=== PATIENT | female | born 1960 | race Caucasian/White ===

== ENCOUNTER 2017-01-16 19:41 | Emergency (ER) | payer BC, OTHER ==
[~2017-01-16] VITALS: Wt 137.0 kg
[~2017-01-16 19:41] MED LIST: ADV50050 INHALATION; ALBU90AE INHALATION; ASPI-664 PO; AZIT250T94 PO; BUPR100T14 PO; ENAL5TAB PO; FLUO20CA22 PO; FURO20TA3 PO; GABA-526 PO; HYD25 PO; HYDR-762 PO; ISOS10TA2 PO; LANT3I SC; METF500T4 PO; METR500T PO; MORP-58 PO; NOVO3I SC; NYST15CR28 TOP; TIOT18CA INHALATION; ZOLP5TAB7 PO
[2017-01-16] MEDS ORDERED: ONDANSETRON (ODT) 4 MG TAB ODT STA (21:24)
[2017-01-16] MEDS ORDERED: HYDROCODONE/APAP (10/325) TAB PO ONE (21:30)
--- NOTE | 2017-01-16 22:15 | RADRPT ---
PROCEDURE: Lumbar spine. CLINICAL INDICATION: Low back pain. TECHNIQUE: Three views including AP, lateral and cone-down lateral view of the lumbar spine were obtained. COMPARISON: None. FINDINGS: There is no acute fracture or subluxation. Lumbar vertebral body heights and alignment are within n ormal limits. There is mild loss of disk height at L2-L3, L3-L4, L4-L5 and L5-S1 with small anterio r marginal osteophytes present. There is multilevel facet degenerative changes. There is diffuse d emineralization. IMPRESSION: No evidence of fracture or subluxation. Mild to moderate lumbar spondylosis. Osteopenia. .Joey Prado MD, Date Time Electronically viewed and signed by .Joey Prado MD, MD on 01/16/2017 22:14 .T/
--- NOTE | 2017-01-16 22:20 | RADRPT ---
PROCEDURE: Right foot. CLINICAL INDICATION: Pain. TECHNIQUE: Three views including AP, lateral and oblique views of the right foot were obtained. The images were reviewed on a PACS workstation. COMPARISON: None. FINDINGS: There is no fracture, dislocation or bone destruction. The joint spaces are within normal limits. Bone mineralization is within normal limits. There is a plantar calcaneal spur. There is a 7 mm valeriy ear radiodensity within the plantar soft tissues at the level of the distal third metatarsal. IMPRESSION: No evidence of fracture. Linear foreign body within the plantar soft tissues at the level of the distal third metatarsal. Cli nically correlate. Calcaneal spur. .Joey Prado MD, Date Time Electronically viewed and signed by .Joey Prado MD, on 01/16/2017 22:20 .T/
--- NOTE | 2017-01-16 22:54 | RADRPT ---
PROCEDURE: US Abdomen (limited). CLINICAL INDICATION: Trauma. Abdominal pain. TECHNIQUE: Multiple real-time longitudinal and transverse images of the four quadrants of the abdo men were acquired utilizing a curved array transducer. Images were reviewed on a high-resolution PAC S workstation. COMPARISON: None FINDINGS: There is no free fluid in the abdomen. IMPRESSION: 1. No free fluid in the abdomen. RPTAT: QQ .Ron Thomas MD, MD Date Time Electronically viewed and signed by .Ron Thomas MD, on 01/16/2017 22:54 .R/
[2017-01-16] MEDS ORDERED: IBUP-1542 PO (23:09)
[2017-01-16 23:16] VITALS: BP 109/57; PULSE 86; RESP 20; TEMP 97.8
--- NOTE | 2017-01-20 15:31 | ERD ---
ER Documentation Chief Complaint Date/Time DATE: 01/20/17 TIME: 15:27 Chief Complaint Fell on the stairs. back pain x4 hours. HPI This patient is a 56-year-old female presenting to the emergency department for left-sided lower paraspinal lumbar pain which occurred after fall backwards onto the stairs approximately 5 hours ago. She also reports right foot pain which occurred during the accident. Symptoms are currently severe according the patient. She denies head injury, loss of consciousness, or other injuries or symptoms. ROS All systems reviewed and are negative except as per history of present illness. Medications Home Meds Active Scripts Ibuprofen* (Motrin*) 600 Mg Tab, 600 MG PO Q6, #30 TAB Prov:AILYN VIZCARRA PA-C 01/16/17 Azithromycin* (Zithromax*) 250 Mg Tablet, 250 MG PO .RkPACK DIRECTED, #6 TAB TAKE 500 MG (2 TABS) THE FIRST DAY THEN 250 MG (1 TAB) DAYS 2-5 Prov:MIKHAIL FRANCIS MD 05/13/16 Furosemide* (Furosemide*) 20 Mg Tablet, 20 MG PO DAILY, #60 TAB Prov:CEVALLOS,FELISHA V. FILLING STATION LABORER 04/16/16 Metronidazole* (Flagyl*) 500 Mg Tablet, 500 MG PO Q8 for 7 Days, TAB Prov:CEVALLOS,FELISHA V. FILLING STATION LABORER 04/16/16 Insulin Aspart* (Novolog Insulin Pen*) 100 Unit/Ml Soln, 20 UNIT SC WITH MEALS for 30 Days Prov:CEVALLOS,FELISHA V. FILLING STATION LABORER 04/16/16 Insulin Glargine* (Lantus*) 100 Unit/Ml Soln, 42 UNIT SC Q12 for 30 Days Prov:CEVALLOSFELISHA V. FILLING STATION LABORER 04/16/16 Reported Medications Nystatin* (Nystatin*) 15 Gm Cr, 1 APPLIC TOP BID, #1 TUB 04/09/16 Tiotropium [place]* (Spiriva*) 18 Mcg Cap.w.dev, 1 CAP INHALATION DAILY, #30 CAP 04/09/16 Salmeterol Xinaf-Fluticasone* (Advair*) 500/50 Diskus Inhaler, 1 INH INHALATION BID, #1 INHALER 04/09/16 Albuterol Sulfate (Proair Respiclick) 90 Mcg Aer.pow.ba, 2 PUFFS INHALATION Q4, BOTTLE 04/09/16 Morphine Sulfate* (Oramorph SR*) 30 Mg Tablet.sa, 30 MG PO BID, TAB.SA 04/09/16 Hydrocodone Bit-Acetaminophen* ([place]*) 10-325 Mg Tablet, 1 TAB PO TID Y for PAIN, TAB 04/09/16 Hydrochlorothiazide* (Hydrochlorothiazide*) 25 Mg Tab, 25 MG PO DAILY, #30 TAB 04/09/16 Fluoxetine Hcl* (Fluoxetine Hcl*) 20 Mg Capsule, 60 MG PO DAILY, CAP 04/09/16 Aspirin* (Aspirin* EC) 81 Mg Tablet.dr, 81 MG PO DAILY, TAB 04/09/16 Zolpidem Tartrate* (Zolpidem Tartrate*) 5 Mg Tablet, 5 MG PO QHS Y for INSOMNIA , #30 TAB 04/09/16 Isosorbide Dinitrate* (Isosorbide Dinitrate*) 10 Mg Tablet, 10 MG PO DAILY, TAB 04/09/16 Enalapril Maleate* (Enalapril Maleate*) 5 Mg Tablet, 5 MG PO DAILY, TAB 04/09/16 Bupropion Hcl* (Bupropion Hcl*) 100 Mg Tablet, 100 MG PO BID, TAB 04/09/16 Metformin* (Glucophage*) 500 Mg Tab, 1000 MG PO WITH LUNCH DINNER, #60 TAB 04/09/16 Gabapentin* (Gabapentin*) 600 Mg Tablet, 1800 MG PO TID, #180 TAB 04/09/16 Allergies Allergies: Coded Allergies: No Known Allergy (Unverified , 05/13/16) PMhx/Soc History of Surgery: Yes (csections) Anesthesia Reaction: No Hx Neurological Disorder: Yes (back pain) Hx Respiratory Disorders: Yes (copd, pna) Hx Cardiac Disorders: Yes (htn, high cholesterol) Hx Psychiatric Problems: Yes (depression/anxiety) Hx Alcohol Use: No Hx Substance Use: No Hx Tobacco Use: Yes Smoking Status: Current some day smoker Physical Exam Vitals Vital Signs Date Time Temp Pulse Resp B/P Pulse Ox O2 Delivery O2 Flow Rate FiO2 01/16/17 23:16 97.8 86 20 109/57 96 Room Air 01/16/17 19:51 100.3 110 24 103/54 95 Physical Exam Const: The patient is resting comfortably in no acute distress. Morbid obese body habitus noted. Head: Atraumatic Eyes: Normal Conjunctiva ENT: Normal External Ears, Nose and Mouth. Neck: Full range of motion..~ No meningismus. Resp: Clear to auscultation bilaterally Cardio: Regular rate and rhythm, no murmurs Abd: Soft, non tender, non distended. Normal bowel sounds Skin: No petechiae or rashes Back: No midline or flank tenderness. The patient has some tenderness palpation of the paraspinal muscles of the lumbar spine on the left. Positive straight leg raise on the left. Ext: No cyanosis, or edema. The patient does have some tenderness palpation of the second, third, and fourth toes on the right foot but no obvious deformity. Neur: Awake and alert Psych: Normal Mood and Affect Results 24 hrs Current Medications Medications (Trade) Dose Ordered Sig/Norma Route PRN Reason Start Time Stop Time Status Last Admin Dose Admin Acetaminophen/ Hydrocodone Bitart ([place] (10/325)) 1 tab ONCE ONCE PO 01/16/17 21:30 01/16/17 21:31 DC 01/16/17 21:33 Ondansetron HCl (Zofran Odt) 4 mg ONCE STAT ODT 01/16/17 21:24 01/16/17 21:26 DC 01/16/17 21:32 [place] [address] Radiology Main Line: [phone] DIAGNOSTIC IMAGING REPORT Patient: AMINA MERCADO : 1960 Age: 56 Sex: F MR #: [id number] DOS: 01/16/17 0000 Ordering MD: AILYN VIZCARRA PA-C Location: [facility] Room/Bed: PROCEDURE: US Abdomen (limited). CLINICAL INDICATION: Trauma. Abdominal pain. TECHNIQUE: Multiple real-time longitudinal and transverse images of the four quadrants of the abdomen were acquired utilizing a curved array transducer. Images were reviewed on a high-resolution PACS workstation. COMPARISON: None FINDINGS: There is no free fluid in the abdomen. IMPRESSION: 1. No free fluid in the abdomen. RPTAT: QQ .Ron Thomas MD, Date Time Electronically viewed and signed by .Ron Thomas MD, MD on 01/16/2017 22:54 .R/ CC: AILYN VIZCARRA PA-C [place] [address] Radiology Main Line: [phone] DIAGNOSTIC IMAGING REPORT Patient: AMINA MERCADO : 1960 Age: 56 Sex: F MR #: [id number] DOS: 01/16/17 0000 Ordering MD: AILYN VIZCARRA PA-C Location: [facility] Room/Bed: PROCEDURE: Right foot. CLINICAL INDICATION: Pain. TECHNIQUE: Three views including AP, lateral and oblique views of the right foot were obtained. The images were reviewed on a PACS workstation. COMPARISON: None. FINDINGS: There is no fracture, dislocation or bone destruction. The joint spaces are within normal limits. Bone mineralization is within normal limits. There is a plantar calcaneal spur. There is a 7 mm linear radiodensity within the plantar soft tissues at the level of the distal third metatarsal. IMPRESSION: No evidence of fracture. Linear foreign body within the plantar soft tissues at the level of the distal third metatarsal. Clinically correlate. Calcaneal spur. .Joey Prado MD, MD Date Time Electronically viewed and signed by .Joey Prado MD, MD on 01/16/2017 22:20 .T/ CC: AILYN VIZCARRA PA-C [place] [address] Radiology Main Line: [phone] DIAGNOSTIC IMAGING REPORT Patient: AMINA MERCADO : 1960 Age: 56 Sex: F MR #: [id number] DOS: 01/16/17 0000 Ordering MD: AILYN VIZCARRA PA-C Location: [facility] Room/Bed: PROCEDURE: Lumbar spine. CLINICAL INDICATION: Low back pain. TECHNIQUE: Three views including AP, lateral and cone-down lateral view of the lumbar spine were obtained. COMPARISON: None. FINDINGS: There is no acute fracture or subluxation. Lumbar vertebral body heights and alignment are within normal limits. There is mild loss of disk height at L2-L3 , L3-L4, L4-L5 and L5-S1 with small anterior marginal osteophytes present. There is multilevel facet degenerative changes. There is diffuse demineralization. IMPRESSION: No evidence of fracture or subluxation. Mild to moderate lumbar spondylosis. Osteopenia. .Joey Prado MD, MD Date Time Electronically viewed and signed by .Joey Prado MD, MD on 01/16/2017 22:14 .T/ CC: AILYN VIZCARRA PA-C Procedures/MDM This patient is a 56-year-old female who fell backwards onto her stairs approximately 5 hours prior to arrival. On physical examination the patient's vitals are within normal limits. The patient does have some tenderness palpation of the paraspinal muscles of the L-spine on the left side. Patient does have some tenderness palpation of the toes on the right. The patient was given p.o. Lenora and p.o. Zofran in the department and she was feeling improved on reevaluation. X-rays were negative for acute fracture. There was a foreign body found in the right foot which the patient does know about from a previous x -ray and she was re-informed of this finding and was advised to have close follow-up with the primary care physician. No obvious foreign body was identified or palpated during examination of the right foot. I have low suspicion for fracture, cauda equina, or other emergent conditions. The patient is stable for outpatient management with a prescription for ibuprofen. Her questions and concerns were addressed. Strict ER return precautions were discussed and the patient states good understanding. The patient is to have close follow-up with the primary care physician. Departure Diagnosis: Primary Impression: Fall (on) (from) other stairs and steps, initial encounter Condition: Fair Patient Instructions: Preventing Falls: Are You At Risk of Falling? Referrals: COMM[facility]ITY CL[facility] YOU HAVE RECEIVED A MEDICAL SCREENING EXAM AND THE RESULTS INDICATE THAT YOU DO NOT HAVE A CONDITION THAT REQUIRES URGENT TREATMENT IN THE EMERGENCY DEPARTMENT. FURTHER EVALUATION AND TREATMENT OF YOUR CONDITION CAN WAIT UNTIL YOU ARE SEEN IN YOUR DOCTORS OFFICE WITHIN THE NEXT 1-2 DAYS. IT IS YOUR RESPONSIBILITY TO MAKE AN APPOINTMENT FOR FOL-UP CARE. IF YOU HAVE A PRIMARY DOCTOR --you should call your primary doctor and schedule an appointment IF YOU DO NOT HAVE A PRIMARY DOCTOR YOU CAN CALL OUR PHYSICIAN REFERRAL HOTLINE AT IF YOU CAN NOT AFFORD TO SEE A PHYSICIAN YOU CAN CHOSE FROM THE FOLLOWING [facility] [address]. [facility] [address] [facility] [address] [facility] [address] [facility] [address] [facility] [facility]. [address] [place] Additional Instructions: Follow up with your PCP within the next 1-3 days for a repeat evaluation and a possible referral to a specialist, if required. Return the the emergency department immediately if symptoms worsen or change. If you have any questions regarding medications, ask your pharmacist or us before you leave. If any adverse reactions, occur while taking your medications, discontinue the treatment and return to the emergency department immediately. If any new or worsening symptoms, uncontrolled fevers, or other unexplained symptoms occur, return to the emergency department immediately. Take your medications as directed, and complete the entire course of treatment. AILYN VIZCARRA PA-C January 20, 2017 15:31
== END 2017-01-16 23:38 | disposition home or self-care (01) ==
LOC: FTE 19:41
DX: S39.92XA Unspecified injury of lower back, initial encounter (principal); J44.9 Chronic obstructive pulmonary disease, unspecified; I10 Essential (primary) hypertension; F17.210 Nicotine dependence, cigarettes, uncomplicated; E11.9 Type 2 diabetes mellitus without complications; W10.9XXA Fall (on) (from) unspecified stairs and steps, initial encounter; Y92.9 Unspecified place or not applicable; Z79.4 Long term (current) use of insulin; Z79.84 Long term (current) use of oral hypoglycemic drugs; Z79.82 Long term (current) use of aspirin
CPT/HCPCS: 72100; 73630; 76700; Z7610

== ENCOUNTER 2017-02-14 21:11 | Inpatient (IN) | payer OTHER ==
[~2017-02-14] VITALS: Ht 177.8 cm; Wt 139.6 kg
[~2017-02-14 21:11] MED LIST changes: +IBUP-1542 PO
[2017-02-14] MEDS ORDERED: SOD CHLORIDE 0.9% 1,000 ML IV STA (21:25)
[2017-02-14] MEDS ORDERED: ONDANSETRON 4 MG INJ IV STA (22:07)
[2017-02-14] MEDS ORDERED: morphine 4 MG/ML VIAL IV STA ×2 (22:07→23:37)
[2017-02-14 22:17] LABS: ADD SCAN DIFF NO
[2017-02-14 22:21] LABS: BASOPHIL # 0.1 10^3/ul (0.0-0.1); BASOPHILS % 0.7 % (0.0-2.0); EOSINOPHILS # 0.4 10^3/ul (0.0-0.5); EOSINOPHILS % 4.2 % (0.0-7.0); HEMATOCRIT 38.7 % (37.0-47.0); LYMPHOCYTES # 3.2 10^3/ul (0.8-2.9); LYMPHOCYTES % 38.4 % (15.0-51.0); MEAN CORPUSCULAR HEMOGLOBIN 27.3 pg (29.0-33.0); MEAN CORPUSCULAR VOLUME 88.2 fl (82.0-101.0); MEAN PLATELET VOLUME 11.1 fl (7.4-10.4); MONOCYTE # 0.8 10^3/ul (0.3-0.9); MONOCYTES % 9.7 % (0.0-11.0); NEUTROPHIL # 3.9 10^3/ul (1.6-7.5); NEUTROPHILS % 46.8 % (39.0-77.0); PLATELET COUNT 308 10^3/UL (140-415); RED BLOOD COUNT 4.39 10^6/ul (4.20-5.40); RED CELL DISTRIBUTION WIDTH 15.8 % (11.5-14.5); WHITE BLOOD COUNT 8.3 10^3/ul (4.8-10.8)
[2017-02-14 22:24] LABS: ADD UMIC YES; UR BILIRUBIN (Dip) NEGATIVE (NEGATIVE); UR BLOOD (Dip) TRACE (NEGATIVE); UR CLARITY CLEAR (CLEAR); UR COLOR LT. YELLOW (YELLOW); UR GLUCOSE (Dip) >=1000 % (NEGATIVE); UR KETONES (Dip) NEGATIVE (NEGATIVE); UR LEUKOCYTE ESTERASE (Dip) NEGATIVE (NEGATIVE); UR NITRITE (Dip) NEGATIVE (NEGATIVE); UR TOTAL PROTEIN (Dip) NEGATIVE (NEGATIVE); UR UROBILINOGEN (Dip) 0.2 E.U./dL (0.1-1.0)
--- NOTE | 2017-02-14 22:25 | RADRPT ---
PROCEDURE: Chest. CLINICAL INDICATION: Shortness of breath. TECHNIQUE: Single frontal view of the chest was obtained. COMPARISON: 05/03/2016. FINDINGS: The cardiac silhouette is magnified. The aortic arch is unremarkable. There is no focal consolidat ion, vascular congestion or pleural effusion. There is no pneumothorax. IMPRESSION: No evidence for active cardiopulmonary disease. .Joey Prado MD, Date Time Electronically viewed and signed by .Joey Prado MD, MD on 02/14/2017 22:25 .T/
[2017-02-14 22:33] LABS: UR BACTERIA RARE
[2017-02-14 22:45] LABS: ALANINE AMINOTRANSFERASE 22 IU/L (13-69); ALKALINE PHOSPHATASE 137 IU/L (42-121); ANION GAP 16 (8-16); ASPARTATE AMINO TRANSFERASE 12 IU/L (15-46); BLOOD UREA NITROGEN 17 mg/dl (7-20); CALCIUM 9.2 mg/dl (8.4-10.2); CARBON DIOXIDE 24 mmol/L (21-31); CHLORIDE 95 mmol/L (97-110); CREATININE 0.71 mg/dl (0.44-1.00); POTASSIUM 3.3 mmol/L (3.5-5.1); SODIUM 132 mmol/L (135-144)
[2017-02-14 22:50] LABS: GLUCOSE 616 mg/dl (70-220)
[2017-02-14 22:59] LABS: TROPONIN-I < 0.012 ng/ml (0.00-0.12)
[2017-02-14] MEDS ORDERED: CEFEPIME 2GM/50 ML (PMX) 50 ML IVPB STA (23:37)
[2017-02-14] MEDS ORDERED: SODIUM CHLORIDE 0.9% 1L BAG IV* STA (23:37)
[2017-02-15] MEDS ORDERED: VANCOMYCIN 1 GM (PMX) 250 ML IVPB ONE
--- NOTE | 2017-02-15 01:46 | ERA ---
ER Documentation Chief Complaint Date/Time DATE: 02/15/17 TIME: 01:43 Chief Complaint c/o high blood sugar, generalize body weakness x 1 day HPI This is a very pleasant 56 year female comes in because of elevated blood sugars and generalized body weakness for 1 day. Denies any fevers or chills. Denies any sick contacts. Denies polyuria polydipsia polyphagia. Does complain of some generalized body pain as well. No evidence of trauma. No other current complaints. ROS All systems reviewed and are negative except as per history of present illness. Medications Home Meds Active Scripts Ibuprofen* (Motrin*) 600 Mg Tab, 600 MG PO Q6, #30 TAB Prov:AILYN VIZCARRA PA-C 01/16/17 Azithromycin* (Zithromax*) 250 Mg Tablet, 250 MG PO .ZPACK DIRECTED, #6 TAB TAKE 500 MG (2 TABS) THE FIRST DAY THEN 250 MG (1 TAB) DAYS 2-5 Prov:MIKHAIL FRANCIS MD 05/13/16 Furosemide* (Furosemide*) 20 Mg Tablet, 20 MG PO DAILY, #60 TAB Prov:CEVALLOSFELISHA V. AGENCY DIRECTOR 04/16/16 Metronidazole* (Flagyl*) 500 Mg Tablet, 500 MG PO Q8 for 7 Days, TAB Prov:CEVALLOSFELISHA V. AGENCY DIRECTOR 04/16/16 Insulin Aspart* (Novolog Insulin Pen*) 100 Unit/Ml Soln, 20 UNIT SC WITH MEALS for 30 Days Prov:FELISHA CEVALLOS V. AGENCY DIRECTOR 04/16/16 Insulin Glargine* (Lantus*) 100 Unit/Ml Soln, 42 UNIT SC Q12 for 30 Days Prov:FELISHA CEVALLOS V. AGENCY DIRECTOR 04/16/16 Reported Medications Nystatin* (Nystatin*) 15 Gm Cr, 1 APPLIC TOP BID, #1 TUB 04/09/16 Tiotropium [place]* (Spiriva*) 18 Mcg Cap.w.dev, 1 CAP INHALATION DAILY, #30 CAP 04/09/16 Salmeterol Xinaf-Fluticasone* (Advair*) 500/50 Diskus Inhaler, 1 INH INHALATION BID, #1 INHALER 04/09/16 Albuterol Sulfate (Proair Respiclick) 90 Mcg Aer.pow.ba, 2 PUFFS INHALATION Q4, BOTTLE 04/09/16 Morphine Sulfate* (Oramorph SR*) 30 Mg Tablet.sa, 30 MG PO BID, TAB.SA 04/09/16 Hydrocodone Bit-Acetaminophen* ([place]*) 10-325 Mg Tablet, 1 TAB PO TID Y for PAIN, TAB 04/09/16 Hydrochlorothiazide* (Hydrochlorothiazide*) 25 Mg Tab, 25 MG PO DAILY, #30 TAB 04/09/16 Fluoxetine Hcl* (Fluoxetine Hcl*) 20 Mg Capsule, 60 MG PO DAILY, CAP 04/09/16 Aspirin* (Aspirin* EC) 81 Mg Tablet.dr, 81 MG PO DAILY, TAB 04/09/16 Zolpidem Tartrate* (Zolpidem Tartrate*) 5 Mg Tablet, 5 MG PO QHS Y for INSOMNIA , #30 TAB 04/09/16 Isosorbide Dinitrate* (Isosorbide Dinitrate*) 10 Mg Tablet, 10 MG PO DAILY, TAB 04/09/16 Enalapril Maleate* (Enalapril Maleate*) 5 Mg Tablet, 5 MG PO DAILY, TAB 04/09/16 Bupropion Hcl* (Bupropion Hcl*) 100 Mg Tablet, 100 MG PO BID, TAB 04/09/16 Metformin* (Glucophage*) 500 Mg Tab, 1000 MG PO WITH LUNCH DINNER, #60 TAB 04/09/16 Gabapentin* (Gabapentin*) 600 Mg Tablet, 1800 MG PO TID, #180 TAB 04/09/16 Allergies Allergies: Coded Allergies: No Known Allergy (Unverified , 02/14/17) PMhx/Soc History of Surgery: Yes (csections) Anesthesia Reaction: No Hx Neurological Disorder: Yes (back pain) Hx Respiratory Disorders: Yes (copd, pna) Hx Cardiac Disorders: Yes (htn, high cholesterol) Hx Psychiatric Problems: Yes (depression/anxiety) Hx Alcohol Use: No Hx Substance Use: No Hx Tobacco Use: Yes Smoking Status: Unknown if ever smoked Physical Exam Vitals Vital Signs Date Time Temp Pulse Resp B/P Pulse Ox O2 Delivery O2 Flow Rate FiO2 02/14/17 23:30 95 24 123/75 95 Nasal Cannula 3.0 02/14/17 21:15 98.5 101 20 134/76 96 Physical Exam Const: [] Head: Atraumatic Eyes: Normal Conjunctiva ENT: Normal External Ears, Nose and Mouth. Neck: Full range of motion..~ No meningismus. Resp: Clear to auscultation bilaterally Cardio: Regular rate and rhythm, no murmurs Abd: Soft, non tender, non distended. Normal bowel sounds Skin: No petechiae or rashes Back: No midline or flank tenderness Ext: No cyanosis, or edema Neur: Awake and alert Psych: Normal Mood and Affect Result Diagram: 02/14/17213102/14/172131 Results 24 hrs Laboratory Tests Test 02/14/17 21:18 02/14/17 21:32 02/14/17 21:37 02/14/17 21:43 Bedside Glucose > 595mg/dL 523mg/dL White Blood Count 8.310^3/ul Red Blood Count 4.3910^6/ul Hemoglobin 12.0g/dl Hematocrit 38.7% Mean Corpuscular Volume 88.2fl Mean Corpuscular Hemoglobin 27.3pg Mean Corpuscular Hemoglobin Concent 31.0g/dl Red Cell Distribution Width 15.8% Platelet Count 98443^3/UL Mean Platelet Volume 11.1fl Neutrophils % 46.8% Lymphocytes % 38.4% Monocytes % 9.7% Eosinophils % 4.2% Basophils % 0.7% Nucleated Red Blood Cells % 0.0/100WBC Neutrophils # 3.910^3/ul Lymphocytes # 3.210^3/ul Monocytes # 0.810^3/ul Eosinophils # 0.410^3/ul Basophils # 0.110^3/ul Nucleated Red Blood Cells # 0.010^3/ul Sodium Level 132mmol/L Potassium Level 3.3mmol/L Chloride Level 95mmol/L Carbon Dioxide Level 24mmol/L Anion Gap 16 Blood Urea Nitrogen 17mg/dl Creatinine 0.71mg/dl Glucose Level 616mg/dl Calcium Level 9.2mg/dl Total Bilirubin 0.0mg/dl Direct Bilirubin 0.00mg/dl Indirect Bilirubin 0.0mg/dl Aspartate Amino Transf (AST/SGOT) 12IU/L Alanine Aminotransferase (ALT/SGPT) 22IU/L Alkaline Phosphatase 137IU/L Troponin I < 0.012ng/ml Total Protein 6.0g/dl Albumin 4.0g/dl Globulin 2.00g/dl Albumin/Globulin Ratio 2.00 Urine Color LT. YELLOW Urine Clarity CLEAR Urine pH 6.0 Urine Specific [place] <=1.005 Urine Ketones NEGATIVE Urine Nitrite NEGATIVE Urine Bilirubin NEGATIVE Urine Urobilinogen 0.2 E.U./dL Urine Leukocyte Esterase NEGATIVE Urine Microscopic RBC 2-5/HPF Urine Microscopic WBC NONE SEEN/HPF Urine Epithelial Cells RARE Urine Bacteria RARE Urine Hemoglobin TRACE Urine Glucose >=1000% Urine Total Protein NEGATIVE Lactic Acid Level 4.6mmol/L Test 02/14/17 23:06 02/14/17 23:25 Bedside Glucose 456mg/dL Lactic Acid Level 2.2mmol/L Current Medications Medications (Trade) Dose Ordered Sig/Norma Route PRN Reason Start Time Stop Time Status Last Admin Dose Admin Sodium Chloride (NS) 1,000 ml @ 1,000 mls/hr Q1H STAT IV 02/14/17 21:25 02/14/17 22:24 DC 02/14/17 21:51 Morphine Sulfate (morphine) 4 mg ONCE STAT IV 02/14/17 22:07 02/14/17 22:09 DC 02/14/17 22:13 Ondansetron HCl (Zofran Inj) 4 mg ONCE STAT IV 02/14/17 22:07 02/14/17 22:09 DC 02/14/17 22:14 Sodium Chloride 4020 ml 4,020 ml BOLUS OVER 2 HOURS STAT IV* 02/14/17 23:37 02/14/17 23:46 DC 02/15/17 00:06 Cefepime HCl 50 ml @ 100 mls/hr ONCE STAT IVPB 02/14/17 23:37 02/15/17 00:06 DC 02/15/17 00:06 Vancomycin HCl (Vancocin) 250 ml @ 125 mls/hr ONCE ONCE IVPB 02/15/17 00:00 02/15/17 01:59 Morphine Sulfate (morphine) 4 mg ONCE STAT IV 02/14/17 23:37 02/14/17 23:46 DC 02/15/17 00:06 Lorazepam (Ativan) 1 mg ONCE ONCE IV 02/15/17 00:00 02/15/17 00:01 DC 02/15/17 00:06 Procedures/MDM EKG: Rate/Rhythm: [Normal Sinus Rhythm] QRS, ST, T-waves: [No changes consistent w/ acute ischemia] Impression: [No evidence of ischemia or arrhythmia] Chest X-ray 1V Interpreted by me: Soft Tissue: No acute abnormalities Bones: No acute abnormalities Mediastinum/Cardiac Silhouette/Lungs: [No acute abnormalities] Patient's infectious symptoms have not stabilized and the patient is at risk of rapid decompensation. The patient will be admitted for careful hydration, antibiotic therapy, and infectious source control. Severe Sepsis Assessment: Infectious Source: Unknown End organ damage indicated by: [Lactate > 2.0 mmol/L Severe Sepsis Managment: Blood Cultures X 2 before broad spectrum antibiotics initiated within 3 hours of recognition. 30 ml/kg NS bolus Completed Initial Lactate: 4.6 Repeat Lactate 2.2 Critical Care: Time: 45 minutes Treatments/Evaluations: Emergent fluid management, while maintaining close respiratory support. Immediate broad spectrum antibiotic therapy. Simultaneous assessment for possible sources in order to direct therapy. Consideration for invasive and chemical support to prevent respiratory or cardiac collapse. Septic Shock Assessment (1 hour post 30 ml/kg fluid bolus): Hypotension (SBP < 90 or 40 mmHg drop, MAP < 65): [No] Lactic acid > 4.0 [No] Accepting Care Team: Current data and ongoing care discussed. Time: 1 AM Primary Provider: Dr. Sanchez Consulting: None Outstanding Data: none Departure Diagnosis: Primary Impression: Hyperglycemia Additional Impressions: Sepsis Qualified Code: A41.9 - Sepsis, due to unspecified organism Lactic acidosis Condition: Serious AILYN SOFIA Feb 15, 2017 01:46
[2017-02-15] MEDS ORDERED: ALBUTEROL/IPRATROPIUM (NEB) 3 ML AMP HHN PRN (03:30)
[2017-02-15] MEDS ORDERED: NACL 0.9% 3 ML SYG IV SCH (04:00)
[2017-02-15] MEDS ORDERED: SOD CHLORIDE 0.9% 1,000 ML IV SCH (04:00)
[2017-02-15] MEDS ORDERED: ZOLPIDEM 5 MG TAB PO PRN (04:00)
[2017-02-15] MEDS ORDERED: ONDANSETRON 4 MG INJ IV PRN (04:00)
[2017-02-15] MEDS ORDERED: BISACODYL 10 MG SUPP PR PRN (04:00)
[2017-02-15] MEDS ORDERED: GLUCOSE GEL 15 GRAM TUBE BUCCAL PRN (04:30)
[2017-02-15] MEDS ORDERED: GLUCAGON 1 MG INJ IM PRN (04:30)
[2017-02-15] MEDS ORDERED: GLUCOSE GEL 15 GRAM TUBE PO PRN ×2 (04:30)
[2017-02-15] MEDS ORDERED: DEXTROSE 50% 50 ML SYRINGE IV PRN ×2 (04:30)
[2017-02-15] MEDS: ALBUTEROL 18 GM INHALER INH SCH ×5 (05:00→20:27)
[2017-02-15] MEDS ORDERED: NON-FORMULARY/PATIENT OWN MED (Albuterol Sulfate (Proair Respiclick) 2 PUFFS) INHALATION SCH (05:00)
[2017-02-15] MEDS ORDERED: morphine 4 MG/ML VIAL IV STA (06:07)
[2017-02-15] MEDS: PANTOPRAZOLE 40 MG INJ IV SCH (06:19)
[2017-02-15] MEDS: FUROSEMIDE 20 MG TAB PO SCH (06:20)
[2017-02-15] MEDS: HEPARIN 5,000 UNIT/0.5 ML VIAL SC SCH ×3 (06:26→21:46)
[2017-02-15] MEDS ORDERED: LORAZEPAM 2 MG INJ IV ONE ×2 (06:30)
[2017-02-15 07:42] VITALS: TEMP 98.1
[2017-02-15] MEDS ORDERED: METF1000 PO (07:44)
[2017-02-15] MEDS ORDERED: NOVO3I SC (07:44)
[2017-02-15] MEDS ORDERED: INSU300I SQ (07:44)
[2017-02-15] MEDS ORDERED: TRAZ50TA18 PO (07:48)
[2017-02-15] MEDS ORDERED: CLON-412 PO (07:48)
[2017-02-15] MEDS ORDERED: MOME13HF2 INHALATION (07:48)
[2017-02-15] MEDS ORDERED: BACL10TA PO (07:49)
[2017-02-15] MEDS: INSULIN ASPART [NOVOLOG] 3 ML PEN SC SCH ×6 (08:00→20:30)
--- NOTE | 2017-02-15 08:35 | HP ---
Date/Time of Note Date/Time of Note DATE: 02/15/17 TIME: 08:27 Assessment/Plan VTE Prophylaxis VTE Prophylaxis Intervention: heparin Assessment/Plan Chief Complaint/Hosp Course This is a 56-year-old female being admitted to the [facility] floor for: #1 Sirs: Patient came in tachypnea and tachycardia. No overt source of infection identified at this time. We will continue to follow #2 lactic acidosis: Likely secondary to hyperglycemia and dehydration. Patient initially presented with a lactic acid of 4.5 however subsequently after receiving IV fluids her lactate levels improved. Will continue IV fluid resuscitation. #3 COPD exacerbation: Patient does appear to be in mild respiratory distress at this time. Will provide duonebs every 4 hours. At the current time will hold off on steroids as patient is having persistent hyperglycemia also blood sugars are better controlled and if patient is continuing to have respiratory issues will consider burst of steroids. Patient also stated that she has had cough and productive sputum. Will patient on Levaquin though there is no signs of pneumonia on the x-ray. Continue home inhalers #4 persistent hyperglycemia: Patient bicarb is within normal values and no ketones in the urine so she is likely not in DKA. Will get a hemoglobin A1c. Continue IV fluid resuscitation. Initiate insulin sliding scale. Continue home diabetes insulin regimen. #5 diabetes: Check A1c, continue home diabetes medication, insulin sliding scale #6 hypertension: Continue home medications monitor blood pressure #7 DVT and GI prophylaxis: Heparin subcu, Protonix Further treatment strategy implemented as per the clinical course Problems: HPI/ROS Admit Date/Time Admit Date/Time Hx of Present Illness Chief complaint: Elevated blood sugars and generalized body weakness This is a 56-year-old female coming in today complaining of not feeling well for the past few days. She states that she has been slightly short of breath. She also has noticed that her blood sugars are elevated. She states that she had upper respiratory illness for the last few weeks. She states that she has a cough productive of sputum. She also stated that she was dealing with some diarrhea which has resolved. Hard appetite has been decreased. She denies any urinary frequency. Denies any chest pain. States she had some possible subjective fevers. Denies any wheezing. Allergies: NKDA Medications: See MAR ROS Const: As per HPI Eyes : No pain discharge or redness or change in visual acuity ENT: No pain, sore throat, congestion, congestion, dysphagia or discharge Respiratory: As per HPI Cardiovascular: No chest pain, palpitation, PND, or edema GI : no change in appetite, abdominal pain, nausea, vomiting, diarrhea, constipation, or change in the color his stool Genitourinary: No dysuria, hematuria, flank pain , discharge or CVA tenderness Musculoskeletal: No joint pain, back pain, neck pain, restricted range of motion in neck or joints Skin: No rash, bruising or hives Neuro: No headache, dizziness, syncope, seizure, focal weakness Endocrine: As per HPI Psych: No hallucination, depression, anxiety or suicidal ideation PMH/Family/Social Past Medical History Diabetes, hypertension, hyperlipidemia, CHF, COPD, neuropathy, exam Past Surgical History 2 Family History Significant Family History: no pertinent family hx Social History Alcohol Use: none Smoking Status: Current every day smoker (Half pack per day 30) Drug Use: none Exam/Review of Systems Vital Signs Vitals Vital Signs Date Time Temp Pulse Resp B/P Pulse Ox O2 Delivery O2 Flow Rate FiO2 02/15/17 07:42 98.1 80 18 139/91 98 Nasal Cannula 2.0 Exam Exam General: Patient is an obese female in mild respiratory distress. HEENT: Atraumatic, normocephalic. The pupils are equal, round and reactive. Extraocular motor are intact Neck: Supple with full range of motion. No rigidity or meningismus Chest: Nontender Lungs: Coarse breath sounds throughout the bilateral lung farrar, scattered rhonchi Heart: Normal S1-S2, Regular rhythm and rate. No murmur, S3, or S4 Abdomen: Soft , nontender, nondistended , bowel sounds are present. No guarding no rebound tenderness , No masses or organomegaly. Extremities: Normal to inspection, no edema no cyanosis Neurologic: Normal mental status, speech normal, cranial nerves II through XII are intact, motor and sensory are intact, no focal weakness Labs Result Diagram: 02/14/17213102/14/172131 Medications Medications Current Medications Sodium Chloride (NS) 1,000 ml @ 75 mls/hr [id number] IV ; Start 02/15/17 at 04:00 Ondansetron HCl (Zofran Inj) 4 mg Q6H PRN IV NAUSEA AND/OR VOMITING; Start at 04:00 Docusate Sodium (Colace) 100 mg Q12H PRN PO CONSTIPATION; Start 02/15/17 at 04: 00 Bisacodyl (Dulcolax Supp) 10 mg DAILY PRN [place] CONSTIPATION; Start 02/15/17 at 04 :00 Pantoprazole (Protonix Iv) 40 mg DAILY@06 IV Last administered on 02/15/17 06: 19; Admin Dose 40 MG; Start 02/15/17 at 06:00 Heparin Sodium (Porcine) (Heparin (5000 Units/0.5 ml)) 5,000 unit Q8 SC Last administered on 02/15/17 06:26; Admin Dose 5,000 UNIT; Start 02/15/17 at 06:00 Aspirin (Halfprin) 81 mg DAILY PO ; Start 02/15/17 at 09:00 Bupropion HCl (Wellbutrin) 100 mg BID PO ; Start 02/15/17 at 09:00 Enalapril Maleate (Vasotec) 5 mg DAILY PO ; Start 02/15/17 at 09:00 Fluoxetine HCl (Prozac) 60 mg DAILY PO ; Start 02/15/17 at 09:00 Furosemide (Lasix) 20 mg DAILY@06 PO Last administered on 02/15/17 06:20; Admin Dose 20 MG; Start 02/15/17 at 06:00 Gabapentin (Neurontin) 1,800 mg TID PO ; Start 02/15/17 at 09:00; Status UNV Hydrochlorothiazide (Hydrochlorothiazide) 25 mg DAILY PO ; Start 02/15/17 at 09: 00 Salmeterol Xinafoate/ Fluticasone (Advair 500/50 Diskus) 1 inh BID INH ; Start 02/15/17 at 09:00 Tiotropium [place] (Spiriva) 18 inh DAILY INH ; Start 02/15/17 at 09:00 Zolpidem Tartrate (Ambien) 5 mg QHS PRN PO INSOMNIA; Start 02/15/17 at 04:00 Albuterol (Ventolin Hfa) 2 puff Q4 INH ; Start 02/15/17 at 05:00 Diagnostic Test (Pha) (Accu-Chek) 1 ea 02 XX ; Start 02/16/17 at 02:00 Miscellaneous Information 1 ea NOTE XX ; Start 02/15/17 at 04:30 Glucose (Glutose) 15 gm Q15M PRN PO DECREASED GLUCOSE; Start 02/15/17 at 04:30 Glucose (Glutose) 22.5 gm Q15M PRN PO DECREASED GLUCOSE; Start 02/15/17 at 04: 30 Dextrose (D50w Syringe) 25 ml Q15M PRN IV DECREASED GLUCOSE; Start 02/15/17 at 04:30 Dextrose (D50w Syringe) 50 ml Q15M PRN IV DECREASED GLUCOSE; Start 02/15/17 at 04:30 Glucagon (Glucagen) 1 mg Q15M PRN IM DECREASED GLUCOSE; Start 02/15/17 at 04:30 Glucose (Glutose) 15 gm Q15M PRN BUCCAL DECREASED GLUCOSE; Start 02/15/17 at 04 :30 ISIAH MG Feb 15, 2017 08:35
[2017-02-15 08:50] VITALS: BP 124/77; PULSE 81; RESP 20; Ht 177.8 cm; Wt 139.6 kg
[2017-02-15] MEDS ORDERED: GABAPENTIN 300 MG CAP PO SCH (09:00)
[2017-02-15] MEDS ORDERED: NON-FORMULARY/PATIENT OWN MED (Mometasone-Formoterol (Dulera) 2 PUFFS) INHALATION SCH (09:00)
[2017-02-15] MEDS: ISOSORBIDE DINITRATE 10 MG TAB PO SCH (09:00)
[2017-02-15] MEDS ORDERED: [UNRECOGNIZED DRUG - OTHER] XX SCH (09:00)
[2017-02-15] MEDS ORDERED: INSULIN GLARGINE XX SCH (09:00)
[2017-02-15] MEDS: morphine (ER) 30 MG TAB PO SCH ×2 (09:44→20:27)
[2017-02-15] MEDS: FLUOXETINE 20 MG CAP PO SCH (09:44)
[2017-02-15] MEDS: BUPROPION 100 MG TAB PO SCH ×3 (09:44→21:42)
[2017-02-15] MEDS: BACLOFEN 10 MG TAB PO SCH ×3 (09:45→20:27)
[2017-02-15] MEDS: clonAZEPAM 0.5 MG TAB PO SCH ×2 (09:45→20:27)
[2017-02-15] MEDS: SALMETEROL/FLUTICASONE 500/50 INHA INH SCH ×2 (09:45→20:26)
[2017-02-15] MEDS: HYDROCHLOROTHIAZIDE 25 MG TAB PO SCH (09:45)
[2017-02-15] MEDS: ASPIRIN (EC) 81 MG TAB PO SCH (09:45)
[2017-02-15] MEDS: TIOTROPIUM 18 MCG CAPSULE INHA DEV INH SCH (09:46)
[2017-02-15] MEDS: ENALAPRIL 5 MG TAB PO SCH (09:47)
[2017-02-15] MEDS: SOD CHLORIDE 0.9% 1,000 ML IV SCH ×2 (12:05→21:30)
[2017-02-15] MEDS: HYDROCODONE/APAP (10/325) TAB PO PRN ×2 (15:08→21:42)
[2017-02-15] MEDS: NICOTINE (14 MG/24 HR) PATCH TRANSDERM SCH (19:25)
[2017-02-15 19:36] VITALS: BP 106/76; RESP 20
[2017-02-15] MEDS: traZODone 50 MG TAB PO SCH (20:27)
[2017-02-15] MEDS: INSULIN GLARGINE [LANtus] 3 ML PEN SC SCH (21:37)
[2017-02-15] MEDS: ACCUCHECK AT 2AM (Patients on SS coverage) XX SCH (22:29)
[2017-02-15] MEDS: morphine 4 MG/ML VIAL IV PRN (22:59)
[2017-02-16] MEDS: ALBUTEROL 18 GM INHALER INH SCH ×6 (01:39→20:19)
[2017-02-16] MEDS: morphine 4 MG/ML VIAL IV PRN ×5 (03:33→21:45)
[2017-02-16] MEDS: PANTOPRAZOLE 40 MG INJ IV SCH (06:08)
[2017-02-16] MEDS: FUROSEMIDE 20 MG TAB PO SCH (06:09)
[2017-02-16] MEDS: HEPARIN 5,000 UNIT/0.5 ML VIAL SC SCH ×3 (06:15→21:47)
[2017-02-16 06:29] LABS: ADD SCAN DIFF NO
[2017-02-16 06:40] LABS: BASOPHIL # 0.1 10^3/ul (0.0-0.1); BASOPHILS % 0.6 % (0.0-2.0); EOSINOPHILS # 0.4 10^3/ul (0.0-0.5); EOSINOPHILS % 4.4 % (0.0-7.0); HEMOGLOBIN 12.9 g/dl (12.0-16.0); LYMPHOCYTES # 2.9 10^3/ul (0.8-2.9); LYMPHOCYTES % 36.6 % (15.0-51.0); MEAN CORPUSCULAR HEMOGLOBIN 28.2 pg (29.0-33.0); MEAN CORPUSCULAR HGB CONC 31.5 g/dl (32.0-37.0); MEAN CORPUSCULAR VOLUME 89.7 fl (82.0-101.0); MEAN PLATELET VOLUME 10.9 fl (7.4-10.4); MONOCYTE # 0.7 10^3/ul (0.3-0.9); MONOCYTES % 9.2 % (0.0-11.0); NEUTROPHIL # 3.9 10^3/ul (1.6-7.5); NEUTROPHILS % 48.9 % (39.0-77.0); PLATELET COUNT 332 10^3/UL (140-415); RED BLOOD COUNT 4.57 10^6/ul (4.20-5.40); RED CELL DISTRIBUTION WIDTH 15.9 % (11.5-14.5)
[2017-02-16 07:03] LABS: ALBUMIN 3.8 g/dl (3.3-4.9); ALBUMIN/GLOBULIN RATIO 1.72; CALCIUM 8.5 mg/dl (8.4-10.2); CHOL/HDL RATIO 3.8 RATIO; CREATININE 0.55 mg/dl (0.44-1.00); POTASSIUM 3.5 mmol/L (3.5-5.1)
[2017-02-16 07:50] VITALS: BP 131/80; RESP 20
[2017-02-16] MEDS: SALMETEROL/FLUTICASONE 500/50 INHA INH SCH ×2 (07:58→20:18)
[2017-02-16] MEDS: FLUOXETINE 20 MG CAP PO SCH (07:58)
[2017-02-16] MEDS: TIOTROPIUM 18 MCG CAPSULE INHA DEV INH SCH (07:58)
[2017-02-16] MEDS: morphine (ER) 30 MG TAB PO SCH ×2 (07:59→20:30)
[2017-02-16] MEDS: clonAZEPAM 0.5 MG TAB PO SCH ×2 (07:59→20:30)
[2017-02-16] MEDS: NICOTINE (14 MG/24 HR) PATCH TRANSDERM SCH (07:59)
[2017-02-16] MEDS: BACLOFEN 10 MG TAB PO SCH ×3 (07:59→20:18)
[2017-02-16] MEDS: BUPROPION 100 MG TAB PO SCH ×2 (07:59→20:18)
[2017-02-16] MEDS: ASPIRIN (EC) 81 MG TAB PO SCH (08:00)
[2017-02-16] MEDS: ENALAPRIL 5 MG TAB PO SCH (08:00)
[2017-02-16] MEDS: ISOSORBIDE DINITRATE 10 MG TAB PO SCH (08:01)
[2017-02-16] MEDS: HYDROCHLOROTHIAZIDE 25 MG TAB PO SCH (08:01)
[2017-02-16] MEDS: SOD CHLORIDE 0.9% 1,000 ML IV SCH ×3 (08:07→21:45)
[2017-02-16] MEDS: INSULIN ASPART [NOVOLOG] 3 ML PEN SC SCH ×7 (08:14→20:17)
[2017-02-16 08:24] LABS: T3 UPTAKE 40.7 % (23.5-40.5)
[2017-02-16 08:31] LABS: THYROID STIMULATING HORMONE 3.16 MIU/L (0.465-4.680)
[2017-02-16] MEDS ORDERED: [UNRECOGNIZED DRUG - REMARK] XX SCH (09:00)
[2017-02-16] MEDS ORDERED: [UNRECOGNIZED DRUG - REMARK] XX SCH (09:30)
[2017-02-16] MEDS ORDERED: LORAZEPAM 2 MG INJ IV ONE (13:30)
[2017-02-16] MEDS: GABAPENTIN 400 MG CAP PO SCH ×2 (13:51→20:18)
[2017-02-16] MEDS: HYDROCODONE/APAP (10/325) TAB PO PRN (14:00)
--- NOTE | 2017-02-16 15:44 | PN ---
Date/Time of Note Date/Time of Note DATE: 02/16/17 TIME: 15:40 Assessment/Plan VTE Prophylaxis VTE Prophylaxis Intervention: heparin Lines/Catheters [facility] Peripheral IV Urinary Cath still in place: No Assessment/Plan Chief Complaint/Hosp Course Assessment and plan 1. COPD with exacerbation. Continue on bronchodilators. Off of steroids due to recent hyperglycemia. Will monitor for clinical improvement. Will provide with O2 as needed. 2. Lactic acidosis likely secondary to hyperglycemia and IV hydration. Improved at this time. Will monitor for now. 3. Uncontrolled diabetes. Follow-up on A1c. patient educator to follow. Will adjust insulin regimen as needed. 4. Reported mechanical fall. Patient did report falling 3 times resulting in low back pain. Of note her most recent lumbar x-ray was done on January 16, 2017 when she reported that was her first fall that showed no evidence of fracture or subluxation. Patient does still report having falls afterwards and feeling weak in the legs. We will follow-up an MRI of the back. 5. Essential hypertension. Continue antihypertensives and adjust needed DVT prophylaxis: Heparin GERD prophylaxis: Protonix Disposition plan: Follow-up on right back. Continue on bronchodilators. Await for clinical improvement. Will get physical therapy to follow. Discussed plan of care with Problems: Subjective 24 Hr Interval Summary Free Text/Dictation Still reports having some shortness of breath and generalized weakness as well as low back pain making it difficult to ambulate. 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 intact, nl mental status, nl speech Results Result Diagram: 02/16/17 0520 02/16/17 0540 Results 24 hrs Laboratory Tests Test 02/15/17 17:16 02/15/17 20:29 02/15/17 21:34 02/16/17 05:20 Bedside Glucose 128 175 231 H White Blood Count 8.0 Red Blood Count 4.57 Hemoglobin 12.9 Hematocrit 41.0 Mean Corpuscular Volume 89.7 Mean Corpuscular Hemoglobin 28.2 L Mean Corpuscular Hemoglobin Concent 31.5 L Red Cell Distribution Width 15.9 H Platelet Count 332 Mean Platelet Volume 10.9 H Neutrophils % 48.9 Lymphocytes % 36.6 Monocytes % 9.2 Eosinophils % 4.4 Basophils % 0.6 Nucleated Red Blood Cells % 0.0 Neutrophils # 3.9 Lymphocytes # 2.9 Monocytes # 0.7 Eosinophils # 0.4 Basophils # 0.1 Nucleated Red Blood Cells # 0.0 Hemoglobin A1c Test 02/16/17 05:40 02/16/17 07:57 02/16/17 12:05 Sodium Level 136 Potassium Level 3.5 Chloride Level 100 Carbon Dioxide Level 29 Anion Gap 11 Blood Urea Nitrogen 10 Creatinine 0.55 Glucose Level 266 #H Calcium Level 8.5 Total Bilirubin 0.0 L Direct Bilirubin 0.00 Indirect Bilirubin 0.0 Aspartate Amino Transf (AST/SGOT) 25 Alanine Aminotransferase (ALT/SGPT) 36 Alkaline Phosphatase 93 Total Protein 6.0 L Albumin 3.8 Globulin 2.20 Albumin/Globulin Ratio 1.72 Triglycerides Level 544 H Cholesterol Level 153 LDL Cholesterol, Calculated 4 HDL Cholesterol 40 Cholesterol/HDL Ratio 3.8 Thyroid Stimulating Hormone (TSH) 3.160 Free Thyroxine Index 2.60 Thyroxine (T4) 6.4 Triiodothyronine (T3) Uptake 40.7 H Bedside Glucose 249 H 254 H Medications Medications Current Medications Ondansetron HCl (Zofran Inj) 4 mg Q6H PRN IV NAUSEA AND/OR VOMITING; Start at 04:00 Docusate Sodium (Colace) 100 mg Q12H PRN PO CONSTIPATION; Start 02/15/17 at 04: 00 Bisacodyl (Dulcolax Supp) 10 mg DAILY PRN [place] CONSTIPATION; Start 02/15/17 at 04 :00 Pantoprazole (Protonix Iv) 40 mg DAILY@06 IV Last administered on 02/16/17t 06: 08; Admin Dose 40 MG; Start 02/15/17 at 06:00 Heparin Sodium (Porcine) (Heparin (5000 Units/0.5 ml)) 5,000 unit Q8 SC Last administered on 02/16/17 13:58; Admin Dose 5,000 UNIT; Start 02/15/17 at 06:00 Aspirin (Halfprin) 81 mg DAILY PO Last administered on 02/16/17 08:00; Admin Dose 81 MG; Start 02/15/17 at 09:00 Bupropion HCl (Wellbutrin) 100 mg BID PO Last administered on 02/16/17 07:59; Admin Dose 100 MG; Start 02/15/17 at 09:00 Enalapril Maleate (Vasotec) 5 mg DAILY PO Last administered on 02/16/17 08:00 ; Admin Dose 5 MG; Start 02/15/17 at 09:00 Fluoxetine HCl (Prozac) 60 mg DAILY PO Last administered on 02/16/17 07:58; Admin Dose 60 MG; Start 02/15/17 at 09:00 Furosemide (Lasix) 20 mg DAILY@06 PO Last administered on 02/16/17 06:09; Admin Dose 20 MG; Start 02/15/17 at 06:00 Hydrochlorothiazide (Hydrochlorothiazide) 25 mg DAILY PO Last administered on 08:01; Admin Dose 25 MG; Start 02/15/17 at 09:00 Salmeterol Xinafoate/ Fluticasone (Advair 500/50 Diskus) 1 inh BID INH Last administered on 02/16/17 07:58; Admin Dose 1 INH; Start 02/15/17 at 09:00 Tiotropium [place] (Spiriva) 18 inh DAILY INH Last administered on 02/16/17 07 :58; Admin Dose 1 INH; Start 02/15/17 at 09:00 Zolpidem Tartrate (Ambien) 5 mg QHS PRN PO INSOMNIA; Start 02/15/17 at 04:00 Albuterol (Ventolin Hfa) 2 puff Q4 INH Last administered on 02/16/17 12:06; Admin Dose 2 PUFF; Start 02/15/17 at 05:00 Diagnostic Test (Pha) (Accu-Chek) 1 ea 02 XX ; Start 02/16/17 at 02:00 Miscellaneous Information 1 ea NOTE XX ; Start 02/15/17 at 04:30 Glucose (Glutose) 15 gm Q15M PRN PO DECREASED GLUCOSE; Start 02/15/17 at 04:30 Glucose (Glutose) 22.5 gm Q15M PRN PO DECREASED GLUCOSE; Start 02/15/17 at 04: 30 Dextrose (D50w Syringe) 25 ml Q15M PRN IV DECREASED GLUCOSE; Start 02/15/17 at 04:30 Dextrose (D50w Syringe) 50 ml Q15M PRN IV DECREASED GLUCOSE; Start 02/15/17 at 04:30 Glucagon (Glucagen) 1 mg Q15M PRN IM DECREASED GLUCOSE; Start 02/15/17 at 04:30 Glucose (Glutose) 15 gm Q15M PRN BUCCAL DECREASED GLUCOSE; Start 02/15/17 at 04 :30 Baclofen (Lioresal) 10 mg TID PO Last administered on 02/16/17 12:06; Admin Dose 10 MG; Start 02/15/17 at 09:00 Clonazepam (Klonopin) 1 mg BID PO Last administered on 02/16/17 07:59; Admin Dose 1 MG; Start 02/15/17 at 09:00 Acetaminophen/ Hydrocodone Bitart ([place] (10/325)) 1 tab TID PRN PO PAIN LEVEL 5-7 Last administered on 02/16/17 14:00; Admin Dose 1 TAB; Start 02/15/17 at 09 :00 Isosorbide Dinitrate (Isordil) 40 mg DAILY PO Last administered on 02/16/17 08 :01; Admin Dose 40 MG; Start 02/15/17 at 09:00 Morphine Sulfate (Ms Contin (Er)) 30 mg BID PO Last administered on 02/16/17 07:59; Admin Dose 30 MG; Start 02/15/17 at 09:00 Trazodone HCl 50 mg 50 mg QHS PO Last administered on 02/15/17 20:27; Admin Dose 50 MG; Start 02/15/17 at 21:00 Sodium Chloride (NS) 1,000 ml @ 100 mls/hr Q10H IV Last administered on 08:07; Admin Dose 100 MLS/HR; Start 02/15/17 at 11:30 Nicotine (Nicoderm 14 Mg/ 24hr) 1 patch DAILY TRANSDERM Last administered on 07:59; Admin Dose 1 PATCH; Start 02/15/17 at 18:00 Insulin Glargine (Lantus) 30 unit DAILY@20 SC Last administered on 02/15/17 21 :37; Admin Dose 30 UNIT; Start 02/15/17 at 21:00 Morphine Sulfate (morphine) 4 mg Q3H PRN IV PAIN LEVEL 8-10 Last administered on 02/16/17 12:51; Admin Dose 4 MG; Start 02/15/17 at 22:30 Gabapentin (Neurontin) 400 mg TID PO Last administered on 02/16/17 13:51; Admin Dose 400 MG; Start 02/16/17 at 13:00 KYLAH RICE Feb 16, 2017 15:44
--- NOTE | 2017-02-16 17:39 | RADRPT ---
PROCEDURE: MRI lumbar spine without contrast CLINICAL INDICATION: Back pain TECHNIQUE: An high-resolution MRI of the lumbar spine was performed utilizing the following sequen biju: Sagittal and axial T1 weighted, sagittal and axial T2 weighted, and sagittal fat suppressed T2 . COMPARISON: Correlation to Lumbar spine x-ray 01/16/2017 FINDINGS: Acute mild L3 compression fracture with marrow edema, however, without evidence of bony retropulsion . No evidence of a diffuse marrow replacing process. The conus medullaris terminates at L1-2. 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 L1 - L2: The disk is preserved in height. There is no significant disk protrusion, spinal canal or foraminal stenosis. L2 - L3: Moderate circumferential disk bulge and facet arthropathy with moderate spinal canal sten osis. Moderate left and mild right foraminal narrowing. L3 - L4: Mild to moderate right-sided disk height loss. A large circumferential disk bulge result s in moderate to severe thecal sac stenosis. The AP thecal sac diameter measures 6 mm. Moderate bi lateral foraminal stenosis and facet arthropathy. L4 - L5: Mild disk height loss. 4 mm right central disk protrusion narrows the right lateral rec ess. There is also narrowing of the left lateral recess and moderate thecal sac stenosis. Facet ar thropathy and ligamentum flavum thickening is seen. Mild to moderate bilateral foraminal stenosis. L5 - S1: Minimal bulging of the posterior disk annulus and facet arthropathy. Moderate right and mild left foraminal narrowing. Mild thecal sac narrowing. IMPRESSION: Acute mild L3 compression fracture without bony retropulsion. 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 See details in the findings. A call report attempt was made to Dr. RICE at 02/16/2017 5:37:45 PM, however, the doctor was no lo nger working. No other additional phone number provided for call back attempt. RPTAT: AA .Juventino Armenta MD, Date Time Electronically viewed and signed by .Juventino Armenta MD, on 02/16/2017 17:39 .T/
[2017-02-16 19:55] VITALS: BP 130/82; RESP 18
[2017-02-16] MEDS: INSULIN GLARGINE [LANtus] 3 ML PEN SC SCH (20:16)
[2017-02-16] MEDS: traZODone 50 MG TAB PO SCH (20:19)
[2017-02-16] MEDS: DOCUSATE SODIUM 100 MG CAP PO PRN (21:44)
[2017-02-17] MEDS: ACCUCHECK AT 2AM (Patients on SS coverage) XX SCH (01:00)
[2017-02-17] MEDS: ALBUTEROL 18 GM INHALER INH SCH ×6 (01:33→22:24)
[2017-02-17] MEDS: morphine 4 MG/ML VIAL IV PRN ×5 (01:46→15:23)
[2017-02-17] MEDS: SOD CHLORIDE 0.9% 1,000 ML IV SCH ×5 (03:30→23:30)
[2017-02-17] MEDS: PANTOPRAZOLE (EC) 40 MG TAB PO SCH (05:39)
[2017-02-17] MEDS: HEPARIN 5,000 UNIT/0.5 ML VIAL SC SCH ×3 (05:44→22:35)
[2017-02-17] MEDS: FUROSEMIDE 20 MG TAB PO SCH (05:45)
[2017-02-17 06:04] LABS: ADD SCAN DIFF NO
[2017-02-17 06:25] LABS: BASOPHILS % 0.4 % (0.0-2.0); EOSINOPHILS # 0.3 10^3/ul (0.0-0.5); HEMATOCRIT 39.6 % (37.0-47.0); HEMOGLOBIN 12.2 g/dl (12.0-16.0); LYMPHOCYTES # 2.6 10^3/ul (0.8-2.9); LYMPHOCYTES % 25.9 % (15.0-51.0); MEAN CORPUSCULAR HEMOGLOBIN 27.7 pg (29.0-33.0); MEAN CORPUSCULAR HGB CONC 30.8 g/dl (32.0-37.0); MEAN PLATELET VOLUME 10.4 fl (7.4-10.4); MONOCYTE # 0.8 10^3/ul (0.3-0.9); MONOCYTES % 7.9 % (0.0-11.0); NEUTROPHIL # 6.2 10^3/ul (1.6-7.5); NEUTROPHILS % 62.5 % (39.0-77.0); PLATELET COUNT 337 10^3/UL (140-415); RED CELL DISTRIBUTION WIDTH 15.7 % (11.5-14.5)
[2017-02-17 06:50] LABS: CALCIUM 8.8 mg/dl (8.4-10.2); CREATININE 0.62 mg/dl (0.44-1.00)
[2017-02-17 07:30] VITALS: BP 135/72; RESP 20
[2017-02-17] MEDS: INSULIN ASPART [NOVOLOG] 3 ML PEN SC SCH ×7 (08:11→21:12)
[2017-02-17] MEDS: TIOTROPIUM 18 MCG CAPSULE INHA DEV INH SCH (08:24)
[2017-02-17] MEDS: SALMETEROL/FLUTICASONE 500/50 INHA INH SCH ×2 (08:24→20:55)
[2017-02-17] MEDS: BUPROPION 100 MG TAB PO SCH ×2 (08:25→20:55)
[2017-02-17] MEDS: FLUOXETINE 20 MG CAP PO SCH (08:26)
[2017-02-17] MEDS: clonAZEPAM 0.5 MG TAB PO SCH ×2 (08:27→21:00)
[2017-02-17] MEDS: ISOSORBIDE DINITRATE 10 MG TAB PO SCH (08:27)
[2017-02-17] MEDS: morphine (ER) 30 MG TAB PO SCH ×2 (08:27→20:56)
[2017-02-17] MEDS: ASPIRIN (EC) 81 MG TAB PO SCH (08:27)
[2017-02-17] MEDS: GABAPENTIN 400 MG CAP PO SCH ×3 (08:27→21:02)
[2017-02-17] MEDS: NICOTINE (14 MG/24 HR) PATCH TRANSDERM SCH (08:27)
[2017-02-17] MEDS: BACLOFEN 10 MG TAB PO SCH ×3 (08:27→20:56)
[2017-02-17] MEDS: HYDROCHLOROTHIAZIDE 25 MG TAB PO SCH (08:28)
[2017-02-17] MEDS: ENALAPRIL 5 MG TAB PO SCH (08:28)
--- NOTE | 2017-02-17 15:29 | PN ---
Date/Time of Note Date/Time of Note DATE: 02/17/17 TIME: 15:26 Assessment/Plan VTE Prophylaxis VTE Prophylaxis Intervention: SCD's Lines/Catheters IV Catheter Type (from Nrs): Peripheral IV Urinary Cath still in place: No Assessment/Plan Chief Complaint/Hosp Course Assessment and plan 1. COPD with exacerbation. Continue on bronchodilators. Off of steroids due to recent hyperglycemia. Will monitor for clinical improvement. Will provide with O2 as needed . 2. Lactic acidosis likely secondary to hyperglycemia and IV hydration. Improved at this time. Will monitor for now. 3. Uncontrolled diabetes. A1c reportedly greater than 14. Patient being followed by breastfeeding educator. Insulin regimen adjusted. Will monitor for clinical improvement. 4. Reported mechanical fall. Patient did report falling 3 times resulting in low back pain. Of note her most recent lumbar x-ray was done on January 16, 2017 when she reported that was her first fall that showed no evidence of fracture or subluxation. Patient does still report having falls afterwards and feeling weak in the legs. We will follow-up an MRI of the back. 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 Discussed with neurosurgeon as well as orthopedic surgeon. Plan for LSO brace. 5. Essential hypertension. Continue antihypertensives and adjust needed DVT prophylaxis: Heparin GERD prophylaxis: Protonix Disposition plan: Physical therapy to follow. Will get LSO brace. We will follow-up Discussed plan of care with Problems: Subjective 24 Hr Interval Summary Free Text/Dictation Reports feeling better breathing at this time. Reports moderate back pain with difficulty with ambulate Exam/Review of Systems Vital Signs Vitals Vital Signs Date Time Temp Pulse Resp B/P Pulse Ox O2 Delivery O2 Flow Rate FiO2 02/17/17 07:48 Nasal Cannula 02/17/17 07:30 98.2 90 20 135/72 94 02/16/17 08:15 2.0 Intake and Output 02/16/17 02/16/17 02/17/17 15:00 23:00 07:00 Intake Total 600 ml 2420 ml 2975 ml Output Total 0 ml 3500 ml Balance 600 ml 2420 ml -525 ml Exam Constitutional: alert, obese, oriented Psych: no complaints Head: normocephalic Eyes: nl conjunctiva Neck: supple, No jvd Respiratory: clear to auscultation, normal air movement Cardiovascular: regular rate and rhythm Gastrointestinal: non-tender, soft Musculoskeletal: No nl gait and stance Extremities: other (Minimal bilateral lower extremities) 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, nl mental status, nl speech Results Result Diagram: 02/17/17 0532 02/17/17 0532 Results 24 hrs Laboratory Tests Test 02/16/17 17:45 02/16/17 20:12 02/17/17 01:32 02/17/17 05:32 Bedside Glucose 263 H 217 311 H White Blood Count 10.0 # Red Blood Count 4.40 Hemoglobin 12.2 Hematocrit 39.6 Mean Corpuscular Volume 90.0 Mean Corpuscular Hemoglobin 27.7 L Mean Corpuscular Hemoglobin Concent 30.8 L Red Cell Distribution Width 15.7 H Platelet Count 337 Mean Platelet Volume 10.4 Neutrophils % 62.5 Lymphocytes % 25.9 Monocytes % 7.9 Eosinophils % 3.0 Basophils % 0.4 Nucleated Red Blood Cells % 0.0 Neutrophils # 6.2 Lymphocytes # 2.6 Monocytes # 0.8 Eosinophils # 0.3 Basophils # 0.0 Nucleated Red Blood Cells # 0.0 Sodium Level 137 Potassium Level 4.0 Chloride Level 102 Carbon Dioxide Level 28 Anion Gap 11 Blood Urea Nitrogen 11 Creatinine 0.62 Glucose Level 320 H Calcium Level 8.8 Test 02/17/17 08:00 02/17/17 12:18 Bedside Glucose 320 H 246 H Medications Medications Current Medications Ondansetron HCl (Zofran Inj) 4 mg Q6H PRN IV NAUSEA AND/OR VOMITING; Start at 04:00 Docusate Sodium (Colace) 100 mg Q12H PRN PO CONSTIPATION Last administered on 21:44; Admin Dose 100 MG; Start 02/15/17 at 04:00 Bisacodyl (Dulcolax Supp) 10 mg DAILY PRN [place] CONSTIPATION; Start 02/15/17 at 04 :00 Heparin Sodium (Porcine) (Heparin (5000 Units/0.5 ml)) 5,000 unit Q8 SC Last administered on 02/17/17 14:20; Admin Dose 5,000 UNIT; Start 02/15/17 at 06:00 Aspirin (Halfprin) 81 mg DAILY PO Last administered on 02/17/17 08:27; Admin Dose 81 MG; Start 02/15/17 at 09:00 Bupropion HCl (Wellbutrin) 100 mg BID PO Last administered on 02/17/17 08:25; Admin Dose 100 MG; Start 02/15/17 at 09:00 Enalapril Maleate (Vasotec) 5 mg DAILY PO Last administered on 02/17/17 08:28 ; Admin Dose 5 MG; Start 02/15/17 at 09:00 Fluoxetine HCl (Prozac) 60 mg DAILY PO Last administered on 02/17/17 08:26; Admin Dose 60 MG; Start 02/15/17 at 09:00 Furosemide (Lasix) 20 mg DAILY@06 PO Last administered on 02/17/17 05:45; Admin Dose 20 MG; Start 02/15/17 at 06:00 Hydrochlorothiazide (Hydrochlorothiazide) 25 mg DAILY PO Last administered on 08:28; Admin Dose 25 MG; Start 02/15/17 at 09:00 Salmeterol Xinafoate/ Fluticasone (Advair 500/50 Diskus) 1 inh BID INH Last administered on 02/17/17 08:24; Admin Dose 1 INH; Start 02/15/17 at 09:00 Tiotropium [place] (Spiriva) 18 inh DAILY INH Last administered on 02/17/17 08 :24; Admin Dose 10 INH; Start 02/15/17 at 09:00 Zolpidem Tartrate (Ambien) 5 mg QHS PRN PO INSOMNIA; Start 02/15/17 at 04:00 Albuterol (Ventolin Hfa) 2 puff Q4 INH Last administered on 02/17/17 12:16; Admin Dose 2 PUFF; Start 02/15/17 at 05:00 Diagnostic Test (Pha) (Accu-Chek) 1 ea 02 XX Last administered on 02/17/17 01: 00; Admin Dose 1 EA; Start 02/16/17 at 02:00 Miscellaneous Information 1 ea NOTE XX ; Start 02/15/17 at 04:30 Glucose (Glutose) 15 gm Q15M PRN PO DECREASED GLUCOSE; Start 02/15/17 at 04:30 Glucose (Glutose) 22.5 gm Q15M PRN PO DECREASED GLUCOSE; Start 02/15/17 at 04: 30 Dextrose (D50w Syringe) 25 ml Q15M PRN IV DECREASED GLUCOSE; Start 02/15/17 at 04:30 Dextrose (D50w Syringe) 50 ml Q15M PRN IV DECREASED GLUCOSE; Start 02/15/17 at 04:30 Glucagon (Glucagen) 1 mg Q15M PRN IM DECREASED GLUCOSE; Start 02/15/17 at 04:30 Glucose (Glutose) 15 gm Q15M PRN BUCCAL DECREASED GLUCOSE; Start 02/15/17 at 04 :30 Baclofen (Lioresal) 10 mg TID PO Last administered on 02/17/17 12:16; Admin Dose 10 MG; Start 02/15/17 at 09:00 Clonazepam (Klonopin) 1 mg BID PO Last administered on 02/17/17 08:27; Admin Dose 1 MG; Start 02/15/17 at 09:00 Acetaminophen/ Hydrocodone Bitart ([place] (10/325)) 1 tab TID PRN PO PAIN LEVEL 5-7 Last administered on 02/16/17 14:00; Admin Dose 1 TAB; Start 02/15/17 at 09 :00 Isosorbide Dinitrate (Isordil) 40 mg DAILY PO Last administered on 02/17/17 08 :27; Admin Dose 40 MG; Start 02/15/17 at 09:00 Morphine Sulfate (Ms Contin (Er)) 30 mg BID PO Last administered on 02/17/17 08:27; Admin Dose 30 MG; Start 02/15/17 at 09:00 Trazodone HCl 50 mg 50 mg QHS PO Last administered on 02/16/17 20:19; Admin Dose 50 MG; Start 02/15/17 at 21:00 Sodium Chloride (NS) 1,000 ml @ 100 mls/hr Q10H IV Last administered on 08:43; Admin Dose 100 MLS/HR; Start 02/15/17 at 11:30 Nicotine (Nicoderm 14 Mg/ 24hr) 1 patch DAILY TRANSDERM Last administered on 08:27; Admin Dose 1 PATCH; Start 02/15/17 at 18:00 Morphine Sulfate (morphine) 4 mg Q3H PRN IV PAIN LEVEL 8-10 Last administered on 02/17/17 15:23; Admin Dose 4 MG; Start 02/15/17 at 22:30 Gabapentin (Neurontin) 400 mg TID PO Last administered on 02/17/17 12:16; Admin Dose 400 MG; Start 02/16/17 at 13:00 Pantoprazole (Protonix Tab) 40 mg DAILY@06 PO Last administered on 02/17/17 05 :39; Admin Dose 40 MG; Start 02/17/17 at 06:00 Insulin Glargine (Lantus) 60 unit DAILY@20 SC ; Start 02/17/17 at 20:00 KYLAH RICE Feb 17, 2017 15:29
[2017-02-17] MEDS: DOCUSATE SODIUM 100 MG CAP PO PRN (17:56)
--- NOTE | 2017-02-17 18:15 | CONS ---
DATE OF ADMISSION: 02/15/2017 DATE OF CONSULTATION: 02/17/2017 TYPE OF CONSULTATION: Neurology REQUESTING PHYSICIAN: Levy Rice NP INDICATION FOR CONSULTATION: Lumbar fracture. HISTORY OF PRESENT ILLNESS: The patient is a 56-year-old female with history of morbid obesity, diabetes and diabetic neuropathy and COPD who was admitted for exacerbation of chronic obstructive pulmonary disease. The patient had reported that she had generalized weakness and was complaining of low back pain. The patient states that she had had 3 falls over the past month. The patient had actually evaluated in the ER at [facility] on 01/16/2017 for this complaint. The patient with a complaint of back pain. An x-ray was performed, but this did not appear to show an acute fracture. The patient states she subsequently had 2 more falls. The patient states she generally ambulates with a walker for the past 4 years and does have chronic back pain as well as numbness in her feet. She states that when she fell the first time for about 4 days, she felt numbness and tremoring in her upper extremities, but this resolved completely. She states that she has a history of falling, but this is usually when she is going from sitting to standing because she also has knee problems, but this time she states that these 3 times she fell forward with her walker. She denies hitting her head. She states she may have jerked her neck. The patient had seen her physician recently, prior to 01/16/2017 for her complaints, an MRI was reported to be ordered. Currently, the patient states that she does have some back pain. She denies any bowel or bladder incontinence, though she states she has had some urgency over the past few months. She denies any saddle anesthesia. She denies any upper extremity weakness or neck pain. She denies any radiating pain to her lower extremities. She states that she may feel some weakness in her legs, but this is not acute and reports that moving her legs does cause her back pain. She also notes that she has knee problems and states that she needs a knee replacement, but was told that she was too obese for this at the period of time. The patient denies any loss of fine motor coordination in her upper extremities. She denies any radiating upper extremity pain. PAST MEDICAL HISTORY: Significant for COPD, neuropathy, CHF, hyperlipidemia, hypertension and diabetes. ALLERGIES: NO KNOWN DRUG ALLERGIES. MEDICATIONS: Reviewed, see MAR. REVIEW OF SYSTEMS: A 12-point review of systems was performed. Pertinent positives and negatives listed in history of present illness and below. PAST SURGICAL HISTORY: Significant for x2. FAMILY HISTORY: Denies any history of easy bruising or bleeding. SOCIAL HISTORY: The patient is a nondrinker, but is a smoker and smokes a pack a day. Denies any history of previous drug use. PHYSICAL EXAMINATION: VITAL SIGNS: Temperature 98.2, pulse 90, respirations 20, blood pressure 135/72 , saturating 94% on room air. GENERAL: The patient is a morbidly obese female sitting up in a hospital bed in no acute distress. HEAD AND NECK: Normocephalic, atraumatic. She has no Infante sign, periorbital ecchymoses, otorrhea, or rhinorrhea. Her neck is supple. No Spurling or Lhermitte sign. MUSCULOSKELETAL: Patient has normal tone and bulk. She has tenderness to palpation in her mid-lumbar spine. She has no atrophy or dysmetria. Her motor exam is 5/5 bilaterally in upper and lower extremity except for 4+ iliopsoas, which is limited secondary to pain. NEUROLOGIC: The patient is awake, alert, and oriented x3, fluent speech, follows commands readily and appropriately. Cranial nerves II through XII are serially tested and are intact. She has decreased sensation to light touch and pinprick as well as proprioception in her toes and her feet. Deep tendon reflexes were 1+ throughout with no clonus, Babinski, or Genny sign. LABORATORY DATA: Patient's white count 8, hemoglobin 12.9, platelets 332. Sodium 136, BUN, creatinine 10.5 with glucose of 266. REVIEW OF RADIOGRAPHIC RESULTS: I reviewed the patient's MRI of the lumbar spine as well as the radiologist's result. The radiologist states there is an acute mild L3 compression fracture of the bony retropulsion. 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 This is per the radiologist's interpretation, although I would not characterize this stenosis as being so severe. I would call the stenosis moderate at most, although there may be some more significant lateral recess stenosis. I also reviewed the patient's plain film x-ray from 01/16/2017. There is no fracture or subluxation. There was spodylosis at the level of the fracture and it is conceivable that the patient may have had that small compression fracture at that time. This is more difficult to evaluate on plain film x-rays and is more evident on the MRI secondary to the bony edema rather than actual deformity of the bone. ASSESSMENT AND PLAN: A 56-year-old female status post traumatic L3 fracture. I discussed patient's signs, symptoms, physical examination and radiographic findings with her. The patient has an L3 fracture, likely due to her trauma. There is only about 20% loss of height anteriorly and there is no retropulsion. This fracture should heal with simply bracing and I recommend the patient have an external orthosis. The patient does not appear to have any evidence of long tract signs to suggest myelopathy on examination and I believe the patient can have further evaluation for her complaints as an outpatient. The patient can follow up through her insurance network, as I am not contracted with her insurance for further management of discussion of her lumbar stenosis. I do not think this is an acute issue for which the patient might be symptomatic, though ultimately this may play some role in the patient's complaints. She does not appear to have any focal neurologic deficits, or severe stenosis or evidence of cauda equina syndrome. The patient states that she will follow with her primary physician when she leaves the hospital. Thank you for allowing me to participate the care of this patient. Dictated By: VELVET HERNANDEZ MD, LG/JOVANNI Conf#: [id number] DID#: [id number] CC: LEVY RICE SQL SERVER DBA;*EndCC* MTDD
[2017-02-17] MEDS: HYDROmorphONE 2 MG/ML SYG IV PRN ×2 (18:54→23:14)
[2017-02-17 19:47] VITALS: BP 116/72; RESP 20
[2017-02-17] MEDS: traZODone 50 MG TAB PO SCH (21:02)
[2017-02-17] MEDS: INSULIN GLARGINE [LANtus] 3 ML PEN SC SCH (21:11)
[2017-02-17 23:11] VITALS: BP 132/73
[2017-02-18] MEDS: ALBUTEROL 18 GM INHALER INH SCH ×6 (01:00→20:43)
[2017-02-18] MEDS: ACCUCHECK AT 2AM (Patients on SS coverage) XX SCH (02:55)
[2017-02-18] MEDS: HYDROmorphONE 2 MG/ML SYG IV PRN ×2 (04:10→07:55)
[2017-02-18] MEDS: SOD CHLORIDE 0.9% 1,000 ML IV SCH ×4 (04:14→19:30)
[2017-02-18 06:00] LABS: ADD SCAN DIFF NO
[2017-02-18] MEDS: FUROSEMIDE 20 MG TAB PO SCH (06:14)
[2017-02-18] MEDS: PANTOPRAZOLE (EC) 40 MG TAB PO SCH (06:14)
[2017-02-18 06:20] LABS: BASOPHIL # 0.1 10^3/ul (0.0-0.1); BASOPHILS % 0.6 % (0.0-2.0); EOSINOPHILS # 0.3 10^3/ul (0.0-0.5); EOSINOPHILS % 4.3 % (0.0-7.0); HEMATOCRIT 38.4 % (37.0-47.0); HEMOGLOBIN 11.9 g/dl (12.0-16.0); LYMPHOCYTES # 2.6 10^3/ul (0.8-2.9); LYMPHOCYTES % 32.4 % (15.0-51.0); MEAN CORPUSCULAR HEMOGLOBIN 28.1 pg (29.0-33.0); MEAN CORPUSCULAR VOLUME 90.8 fl (82.0-101.0); MEAN PLATELET VOLUME 10.2 fl (7.4-10.4); MONOCYTE # 0.8 10^3/ul (0.3-0.9); MONOCYTES % 10.5 % (0.0-11.0); NEUTROPHIL # 4.1 10^3/ul (1.6-7.5); NEUTROPHILS % 51.9 % (39.0-77.0); PLATELET COUNT 320 10^3/UL (140-415); RED BLOOD COUNT 4.23 10^6/ul (4.20-5.40); RED CELL DISTRIBUTION WIDTH 15.6 % (11.5-14.5); WHITE BLOOD COUNT 7.9 10^3/ul (4.8-10.8)
[2017-02-18] MEDS: HEPARIN 5,000 UNIT/0.5 ML VIAL SC SCH ×3 (06:21→22:36)
[2017-02-18 06:41] LABS: CALCIUM 8.9 mg/dl (8.4-10.2); CREATININE 0.61 mg/dl (0.44-1.00); POTASSIUM 4.1 mmol/L (3.5-5.1)
[2017-02-18 07:13] VITALS: BP 124/69; RESP 18
[2017-02-18] MEDS: INSULIN ASPART [NOVOLOG] 3 ML PEN SC SCH ×7 (08:02→20:57)
[2017-02-18] MEDS: SALMETEROL/FLUTICASONE 500/50 INHA INH SCH ×2 (09:05→20:43)
[2017-02-18] MEDS: NICOTINE (14 MG/24 HR) PATCH TRANSDERM SCH (09:05)
[2017-02-18] MEDS: FLUOXETINE 20 MG CAP PO SCH (09:05)
[2017-02-18] MEDS: ASPIRIN (EC) 81 MG TAB PO SCH (09:06)
[2017-02-18] MEDS: HYDROCHLOROTHIAZIDE 25 MG TAB PO SCH (09:06)
[2017-02-18] MEDS: clonAZEPAM 0.5 MG TAB PO SCH ×2 (09:06→20:45)
[2017-02-18] MEDS: ENALAPRIL 5 MG TAB PO SCH (09:06)
[2017-02-18] MEDS: GABAPENTIN 400 MG CAP PO SCH ×3 (09:06→20:44)
[2017-02-18] MEDS: morphine (ER) 30 MG TAB PO SCH ×2 (09:06→20:45)
[2017-02-18] MEDS: BUPROPION 100 MG TAB PO SCH ×2 (09:06→20:44)
[2017-02-18] MEDS: BACLOFEN 10 MG TAB PO SCH ×3 (09:06→20:44)
[2017-02-18] MEDS: ISOSORBIDE DINITRATE 10 MG TAB PO SCH (09:07)
[2017-02-18] MEDS: TIOTROPIUM 18 MCG CAPSULE INHA DEV INH SCH (09:16)
[2017-02-18] MEDS: HYDROmorphONE 2 MG TAB PO PRN ×3 (11:15→22:25)
[2017-02-18] MEDS: DOCUSATE SODIUM 100 MG CAP PO PRN (12:07)
--- NOTE | 2017-02-18 16:28 | PN ---
Date/Time of Note Date/Time of Note DATE: 02/18/17 TIME: 16:26 Assessment/Plan VTE Prophylaxis VTE Prophylaxis Intervention: heparin Lines/Catheters IV C[facility]ter Type (from [facility]): Peripheral IV Urinary Cath still in place: No Assessment/Plan Chief Complaint/Hosp Course Assessment and plan 1. COPD with exacerbation. Continue on bronchodilators. Off of steroids due to recent hyperglycemia. Will monitor for clinical improvement. Will provide with O2 as needed . 2. Lactic acidosis likely secondary to hyperglycemia and IV hydration. Improved at this time. Will monitor for now. 3. Uncontrolled diabetes. A1c reportedly greater than 14. Patient being followed by nurses educator. Insulin regimen adjusted. Will monitor for clinical improvement. 4. Reported mechanical fall. Patient did report falling 3 times resulting in low back pain. Of note her most recent lumbar x-ray was done on January 16, 2017 when she reported that was her first fall that showed no evidence of fracture or subluxation. Patient does still report having falls afterwards and feeling weak in the legs. We will follow-up an MRI of the back. 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 Discussed with neurosurgeon as well as orthopedic surgeon. Plan for LSO brace. 5. Essential hypertension. Continue antihypertensives and adjust needed DVT prophylaxis: Heparin GERD prophylaxis: Protonix Disposition plan: Patient seen by PT today. Plan for ARU Discussed plan of care with Problems: Subjective 24 Hr Interval Summary Free Text/Dictation Still reports having some back pain Exam/Review of Systems Vital Signs Vitals Vital Signs Date Time Temp Pulse Resp B/P Pulse Ox O2 Delivery O2 Flow Rate FiO2 02/18/17 07:26 Nasal Cannula 02/18/17 07:13 97.9 77 18 124/69 96 02/16/17 08:15 2.0 Intake and Output 02/17/17 02/17/17 02/18/17 14:59 22:59 06:59 Intake Total 225 ml 2460 ml 1100 ml Output Total 3550 ml Balance 225 ml -1090 ml 1100 ml Exam Constitutional: alert, obese, oriented Psych: nl mood/affect Respiratory: clear to auscultation Cardiovascular: regular rate and rhythm Gastrointestinal: soft Musculoskeletal: No nl gait and stance Neurological: APPLIANCE SERVICE SUPERVISOR II-XII intact, nl mental status, nl speech Results Result Diagram: 02/18/17 0510 02/18/17 0510 Results 24 hrs Laboratory Tests Test 02/17/17 17:35 02/17/17 20:57 02/18/17 02:52 02/18/17 05:10 Bedside Glucose 225 H 203 236 H White Blood Count 7.9 # Red Blood Count 4.23 Hemoglobin 11.9 L Hematocrit 38.4 Mean Corpuscular Volume 90.8 Mean Corpuscular Hemoglobin 28.1 L Mean Corpuscular Hemoglobin Concent 31.0 L Red Cell Distribution Width 15.6 H Platelet Count 320 Mean Platelet Volume 10.2 Neutrophils % 51.9 Lymphocytes % 32.4 Monocytes % 10.5 Eosinophils % 4.3 Basophils % 0.6 Nucleated Red Blood Cells % 0.0 Neutrophils # 4.1 Lymphocytes # 2.6 Monocytes # 0.8 Eosinophils # 0.3 Basophils # 0.1 Nucleated Red Blood Cells # 0.0 Sodium Level 138 Potassium Level 4.1 Chloride Level 101 Carbon Dioxide Level 30 Anion Gap 11 Blood Urea Nitrogen 10 Creatinine 0.61 Glucose Level 264 H Calcium Level 8.9 Test 02/18/17 07:54 02/18/17 11:49 Bedside Glucose 272 H 246 H Medications Medications Current Medications Ondansetron HCl (Zofran Inj) 4 mg Q6H PRN IV NAUSEA AND/OR VOMITING; Start at 04:00 Docusate Sodium (Colace) 100 mg Q12H PRN PO CONSTIPATION Last administered on 12:07; Admin Dose 100 MG; Start 02/15/17 at 04:00 Bisacodyl (Dulcolax Supp) 10 mg DAILY PRN [place] CONSTIPATION; Start 02/15/17 at 04 :00 Heparin Sodium (Porcine) (Heparin (5000 Units/0.5 ml)) 5,000 unit Q8 SC Last administered on 02/18/17 15:18; Admin Dose 5,000 UNIT; Start 02/15/17 at 06:00 Aspirin (Halfprin) 81 mg DAILY PO Last administered on 02/18/17 09:06; Admin Dose 81 MG; Start 02/15/17 at 09:00 Bupropion HCl (Wellbutrin) 100 mg BID PO Last administered on 02/18/17 09:06; Admin Dose 100 MG; Start 02/15/17 at 09:00 Enalapril Maleate (Vasotec) 5 mg DAILY PO Last administered on 02/18/17 09:06 ; Admin Dose 5 MG; Start 02/15/17 at 09:00 Fluoxetine HCl (Prozac) 60 mg DAILY PO Last administered on 02/18/17 09:05; Admin Dose 60 MG; Start 02/15/17 at 09:00 Furosemide (Lasix) 20 mg DAILY@06 PO Last administered on 02/18/17 06:14; Admin Dose 20 MG; Start 02/15/17 at 06:00 Hydrochlorothiazide (Hydrochlorothiazide) 25 mg DAILY PO Last administered on 09:06; Admin Dose 25 MG; Start 02/15/17 at 09:00 Salmeterol Xinafoate/ Fluticasone (Advair 500/50 Diskus) 1 inh BID INH Last administered on 02/18/17 09:05; Admin Dose 1 INH; Start 02/15/17 at 09:00 Tiotropium [place] (Spiriva) 18 inh DAILY INH Last administered on 02/18/17 09 :16; Admin Dose 18 INH; Start 02/15/17 at 09:00 Zolpidem Tartrate (Ambien) 5 mg QHS PRN PO INSOMNIA; Start 02/15/17 at 04:00 Albuterol (Ventolin Hfa) 2 puff Q4 INH Last administered on 02/18/17 12:07; Admin Dose 2 PUFF; Start 02/15/17 at 05:00 Diagnostic Test (Pha) (Accu-Chek) 1 ea 02 XX Last administered on 02/18/17 02: 55; Admin Dose 1 EA; Start 02/16/17 at 02:00 Miscellaneous Information 1 ea NOTE XX ; Start 02/15/17 at 04:30 Glucose (Glutose) 15 gm Q15M PRN PO DECREASED GLUCOSE; Start 02/15/17 at 04:30 Glucose (Glutose) 22.5 gm Q15M PRN PO DECREASED GLUCOSE; Start 02/15/17 at 04: 30 Dextrose (D50w Syringe) 25 ml Q15M PRN IV DECREASED GLUCOSE; Start 02/15/17 at 04:30 Dextrose (D50w Syringe) 50 ml Q15M PRN IV DECREASED GLUCOSE; Start 02/15/17 at 04:30 Glucagon (Glucagen) 1 mg Q15M PRN IM DECREASED GLUCOSE; Start 02/15/17 at 04:30 Glucose (Glutose) 15 gm Q15M PRN BUCCAL DECREASED GLUCOSE; Start 02/15/17 at 04 :30 Baclofen (Lioresal) 10 mg TID PO Last administered on 02/18/17 12:07; Admin Dose 10 MG; Start 02/15/17 at 09:00 Clonazepam (Klonopin) 1 mg BID PO Last administered on 02/18/17 09:06; Admin Dose 1 MG; Start 02/15/17 at 09:00 Acetaminophen/ Hydrocodone Bitart ([place] (10/325)) 1 tab TID PRN PO PAIN LEVEL 5-7 Last administered on 02/16/17 14:00; Admin Dose 1 TAB; Start 02/15/17 at 09 :00 Isosorbide Dinitrate (Isordil) 40 mg DAILY PO Last administered on 02/18/17 09 :07; Admin Dose 40 MG; Start 02/15/17 at 09:00 Morphine Sulfate (Ms Contin (Er)) 30 mg BID PO Last administered on 02/18/17 09:06; Admin Dose 30 MG; Start 02/15/17 at 09:00 Trazodone HCl 50 mg 50 mg QHS PO Last administered on 02/17/17 21:02; Admin Dose 50 MG; Start 02/15/17 at 21:00 Sodium Chloride (NS) 1,000 ml @ 100 mls/hr Q10H IV Last administered on 15:13; Admin Dose 100 MLS/HR; Start 02/15/17 at 11:30 Nicotine (Nicoderm 14 Mg/ 24hr) 1 patch DAILY TRANSDERM Last administered on 09:05; Admin Dose 1 PATCH; Start 02/15/17 at 18:00 Gabapentin (Neurontin) 400 mg TID PO Last administered on 02/18/17 12:07; Admin Dose 400 MG; Start 02/16/17 at 13:00 Pantoprazole (Protonix Tab) 40 mg DAILY@06 PO Last administered on 02/18/17 06 :14; Admin Dose 40 MG; Start 6/21/17 at 06:00 Insulin Glargine (Lantus) 60 unit DAILY@20 SC Last administered on 02/17/17 21 :11; Admin Dose 60 UNIT; Start 02/17/17 at 20:00 Hydromorphone HCl (Dilaudid) 2 mg Q4H PRN PO PAIN Last administered on 15:13; Admin Dose 2 MG; Start 02/18/17 at 08:00 KYLAH RICE Feb 18, 2017 16:28
[2017-02-18] MEDS: KETOROLAC 30 MG INJ IV PRN ×2 (17:32→23:50)
--- NOTE | 2017-02-18 17:43 | CONS ---
Date/Time of Note Date/Time of Note DATE: 02/18/17 TIME: 17:35 Assessment/Plan Assessment/Plan Additional Assessment/Plan Low back pain Compression fracture secondary to mechanical fall History of chronic obstructive pulmonary disease in exacerbation Obesity Depression anxiety syndrome Suggest switch to oral opioids tomorrow morning wait for back brace to arrive and schedule patient for outpatient home health care follow-up. Consultation Date/Type/Reason Admit Date/Time Date of Consultation: Feb 17, 2017 Type of Consultation: Pain management Hx of Present Illness 56-year-old female who took a mechanical fall 3 approximately 1 week prior to his presentation. Developed severe onset of low back discomfort with radiations into bilateral buttock, denies warning signs including recent febrile episode, incontinence of urine or feces or pelvic hypoesthesis. States the pain is lancinating electric shock rated 10/10 somewhat alleviated with current pain control with IV opioid, resolution of her pain with morphine for approximately 2 hours only. She has a past medical history of opioid use, she is tolerant to current pain medication states that she has a chronic pain management patient syndrome. She takes a combination of morphine extended release and immediate release opioids unknown medication. There is a vague past medical history of opioid abuse, but she frankly denies alcohol or drug addiction in the past. There is no family history of addictions or suicide. Constitutional: improved, no complaints Eyes: no complaints ENT: no complaints Respiratory: shortness of breath, sputum, wheezing Cardiovascular: no complaints Gastrointestinal: no complaints Genitourinary: no complaints Musculoskeletal: back pain, bone/joint pain, neck pain, restricted range of motion Skin: no complaints Neurologic: no complaints Endocrine: no complaints Lymphatic: no complaints Psychological: nl mood/affect Immunologic: no complaints Social History Alcohol Use: none Smoking Status: Current every day smoker Drug Use: none Exam/Review of Systems Vital Signs Vitals Vital Signs Date Time Temp Pulse Resp B/P Pulse Ox O2 Delivery O2 Flow Rate FiO2 02/18/17 07:26 Nasal Cannula 02/18/17 07:13 97.9 77 18 124/69 96 02/16/17 08:15 2.0 Intake and Output 02/17/17 02/17/17 02/18/17 15:00 23:00 07:00 Intake Total 225 ml 2460 ml 1100 ml Output Total 3550 ml Balance 225 ml -1090 ml 1100 ml Exam Constitutional: alert, oriented, well developed Psych: nl mood/affect, no complaints Head: atraumatic, normocephalic Eyes: EOMI, PERRL, nl conjunctiva, nl lids, nl sclera ENMT: nl external ears & nose, nl lips & teeth, nl nasal mucosa & septum Neck: non-tender, supple Respiratory: normal air movement Cardiovascular: nl pulses, regular rate and rhythm Gastrointestinal: nl liver, spleen, non-tender, soft Musculoskeletal: nl extremities to inspection, nl gait and stance Extremities: normal pulses Neurological: STUDENT SERVICES DIRECTOR II-XII intact, nl mental status, nl speech, nl strength Skin: nl turgor, No rash or lesions Lymph: nl lymph nodes Results Result Diagram: 02/18/17 0510 02/18/17 0510 Results 24 hrs Laboratory Tests Test 02/17/17 20:57 02/18/17 02:52 02/18/17 05:10 02/18/17 07:54 Bedside Glucose 203 236 H 272 H White Blood Count 7.9 # Red Blood Count 4.23 Hemoglobin 11.9 L Hematocrit 38.4 Mean Corpuscular Volume 90.8 Mean Corpuscular Hemoglobin 28.1 L Mean Corpuscular Hemoglobin Concent 31.0 L Red Cell Distribution Width 15.6 H Platelet Count 320 Mean Platelet Volume 10.2 Neutrophils % 51.9 Lymphocytes % 32.4 Monocytes % 10.5 Eosinophils % 4.3 Basophils % 0.6 Nucleated Red Blood Cells % 0.0 Neutrophils # 4.1 Lymphocytes # 2.6 Monocytes # 0.8 Eosinophils # 0.3 Basophils # 0.1 Nucleated Red Blood Cells # 0.0 Sodium Level 138 Potassium Level 4.1 Chloride Level 101 Carbon Dioxide Level 30 Anion Gap 11 Blood Urea Nitrogen 10 Creatinine 0.61 Glucose Level 264 H Calcium Level 8.9 Test 02/18/17 11:49 02/18/17 17:13 Bedside Glucose 246 H 158 Medications Medications Current Medications Ondansetron HCl (Zofran Inj) 4 mg Q6H PRN IV NAUSEA AND/OR VOMITING; Start at 04:00 Docusate Sodium (Colace) 100 mg Q12H PRN PO CONSTIPATION Last administered on t 12:07; Admin Dose 100 MG; Start 02/15/17 at 04:00 Bisacodyl (Dulcolax Supp) 10 mg DAILY PRN [place] CONSTIPATION; Start 02/15/17 at 04 :00 Heparin Sodium (Porcine) (Heparin (5000 Units/0.5 ml)) 5,000 unit Q8 SC Last administered on 02/18/17 15:18; Admin Dose 5,000 UNIT; Start 02/15/17 at 06:00 Aspirin (Halfprin) 81 mg DAILY PO Last administered on 02/18/17 09:06; Admin Dose 81 MG; Start 02/15/17 at 09:00 Bupropion HCl (Wellbutrin) 100 mg BID PO Last administered on 02/18/17 09:06; Admin Dose 100 MG; Start 02/15/17 at 09:00 Enalapril Maleate (Vasotec) 5 mg DAILY PO Last administered on 02/18/17 09:06 ; Admin Dose 5 MG; Start 02/15/17 at 09:00 Fluoxetine HCl (Prozac) 60 mg DAILY PO Last administered on 02/18/17 09:05; Admin Dose 60 MG; Start 02/15/17 at 09:00 Furosemide (Lasix) 20 mg DAILY@06 PO Last administered on 02/18/17 06:14; Admin Dose 20 MG; Start 02/15/17 at 06:00 Hydrochlorothiazide (Hydrochlorothiazide) 25 mg DAILY PO Last administered on 09:06; Admin Dose 25 MG; Start 02/15/17 at 09:00 Salmeterol Xinafoate/ Fluticasone (Advair 500/50 Diskus) 1 inh BID INH Last administered on 02/18/17 09:05; Admin Dose 1 INH; Start 02/15/17 at 09:00 Tiotropium [place] (Spiriva) 18 inh DAILY INH Last administered on 02/18/17 09 :16; Admin Dose 18 INH; Start 02/15/17 at 09:00 Zolpidem Tartrate (Ambien) 5 mg QHS PRN PO INSOMNIA; Start 02/15/17 at 04:00 Albuterol (Ventolin Hfa) 2 puff Q4 INH Last administered on 02/18/17 17:31; Admin Dose 2 PUFF; Start 02/15/17 at 05:00 Diagnostic Test (Pha) (Accu-Chek) 1 ea 02 XX Last administered on 02/18/17 02: 55; Admin Dose 1 EA; Start 02/16/17 at 02:00 Miscellaneous Information 1 ea NOTE XX ; Start 02/15/17 at 04:30 Glucose (Glutose) 15 gm Q15M PRN PO DECREASED GLUCOSE; Start 02/15/17 at 04:30 Glucose (Glutose) 22.5 gm Q15M PRN PO DECREASED GLUCOSE; Start 02/15/17 at 04: 30 Dextrose (D50w Syringe) 25 ml Q15M PRN IV DECREASED GLUCOSE; Start 02/15/17 at 04:30 Dextrose (D50w Syringe) 50 ml Q15M PRN IV DECREASED GLUCOSE; Start 02/15/17 at 04:30 Glucagon (Glucagen) 1 mg Q15M PRN IM DECREASED GLUCOSE; Start 02/15/17 at 04:30 Glucose (Glutose) 15 gm Q15M PRN BUCCAL DECREASED GLUCOSE; Start 02/15/17 at 04 :30 Baclofen (Lioresal) 10 mg TID PO Last administered on 02/18/17 12:07; Admin Dose 10 MG; Start 02/15/17 at 09:00 Clonazepam (Klonopin) 1 mg BID PO Last administered on 02/18/17 09:06; Admin Dose 1 MG; Start 02/15/17 at 09:00 Acetaminophen/ Hydrocodone Bitart ([place] (10/325)) 1 tab TID PRN PO PAIN LEVEL 5-7 Last administered on 02/16/17 14:00; Admin Dose 1 TAB; Start 02/15/17 at 09 :00 Isosorbide Dinitrate (Isordil) 40 mg DAILY PO Last administered on 02/18/17 09 :07; Admin Dose 40 MG; Start 02/15/17 at 09:00 Morphine Sulfate (Ms Contin (Er)) 30 mg BID PO Last administered on 02/18/17 09:06; Admin Dose 30 MG; Start 02/15/17 at 09:00 Trazodone HCl 50 mg 50 mg QHS PO Last administered on 02/17/17 21:02; Admin Dose 50 MG; Start 02/15/17 at 21:00 Sodium Chloride (NS) 1,000 ml @ 100 mls/hr Q10H IV Last administered on 15:13; Admin Dose 100 MLS/HR; Start 02/15/17 at 11:30 Nicotine (Nicoderm 14 Mg/ 24hr) 1 patch DAILY TRANSDERM Last administered on 09:05; Admin Dose 1 PATCH; Start 02/15/17 at 18:00 Gabapentin (Neurontin) 400 mg TID PO Last administered on 02/18/17 12:07; Admin Dose 400 MG; Start 02/16/17 at 13:00 Pantoprazole (Protonix Tab) 40 mg DAILY@06 PO Last administered on 02/18/17 06 :14; Admin Dose 40 MG; Start 02/17/17 at 06:00 Insulin Glargine (Lantus) 60 unit DAILY@20 SC Last administered on 02/17/17 21 :11; Admin Dose 60 UNIT; Start 02/17/17 at 20:00 Hydromorphone HCl (Dilaudid) 2 mg Q4H PRN PO PAIN Last administered on 15:13; Admin Dose 2 MG; Start 02/18/17 at 08:00 Ketorolac Tromethamine (Toradol) 30 mg Q6H PRN IV PAIN Last administered on 17:32; Admin Dose 30 MG; Start 02/18/17 at 16:30; Stop 02/21/17 at 16:29 ENRIQUE VANCE Feb 18, 2017 17:42
[2017-02-18 19:42] VITALS: BP 119/70; RESP 20
[2017-02-18] MEDS: traZODone 50 MG TAB PO SCH (20:44)
[2017-02-18] MEDS: INSULIN GLARGINE [LANtus] 3 ML PEN SC SCH (20:57)
[2017-02-19] MEDS: ALBUTEROL 18 GM INHALER INH SCH ×6 (01:00→21:05)
[2017-02-19] MEDS: ACCUCHECK AT 2AM (Patients on SS coverage) XX SCH (02:16)
[2017-02-19] MEDS: SOD CHLORIDE 0.9% 1,000 ML IV SCH ×3 (02:19→15:32)
[2017-02-19] MEDS: HYDROmorphONE 2 MG TAB PO PRN ×3 (03:01→18:48)
[2017-02-19 05:50] LABS: ADD SCAN DIFF NO
[2017-02-19] MEDS: FUROSEMIDE 20 MG TAB PO SCH (06:00)
[2017-02-19] MEDS: PANTOPRAZOLE (EC) 40 MG TAB PO SCH (06:11)
[2017-02-19 06:15] LABS: BASOPHILS % 0.3 % (0.0-2.0); EOSINOPHILS # 0.3 10^3/ul (0.0-0.5); EOSINOPHILS % 3.3 % (0.0-7.0); HEMATOCRIT 37.9 % (37.0-47.0); HEMOGLOBIN 11.5 g/dl (12.0-16.0); LYMPHOCYTES # 2.6 10^3/ul (0.8-2.9); LYMPHOCYTES % 29.4 % (15.0-51.0); MEAN CORPUSCULAR HEMOGLOBIN 27.6 pg (29.0-33.0); MEAN CORPUSCULAR HGB CONC 30.3 g/dl (32.0-37.0); MEAN CORPUSCULAR VOLUME 91.1 fl (82.0-101.0); MEAN PLATELET VOLUME 10.2 fl (7.4-10.4); MONOCYTE # 0.7 10^3/ul (0.3-0.9); MONOCYTES % 7.9 % (0.0-11.0); NEUTROPHIL # 5.1 10^3/ul (1.6-7.5); NEUTROPHILS % 58.8 % (39.0-77.0); PLATELET COUNT 331 10^3/UL (140-415); RED BLOOD COUNT 4.16 10^6/ul (4.20-5.40); RED CELL DISTRIBUTION WIDTH 15.6 % (11.5-14.5); WHITE BLOOD COUNT 8.7 10^3/ul (4.8-10.8)
[2017-02-19] MEDS: HEPARIN 5,000 UNIT/0.5 ML VIAL SC SCH ×3 (06:31→22:20)
[2017-02-19 06:45] LABS: CALCIUM 8.9 mg/dl (8.4-10.2); CREATININE 0.68 mg/dl (0.44-1.00); POTASSIUM 4.4 mmol/L (3.5-5.1)
[2017-02-19 07:30] VITALS: BP 129/81; PULSE 70; RESP 20
[2017-02-19 08:00] VITALS: BP 129/81; RESP 20
[2017-02-19] MEDS: KETOROLAC 30 MG INJ IV PRN ×3 (08:38→22:21)
[2017-02-19] MEDS: INSULIN ASPART [NOVOLOG] 3 ML PEN SC SCH ×7 (08:44→21:16)
[2017-02-19] MEDS: BACLOFEN 10 MG TAB PO SCH ×3 (09:23→21:06)
[2017-02-19] MEDS: ASPIRIN (EC) 81 MG TAB PO SCH (09:23)
[2017-02-19] MEDS: GABAPENTIN 400 MG CAP PO SCH ×3 (09:23→21:06)
[2017-02-19] MEDS: FLUOXETINE 20 MG CAP PO SCH (09:23)
[2017-02-19] MEDS: BUPROPION 100 MG TAB PO SCH ×2 (09:24→21:06)
[2017-02-19] MEDS: morphine (ER) 30 MG TAB PO SCH ×2 (09:24→21:06)
[2017-02-19] MEDS: clonAZEPAM 0.5 MG TAB PO SCH ×2 (09:24→21:06)
[2017-02-19] MEDS: ENALAPRIL 5 MG TAB PO SCH (09:25)
[2017-02-19] MEDS: HYDROCHLOROTHIAZIDE 25 MG TAB PO SCH (09:25)
[2017-02-19] MEDS: ISOSORBIDE DINITRATE 10 MG TAB PO SCH (09:26)
[2017-02-19] MEDS: NICOTINE (14 MG/24 HR) PATCH TRANSDERM SCH (09:26)
[2017-02-19] MEDS: SALMETEROL/FLUTICASONE 500/50 INHA INH SCH ×2 (09:26→21:05)
[2017-02-19] MEDS: TIOTROPIUM 18 MCG CAPSULE INHA DEV INH SCH (09:27)
[2017-02-19] MEDS ORDERED: ALPRAZOLAM 0.5 MG TAB PO PRN (11:30)
[2017-02-19] MEDS: hydrOXYzine HCL 25 MG TAB PO PRN (12:05)
[2017-02-19] MEDS: ALPRAZOLAM 0.25 MG TAB PO PRN (12:37)
--- NOTE | 2017-02-19 16:37 | PN ---
Date/Time of Note Date/Time of Note DATE: 02/19/17 TIME: 16:34 Assessment/Plan VTE Prophylaxis VTE Prophylaxis Intervention: SCD's Lines/Catheters IV Catheter Type (from Nrs): Peripheral IV Urinary Cath still in place: No Assessment/Plan Chief Complaint/Hosp Course Assessment and plan 1. COPD with exacerbation. Continue on bronchodilators. Off of steroids due to recent hyperglycemia. Will monitor for clinical improvement. Will provide with O2 as needed . 2. Lactic acidosis likely secondary to hyperglycemia and IV hydration. Improved at this time. Will monitor for now. 3. Uncontrolled diabetes. A1c reportedly greater than 14. Patient being followed by adaptive physical educator. Insulin regimen adjusted. Will monitor for clinical improvement. 4. Reported mechanical fall. Patient did report falling 3 times resulting in low back pain. Of note her most recent lumbar x-ray was done on January 16, 2017 when she reported that was her first fall that showed no evidence of fracture or subluxation. Patient does still report having falls afterwards and feeling weak in the legs. We will follow-up an MRI of the back. 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 Discussed with neurosurgeon as well as orthopedic surgeon. Plan for LSO brace. Continue with physical therapy. plan for ARU 5. Essential hypertension. Continue antihypertensives and adjust needed DVT prophylaxis: Heparin GERD prophylaxis: Protonix Disposition plan:. continue with PT. plan for ARU. will follow up Discussed plan of care with Problems: Subjective 24 Hr Interval Summary Free Text/Dictation still reports having some back pain Exam/Review of Systems Vital Signs Vitals Vital Signs Date Time Temp Pulse Resp B/P Pulse Ox O2 Delivery O2 Flow Rate FiO2 02/19/17 08:00 98.5 70 20 129/81 96 02/19/17 07:30 Nasal Cannula 2.0 Intake and Output 02/18/17 02/18/17 02/19/17 15:00 23:00 07:00 Intake Total 2100 ml 1735 ml 1250 ml Output Total 2360 ml 2050 ml 1300 ml Balance -260 ml -315 ml -50 ml Exam Constitutional: alert, oriented, other Psych: nl mood/affect Head: normocephalic Neck: supple, No jvd Respiratory: clear to auscultation, normal air movement Cardiovascular: regular rate and rhythm Gastrointestinal: non-tender, soft Musculoskeletal: No nl gait and stance Neurological: ANESTHESIOLOGIST ASSISTANT II-XII intact, nl mental status, nl speech Skin: nl turgor Results Result Diagram: 02/19/17 0502 02/19/17 0502 Results 24 hrs Laboratory Tests Test 02/18/17 17:13 02/18/17 20:48 02/19/17 02:18 02/19/17 05:02 Bedside Glucose 158 231 H 243 H White Blood Count 8.7 Red Blood Count 4.16 L Hemoglobin 11.5 L Hematocrit 37.9 Mean Corpuscular Volume 91.1 Mean Corpuscular Hemoglobin 27.6 L Mean Corpuscular Hemoglobin Concent 30.3 L Red Cell Distribution Width 15.6 H Platelet Count 331 Mean Platelet Volume 10.2 Neutrophils % 58.8 Lymphocytes % 29.4 Monocytes % 7.9 Eosinophils % 3.3 Basophils % 0.3 Nucleated Red Blood Cells % 0.0 Neutrophils # 5.1 Lymphocytes # 2.6 Monocytes # 0.7 Eosinophils # 0.3 Basophils # 0.0 Nucleated Red Blood Cells # 0.0 Sodium Level 134 L Potassium Level 4.4 Chloride Level 99 Carbon Dioxide Level 29 Anion Gap 10 Blood Urea Nitrogen 11 Creatinine 0.68 Glucose Level 243 H Calcium Level 8.9 Test 02/19/17 08:23 02/19/17 11:56 Bedside Glucose 273 H 231 H Medications Medications Current Medications Ondansetron HCl (Zofran Inj) 4 mg Q6H PRN IV NAUSEA AND/OR VOMITING; Start at 04:00 Docusate Sodium (Colace) 100 mg Q12H PRN PO CONSTIPATION Last administered on 12:07; Admin Dose 100 MG; Start 02/15/17 at 04:00 Bisacodyl (Dulcolax Supp) 10 mg DAILY PRN [place] CONSTIPATION; Start 02/15/17 at 04 :00 Heparin Sodium (Porcine) (Heparin (5000 Units/0.5 ml)) 5,000 unit Q8 SC Last administered on 02/19/17 13:28; Admin Dose 5,000 UNIT; Start 02/15/17 at 06:00 Aspirin (Halfprin) 81 mg DAILY PO Last administered on 02/19/17 09:23; Admin Dose 81 MG; Start 02/15/17 at 09:00 Bupropion HCl (Wellbutrin) 100 mg BID PO Last administered on 02/19/17 09:24; Admin Dose 100 MG; Start 02/15/17 at 09:00 Enalapril Maleate (Vasotec) 5 mg DAILY PO Last administered on 02/19/17 09:25 ; Admin Dose 5 MG; Start 02/15/17 at 09:00 Fluoxetine HCl (Prozac) 60 mg DAILY PO Last administered on 02/19/17 09:23; Admin Dose 60 MG; Start 02/15/17 at 09:00 Furosemide (Lasix) 20 mg DAILY@06 PO Last administered on 02/18/17 06:14; Admin Dose 20 MG; Start 02/15/17 at 06:00 Hydrochlorothiazide (Hydrochlorothiazide) 25 mg DAILY PO Last administered on 09:25; Admin Dose 25 MG; Start 02/15/17 at 09:00 Salmeterol Xinafoate/ Fluticasone (Advair 500/50 Diskus) 1 inh BID INH Last administered on 02/19/17 09:26; Admin Dose 1 INH; Start 02/15/17 at 09:00 Tiotropium [place] (Spiriva) 18 inh DAILY INH Last administered on 02/19/17 09 :27; Admin Dose 18 INH; Start 02/15/17 at 09:00 Zolpidem Tartrate (Ambien) 5 mg QHS PRN PO INSOMNIA; Start 02/15/17 at 04:00 Albuterol (Ventolin Hfa) 2 puff Q4 INH Last administered on 02/19/17 12:37; Admin Dose 2 PUFF; Start 02/15/17 at 05:00 Diagnostic Test (Pha) (Accu-Chek) 1 ea 02 XX Last administered on 02/19/17 02: 16; Admin Dose 1 EA; Start 02/16/17 at 02:00 Miscellaneous Information 1 ea NOTE XX ; Start 02/15/17 at 04:30 Glucose (Glutose) 15 gm Q15M PRN PO DECREASED GLUCOSE; Start 02/15/17 at 04:30 Glucose (Glutose) 22.5 gm Q15M PRN PO DECREASED GLUCOSE; Start 02/15/17 at 04: 30 Dextrose (D50w Syringe) 25 ml Q15M PRN IV DECREASED GLUCOSE; Start 02/15/17 at 04:30 Dextrose (D50w Syringe) 50 ml Q15M PRN IV DECREASED GLUCOSE; Start 02/15/17 at 04:30 Glucagon (Glucagen) 1 mg Q15M PRN IM DECREASED GLUCOSE; Start 02/15/17 at 04:30 Glucose (Glutose) 15 gm Q15M PRN BUCCAL DECREASED GLUCOSE; Start 02/15/17 at 04 :30 Baclofen (Lioresal) 10 mg TID PO Last administered on 02/19/17 12:05; Admin Dose 10 MG; Start 02/15/17 at 09:00 Clonazepam (Klonopin) 1 mg BID PO Last administered on 02/19/17 09:24; Admin Dose 1 MG; Start 02/15/17 at 09:00 Acetaminophen/ Hydrocodone Bitart ([place] (10/325)) 1 tab TID PRN PO PAIN LEVEL 5-7 Last administered on 02/16/17 14:00; Admin Dose 1 TAB; Start 02/15/17 at 09 :00 Isosorbide Dinitrate (Isordil) 40 mg DAILY PO Last administered on 02/19/17 09 :26; Admin Dose 40 MG; Start 02/15/17 at 09:00 Morphine Sulfate (Ms Contin (Er)) 30 mg BID PO Last administered on 02/19/17 09:24; Admin Dose 30 MG; Start 02/15/17 at 09:00 Trazodone HCl 50 mg 50 mg QHS PO Last administered on 02/18/17 20:44; Admin Dose 50 MG; Start 02/15/17 at 21:00 Sodium Chloride (NS) 1,000 ml @ 100 mls/hr Q10H IV Last administered on 15:32; Admin Dose 100 MLS/HR; Start 02/15/17 at 11:30 Nicotine (Nicoderm 14 Mg/ 24hr) 1 patch DAILY TRANSDERM Last administered on 09:26; Admin Dose 1 PATCH; Start 02/15/17 at 18:00 Gabapentin (Neurontin) 400 mg TID PO Last administered on 02/19/17 12:05; Admin Dose 400 MG; Start 02/16/17 at 13:00 Pantoprazole (Protonix Tab) 40 mg DAILY@06 PO Last administered on 02/19/17 06 :11; Admin Dose 40 MG; Start 02/17/17 at 06:00 Insulin Glargine (Lantus) 60 unit DAILY@20 SC Last administered on 02/18/17 20 :57; Admin Dose 60 UNIT; Start 02/17/17 at 20:00 Hydromorphone HCl (Dilaudid) 2 mg Q4H PRN PO PAIN Last administered on 10:34; Admin Dose 2 MG; Start 02/18/17 at 08:00 Ketorolac Tromethamine (Toradol) 30 mg Q6H PRN IV PAIN Last administered on 15:38; Admin Dose 30 MG; Start 02/18/17 at 16:30; Stop 02/21/17 at 16:29 Hydroxyzine HCl (Atarax) 25 mg Q6H PRN PO ITCHING Last administered on 12:05; Admin Dose 25 MG; Start 02/19/17 at 11:30 Alprazolam (Xanax) 0.5 mg Q8H PRN PO ANXIETY Last administered on 02/19/17 12: 37; Admin Dose 0.5 MG; Start 02/19/17 at 12:30 KYLAH RICE Feb 19, 2017 16:37
[2017-02-19 20:07] VITALS: BP 100/52; RESP 20
[2017-02-19] MEDS: traZODone 50 MG TAB PO SCH (21:06)
[2017-02-19] MEDS: INSULIN GLARGINE [LANtus] 3 ML PEN SC SCH (21:16)
[2017-02-19] MEDS: DOCUSATE SODIUM 100 MG CAP PO PRN (22:21)
[2017-02-20] MEDS: ALBUTEROL 18 GM INHALER INH SCH ×5 (01:58→21:00)
[2017-02-20] MEDS: SOD CHLORIDE 0.9% 1,000 ML IV SCH (02:02)
[2017-02-20] MEDS: ALPRAZOLAM 0.25 MG TAB PO PRN (02:03)
[2017-02-20] MEDS: ACCUCHECK AT 2AM (Patients on SS coverage) XX SCH (02:43)
[2017-02-20] MEDS: PANTOPRAZOLE (EC) 40 MG TAB PO SCH (06:23)
[2017-02-20] MEDS: FUROSEMIDE 20 MG TAB PO SCH (06:24)
[2017-02-20] MEDS: HEPARIN 5,000 UNIT/0.5 ML VIAL SC SCH ×3 (06:35→21:30)
[2017-02-20] MEDS: KETOROLAC 30 MG INJ IV PRN ×3 (06:36→19:48)
[2017-02-20 07:11] LABS: ADD SCAN DIFF NO
[2017-02-20 07:22] LABS: BASOPHILS % 0.3 % (0.0-2.0); EOSINOPHILS # 0.3 10^3/ul (0.0-0.5); HEMATOCRIT 37.3 % (37.0-47.0); HEMOGLOBIN 11.3 g/dl (12.0-16.0); LYMPHOCYTES # 2.5 10^3/ul (0.8-2.9); LYMPHOCYTES % 32.1 % (15.0-51.0); MEAN CORPUSCULAR HEMOGLOBIN 27.6 pg (29.0-33.0); MEAN CORPUSCULAR HGB CONC 30.3 g/dl (32.0-37.0); MEAN PLATELET VOLUME 10.5 fl (7.4-10.4); MONOCYTE # 0.6 10^3/ul (0.3-0.9); MONOCYTES % 8.2 % (0.0-11.0); NEUTROPHIL # 4.3 10^3/ul (1.6-7.5); NEUTROPHILS % 55.1 % (39.0-77.0); PLATELET COUNT 302 10^3/UL (140-415); RED CELL DISTRIBUTION WIDTH 15.4 % (11.5-14.5); WHITE BLOOD COUNT 7.8 10^3/ul (4.8-10.8)
[2017-02-20 07:50] LABS: CREATININE 0.63 mg/dl (0.44-1.00); POTASSIUM 4.6 mmol/L (3.5-5.1)
[2017-02-20 08:10] VITALS: BP 129/83; RESP 20
[2017-02-20] MEDS: ISOSORBIDE DINITRATE 10 MG TAB PO SCH (08:13)
[2017-02-20] MEDS: clonAZEPAM 0.5 MG TAB PO SCH ×2 (08:14→21:25)
[2017-02-20] MEDS: FLUOXETINE 20 MG CAP PO SCH (08:14)
[2017-02-20] MEDS: morphine (ER) 30 MG TAB PO SCH ×2 (08:15→21:24)
[2017-02-20] MEDS: ASPIRIN (EC) 81 MG TAB PO SCH (08:15)
[2017-02-20] MEDS: GABAPENTIN 400 MG CAP PO SCH ×3 (08:17→21:25)
[2017-02-20] MEDS: ENALAPRIL 5 MG TAB PO SCH (08:18)
[2017-02-20] MEDS: HYDROCHLOROTHIAZIDE 25 MG TAB PO SCH (08:19)
[2017-02-20] MEDS: BACLOFEN 10 MG TAB PO SCH ×3 (08:19→21:25)
[2017-02-20] MEDS: TIOTROPIUM 18 MCG CAPSULE INHA DEV INH SCH (08:20)
[2017-02-20] MEDS: SALMETEROL/FLUTICASONE 500/50 INHA INH SCH ×2 (08:20→21:00)
[2017-02-20] MEDS: INSULIN ASPART [NOVOLOG] 3 ML PEN SC SCH ×7 (08:22→21:42)
[2017-02-20] MEDS: BUPROPION 100 MG TAB PO SCH ×2 (08:28→21:24)
[2017-02-20] MEDS: NICOTINE (14 MG/24 HR) PATCH TRANSDERM SCH (08:29)
[2017-02-20] MEDS: hydrOXYzine HCL 25 MG TAB PO PRN ×2 (13:22→21:32)
--- NOTE | 2017-02-20 16:01 | PN ---
Date/Time of Note Date/Time of Note DATE: 02/20/17 TIME: 15:59 Assessment/Plan VTE Prophylaxis VTE Prophylaxis Intervention: heparin Lines/Catheters IV [facility] ([facility]): Peripheral IV Urinary Cath still in place: No Assessment/Plan Chief Complaint/Hosp Course Assessment and plan 1. COPD with exacerbation. Continue on bronchodilators. Off of steroids due to recent hyperglycemia. Will monitor for clinical improvement. Will provide with O2 as needed. stable at this time . 2. Lactic acidosis likely secondary to hyperglycemia and IV hydration. Improved at this time. Will monitor for now. 3. Uncontrolled diabetes. A1c reportedly greater than 14. Patient being followed by tobacco educator. Insulin regimen adjusted. Will monitor for clinical improvement. 4. Reported mechanical fall. Patient did report falling 3 times resulting in low back pain. Of note her most recent lumbar x-ray was done on January 16, 2017 when she reported that was her first fall that showed no evidence of fracture or subluxation. Patient does still report having falls afterwards and feeling weak in the legs. We will follow-up an MRI of the back. 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 Discussed with neurosurgeon as well as orthopedic surgeon. Plan for LSO brace. Continue with physical therapy. plan for ARU 5. Essential hypertension. Continue antihypertensives and adjust needed DVT prophylaxis: Heparin GERD prophylaxis: Protonix Disposition plan:. continue with PT. Awaiting insurance authorization for acute rehab unit. We will follow-up. Discharge planning. Discussed plan of care with Problems: Subjective 24 Hr Interval Summary Free Text/Dictation No reports of shortness of breath at this time. Still reports having some back pain. Exam/Review of Systems Vital Signs Vitals Vital Signs Date Time Temp Pulse Resp B/P Pulse Ox O2 Delivery O2 Flow Rate FiO2 02/20/17 08:10 97.7 82 20 129/83 94 02/19/17 18:51 Nasal Cannula 2.0 Intake and Output 02/19/17 02/19/17 02/20/17 14:59 22:59 06:59 Intake Total 2890 ml 1240 ml Output Total 1500 ml Balance 2890 ml -260 ml Exam Constitutional: alert, oriented, other Psych: nl mood/affect Head: normocephalic Neck: supple, No jvd Respiratory: clear to auscultation, normal air movement Cardiovascular: regular rate and rhythm Gastrointestinal: non-tender, soft Musculoskeletal: No nl gait and stance Neurological: EDUCATIONAL GUIDANCE COUNSELOR II-XII intact, nl mental status, nl speech Skin: nl turgor Results Result Diagram: 02/20/17 0600 02/20/17 0600 Results 24 hrs Laboratory Tests Test 02/19/17 17:40 02/19/17 21:04 02/20/17 01:59 02/20/17 06:00 Bedside Glucose 229 H 247 H 269 H White Blood Count 7.8 Red Blood Count 4.10 L Hemoglobin 11.3 L Hematocrit 37.3 Mean Corpuscular Volume 91.0 Mean Corpuscular Hemoglobin 27.6 L Mean Corpuscular Hemoglobin Concent 30.3 L Red Cell Distribution Width 15.4 H Platelet Count 302 Mean Platelet Volume 10.5 H Neutrophils % 55.1 Lymphocytes % 32.1 Monocytes % 8.2 Eosinophils % 4.0 Basophils % 0.3 Nucleated Red Blood Cells % 0.0 Neutrophils # 4.3 Lymphocytes # 2.5 Monocytes # 0.6 Eosinophils # 0.3 Basophils # 0.0 Nucleated Red Blood Cells # 0.0 Sodium Level 134 L Potassium Level 4.6 Chloride Level 101 Carbon Dioxide Level 27 Anion Gap 11 Blood Urea Nitrogen 10 Creatinine 0.63 Glucose Level 279 H Calcium Level 9.0 Test 02/20/17 07:55 02/20/17 12:03 Bedside Glucose 276 H 226 H Medications Medications Current Medications Ondansetron HCl (Zofran Inj) 4 mg Q6H PRN IV NAUSEA AND/OR VOMITING; Start at 04:00 Docusate Sodium (Colace) 100 mg Q12H PRN PO CONSTIPATION Last administered on 22:21; Admin Dose 100 MG; Start 02/15/17 at 04:00 Bisacodyl (Dulcolax Supp) 10 mg DAILY PRN [place] CONSTIPATION; Start 02/15/17 at 04 :00 Heparin Sodium (Porcine) (Heparin (5000 Units/0.5 ml)) 5,000 unit Q8 SC Last administered on 02/20/17 13:31; Admin Dose 5,000 UNIT; Start 02/15/17 at 06:00 Aspirin (Halfprin) 81 mg DAILY PO Last administered on 02/20/17 08:15; Admin Dose 81 MG; Start 02/15/17 at 09:00 Bupropion HCl (Wellbutrin) 100 mg BID PO Last administered on 02/20/17 08:28; Admin Dose 100 MG; Start 02/15/17 at 09:00 Enalapril Maleate (Vasotec) 5 mg DAILY PO Last administered on 02/20/17 08:18 ; Admin Dose 5 MG; Start 02/15/17 at 09:00 Fluoxetine HCl (Prozac) 60 mg DAILY PO Last administered on 02/20/17 08:14; Admin Dose 60 MG; Start 02/15/17 at 09:00 Furosemide (Lasix) 20 mg DAILY@06 PO Last administered on 02/20/17 06:24; Admin Dose 20 MG; Start 02/15/17 at 06:00 Hydrochlorothiazide (Hydrochlorothiazide) 25 mg DAILY PO Last administered on 08:19; Admin Dose 25 MG; Start 02/15/17 at 09:00 Salmeterol Xinafoate/ Fluticasone (Advair 500/50 Diskus) 1 inh BID INH Last administered on 02/20/17 08:20; Admin Dose 1 INH; Start 02/15/17 at 09:00 Albuterol (Ventolin Hfa) 2 puff Q4 INH Last administered on 02/20/17 12:21; Admin Dose 2 PUFF; Start 02/15/17 at 05:00 Diagnostic Test (Pha) (Accu-Chek) 1 ea 02 XX Last administered on 02/20/17 02: 43; Admin Dose 1 EA; Start 02/16/17 at 02:00 Miscellaneous Information 1 ea NOTE XX ; Start 02/15/17 at 04:30 Glucose (Glutose) 15 gm Q15M PRN PO DECREASED GLUCOSE; Start 02/15/17 at 04:30 Glucose (Glutose) 22.5 gm Q15M PRN PO DECREASED GLUCOSE; Start 02/15/17 at 04: 30 Dextrose (D50w Syringe) 25 ml Q15M PRN IV DECREASED GLUCOSE; Start 02/15/17 at 04:30 Dextrose (D50w Syringe) 50 ml Q15M PRN IV DECREASED GLUCOSE; Start 02/15/17 at 04:30 Glucagon (Glucagen) 1 mg Q15M PRN IM DECREASED GLUCOSE; Start 02/15/17 at 04:30 Glucose (Glutose) 15 gm Q15M PRN BUCCAL DECREASED GLUCOSE; Start 02/15/17 at 04 :30 Baclofen (Lioresal) 10 mg TID PO Last administered on 02/20/17 12:21; Admin Dose 10 MG; Start 02/15/17 at 09:00 Clonazepam (Klonopin) 1 mg BID PO Last administered on 02/20/17 08:14; Admin Dose 1 MG; Start 02/15/17 at 09:00 Acetaminophen/ Hydrocodone Bitart ([place] (10/325)) 1 tab TID PRN PO PAIN LEVEL 5-7 Last administered on 02/16/17 14:00; Admin Dose 1 TAB; Start 02/15/17 at 09 :00 Isosorbide Dinitrate (Isordil) 40 mg DAILY PO Last administered on 02/20/17 08 :13; Admin Dose 40 MG; Start 02/15/17 at 09:00 Morphine Sulfate (Ms Contin (Er)) 30 mg BID PO Last administered on 02/20/17 08:15; Admin Dose 30 MG; Start 02/15/17 at 09:00 Trazodone HCl (Desyrel) 50 mg QHS PO Last administered on 02/19/17 21:06; Admin Dose 50 MG; Start 02/15/17 at 21:00 Nicotine (Nicoderm 14 Mg/ 24hr) 1 patch DAILY TRANSDERM Last administered on 08:29; Admin Dose 1 PATCH; Start 02/15/17 at 18:00 Gabapentin (Neurontin) 400 mg TID PO Last administered on 02/20/17 12:21; Admin Dose 400 MG; Start 02/16/17 at 13:00 Pantoprazole (Protonix Tab) 40 mg DAILY@06 PO Last administered on 02/20/17 06 :23; Admin Dose 40 MG; Start 02/17/17 at 06:00 Hydromorphone HCl (Dilaudid) 2 mg Q4H PRN PO PAIN Last administered on 18:48; Admin Dose 2 MG; Start 02/18/17 at 08:00 Ketorolac Tromethamine (Toradol) 30 mg Q6H PRN IV PAIN Last administered on 13:22; Admin Dose 30 MG; Start 02/18/17 at 16:30; Stop 02/21/17 at 16:29 Hydroxyzine HCl (Atarax) 25 mg Q6H PRN PO ITCHING Last administered on 13:22; Admin Dose 25 MG; Start 02/19/17 at 11:30 Alprazolam (Xanax) 0.5 mg Q8H PRN PO ANXIETY Last administered on 02/20/17 02: 03; Admin Dose 0.5 MG; Start 02/19/17 at 12:30 Tiotropium [place] (Spiriva) 1 inh DAILY INH Last administered on 02/20/17 08: 20; Admin Dose 1 INH; Start 02/20/17 at 08:18 Insulin Glargine (Lantus) 75 unit DAILY@20 SC ; Start 02/20/17 at 20:00 KYLAH RICE Feb 20, 2017 16:01
[2017-02-20] MEDS: HYDROmorphONE 2 MG TAB PO PRN ×2 (17:11→22:48)
[2017-02-20 19:52] VITALS: BP 124/64; PULSE 85; RESP 18
[2017-02-20] MEDS ORDERED: INSULIN GLARGINE [LANtus] 3 ML PEN SC SCH (20:00)
[2017-02-20] MEDS: traZODone 50 MG TAB PO SCH (21:25)
[2017-02-21] MEDS: ALBUTEROL 18 GM INHALER INH SCH ×6 (01:00→21:00)
[2017-02-21] MEDS: ACCUCHECK AT 2AM (Patients on SS coverage) XX SCH (02:00)
[2017-02-21] MEDS: KETOROLAC 30 MG INJ IV PRN ×3 (02:38→14:34)
[2017-02-21 05:41] LABS: ADD SCAN DIFF NO
[2017-02-21 05:52] LABS: BASOPHIL # 0.1 10^3/ul (0.0-0.1); BASOPHILS % 0.6 % (0.0-2.0); EOSINOPHILS # 0.4 10^3/ul (0.0-0.5); EOSINOPHILS % 4.6 % (0.0-7.0); HEMATOCRIT 37.9 % (37.0-47.0); HEMOGLOBIN 11.4 g/dl (12.0-16.0); LYMPHOCYTES # 2.6 10^3/ul (0.8-2.9); LYMPHOCYTES % 31.2 % (15.0-51.0); MEAN CORPUSCULAR HEMOGLOBIN 27.4 pg (29.0-33.0); MEAN CORPUSCULAR HGB CONC 30.1 g/dl (32.0-37.0); MEAN CORPUSCULAR VOLUME 91.1 fl (82.0-101.0); MEAN PLATELET VOLUME 10.1 fl (7.4-10.4); MONOCYTE # 0.5 10^3/ul (0.3-0.9); MONOCYTES % 6.5 % (0.0-11.0); NEUTROPHIL # 4.6 10^3/ul (1.6-7.5); NEUTROPHILS % 56.6 % (39.0-77.0); PLATELET COUNT 333 10^3/UL (140-415); RED BLOOD COUNT 4.16 10^6/ul (4.20-5.40); RED CELL DISTRIBUTION WIDTH 15.4 % (11.5-14.5); WHITE BLOOD COUNT 8.2 10^3/ul (4.8-10.8)
[2017-02-21] MEDS: PANTOPRAZOLE (EC) 40 MG TAB PO SCH (06:00)
[2017-02-21] MEDS: FUROSEMIDE 20 MG TAB PO SCH (06:01)
[2017-02-21] MEDS: HEPARIN 5,000 UNIT/0.5 ML VIAL SC SCH ×3 (06:04→21:52)
[2017-02-21 06:33] LABS: CREATININE 0.64 mg/dl (0.44-1.00); POTASSIUM 4.6 mmol/L (3.5-5.1)
[2017-02-21] MEDS: HYDROmorphONE 2 MG TAB PO PRN ×4 (06:36→21:44)
[2017-02-21] MEDS: hydrOXYzine HCL 25 MG TAB PO PRN ×2 (06:36→21:44)
[2017-02-21 07:27] VITALS: BP 118/71; RESP 20
[2017-02-21] MEDS: BUPROPION 100 MG TAB PO SCH ×2 (08:24→20:39)
[2017-02-21] MEDS: clonAZEPAM 0.5 MG TAB PO SCH ×2 (08:24→20:38)
[2017-02-21] MEDS: ASPIRIN (EC) 81 MG TAB PO SCH (08:24)
[2017-02-21] MEDS: FLUOXETINE 20 MG CAP PO SCH (08:25)
[2017-02-21] MEDS: TIOTROPIUM 18 MCG CAPSULE INHA DEV INH SCH (08:25)
[2017-02-21] MEDS: BACLOFEN 10 MG TAB PO SCH ×3 (08:26→20:39)
[2017-02-21] MEDS: morphine (ER) 30 MG TAB PO SCH ×2 (08:26→20:41)
[2017-02-21] MEDS: NICOTINE (14 MG/24 HR) PATCH TRANSDERM SCH (08:26)
[2017-02-21] MEDS: GABAPENTIN 400 MG CAP PO SCH ×3 (08:26→20:38)
[2017-02-21] MEDS: INSULIN ASPART [NOVOLOG] 3 ML PEN SC SCH ×7 (08:27→21:00)
[2017-02-21] MEDS: SALMETEROL/FLUTICASONE 500/50 INHA INH SCH ×2 (08:30→21:00)
[2017-02-21] MEDS: HYDROCHLOROTHIAZIDE 25 MG TAB PO SCH (08:31)
[2017-02-21] MEDS: ENALAPRIL 5 MG TAB PO SCH (08:31)
[2017-02-21] MEDS: ISOSORBIDE DINITRATE 10 MG TAB PO SCH (09:00)
--- NOTE | 2017-02-21 12:17 | PN ---
DATE: 02/21/2017 SUBJECTIVE DATA: Denies any dyspnea. Complaints of back pain. OBJECTIVE DATA: VITAL SIGNS: Temperature 98.8, pulse rate 70, respiratory rate 20, blood pressure 118/79, oxygen saturation 95% on room air. GENERAL: This is a morbidly obese female patient lying in bed in no apparent distress. HEENT: Head normocephalic and atraumatic. Eyes: Anicteric sclerae. Conjunctivae clear. ENT: Nasal septum is midline. Oral mucosa is dry. NECK: Short and obese. RESPIRATORY: Bilaterally diminished breath sounds. No adventitious breath sounds heard. No use of accessory muscles of respiration. CARDIAC: Regular rate and rhythm. S1 and S2 heard. Grade II/ systolic ejection murmur heard over the left sternal border. ABDOMEN: Soft, nontender, and nondistended. Bowel sounds are hypoactive in all 4 quadrants. GENITOURINARY: Deferred. EXTREMITIES: No cyanosis, no clubbing. Bilateral lower extremity 1+ pitting edema. Peripheral pulses are palpable. NEUROLOGIC: The patient is awake, alert, and oriented. Cranial nerves are grossly intact. LABORATORY AND DIAGNOSTIC DATA: WBC 8.3, hemoglobin 11.4, hematocrit 37.9, platelet count 333. Sodium 135, potassium 4.6, chloride 101, carbon dioxide 26 , anion gap 12, BUN 10, creatinine 0.60, glucose 280, calcium 9.0. ASSESSMENT AND PLAN: 1. Chronic obstructive pulmonary disease exacerbation. Continue inhaled bronchodilators. Status post steroids. 2. Type 2 diabetes mellitus, uncontrolled. Hemoglobin A1c is sent out. Continue insulin sliding scale. Reinforce strict carbohydrate controlled diet. 3. Status post mechanical fall. Lumbar spine MRI showing acute mild L3 compression fracture without any bony retropulsion. Status post evaluation by Neurosurgery. Neurosurgery recommended LSO brace. Continue physical therapy. 4. Essential hypertension. Continue antihypertensives. 5. Dyslipidemia with significant hypertriglyceridemia. We will start the patient on fish oil. 6. Nicotine use. Cessation advised. 7. Morbid obesity. Weight reduction advised. 8. Fluid, electrolytes, and nutrition. Low cholesterol, carbohydrate controlled diet. 9. Deep venous thrombosis prophylaxis. Subcutaneous heparin. 10. Gastrointestinal prophylaxis. Proton pump inhibitors. PLAN: Await transfer to acute rehabilitation unit. The case was discussed with Dr. Zimmerman. JEFF ZIMMERMAN MD AM/NTS Conf#: [id number] DID#: [id number]
[2017-02-21] MEDS: HYDROCODONE/APAP (10/325) TAB PO PRN (13:07)
[2017-02-21] MEDS: ALPRAZOLAM 0.25 MG TAB PO PRN (15:28)
[2017-02-21 19:32] VITALS: BP 123/70; RESP 18
[2017-02-21] MEDS ORDERED: INSULIN GLARGINE [LANtus] 3 ML PEN SC SCH (20:00)
[2017-02-21] MEDS: traZODone 50 MG TAB PO SCH (20:38)
[2017-02-21] MEDS: FISH OIL 1,000 MG CAP PO SCH (20:40)
[2017-02-21] MEDS: DOCUSATE SODIUM 100 MG CAP PO PRN (21:46)
[2017-02-22] MEDS: ALPRAZOLAM 0.25 MG TAB PO PRN ×2 (00:02→11:17)
[2017-02-22] MEDS: HYDROCODONE/APAP (10/325) TAB PO PRN (00:03)
[2017-02-22] MEDS: ALBUTEROL 18 GM INHALER INH SCH ×5 (01:00→11:56)
[2017-02-22] MEDS: ACCUCHECK AT 2AM (Patients on SS coverage) XX SCH (02:00)
[2017-02-22 05:56] LABS: ADD SCAN DIFF NO
[2017-02-22] MEDS: PANTOPRAZOLE (EC) 40 MG TAB PO SCH (05:56)
[2017-02-22] MEDS: HYDROmorphONE 2 MG TAB PO PRN ×2 (05:56→10:19)
[2017-02-22] MEDS: FUROSEMIDE 20 MG TAB PO SCH (05:57)
[2017-02-22] MEDS: HEPARIN 5,000 UNIT/0.5 ML VIAL SC SCH ×2 (06:05→14:00)
[2017-02-22 06:10] LABS: BASOPHIL # 0.1 10^3/ul (0.0-0.1); BASOPHILS % 0.6 % (0.0-2.0); EOSINOPHILS # 0.3 10^3/ul (0.0-0.5); EOSINOPHILS % 4.1 % (0.0-7.0); HEMATOCRIT 38.6 % (37.0-47.0); HEMOGLOBIN 11.7 g/dl (12.0-16.0); LYMPHOCYTES # 2.4 10^3/ul (0.8-2.9); LYMPHOCYTES % 30.7 % (15.0-51.0); MEAN CORPUSCULAR HEMOGLOBIN 27.6 pg (29.0-33.0); MEAN CORPUSCULAR HGB CONC 30.3 g/dl (32.0-37.0); MEAN PLATELET VOLUME 10.1 fl (7.4-10.4); MONOCYTE # 0.5 10^3/ul (0.3-0.9); NEUTROPHIL # 4.6 10^3/ul (1.6-7.5); NEUTROPHILS % 58.2 % (39.0-77.0); PLATELET COUNT 328 10^3/UL (140-415); RED BLOOD COUNT 4.24 10^6/ul (4.20-5.40); RED CELL DISTRIBUTION WIDTH 15.8 % (11.5-14.5); WHITE BLOOD COUNT 7.8 10^3/ul (4.8-10.8)
[2017-02-22 06:34] LABS: MAGNESIUM 1.6 mg/dl (1.7-2.5); PHOSPHORUS 5.3 mg/dl (2.5-4.9)
[2017-02-22 06:42] LABS: CALCIUM 9.2 mg/dl (8.4-10.2); CREATININE 0.78 mg/dl (0.44-1.00); POTASSIUM 5.2 mmol/L (3.5-5.1)
[2017-02-22 07:23] VITALS: BP 130/70; RESP 20
[2017-02-22] MEDS: NICOTINE (14 MG/24 HR) PATCH TRANSDERM SCH (08:11)
[2017-02-22] MEDS: ISOSORBIDE DINITRATE 10 MG TAB PO SCH (08:12)
[2017-02-22] MEDS: FISH OIL 1,000 MG CAP PO SCH (08:12)
[2017-02-22] MEDS: FLUOXETINE 20 MG CAP PO SCH (08:12)
[2017-02-22] MEDS: clonAZEPAM 0.5 MG TAB PO SCH (08:13)
[2017-02-22] MEDS: ASPIRIN (EC) 81 MG TAB PO SCH (08:13)
[2017-02-22] MEDS: BACLOFEN 10 MG TAB PO SCH ×2 (08:13→11:57)
[2017-02-22] MEDS: BUPROPION 100 MG TAB PO SCH (08:13)
[2017-02-22] MEDS: morphine (ER) 30 MG TAB PO SCH (08:13)
[2017-02-22] MEDS: GABAPENTIN 400 MG CAP PO SCH ×2 (08:13→11:57)
[2017-02-22] MEDS: SALMETEROL/FLUTICASONE 500/50 INHA INH SCH (08:14)
[2017-02-22] MEDS: ENALAPRIL 5 MG TAB PO SCH (08:14)
[2017-02-22] MEDS: HYDROCHLOROTHIAZIDE 25 MG TAB PO SCH (08:14)
[2017-02-22] MEDS: TIOTROPIUM 18 MCG CAPSULE INHA DEV INH SCH (08:15)
--- NOTE | 2017-02-22 08:22 | CONS ---
Date/Time of Note Date/Time of Note DATE: 02/22/17 TIME: 08:20 Assessment/Plan Assessment/Plan Chief Complaint/Hosp Course 56-year-old female who took a mechanical fall 3 approximately 1 week prior to his presentation. Developed severe onset of low back discomfort with radiations into bilateral buttock, denies warning signs including recent febrile episode, incontinence of urine or feces or pelvic hypoesthesis. States the pain is lancinating electric shock rated 10/10 somewhat alleviated with current pain control with IV opioid, resolution of her pain with morphine for approximately 2 hours only. She has a past medical history of opioid use, she is tolerant to current pain medication states that she has a chronic pain management patient syndrome. She takes a combination of morphine extended release and immediate release opioids unknown medication. There is a vague past medical history of opioid abuse, but she frankly denies alcohol or drug addiction in the past. There is no family history of addictions or suicide. Problems: Consultation Date/Type/Reason Admit Date/Time Feb 15, 2017 at 01:43 Initial Consult Date 02/17/17 Type of Consultation: Pain management 24 HR Interval Summary Free Text/Dictation Postdated note visit February 20 Scheduled to be discharged home with back brace and oral pain medications with follow-up to primary care physician. Recommend minimum amount of opioids prescribed at discharge only enough for follow-up with primary care physician within one week Exam/Review of Systems Vital Signs Vitals Vital Signs Date Time Temp Pulse Resp B/P Pulse Ox O2 Delivery O2 Flow Rate FiO2 02/22/17 07:23 97.5 73 20 130/70 95 02/21/17 20:00 Nasal Cannula 2.0 Intake and Output 02/21/17 02/21/17 02/22/17 15:00 23:00 07:00 Intake Total 1600 ml 800 ml Balance 1600 ml 800 ml Results Result Diagram: 02/22/1752102/22/17521 Results 24 hrs Laboratory Tests Test 02/21/17 11:52 02/21/17 11:55 02/21/17 13:38 02/21/17 17:25 Bedside Glucose 106 72 202 Vitamin D 1,25-Dihydroxy 13.6 L Test 02/21/17 21:48 02/22/17 05:22 Bedside Glucose 168 White Blood Count 7.8 Red Blood Count 4.24 Hemoglobin 11.7 L Hematocrit 38.6 Mean Corpuscular Volume 91.0 Mean Corpuscular Hemoglobin 27.6 L Mean Corpuscular Hemoglobin Concent 30.3 L Red Cell Distribution Width 15.8 H Platelet Count 328 Mean Platelet Volume 10.1 Neutrophils % 58.2 Lymphocytes % 30.7 Monocytes % 6.0 Eosinophils % 4.1 Basophils % 0.6 Nucleated Red Blood Cells % 0.0 Neutrophils # 4.6 Lymphocytes # 2.4 Monocytes # 0.5 Eosinophils # 0.3 Basophils # 0.1 Nucleated Red Blood Cells # 0.0 Sodium Level 136 Potassium Level 5.2 H Chloride Level 99 Carbon Dioxide Level 32 H Anion Gap 10 Blood Urea Nitrogen 12 Creatinine 0.78 Glucose Level 252 H Calcium Level 9.2 Phosphorus Level 5.3 H Magnesium Level 1.6 L Medications Medications Current Medications Ondansetron HCl (Zofran Inj) 4 mg Q6H PRN IV NAUSEA AND/OR VOMITING; Start at 04:00 Docusate Sodium (Colace) 100 mg Q12H PRN PO CONSTIPATION Last administered on 21:46; Admin Dose 100 MG; Start 02/15/17 at 04:00 Bisacodyl (Dulcolax Supp) 10 mg DAILY PRN OK CONSTIPATION; Start 02/15/17 at 04 :00 Aspirin (Halfprin) 81 mg DAILY PO Last administered on 02/21/17 08:24; Admin Dose 81 MG; Start 02/15/17 at 09:00 Bupropion HCl (Wellbutrin) 100 mg BID PO Last administered on 02/21/17 20:39; Admin Dose 100 MG; Start 02/15/17 at 09:00 Enalapril Maleate (Vasotec) 5 mg DAILY PO Last administered on 02/21/17 08:31 ; Admin Dose 5 MG; Start 02/15/17 at 09:00 Fluoxetine HCl (Prozac) 60 mg DAILY PO Last administered on 02/21/17 08:25; Admin Dose 60 MG; Start 02/15/17 at 09:00 Furosemide (Lasix) 20 mg DAILY@06 PO Last administered on 02/22/17 05:57; Admin Dose 20 MG; Start 02/15/17 at 06:00 Hydrochlorothiazide (Hydrochlorothiazide) 25 mg DAILY PO Last administered on 08:31; Admin Dose 25 MG; Start 02/15/17 at 09:00 Salmeterol Xinafoate/ Fluticasone (Advair 500/50 Diskus) 1 inh BID INH Last administered on 02/21/17 08:30; Admin Dose 1 INH; Start 02/15/17 at 09:00 Albuterol (Ventolin Hfa) 2 puff Q4 INH Last administered on 02/22/17 05:59; Admin Dose 2 PUFF; Start 02/15/17 at 05:00 Diagnostic Test (Pha) (Accu-Chek) 1 ea 02 XX Last administered on 02/20/17 02: 43; Admin Dose 1 EA; Start 02/16/17 at 02:00 Miscellaneous Information 1 ea NOTE XX ; Start 02/15/17 at 04:30 Glucose (Glutose) 15 gm Q15M PRN PO DECREASED GLUCOSE; Start 02/15/17 at 04:30 Glucose (Glutose) 22.5 gm Q15M PRN PO DECREASED GLUCOSE; Start 02/15/17 at 04: 30 Dextrose (D50w Syringe) 25 ml Q15M PRN IV DECREASED GLUCOSE; Start 02/15/17 at 04:30 Dextrose (D50w Syringe) 50 ml Q15M PRN IV DECREASED GLUCOSE; Start 02/15/17 at 04:30 Glucagon (Glucagen) 1 mg Q15M PRN IM DECREASED GLUCOSE; Start 02/15/17 at 04:30 Glucose (Glutose) 15 gm Q15M PRN BUCCAL DECREASED GLUCOSE; Start 02/15/17 at 04 :30 Baclofen (Lioresal) 10 mg TID PO Last administered on 02/21/17 20:39; Admin Dose 10 MG; Start 02/15/17 at 09:00 Clonazepam (Klonopin) 1 mg BID PO Last administered on 02/21/17 20:38; Admin Dose 1 MG; Start 02/15/17 at 09:00 Acetaminophen/ Hydrocodone Bitart ([place] (10/325)) 1 tab TID PRN PO PAIN LEVEL 5-7 Last administered on 02/22/17 00:03; Admin Dose 1 TAB; Start 02/15/17 at 09 :00 Isosorbide Dinitrate (Isordil) 40 mg DAILY PO Last administered on 02/20/17 08 :13; Admin Dose 40 MG; Start 02/15/17 at 09:00 Morphine Sulfate (Ms Contin (Er)) 30 mg BID PO Last administered on 02/21/17 20:41; Admin Dose 30 MG; Start 02/15/17 at 09:00 Trazodone HCl (Desyrel) 50 mg QHS PO Last administered on 02/21/17 20:38; Admin Dose 50 MG; Start 02/15/17 at 21:00 Nicotine (Nicoderm 14 Mg/ 24hr) 1 patch DAILY TRANSDERM Last administered on 08:26; Admin Dose 1 PATCH; Start 02/15/17 at 18:00 Gabapentin (Neurontin) 400 mg TID PO Last administered on 02/21/17 20:38; Admin Dose 400 MG; Start 02/16/17 at 13:00 Pantoprazole (Protonix Tab) 40 mg DAILY@06 PO Last administered on 02/22/17 05 :56; Admin Dose 40 MG; Start 02/17/17 at 06:00 Hydromorphone HCl (Dilaudid) 2 mg Q4H PRN PO PAIN Last administered on 05:56; Admin Dose 2 MG; Start 02/18/17 at 08:00 Hydroxyzine HCl (Atarax) 25 mg Q6H PRN PO ITCHING Last administered on 21:44; Admin Dose 25 MG; Start 02/19/17 at 11:30 Alprazolam (Xanax) 0.5 mg Q8H PRN PO ANXIETY Last administered on 02/22/17 00: 02; Admin Dose 0.5 MG; Start 02/19/17 at 12:30 Tiotropium [place] (Spiriva) 1 inh DAILY INH Last administered on 02/21/17 08: 25; Admin Dose 1 INH; Start 02/20/17 at 08:18 Fish Oil (Fish Oil) 2,000 mg BID PO Last administered on 02/21/17 20:40; Admin Dose 2,000 MG; Start 02/21/17 at 21:00 Heparin Sodium (Porcine) (Heparin (5000 Units/0.5 ml)) 5,000 unit Q8 SC Last administered on 02/22/17 06:05; Admin Dose 5,000 UNIT; Start 02/21/17 at 14:00 Insulin Glargine (Lantus) 65 unit DAILY@20 SC Last administered on 02/21/17t 21 :51; Admin Dose 65 UNIT; Start 02/21/17 at 20:00 ENRIQUE VANCE Feb 22, 2017 08:22
[2017-02-22] MEDS: INSULIN ASPART [NOVOLOG] 3 ML PEN SC SCH ×4 (08:23→12:05)
[2017-02-22] MEDS ORDERED: MAGNESIUM SULFATE 2 GM/50 ML 50 ML IVPB ONE (10:30)
--- NOTE | 2017-02-22 11:01 | PDOCDIS ---
Discharge Instructions DIAGNOSIS Discharge Diagnosis L3 compression fracture. COPD. CONDITION Patient Condition: Stable HOME CARE INSTRUCTIONS: Diet Instructions: Low Fat /CholesterolSpecial Diet: Carb Control OTHER ORDERS: Other Orders: 1. Follow a carbohydrate controlled, low-cholesterol diet. 2. Activities with assist. Use the LSO brace as recommended. 3. Take medications as per prescription. 4. Follow-up with your primary care physician as scheduled on 02/22/2017. JEFF DUFF NP Feb 22, 2017 11:01
[2017-02-22] MEDS ORDERED: LANT3I SC (11:04)
[2017-02-22] MEDS ORDERED: NOVO3I SC (11:04)
[2017-02-22] MEDS ORDERED: OXYC-209 PO (11:07)
[2017-02-22] MEDS ORDERED: OMEG1CAP55 PO (12:10)
--- NOTE | 2017-02-22 16:11 | DS ---
DATE OF ADMISSION: 02/15/2017 DATE OF DISCHARGE: 02/22/2017 FINAL DIAGNOSES: 1. Chronic obstructive pulmonary disease exacerbation. 2. Type 2 diabetes mellitus. 3. Acute L3 compression fracture secondary to mechanical fall. 4. Essential hypertension. 5. Dyslipidemia. 6. Nicotine use. 7. Morbid obesity. CONSULTATIONS: 1. Dr. Bacilio Ortiz, neurosurgery. 3. Dr. Kimberlee Frank, pain management. HOSPITAL COURSE: This is a 56-year-old female who came to the emergency room with chief complaint of elevated blood sugar, generalized body weakness and dyspnea. She denied any chest pain. The patient was complaining of back pain. The patient had underlying lactic acidosis with lactic acid level of 4.5. Provided the patient's history of present illness, comorbidities and the diagnostic findings, a clinical decision was made to admit the patient to inpatient setting and have her further evaluated. The patient was admitted to inpatient medical/surgical floor. The patient was started on inhaled bronchodilators and tapering dose of steroids. The patient was started on insulin regimen and the patient's Synthroid dosing was adjusted multiple times to obtain optimal blood sugar control. The patient's hemoglobin A1c was elevated and had to be sent out for confirmation. The patient also reported a recent mechanical fall. Consequently, the patient underwent a lumbar spine MRI that showed acute mild L3 compression fracture without any bony retropulsion. Consequently neurosurgery consult was called. Neurosurgery evaluated the patient and recommended a LSO brace and continue physical therapy. The patient was also has noticed debility with decreased mobility. Consequently, the patient was seen by physical therapy. Physical therapy recommended [facility] versus acute rehabilitation placement. The patient had acute rehabilitation order placed. However, the patient's insurance approval is pending at this time. Meanwhile, the patient wanted to leave the hospital and stay at home with home health physical therapist since it has been taking too long for acute rehabilitation. The patient has underlying essential hypertension. The patient was given antihypertensives for the same. The patient was noticed to have dyslipidemia. The patient had significant hypertriglyceridemia. The patient was started on fish oil for the same. The patient is a current nicotine user. Cessation was advised. The patient had a stable hospital course. The patient is stable to be discharged home, provided that the patient processes to ongoing physical therapy at home. DISCHARGE DISPOSITION/PLAN: The patient will be discharged home today. The patient was instructed to take a low carbohydrate, low cholesterol diet. The patient was instructed to take medications as per prescription. The patient was instructed to follow up with her primary care physician as scheduled on . The patient verbalized understanding of her discharge instructions. Home health has been ordered for home PT and home safety evaluation. The patient already has an LSO brace in place. A wheelchair was arranged for home use. CONDITION AT DISCHARGE: Stable. DISCHARGE MEDICATIONS: 1. Insulin Aspart 30 subcutaneously before each meal t.i.d. 2. Lantus insulin 65 units subcutaneously at bedtime. 3. Percocet 10/325, one tablet p.o. q.6h. p.r.n. pain. 4. Mobile 3 fatty acids 2000 units b.i.d. 5. Proair 2 puffs inhaled q.4 hours p.r.n. dyspnea. 6. Aspirin 81 mg p.o. daily. 7. Baclofen 10 mg p.o. t.i.d. 8. Bupropion 100 mg p.o. b.i.d. 9. Klonopin 1 mg p.o. b.i.d. 10. Enalapril 5 mg p.o. daily. 11. Fluoxetine 60 mg p.o. daily. 12. Lasix 20 mg p.o. daily. 13. Gabapentin 800 mg p.o. t.i.d. 14. Hydrochlorothiazide 25 mg p.o. daily. 15. Isosorbide dinitrate 4 mg p.o. daily. 16. Metformin 1000 mg p.o. with breakfast and dinner. 17. Oramorph 30 mg p.o. b.i.d. 18. Advair Diskus 500/50 one inhalation b.i.d. 19. Spiriva 18 mcg 1 capsule inhalation daily. 20. Trazodone 50 mg p.o. at bedtime. 21. Ambien 5 mg p.o. at bedtime p.r.n. insomnia. PERTINENT LABORATORY AND DIAGNOSTIC DATA: 1. Latest CBC: WBC 7.8, hemoglobin 11.7, hematocrit 38.6, platelet count 328. 2. Latest BMP: Sodium 136, potassium 5.2, chloride 99, carbon dioxide 32, anion gap 10, BUN 12, creatinine 0.78, glucose 168, calcium 9.2, magnesium 1.6. 3. Hemoglobin A1c sent out. 4. Fasting lipid panel: Triglycerides 544, total cholesterol 153, LDL 4, HDL 40. 5. Chest x-ray. No evidence for active cardiopulmonary disease. 6. Lumbar spine MRI. Acute mild L3 compression fracture without bony retropulsion. 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 At this time, I would like to thank all the consultants for seeing the patient and providing clinical recommendations. The case and management of this patient was fully discussed with Dr. Rock. Approximately 40 minutes was spent on coordinating the discharge on this patient. JEFF ROCK MD, AM/JOVANNI Conf#: [id number] DID#: [id number] MTDD
== END 2017-02-22 14:15 | disposition home health service (06) | DRG 191 ==
LOC: E/R 21:11 → MS2 02-15 01:43
PROVIDERS: ADMIT Family Medicine; ATTEND Family Medicine
DX: J44.1 Chronic obstructive pulmonary disease with (acute) exacerbation (principal); S32.039A Unspecified fracture of third lumbar vertebra, initial encounter for closed fracture; E87.2 Acidosis; Z68.41 Body mass index [BMI] 40.0-44.9, adult; E11.65 Type 2 diabetes mellitus with hyperglycemia; E78.5 Hyperlipidemia, unspecified; E66.01 Morbid (severe) obesity due to excess calories; F17.200 Nicotine dependence, unspecified, uncomplicated; F32.9 Major depressive disorder, single episode, unspecified; F41.9 Anxiety disorder, unspecified; T75.4XXA Electrocution, initial encounter; I10 Essential (primary) hypertension; W19.XXXA Unspecified fall, initial encounter; M54.9 Dorsalgia, unspecified; M48.06 Spinal stenosis, lumbar region; G89.29 Other chronic pain; R06.00 Dyspnea, unspecified; Z91.81 History of falling; Z86.59 Personal history of other mental and behavioral disorders
CPT/HCPCS: 36415; 71010; 72148; 80048; 80053; 80061; 81001; 82306; 82652; 82962; 83036; 83605; 83735; 84100; 84436; 84443; 84479; 84484; 85025; 87040; 87086; 93005; 94664; 96372; 96374; 96375; 96376; 97116; 97162; 97530; C9113; J0692; J1170; J1644; J1815; J1885; J2060; J2270; J2405; J3370; J3475; J7030; L0462

== ENCOUNTER 2017-11-18 04:11 | Inpatient (IN) | END 2017-11-18 13:24 | disposition left against medical advice (07) | DRG 313 ==

== ENCOUNTER 2018-01-08 21:20 | Emergency (ER) | END 2018-01-09 01:25 | disposition home or self-care (01) ==

== ENCOUNTER 2018-01-16 20:43 | Emergency (ER) | END 2018-01-16 23:45 | disposition home or self-care (01) ==

== ENCOUNTER 2018-01-26 21:25 | Emergency (ER) | END 2018-01-27 06:15 | disposition home or self-care (01) ==

== ENCOUNTER 2018-01-29 22:54 | Emergency (ER) | END 2018-01-30 02:15 | disposition home or self-care (01) ==

== ENCOUNTER 2018-02-27 18:22 | Emergency (ER) | END 2018-02-27 23:40 | disposition home or self-care (01) ==

== ENCOUNTER 2018-03-10 17:46 | Observation (INO) | END 2018-03-11 17:13 | disposition home or self-care (01) ==

== ENCOUNTER 2018-04-06 21:05 | Emergency (ER) | END 2018-04-07 02:37 | disposition home or self-care (01) ==

== ENCOUNTER 2018-04-13 01:02 | Inpatient (IN) | END 2018-04-13 17:15 | disposition home or self-care (01) | DRG 392 ==

== ENCOUNTER 2018-05-17 02:38 | Inpatient (IN) | END 2018-05-19 19:55 | DRG 603 ==

== ENCOUNTER 2018-05-30 13:35 | Emergency (ER) | END 2018-05-30 17:46 | disposition home or self-care (01) ==

== ENCOUNTER 2018-06-18 16:21 | Inpatient (IN) | END 2018-06-21 21:15 | disposition left against medical advice (07) | DRG 291 ==

== ENCOUNTER 2018-06-24 20:48 | Emergency (ER) | END 2018-06-24 21:24 | disposition home or self-care (01) ==

== ENCOUNTER 2018-06-28 04:52 | Inpatient (IN) | END 2018-06-30 11:15 | disposition home or self-care (01) | DRG 313 ==

== ENCOUNTER 2018-07-26 21:59 | Emergency (ER) | END 2018-07-27 01:26 | disposition home or self-care (01) ==

== ENCOUNTER 2018-08-24 21:40 | Inpatient (IN) | payer OTHER ==
[~2018-08-24] VITALS: Ht 177.8 cm; Wt 135.5 kg
[~2018-08-24 21:40] MED LIST changes: -ADV50050 INHALATION; +ALBU2.5V3 NEB; -ALBU90AE INHALATION; +ALPR0.5T PO; -ASPI-664 PO; +ASPI-903 PO; +ATOR40TA68 PO; -AZIT250T94 PO; +BUDE6HFA INHALATION; -BUPR100T14 PO; -ENAL5TAB PO; +FAMO20TA18 PO; -FLUO20CA22 PO; -GABA-526 PO; +GABA300C16 PO; -HYD25 PO; +HYDR-3980 PO; -HYDR-762 PO; -IBUP-1542 PO; +INSU500V SQ; -ISOS10TA2 PO; +ISOS60TA PO; +LOPE2CAP PO; +METF100010 PO; -METF500T4 PO; +METO-448 PO; -METR500T PO; -NOVO3I SC; +PARO-2 PO; +TRAZ-150 PO; +ZOF8 PO; -ZOLP5TAB7 PO
[2018-08-25] VITALS (8 sets, daily range): BP systolic 90–130; BP diastolic 58–82; PULSE 74–105; RESP 16–18; Ht 177.8 cm; Wt 135.5 kg
[2018-08-25] MEDS ORDERED: morphine 4 MG/ML VIAL IV STA (01:06)
[2018-08-25] MEDS ORDERED: ONDANSETRON 4 MG INJ IV STA (01:06)
[2018-08-25] MEDS ORDERED: SOD CHLORIDE 0.9% 1,000 ML IV STA (01:06)
[2018-08-25] MEDS ORDERED: NS + KCL 40 MEQ 1,000 ML IV SCH ×2 (02:36→03:00)
[2018-08-25] MEDS ORDERED: INSULIN REGULAR, HUMAN 100 UNIT in SOD CHLORIDE 0.9% 99 ML IV SCH ×2 (03:00)
--- NOTE | 2018-08-25 03:27 | ERD ---
ER Documentation Chief Complaint Chief Complaint elevated BS x3 days w/ AP/weakness/diarrhea. hx of DKA HPI This is a very pleasant 57-year-old female who comes in because elevated blood sugar 3 days with complaints of abdominal pain weakness and diarrhea. Patient has history of diabetic ketoacidosis in the past. States she has been compliant with her medications. Denies fevers chills. Denies any other current issues. ROS All systems reviewed and are negative except as per history of present illness. Medications Home Meds Active Scripts Hydrocodone/Acetaminophen ([place] 10-325 Tablet) 1 Each Tablet, 1 TAB PO Q6H PRN for PAIN, #20 TAB Prov:AILYN SOFIA 07/27/18 Insulin Glargine* (Lantus*) 100 Unit/Ml Soln, 33 UNIT SC BID, #20 VIAL Prov:LONG RADFORD 06/29/18 Metoprolol Tartrate* (Lopressor*) 25 Mg Tab, 25 MG PO BID for 30 Days, #60 TAB 2 Refills Prov:LONG RADFORD 06/29/18 Insulin Regular, Human (Humulin R U-500) 500 Unit/1 Ml Vial, 22 UNIT SQ BEFORE MEALS, #20 VIAL Prov:LONG RADFORD 06/29/18 Loperamide Hcl* (Imodium*) 2 Mg Capsule, 2 MG PO .AFTER EA LOOSE BM PRN for DIARRHEA, #10 TAB Prov:TEJ SAINZ MD 06/24/18 Ondansetron Hcl* (Zofran*) 8 Mg Tab, 8 MG PO Q6H PRN for NAUSEA AND OR VOMITING, #20 TAB Prov:ZENOBIA TOLEDO MD 05/30/18 Famotidine* (Famotidine*) 20 Mg Tablet, 20 MG PO BID, #30 TAB Prov:ZENOBIA TOLEDO MD 05/30/18 Reported Medications Paroxetine Hcl* (Paxil*) 20 Mg Tablet, 40 MG PO HS, TAB 05/30/18 Alprazolam* (Xanax*) 0.5 Mg Tab, 0.5 MG PO Q8H PRN for ANXIETY, TAB TAKE TAB-QAM,1 TAB-NOON,AND 2 TAB-QHS 05/30/18 Nystatin* (Nystatin*) 15 Gm Cr, 1 APPLIC TOP TID, #1 TUB 8/9/18 Albuterol Sulfate* (Albuterol Sulfate* Neb) 0.083%-3 Ml Neb, 1.25 MG NEB Q6H PRN for WHEEZING AND SOB, #30 VIAL 03/10/18 Budesonide-Formoterol Fumarate* (Symbicort*) 160-4.5 Hfa.aer.ad, 2 PUFF INHALA TION BID, #1 EACH 03/10/18 Tiotropium [place]* (Spiriva*) 18 Mcg Cap.w.dev, 1 CAP INHALATION DAILY, #30 CAP 03/10/18 Isosorbide Mononitrate* (Isosorbide Mononitrate*) 60 Mg Tab.er.24h, 60 MG PO DAILY, TAB 03/10/18 Furosemide* (Furosemide*) 20 Mg Tablet, 40 MG PO DAILY, #60 TAB 03/10/18 Trazodone Hcl* (Desyrel*) 100 Mg Tab, 400 MG PO QHS, #30 TAB 03/10/18 Gabapentin* (Gabapentin*) 300 Mg Capsule, 900 MG PO TID, #270 CAP 03/10/18 Metformin Hcl* (Metformin Hcl*) 1,000 Mg Tablet, 1000 MG PO WITH BREAKFAST DINNE, #60 TAB 03/10/18 Atorvastatin* (Atorvastatin*) 40 Mg Tablet, 40 MG PO QHS, #30 TAB 03/10/18 Hydrocodone/Acetaminophen ([place] 10-325 Tablet) 1 Each Tablet, 1 EACH PO Q8H PRN for NEEDED, TAB 03/10/18 Morphine Sulfate* (Oramorph SR*) 30 Mg Tablet.sa, 30 MG PO Q12, TAB.SA 03/10/18 Aspirin* (Aspirin* Chew) 81 Mg Tab.chew, 81 MG PO DAILY, TAB.CHEW 03/10/18 Allergies Allergies: Coded Allergies: No Known Allergy (Unverified , 06/30/18) PMhx/Soc History of Surgery: Yes (CHOLECYSTECTOMY, C SECTION X 2 ) Anesthesia Reaction: No Hx Neurological Disorder: No Hx Respiratory Disorders: Yes (COPD ) Hx Cardiac Disorders: No Hx Psychiatric Problems: Yes (DEPRESSION ) Hx Miscellaneous Medical Probl: Yes (DM II ) Hx Alcohol Use: No Hx Substance Use: No Hx Tobacco Use: No Smoking Status: Never smoker Physical Exam Vitals Vital Signs Date Temp Pulse Resp B/P (MAP) Pulse Ox O2 O2 Flow FiO2 Time Delivery Rate 08/25/18 97.8 85 16 109/67 90 Room Air 01:46 (81) 08/24/18 99.2 100 18 124/75 95 21:53 (91) Physical Exam Const: No acute distress Head: Atraumatic Eyes: Normal Conjunctiva ENT: Normal External Ears, Nose and Mouth. Neck: Full range of motion. No meningismus. Resp: Clear to auscultation bilaterally Cardio: Regular rate and rhythm, no murmurs Abd: Soft, non tender, non distended. Normal bowel sounds Skin: No petechiae or rashes Back: No midline or flank tenderness Ext: No cyanosis, or edema Neur: Awake and alert Psych: Normal Mood and Affect Result Diagram: 08/25/18 0152 08/25/18 0152 Results 24 hrs Laboratory Tests Test 08/25/18 01:50 08/25/18 01:52 Urine Color YELLOW Urine Clarity CLEAR Urine pH 6.0 Urine Specific [place] 1.029 Urine Ketones NEGATIVE mg/dL Urine Nitrite NEGATIVE mg/dL Urine Bilirubin NEGATIVE mg/dL Urine Urobilinogen NEGATIVE mg/dL Urine Leukocyte Esterase NEGATIVE Ortega/ul Urine Microscopic RBC 3 /HPF Urine Microscopic WBC 1 /HPF Urine Squamous Epithelial Cells FEW /HPF Urine Hemoglobin 1+ mg/dL Urine Glucose 3+ mg/dL Urine Total Protein NEGATIVE mg/dl White Blood Count 13.2 10^3/ul Red Blood Count 4.86 10^6/ul Hemoglobin 13.9 g/dl Hematocrit 41.6 % Mean Corpuscular Volume 85.6 fl Mean Corpuscular Hemoglobin 28.6 pg Mean Corpuscular Hemoglobin Concent 33.4 g/dl Red Cell Distribution Width 13.9 % Platelet Count 373 10^3/UL Mean Platelet Volume 10.3 fl Immature Granulocytes % 0.500 % Neutrophils % 56.9 % Lymphocytes % 31.6 % Monocytes % 6.7 % Eosinophils % 3.6 % Basophils % 0.7 % Nucleated Red Blood Cells % 0.0 /100WBC Immature Granulocytes # 0.060 10^3/ul Neutrophils # 7.5 10^3/ul Lymphocytes # 4.2 10^3/ul Monocytes # 0.9 10^3/ul Eosinophils # 0.5 10^3/ul Basophils # 0.1 10^3/ul Nucleated Red Blood Cells # 0.0 10^3/ul Sodium Level 135 mmol/L Potassium Level 3.1 mmol/L Chloride Level 89 mmol/L Carbon Dioxide Level 31 mmol/L Anion Gap 15 Blood Urea Nitrogen 25 mg/dl Creatinine 0.92 mg/dl Est Glomerular Filtrat Rate mL/min > 60 mL/min Glucose Level 403 mg/dl Lactic Acid Level 3.6 mmol/L Calcium Level 9.8 mg/dl Total Bilirubin 0.1 mg/dl Direct Bilirubin 0.00 mg/dl Indirect Bilirubin 0.1 mg/dl Aspartate Amino Transf (AST/SGOT) 15 IU/L Alanine Aminotransferase (ALT/SGPT) 22 IU/L Alkaline Phosphatase 131 IU/L Total Protein 6.4 g/dl Albumin 4.1 g/dl Globulin 2.30 g/dl Albumin/Globulin Ratio 1.78 Current Medications Medications Dose Sig/Norma Start Time Status Last (Trade) Ordered Route PRN Stop Time Admin Dose Reason Admin Sodium 1,000 ml @ Q1H STAT 08/25/18 DC 08/25/18 Chloride 1,000 mls/hr IV 01:06 02:00 08/25/18 02:05 Morphine 4 mg ONCE STAT 08/25/18 DC 08/25/18 Sulfate IV 01:06 01:59 (morphine) 08/25/18 01:07 Ondansetron 4 mg ONCE STAT 08/25/18 DC 08/25/18 HCl (Zofran IV 01:06 01:59 Inj) 08/25/18 01:07 Potassium 1,000 ml @ Q0M IV 08/25/18 DC Chloride/Sodi 0 mls/hr 02:36 um Chloride 08/25/18 02:44 Insulin 100 ml @ ER DKA 08/25/18 DC Human 13.46 mls/ PROTOCOL IV 03:00 Regular 100 hr 08/25/18 unit/ Sodium 03:09 Chloride Potassium 1,000 ml @ Q0M IV 08/25/18 DC Chloride/Sodi 0 mls/hr 03:00 um Chloride 08/25/18 03:09 Potassium 1,000 ml @ Q5H43M IV 08/25/18 Chloride 40 175 mls/hr 03:30 meq/ Sodium Chloride Insulin 10 unit ONCE ONCE 08/25/18 Human SC 03:30 Regular 08/25/18 (Humulin R) 03:31 Procedures/MDM Medical decision make: [age]-year female with lactic acidosis likely secondary to severe hyperglycemia. I doubt sepsis given normal vital signs. At this point she will not be treated for sepsis given that I feel like an alternative d iagnosis is more likely. Started on fluids with potassium repletion. Given insulin subcutaneous. Patient will be admitted to telemetry to Dr. Sanchez. Departure Diagnosis: Primary Impression: Hyperglycemia Additional Impression: Morbid obesity with BMI of 40.0-44.9, adult Condition: Serious AILYN SOFIA Aug 25, 2018 03:27
[2018-08-25] MEDS ORDERED: INSULIN REGULAR, HUMAN 100 UNIT/1 ML 3ML VIAL SC ONE (03:30)
[2018-08-25] MEDS: SOD CHLORIDE 0.9% 1,000 ML IV SCH ×3 (03:33→23:33)
[2018-08-25] MEDS: POTASSIUM CHLORIDE 40 MEQ in SOD CHLORIDE 0.9% 1,000 ML IV SCH ×3 (03:44→23:21)
[2018-08-25] MEDS ORDERED: DEXTROSE 50% 50 ML SYRINGE IV PRN ×2 (04:00)
[2018-08-25] MEDS ORDERED: ONDANSETRON 4 MG INJ IV PRN (04:00)
[2018-08-25] MEDS ORDERED: GLUCOSE GEL 15 GRAM TUBE BUCCAL PRN (04:00)
[2018-08-25] MEDS ORDERED: ACETAMINOPHEN 325 MG TAB PO PRN (04:00)
[2018-08-25] MEDS ORDERED: NACL 0.9% 3 ML SYG IV SCH (04:00)
[2018-08-25] MEDS ORDERED: GLUCAGON 1 MG INJ IM PRN (04:00)
[2018-08-25] MEDS ORDERED: IOHEXOL 14.3 MG(I)/ML (ADULT) BTL PO ONE (04:00)
[2018-08-25] MEDS ORDERED: ALPRAZOLAM 0.25 MG TAB PO PRN (04:00)
[2018-08-25] MEDS ORDERED: GLUCOSE GEL 15 GRAM TUBE PO PRN ×2 (04:00)
[2018-08-25] MEDS ORDERED: IOHEXOL 300MG/ML 150 ML BTL ONE (04:07)
[2018-08-25] MEDS ORDERED: SOD CHLORIDE 0.9% 100 ML ONE (04:07)
[2018-08-25] MEDS: HYDROmorphONE 0.5 MG/0.5 ML SYG IV PRN ×5 (04:21→20:30)
[2018-08-25] MEDS: INSULIN ASPART [NOVOLOG] 3 ML PEN SC SCH ×5 (05:39→21:46)
[2018-08-25] MEDS: PANTOPRAZOLE 40 MG INJ IV SCH (06:31)
[2018-08-25] MEDS ORDERED: INSULIN REGULAR HUMAN 45 UNIT SQ SCH (07:30)
[2018-08-25] MEDS: GABAPENTIN 300 MG CAP PO SCH ×3 (08:59→20:47)
[2018-08-25] MEDS ORDERED: ISOSORBIDE MONONITRATE(SR)60 MG TAB PO SCH (09:00)
[2018-08-25] MEDS: ASPIRIN 81 MG TAB PO SCH (09:08)
[2018-08-25] MEDS: METOPROLOL 25 MG TAB PO SCH ×2 (09:10→20:48)
[2018-08-25] MEDS: ENOXAPARIN 40 MG/0.4 ML SYG SC SCH (09:12)
--- NOTE | 2018-08-25 10:10 | HP ---
Date/Time of Note Date/Time of Note DATE: 08/25/18 TIME: 09:58 Assessment/Plan VTE Prophylaxis Pharmacological prophylaxis: LMWH Lines/Catheters IV [facility]ter Type (from [facility]): Saline Lock Assessment/Plan Hospital Course This is a 57-year-old female being admitted to the telemetry floor for: #1 abdominal pain with diarrhea: Patient reports diarrhea times 4 days with multiple episodes of BMs daily. CT the abdomen pelvis does not show any acute abnormality. This possibly secondary to gastroenteritis versus other. At the current time we will check stool studies, C. difficile. Patient does have an elevated white blood cell count of 13,000 but she is afebrile. We will continue to monitor closely. IV fluid hydration with normal saline. #2 severe hyperglycemia: Patient did present with blood sugars in the 400s. However patient has a normal carbon dioxide and no ketones in the urine so DKA is not likely so I discontinue the DKA protocol orders that was initiated in the ER. The current time will provide IV fluid hydration with normal saline. Put the patient on insulin sliding scale, and optimize patient's blood sugars. She reports that she takes insulin R 90 units 3 times daily with meals. At the current time I will continue her on 45 units 3 times daily and check blood sugars. Consider endocrinology consultation for possible adjustment of diabetic medication regimen. #3 lactic acidosis: Secondary likely to gastrointestinal losses from diarrhea as well as from metformin use. At the current time will hold metformin, will provide aggressive IV hydration with normal saline. Will monitor lactate levels closely. Will await fisher culture results. #4 diabetes mellitus: We will check hemoglobin A1c, resume the patient's insulin R however will at the current time put her on 45 units 3 times daily. We will need to monitor the patient's blood sugars closely. Consider endocrinology consultation for diabetic med adjustment. #5 COPD: Stable at the current time, continue inhalers #6 dyslipidemia: Continue home statin. #7 HTN: We will continue home antihypertensives as clinically indicated. #8 spinal stenosis: PRN morphine, will need to reinstitute patient's home medications once patient is more stable #9 DVT GI prophylaxis: Lovenox, no GI prophylaxis indicated Further treatment strategy will be implemented as per the clinical course. Result Diagram: 08/25/18 0152 08/25/18 0152 Results 24hrs Laboratory Tests Test 08/25/18 01:50 08/25/18 01:52 08/25/18 03:30 08/25/18 05:28 Urine Color YELLOW Urine Clarity CLEAR Urine pH 6.0 Urine Specific 1.029 [place] Urine Ketones NEGATIVE Urine Nitrite NEGATIVE Urine Bilirubin NEGATIVE Urine NEGATIVE Urobilinogen Urine Leukocyte NEGATIVE Esterase Urine 3 Microscopic RBC Urine 1 Microscopic WBC Urine Squamous FEW Epithelial Cells Urine Hemoglobin 1+ H Urine Glucose 3+ H Urine Total NEGATIVE Protein White Blood 13.2 H Count Red Blood Count 4.86 Hemoglobin 13.9 Hematocrit 41.6 Mean Corpuscular 85.6 Volume Mean Corpuscular 28.6 L Hemoglobin Mean Corpuscular 33.4 Hemoglobin Alisia nt Red Cell 13.9 Distribution Width Platelet Count 373 Mean Platelet 10.3 Volume Immature 0.500 H Granulocytes % Neutrophils % 56.9 Lymphocytes % 31.6 Monocytes % 6.7 Eosinophils % 3.6 Basophils % 0.7 Nucleated Red 0.0 Blood Cells % Immature 0.060 H Granulocytes # Neutrophils # 7.5 Lymphocytes # 4.2 H Monocytes # 0.9 Eosinophils # 0.5 Basophils # 0.1 Nucleated Red 0.0 Blood Cells # Sodium Level 135 Potassium Level 3.1 L Chloride Level 89 L Carbon Dioxide 31 Level Anion Gap 15 H Blood Urea 25 H Nitrogen Creatinine 0.92 Est Glomerular > 60 Filtrat Rate mL/min Glucose Level 403 *H Lactic Acid 3.6 *H Level Calcium Level 9.8 Total Bilirubin 0.1 L Direct Bilirubin 0.00 Indirect 0.1 Bilirubin Aspartate Amino 15 Transf (AST/SGOT ) Alanine 22 Aminotransferase (ALT/SGPT) Alkaline 131 H Phosphatase Total Protein 6.4 Albumin 4.1 Globulin 2.30 Albumin/Globulin 1.78 Ratio Bedside Glucose 261 H 186 Test 08/25/18 08:58 Bedside Glucose 74 HPI/ROS Admit Date/Time Admit Date/Time Aug 25, 2018 at 03:10 Hx of Present Illness elevated BS x3 days w/ AP/weakness/diarrhea. hx of DKA This is a 57-year-old female with a history of history of insulin-dependent diabetes, hypertension, hyperlipidemia, COPD, neuropathy and chronic back pain from spinal stenosis who presents today to the emergency department with 4 days of abdominal pain. Patient reports that she started expressing 4 days of abdominal pain along with diarrhea. She has had approximately 7 bowel movements a day for the last 4 days which consist of dark green brown stool. She denies any fevers. She denies any recent travel denies any food from outdoors. She states that her bowel movements have been dark greenish brown. She denies any recent antibiotic use. Allergies: NKDA medications: See MALVIN VIEYRA Const: As per HPI Eyes : No pain discharge or redness or change in visual acuity ENT: No pain, sore throat, congestion, congestion, dysphagia or discharge Respiratory: No shortness of breath, cough, sputum, wheezing, or pleuritic pain Cardiovascular: No chest pain, palpitation, PND, or edema GI : As per HPI Genitourinary: As per HPI Musculoskeletal: No joint pain, back pain, neck pain, restricted range of motion in neck or joints Skin: No rash, bruising or hives Neuro: No headache, dizziness, syncope, seizure, focal weakness Endocrine: No polyuria, polydipsia, temperature intolerance Psych: No hallucination, depression, anxiety or suicidal ideation PMH/Family/Social Past Medical History history of insulin-dependent diabetes, hypertension, hyperlipidemia, COPD, neuropathy, chronic back pain from spinal stenosis , depression, peripheral vascular disease Medications Current Medications Potassium Chloride 40 meq/ Sodium Chloride 1,000 ml @ 100 mls/hr Q10H IV Last administered on 08/25/18at 03:44; Admin Dose 100 MLS/HR; Start 08/25/18 at 03:30 Sodium Chloride 1,000 ml @ 100 mls/hr Q10H IV ; Start 08/25/18 at 03:33 IV Flush (NS 3 ml) 3 ml PER PROTOCOL IV ; Start 08/25/18 at 04:00 Ondansetron HCl (Zofran Inj) 4 mg Q6H PRN IV NAUSEA AND/OR VOMITING; Start 08/25/18 at 04:00 Acetaminophen (Tylenol Tab) 650 mg Q6H PRN PO PAIN LEVEL 1-3 OR FEVER; Start 08/25/18 at 04:00 Hydromorphone HCl (Dilaudid) 0.5 mg Q4H PRN IV PAIN LEVEL 7-10 Last administered on 08/25/18at 09:14; Admin Dose 0.5 MG; Start 08/25/18 at 04:00 Pantoprazole (Protonix Iv) 40 mg DAILY@06 IV Last administered on 08/25/18at 06:31; Admin Dose 40 MG; Start 08/25/18 at 06:00 Enoxaparin Sodium (Lovenox) 40 mg DAILY SC Last administered on 08/25/18at 09:12; Admin Dose 40 MG; Start 08/25/18 at 09:00 Insulin Aspart (Novolog Insulin Pen) NOVOLOG *MODERATE* ALGORI... Q4 SC Last administered on 08/25/18at 05:39; Admin Dose 4 UNIT; Start 08/25/18 at 05:00 Alprazolam (Xanax) 0.5 mg Q8H PRN PO ANXIETY; Start 08/25/18 at 04:00 Aspirin (Aspirin) 81 mg DAILY PO Last administered on 08/25/18at 09:08; Admin Dose 81 MG; Start 08/25/18 at 09:00 Atorvastatin Calcium (Lipitor) 40 mg QHS PO ; Start 08/25/18 at 21:00 Gabapentin (Neurontin) 900 mg TID PO Last administered on 08/25/18at 08:59; Admin Dose 900 MG; Start 08/25/18 at 09:00 Isosorbide Mononitrate (Imdur) 60 mg DAILY PO Last administered on 08/25/18at 09:09; Admin Dose 60 MG; Start 08/25/18 at 09:00 Metoprolol Tartrate (Lopressor) 25 mg BID PO Last administered on 08/25/18at 09:10; Admin Dose 25 MG; Start 08/25/18 at 09:00 Paroxetine HCl (Paxil) 40 mg HS PO ; Start 08/25/18 at 21:00 Trazodone HCl (Desyrel) 400 mg QHS PO ; Start 08/25/18 at 21:00 Miscellaneous Information 45 unit BEFORE MEALS SQ ; Start 08/25/18 at 07:30; Status UNV Miscellaneous Information 1 ea NOTE XX ; Start 08/25/18 at 04:00 Glucose (Glutose) 15 gm Q15M PRN PO DECREASED GLUCOSE; Start 08/25/18 at 04:00 Glucose (Glutose) 22.5 gm Q15M PRN PO DECREASED GLUCOSE; Start 08/25/18 at 04:00 Dextrose (D50w Syringe) 25 ml Q15M PRN IV DECREASED GLUCOSE; Start 08/25/18 at 04:00 Dextrose (D50w Syringe) 50 ml Q15M PRN IV DECREASED GLUCOSE; Start 08/25/18 at 04:00 Glucagon (Glucagen) 1 mg Q15M PRN IM DECREASED GLUCOSE; Start 08/25/18 at 04:00 Glucose (Glutose) 15 gm Q15M PRN BUCCAL DECREASED GLUCOSE; Start 08/25/18 at 04:00 Coded Allergies: No Known Allergy (Unverified , 08/25/18) Past Surgical History Cholecystectomy, x2 Past Surgical Hx: other Family History Significant Family History: no pertinent family hx Social History Alcohol Use: none Smoking Status: Current every day smoker Drug Use: none Exam/Review of Systems Vital Signs Vitals Vital Signs Date Temp Pulse Resp B/P (MAP) Pulse Ox O2 O2 Flow FiO2 Time Delivery Rate 08/25/18 86 08:35 08/25/18 98.4 18 90/58 (69) 93 Room Air 07:37 Exam Exam General: Patient is a pleasant female currently lying in bed in no acute distres s HEENT: Atraumatic, normocephalic. The pupils are equal, round and reactive. Extraocular motor are intact Neck: Supple with full range of motion. No rigidity or meningismus Lungs: Clear to auscultation bilaterally no crackles rales or wheezing Heart: Normal S1-S2, Regular rhythm and rate. No murmur, S3, or S4 Abdomen: Morbidly obese, soft, tenderness palpation over the left upper quadrant, hyperactive bowel sounds Extremities: Normal to inspection, no edema no cyanosis Neurologic: Normal mental status, speech normal, cranial nerves II through XII are intact, motor and sensory are intact, no focal weakness Additional Comments PROCEDURE: CT Abdomen and Pelvis with contrast. CLINICAL INDICATION: Lactic acidosis, left upper quadrant abdominal pain. Diarrhea. TECHNIQUE: CT scan of the abdomen and pelvis with contrast was performed on a multi-detector high-resolution CT scanner. The patient was scanned following the uncomplicated intravenous administration of 125 cc of Omnipaque-300. Coronal and sagittal reformatted images were obtained from the axial source images. The total exam CTDI equals 24 mGy and the total exam DLP equals 1589 mGy-cm. DICOM images are available. One or more of the following dose reduction techniques were utilized: 1.) Automated exposure control 2.) Adjustment of the mA +/- kV according to patient's size 3.) Use of iterative reconstruction technique. COMPARISON: CT HEART 06/30/2018; CT 03/10/2018 FINDINGS: Imaged portions of the chest demonstrates bibasilar dependent atelectasis. There is fatty infiltration of the liver. The patient is status post cholecystectomy. The pancreas and spleen are unremarkable. There are stable bilateral adrenal gland nodules measuring up to 2.2 cm on the right. The kidneys enhance symmetrically bilaterally and there is no hydronephrosis. There is a probable proteinaceous hemorrhagic cyst measuring 1.1 cm arising from the left renal mid pole and grossly stable since the prior examination. Additional left-sided renal cysts are present. The pelvic organs are unremarkable. There is a fat-containing umbilical hernia. There is no evidence for bowel obstruction. The appendix is normal in caliber. There is no ascites. There is no intra-abdominal free air. There is no mesenteric, retroperitoneal or pelvic sidewall lymphadenopathy. There are atherosclerotic changes of the aorta. There are degenerative changes of the spine. IMPRESSION: Status post interval cholecystectomy. No evidence for biliary ductal dilatation. No evidence for bowel obstruction. Normal-caliber appendix. Stable bilateral adrenal gland nodules. RPTAT: HAP Admit-r Pal, Physician Date Time Electronically viewed and signed by Admit-r Brian, Physician on 08/25/2018 04:21 AP/ CC: ISIAH MG [id number] PROCEDURE: Single view chest. CLINICAL INDICATION: Left sided abdominal pain TECHNIQUE: Single view of the chest was obtained COMPARISON: CR CHEST 05/13/2016; CR CHEST 04/16/2016; CR CHEST 04/13/2016 FINDINGS: Mild linear atelectasis or scarring in the left lung base. No visible effusion or pneumothorax. Cardiac silhouette and mediastinal contours are unremarkable. Pulmonary vasculature appears normal. Degenerative changes in the lower cervical spine, regional bones otherwise intact. IMPRESSION: Linear atelectasis or scarring in the left lung base, otherwise no acute findings. RPTAT: [facility] x-[place], Physician Date Time Electronically viewed and signed by Physician Santa on 08/25/2018 04:47 xB/ CC: ISIAH MG [id number] PROCEDURE: Single view chest. CLINICAL INDICATION: Left sided abdominal pain TECHNIQUE: Single view of the chest was obtained COMPARISON: CR CHEST 05/13/2016; CR CHEST 04/16/2016; CR CHEST 04/13/2016 FINDINGS: Mild linear atelectasis or scarring in the left lung base. No visible effusion or pneumothorax. Cardiac silhouette and mediastinal contours are unremarkable. Pulmonary vasculature appears normal. Degenerative changes in the lower cervical spine, regional bones otherwise intact. IMPRESSION: Linear atelectasis or scarring in the left lung base, otherwise no acute findings. RPTAT: [facility] Genoveva [place] Physician Date Time Electronically viewed and signed by Physician Santa on 08/25/2018 04:47 xB/ CC: ISIAH MG [id number] ISIAH MG Aug 25, 2018 10:08
[2018-08-25] MEDS ORDERED: INSULIN ASPART [NOVOLOG] 3 ML PEN SC SCH ×2 (12:00→18:00)
[2018-08-25] MEDS ORDERED: HYOSCYAMINE 0.125 MG TAB PO SCH (13:00)
[2018-08-25] MEDS ORDERED: LACTULOSE 30ML CUP PO ONE (14:00)
[2018-08-25] MEDS ORDERED: MAGNESIUM HYDROXIDE 30ML CUP PO ONE (14:00)
--- NOTE | 2018-08-25 14:11 | CONS ---
Date/Time of Note Date/Time of Note DATE: 08/25/18 TIME: 13:45 Assessment/Plan Assessment/Plan Problems: (1) Diabetes mellitus type 2 in obese Status: Chronic Comment: She has been on U5 100 as an outpatient and rather sizable dosages. Our colleagues were restarted her on DPP 4 inhibitor I am going to give her back some of the metformin. In addition we will use an SGL T2 drug to assist here. Given the adrenal nodules and evaluation for the possibility of hypercortisolism is in port and to complete. (2) Morbid obesity with BMI of 40.0-44.9, adult Status: Chronic Comment: Calorie restriction diet (3) Compression fracture of L3 vertebra Onset Date: ~ 02/16/2017 Status: Chronic Comment: Noted. Rule out hypercortisolism Qualifiers: Qualified Codes: S32.030D - Wedge compression fracture of third lumbar vertebra, subsequent encounter for fracture with routine healing (4) Adrenal nodule Onset Date: ~ 07/2016 Status: Chronic Comment: These were noted on CT scanning in 2015. To the best I can find there is been no formalized evaluation of the. During the evaluation hospitals of ventricular because she is already stressed which can give us false positive test results. However I will try and give this a look see. She may need this worked up as an outpatient. (5) Vitamin D deficiency Status: Chronic Comment: Replace (6) COPD exacerbation Status: Chronic Comment: Continue with routine treatment of COPD (7) Abdominal pain Status: Acute Comment: May be due to obstipation. We will try and relieve this but I am also going to check a stool for H. pylori and she is already getting a Giardia test Qualifiers: Qualified Codes: R10.84 - Generalized abdominal pain Result Diagram: 08/25/18 0152 08/25/18 0152 Results 24hrs Laboratory Tests Test 08/25/18 01:50 08/25/18 01:52 08/25/18 03:30 08/25/18 05:28 Urine Color YELLOW Urine Clarity CLEAR Urine pH 6.0 Urine Specific 1.029 [place] Urine Ketones NEGATIVE Urine Nitrite NEGATIVE Urine Bilirubin NEGATIVE Urine NEGATIVE Urobilinogen Urine Leukocyte NEGATIVE Esterase Urine 3 Microscopic RBC Urine 1 Microscopic WBC Urine Squamous FEW Epithelial Cells Urine Hemoglobin 1+ H Urine Glucose 3+ H Urine Total NEGATIVE Protein White Blood 13.2 H Count Red Blood Count 4.86 Hemoglobin 13.9 Hematocrit 41.6 Mean Corpuscular 85.6 Volume Mean Corpuscular 28.6 L Hemoglobin Mean Corpuscular 33.4 Hemoglobin Al[place] nt Red Cell 13.9 Distribution Width Platelet Count 373 Mean Platelet 10.3 Volume Immature 0.500 H Granulocytes % Neutrophils % 56.9 Lymphocytes % 31.6 Monocytes % 6.7 Eosinophils % 3.6 Basophils % 0.7 Nucleated Red 0.0 Blood Cells % Immature 0.060 H Granulocytes # Neutrophils # 7.5 Lymphocytes # 4.2 H Monocytes # 0.9 Eosinophils # 0.5 Basophils # 0.1 Nucleated Red 0.0 Blood Cells # Sodium Level 135 Potassium Level 3.1 L Chloride Level 89 L Carbon Dioxide 31 Level Anion Gap 15 H Blood Urea 25 H Nitrogen Creatinine 0.92 Est Glomerular > 60 Filtrat Rate mL/min Glucose Level 403 *H Lactic Acid 3.6 *H Level Calcium Level 9.8 Total Bilirubin 0.1 L Direct Bilirubin 0.00 Indirect 0.1 Bilirubin Aspartate Amino 15 Transf (AST/SGOT ) Alanine 22 Aminotransferase (ALT/SGPT) Alkaline 131 H Phosphatase Total Protein 6.4 Albumin 4.1 Globulin 2.30 Albumin/Globulin 1.78 Ratio Bedside Glucose 261 H 186 Test 08/25/18 08:58 08/25/18 09:15 08/25/18 11:47 08/25/18 12:55 Bedside Glucose 74 124 184 Lactic Acid 1.3 Level Consultation Date/Type/Reason Admit Date/Time Aug 25, 2018 at 03:10 Date of Consultation: Aug 25, 2018 Type of Consult Endocrine Reason for Consultation Diabetes mellitus type 2 Requesting Provider: LONG RADFORD Hx of Present Illness This is the [address] [address] admission and 6 in the last 6 months for this 57-year-old woman who comes in as documented by the hospitalist team. We are asked to assist with management of her blood sugars Constitutional: no complaints (Denies fevers chills or sweats) ENT: no complaints Respiratory: no complaints Cardiovascular: no complaints Gastrointestinal: no complaints Genitourinary: no complaints Musculoskeletal: no complaints Past Medical History Medical History: diabetes (Diabetes mellitus type 2 with extreme insulin resistance), other (Morbid obesity; COPD; chronic edema; bilateral adrenal nodules-not worked up: Vitamin D deficiency;) Medications Current Medications Potassium Chloride 40 meq/ Sodium Chloride 1,000 ml @ 100 mls/hr Q10H IV Last administered on 08/25/18at 03:44; Admin Dose 100 MLS/HR; Start 08/25/18 at 03:30 Sodium Chloride 1,000 ml @ 100 mls/hr Q10H IV ; Start 08/25/18 at 03:33 IV Flush (NS 3 ml) 3 ml PER PROTOCOL IV ; Start 08/25/18 at 04:00 Ondansetron HCl (Zofran Inj) 4 mg Q6H PRN IV NAUSEA AND/OR VOMITING; Start 08/25/18 at 04:00 Acetaminophen (Tylenol Tab) 650 mg Q6H PRN PO PAIN LEVEL 1-3 OR FEVER; Start 08/25/18 at 04:00 Hydromorphone HCl (Dilaudid) 0.5 mg Q4H PRN IV PAIN LEVEL 7-10 Last administered on 08/25/18at 09:14; Admin Dose 0.5 MG; Start 08/25/18 at 04:00 Pantoprazole (Protonix Iv) 40 mg DAILY@06 IV Last administered on 08/25/18at 06:31; Admin Dose 40 MG; Start 08/25/18 at 06:00 Enoxaparin Sodium (Lovenox) 40 mg DAILY SC Last administered on 08/25/18at 09:12; Admin Dose 40 MG; Start 08/25/18 at 09:00 Insulin Aspart (Novolog Insulin Pen) NOVOLOG *MODERATE* ALGORI... Q4 SC Last administered on 08/25/18at 12:59; Admin Dose 4 UNIT; Start 08/25/18 at 05:00 Alprazolam (Xanax) 0.5 mg Q8H PRN PO ANXIETY; Start 08/25/18 at 04:00 Aspirin (Aspirin) 81 mg DAILY PO Last administered on 08/25/18at 09:08; Admin Dose 81 MG; Start 08/25/18 at 09:00 Atorvastatin Calcium (Lipitor) 40 mg QHS PO ; Start 08/25/18 at 21:00 Gabapentin (Neurontin) 900 mg TID PO Last administered on 08/25/18at 13:01; Admin Dose 900 MG; Start 08/25/18 at 09:00 Isosorbide Mononitrate (Imdur) 60 mg DAILY PO Last administered on 08/25/18at 09:09; Admin Dose 60 MG; Start 08/25/18 at 09:00 Metoprolol Tartrate (Lopressor) 25 mg BID PO Last administered on 08/25/18at 09:10; Admin Dose 25 MG; Start 08/25/18 at 09:00 Paroxetine HCl (Paxil) 40 mg HS PO ; Start 08/25/18 at 21:00 Trazodone HCl (Desyrel) 400 mg QHS PO ; Start 08/25/18 at 21:00 Miscellaneous Information 1 ea NOTE XX ; Start 08/25/18 at 04:00 Glucose (Glutose) 15 gm Q15M PRN PO DECREASED GLUCOSE; Start 08/25/18 at 04:00 Glucose (Glutose) 22.5 gm Q15M PRN PO DECREASED GLUCOSE; Start 08/25/18 at 04:00 Dextrose (D50w Syringe) 25 ml Q15M PRN IV DECREASED GLUCOSE; Start 08/25/18 at 04:00 Dextrose (D50w Syringe) 50 ml Q15M PRN IV DECREASED GLUCOSE; Start 08/25/18 at 04:00 Glucagon (Glucagen) 1 mg Q15M PRN IM DECREASED GLUCOSE; Start 08/25/18 at 04:00 Glucose (Glutose) 15 gm Q15M PRN BUCCAL DECREASED GLUCOSE; Start 08/25/18 at 04:00 Insulin Glargine (Lantus) 41 units DAILY@0800 SC ; Start 08/26/18 at 08:00 Insulin Aspart (Novolog Insulin Pen) 14 unit WITH MEALS SC Last administered on 08/25/18at 12:13; Admin Dose 14 UNIT; Start 08/25/18 at 12:00 Linagliptin (Tradjenta) 5 mg DAILY PO ; Start 08/26/18 at 09:00 Diagnostic Test (Pha) (Accu-Chek) 1 ea AC MEALS AND BEDTIME XX ; Start 08/25/18 at 17:30 Allergies: Coded Allergies: No Known Allergy (Unverified , 08/25/18) Past Surgical History Past Surgical Hx: cholecystectomy, other Family History Significant Family History: diabetes Social History Alcohol Use: none Smoking Status: Current every day smoker Drug Use: none Exam/Review of Systems Vital Signs Vitals Vital Signs Date Temp Pulse Resp B/P (MAP) Pulse Ox O2 O2 Flow FiO2 Time Delivery Rate 08/25/18 86 08:35 08/25/18 98.4 18 90/58 (69) 93 Room Air 07:37 Exam Constitutional: alert, oriented, obese Neck: supple, non-tender Respiratory: clear to auscultation, normal air movement Cardiovascular: regular rate and rhythm, nl pulses Gastrointestinal: soft, nl liver, spleen, non-tender Extremities: normal pulses Medications Medications Current Medications Potassium Chloride 40 meq/ Sodium Chloride 1,000 ml @ 100 mls/hr Q10H IV Last administered on 08/25/18at 03:44; Admin Dose 100 MLS/HR; Start 08/25/18 at 03:30 Sodium Chloride 1,000 ml @ 100 mls/hr Q10H IV ; Start 08/25/18 at 03:33 IV Flush (NS 3 ml) 3 ml PER PROTOCOL IV ; Start 08/25/18 at 04:00 Ondansetron HCl (Zofran Inj) 4 mg Q6H PRN IV NAUSEA AND/OR VOMITING; Start 08/25/18 at 04:00 Acetaminophen (Tylenol Tab) 650 mg Q6H PRN PO PAIN LEVEL 1-3 OR FEVER; Start 08/25/18 at 04:00 Hydromorphone HCl (Dilaudid) 0.5 mg Q4H PRN IV PAIN LEVEL 7-10 Last administered on 08/25/18at 09:14; Admin Dose 0.5 MG; Start 08/25/18 at 04:00 Pantoprazole (Protonix Iv) 40 mg DAILY@06 IV Last administered on 08/25/18at 06:31; Admin Dose 40 MG; Start 08/25/18 at 06:00 Enoxaparin Sodium (Lovenox) 40 mg DAILY SC Last administered on 08/25/18at 09:12; Admin Dose 40 MG; Start 08/25/18 at 09:00 Insulin Aspart (Novolog Insulin Pen) NOVOLOG *MODERATE* ALGORI... Q4 SC Last administered on 08/25/18at 12:59; Admin Dose 4 UNIT; Start 08/25/18 at 05:00 Alprazolam (Xanax) 0.5 mg Q8H PRN PO ANXIETY; Start 08/25/18 at 04:00 Aspirin (Aspirin) 81 mg DAILY PO Last administered on 08/25/18at 09:08; Admin Dose 81 MG; Start 08/25/18 at 09:00 Atorvastatin Calcium (Lipitor) 40 mg QHS PO ; Start 08/25/18 at 21:00 Gabapentin (Neurontin) 900 mg TID PO Last administered on 08/25/18at 13:01; Admin Dose 900 MG; Start 08/25/18 at 09:00 Isosorbide Mononitrate (Imdur) 60 mg DAILY PO Last administered on 08/25/18at 09:09; Admin Dose 60 MG; Start 08/25/18 at 09:00 Metoprolol Tartrate (Lopressor) 25 mg BID PO Last administered on 08/25/18at 09:10; Admin Dose 25 MG; Start 08/25/18 at 09:00 Paroxetine HCl (Paxil) 40 mg HS PO ; Start 08/25/18 at 21:00 Trazodone HCl (Desyrel) 400 mg QHS PO ; Start 08/25/18 at 21:00 Miscellaneous Information 1 ea NOTE XX ; Start 08/25/18 at 04:00 Glucose (Glutose) 15 gm Q15M PRN PO DECREASED GLUCOSE; Start 08/25/18 at 04:00 Glucose (Glutose) 22.5 gm Q15M PRN PO DECREASED GLUCOSE; Start 08/25/18 at 04:00 Dextrose (D50w Syringe) 25 ml Q15M PRN IV DECREASED GLUCOSE; Start 08/25/18 at 04:00 Dextrose (D50w Syringe) 50 ml Q15M PRN IV DECREASED GLUCOSE; Start 08/25/18 at 04:00 Glucagon (Glucagen) 1 mg Q15M PRN IM DECREASED GLUCOSE; Start 08/25/18 at 04:00 Glucose (Glutose) 15 gm Q15M PRN BUCCAL DECREASED GLUCOSE; Start 08/25/18 at 04:00 Insulin Glargine (Lantus) 41 units DAILY@0800 SC ; Start 08/26/18 at 08:00 Insulin Aspart (Novolog Insulin Pen) 14 unit WITH MEALS SC Last administered on 08/25/18at 12:13; Admin Dose 14 UNIT; Start 08/25/18 at 12:00 Linagliptin (Tradjenta) 5 mg DAILY PO ; Start 08/26/18 at 09:00 Diagnostic Test (Pha) (Accu-Chek) 1 ea AC MEALS AND BEDTIME XX ; Start 08/25/18 at 17:30 SONA SHAW MD Aug 25, 2018 13:55
--- NOTE | 2018-08-25 14:54 | NUR ---
CM NOTE RECEIVED AN ORDER TO ARRANGE FOR OUTPATIENT GI FOLLOW UP, THIS CM CONTACTED LUIS A [phone] AT THE [facility] ([facility]) AND PER LUIS A THE CASE HAS NOT BEEN ASIGNED TO ANYONE AT [facility], CM WILL NEED TO FORWARDED THE ORDER TO [facility], CM FORWARDED THE ORDER TO DC NUTRITION ASSISTANT AT [facility] [phone] FAX AND TO [phone] SN CM WILL CONTINUE TO FOLLOW UP.
[2018-08-25] MEDS: FLUTICASONE/VILANTEROL 100-25 INH SCH (17:25)
[2018-08-25] MEDS: TIOTROPIUM 18 MCG CAPSULE INHA DEV INH SCH (17:26)
[2018-08-25] MEDS ORDERED: ACCU-CHEK XX SCH (17:30)
[2018-08-25] MEDS: ACCU-CHEK XX SCH ×2 (18:09→21:00)
[2018-08-25] MEDS: metFORMIN 500 MG TAB PO SCH (18:11)
--- NOTE | 2018-08-25 18:33 | QN ---
Documentation Comment admoitted for lactic acidosis, abd pain and hyperglycemia PLAN: advance diet, resume hypoglycemics, endo consult, supportive care continue to trend lactic acid levels LONG RADFORD Aug 25, 2018 18:33
[2018-08-25] MEDS: PAROXETINE 20 MG TAB PO SCH (20:47)
[2018-08-25] MEDS: traZODone 100 MG TAB PO SCH (20:47)
[2018-08-25] MEDS: ATORVASTATIN 40 MG TAB PO SCH (20:48)
[2018-08-25] MEDS ORDERED: DEXAMETHASONE 1 MG TAB PO ONE (23:15)
[2018-08-26] VITALS (8 sets, daily range): BP systolic 108–114; BP diastolic 63–70; PULSE 69–82; RESP 18–20
[2018-08-26] MEDS: HYDROmorphONE 0.5 MG/0.5 ML SYG IV PRN ×6 (01:32→22:36)
[2018-08-26] MEDS ORDERED: ACCU-CHEK XX SCH (02:00)
[2018-08-26] MEDS: INSULIN ASPART [NOVOLOG] 3 ML PEN SC SCH ×8 (02:38→20:28)
[2018-08-26] MEDS: PANTOPRAZOLE 40 MG INJ IV SCH (05:57)
[2018-08-26] MEDS: POTASSIUM CHLORIDE 40 MEQ in SOD CHLORIDE 0.9% 1,000 ML IV SCH ×3 (06:08→19:21)
[2018-08-26] MEDS ORDERED: SOD CHLORIDE 0.9% 500 ML IV ONE (07:00)
[2018-08-26] MEDS: ACCU-CHEK XX SCH ×4 (07:00→21:00)
--- NOTE | 2018-08-26 07:35 | NUR ---
Pt a/a/ox4, VS stable, Blood sugar was 375 coverage with Novolog [address] Sanchez notified. Dilaudid was given x2, Q 4 hrs. Lactic acid 3.4 , Dr Sanchez was notified to give 500 cc NS bolus and repeat Lactic acid. continue care plan , repot given to incoming nurse Marcie.
[2018-08-26] MEDS ORDERED: INSULIN GLARGINE [LANTus] (100 UNITS/ML) SYG SC SCH ×2 (08:00→20:00)
[2018-08-26] MEDS: GABAPENTIN 300 MG CAP PO SCH ×3 (08:23→20:22)
[2018-08-26] MEDS: ASPIRIN 81 MG TAB PO SCH (08:24)
[2018-08-26] MEDS: TIOTROPIUM 18 MCG CAPSULE INHA DEV INH SCH (08:24)
[2018-08-26] MEDS: LINAGLIPTIN 5 MG TABLET PO SCH (08:24)
[2018-08-26] MEDS: ISOSORBIDE MONONITRATE(SR)30 MG TAB PO SCH (08:24)
[2018-08-26] MEDS: EMPAGLIFLOZIN 10 MG TABLET PO SCH (08:25)
[2018-08-26] MEDS: METOPROLOL 25 MG TAB PO SCH ×2 (08:25→20:21)
[2018-08-26] MEDS: metFORMIN 500 MG TAB PO SCH (08:25)
[2018-08-26] MEDS: INSULIN GLARGINE [LANTus] (100 UNITS/ML) SYG SC SCH (08:45)
[2018-08-26] MEDS: ENOXAPARIN 40 MG/0.4 ML SYG SC SCH (08:46)
[2018-08-26] MEDS: FLUTICASONE/VILANTEROL 100-25 INH SCH (09:10)
[2018-08-26] MEDS ORDERED: INSULIN GLARGINE [LANTus] (100 UNITS/ML) SYG SC ONE (09:30)
[2018-08-26] MEDS: SOD CHLORIDE 0.9% 1,000 ML IV SCH ×3 (09:33→23:37)
--- NOTE | 2018-08-26 10:29 | PN ---
Date/Time of Note Date/Time of Note DATE: 08/26/18 TIME: 10:18 Assessment/Plan VTE Prophylaxis Risk score (from Ns)>0 risk: 4 SCD applied (from Ns): Yes Pharmacological prophylaxis: LMWH Lines/Catheters IV Catheter Type [facility]from [facility] Saline Lock Urinary Cath still in place: No Assessment/Plan Result Diagram: 08/26/18 0523 08/26/18 0524 Results 24hrs Laboratory Tests Test 08/25/18 11:47 08/25/18 12:55 08/25/18 14:12 08/25/18 17:15 Bedside Glucose 124 184 348 H Lactic Acid 2.3 *H Level Hepatitis B NEGATIVE Surface Antigen Hepatitis C NEGATIVE Antibody Test 08/25/18 18:03 08/25/18 20:33 08/25/18 21:04 08/26/18 01:18 Bedside Glucose 395 H 368 H 372 H Lactic Acid 2.4 *H Level Test 08/26/18 05:23 08/26/18 05:24 08/26/18 05:51 08/26/18 08:21 White Blood 8.5 # Count Red Blood Count 4.72 Hemoglobin 13.5 Hematocrit 41.5 Mean Corpuscular 87.9 Volume Mean Corpuscular 28.6 L Hemoglobin Mean Corpuscular 32.5 Hemoglobin Alisia nt Red Cell 14.4 Distribution Width Platelet Count 353 Mean Platelet 10.2 Volume Immature 0.400 Granulocytes % Neutrophils % 51.1 Lymphocytes % 36.1 Monocytes % 7.2 Eosinophils % 4.5 Basophils % 0.7 Nucleated Red 0.0 Blood Cells % Immature 0.030 Granulocytes # Neutrophils # 4.4 Lymphocytes # 3.1 H Monocytes # 0.6 Eosinophils # 0.4 Basophils # 0.1 Nucleated Red 0.0 Blood Cells # Hemoglobin A1c 11.0 H Lactic Acid 3.4 *H Level Sodium Level 137 Potassium Level 4.8 Chloride Level 98 Carbon Dioxide 26 Level Anion Gap 13 Blood Urea 14 # Nitrogen Creatinine 0.57 Est Glomerular > 60 Filtrat Rate mL/min Glucose Level 404 *H Calcium Level 9.0 Total Bilirubin 0.0 L Direct Bilirubin 0.00 Indirect 0.0 Bilirubin Aspartate Amino 16 Transf (AST/SGOT ) Alanine 28 Aminotransferase (ALT/SGPT) Alkaline 89 Phosphatase Total Protein 5.8 L Albumin 3.5 Globulin 2.30 Albumin/Globulin 1.52 Ratio Thyroid 1.110 Stimulating Hormone (TSH) Bedside Glucose 375 H 320 H Test 08/26/18 10:14 Bedside Glucose 324 H Subjective 24 Hr Interval Summary Free Text/Dictation subjective: feels overwhelmed by her disease, having point tenderness Under L ribcage objective: General: A&O x3, answering questions appropriately,obese HEENT: NC/ AT. PERRL. EOM intact Neck: supple CVS: S1, S2, RRR. no murmurs. no pain on chest wall palpation Lungs: CTA b/l. no wheezing or rhonchi Abd: soft, point tenderness R under ribcage in the L in the midclavicular line, no overlying bruising or cellulitis, +BS Ext: moving all extremities skin: no rashes assessment and plan: This is a 57-year-old female who presented with abd pain and hyperglycemia with lactic acidosis managed as follows: #1 Point abdominal pain with diarrhea: -Patient had reported diarrhea times 4 days with multiple episodes of BMs daily. this has resolved -CT the abdomen pelvis does not show any acute abnormality. -Pain may be 2/2 neuropathy, patient currently on high dose gabapentin 900 tid, will try lyrica in house to see if this will help pain and lidocaine patch. #2 DM2 with severe hyperglycemia: -a1c 11.O -I strongly suspect poor compliance to insulin therapy, but patient states she takes her insulin regularly, but she only takes regular and no long acting. states it was never prescribed -endo has changed her regimen -persistent hyperglycemia likely 2/2 steroids, monitor #3 lactic acidosis: -Secondary likely to gastrointestinal losses from diarrhea as well as from metformin use. -Continue IV hydration with normal saline. Will monitor lactate levels closely. -d/c metformin, will discuss with endo #4. Tobacco user with COPD: -Stable at the current time, continue inhalers, nicotine patch, cessation counselling re-inforced #5. dyslipidemia: Continue home statin. #6. HTN: -We will continue home antihypertensives, adjust as clinically indicated. #7. Chronic LBP with hx of spinal stenosis: -Patient expressing fustration with home pain meds MScontin 30bid and norco 10 q6h PRN -requesting to change PCP to someone else who will see her more often and manage her better #8. Rob adrenal gland nodules largest 2.2 cm -endo has commenced workup, f/u final recs #9. Morbid obesity: -bmi 42.9, we had long discussion about dietary control and weight loss, will continue to reinforce -calorie controlled diet Dispo: -keep in house for one more day to optimize blood sugar control, hype rglycemia is likely 2/2 1 dose of dexamethasone gievn by endo, no change to regimen for now, f/u endo final recs -spoke with behavioral health case manager, Patient's insurance is [facility], she is limited in terms of PCP, she has to call insurance to issue new PCP -Consider d/c patient on slightly increased dosage of MS contin 45mg bid and change from norco to oxycodone to see if this will help her better -she will need pain mgt refferal from PCP for continued mgt of her pain. She's already seeing a back specialist who has plans in place for further workup Exam/Review of Systems Vital Signs Vitals Vital Signs Date Temp Pulse Resp B/P (MAP) Pulse Ox O2 O2 Flow FiO2 Time Delivery Rate 08/26/18 69 08:00 08/26/18 98.2 18 114/70 97 07:13 (85) 08/25/18 Room Air 15:39 Intake and Output 08/25/18 08/25/18 08/26/18 1515:00 23:00 07:00 IntakeIntake Total 200 ml 1400 ml 2600 ml BalanceBalance 200 ml 1400 ml 2600 ml Medications Medications Current Medications Potassium Chloride 40 meq/ Sodium Chloride 1,000 ml @ 100 mls/hr Q10H IV Last administered on 08/26/18at 06:08; Admin Dose 100 MLS/HR; Start 08/25/18 at 03:30 Sodium Chloride 1,000 ml @ 100 mls/hr Q10H IV ; Start 08/25/18 at 03:33 IV Flush (NS 3 ml) 3 ml PER PROTOCOL IV ; Start 08/25/18 at 04:00 Ondansetron HCl (Zofran Inj) 4 mg Q6H PRN IV NAUSEA AND/OR VOMITING; Start 08/25/18 at 04:00 Acetaminophen (Tylenol Tab) 650 mg Q6H PRN PO PAIN LEVEL 1-3 OR FEVER; Start 08/25/18 at 04:00 Hydromorphone HCl (Dilaudid) 0.5 mg Q4H PRN IV PAIN LEVEL 7-10 Last administere d on 08/26/18 10:11; Admin Dose 0.5 MG; Start 08/25/18 at 04:00 Pantoprazole (Protonix Iv) 40 mg DAILY@06 IV Last administered on 08/26/18 05:57; Admin Dose 40 MG; Start 08/25/18 at 06:00 Enoxaparin Sodium (Lovenox) 40 mg DAILY SC Last administered on 08/26/18 08:46; Admin Dose 40 MG; Start 08/25/18 at 09:00 Insulin Aspart (Novolog Insulin Pen) NOVOLOG *MODERATE* ALGORI... Q4 SC Last a dministered on 08/26/18 08:45; Admin Dose 10 UNIT; Start 08/25/18 at 05:00 Alprazolam (Xanax) 0.5 mg Q8H PRN PO ANXIETY; Start 08/25/18 at 04:00 Aspirin (Aspirin) 81 mg DAILY PO Last administered on 08/26/18 08:24; Admin Dose 81 MG; Start 08/25/18 at 09:00 Atorvastatin Calcium (Lipitor) 40 mg QHS PO Last administered on 08/25/18 20:48; Admin Dose 40 MG; Start 08/25/18 at 21:00 Gabapentin (Neurontin) 900 mg TID PO Last administered on 08/26/18 08:23; Admin Dose 900 MG; Start 08/25/18 at 09:00 Metoprolol Tartrate (Lopressor) 25 mg BID PO Last administered on 08/26/18 08:25; Admin Dose 25 MG; Start 08/25/18 at 09:00 Paroxetine HCl (Paxil) 40 mg HS PO Last administered on 08/25/18 20:47; Admin Dose 40 MG; Start 08/25/18 at 21:00 Trazodone HCl (Desyrel) 400 mg QHS PO Last administered on 08/25/18 20:47; Admin Dose 400 MG; Start 08/25/18 at 21:00 Miscellaneous Information 1 ea NOTE XX ; Start 08/25/18 at 04:00 Glucose (Glutose) 15 gm Q15M PRN PO DECREASED GLUCOSE; Start 08/25/18 at 04:00 Glucose (Glutose) 22.5 gm Q15M PRN PO DECREASED GLUCOSE; Start 08/25/18 at 04:00 Dextrose (D50w Syringe) 25 ml Q15M PRN IV DECREASED GLUCOSE; Start 08/25/18 at 04:00 Dextrose (D50w Syringe) 50 ml Q15M PRN IV DECREASED GLUCOSE; Start 08/25/18 at 04:00 Glucagon (Glucagen) 1 mg Q15M PRN IM DECREASED GLUCOSE; Start 08/25/18 at 04:00 Glucose (Glutose) 15 gm Q15M PRN BUCCAL DECREASED GLUCOSE; Start 08/25/18 at 04:00 Linagliptin (Tradjenta) 5 mg DAILY PO Last administered on 08/26/18at 08:24; Admin Dose 5 MG; Start 08/26/18 at 09:00 Empaglifozin (Jardiance) 10 mg DAILY@08 PO Last administered on 08/26/18at 08:25; Admin Dose 10 MG; Start 08/26/18 at 08:00 Diagnostic Test (Pha) (Accu-Chek) 1 ea AC MEALS AND BEDTIME XX Last administered on 08/25/18at 21:00; Admin Dose 1 EA; Start 08/25/18 at 17:30 Metformin HCl (Glucophage) 500 mg BID WITH MEALS PO Last administered on 08/26/18at 08:25; Admin Dose 500 MG; Start 08/25/18 at 18:00 Isosorbide Mononitrate (Imdur) 30 mg DAILY PO Last administered on 08/26/18at 08:24; Admin Dose 30 MG; Start 08/26/18 at 09:00 Fluticasone/ Vilanterol (Breo Ellipta 100-25 Mcg Inh) 1 inh DAILY INH Last administered on 08/26/18at 09:10; Admin Dose 1 INH; Start 08/25/18 at 16:00 Tiotropium Levasy (Spiriva) 1 inh DAILY INH Last administered on 08/26/18at 08:24; Admin Dose 1 INH; Start 08/25/18 at 16:00 Dexamethasone (Decadron) 1 mg ONCE ONCE PO ; Start 08/26/18 at 23:15; Stop 08/26/18 at 23:16 Insulin Glargine (Lantus) 50 units DAILY@0800 SC Last administered on 08/26/18at 08:45; Admin Dose 50 UNITS; Start 08/26/18 at 08:00 Insulin Aspart (Novolog Insulin Pen) 28 unit WITH MEALS SC ; Start 08/26/18 at 12:00 Insulin Glargine (Lantus) 20 units DAILY@2000 SC ; Start 08/26/18 at 20:00 LONG RADFORD Aug 26, 2018 10:28
--- NOTE | 2018-08-26 11:09 | NUR ---
Dr. Rock text made aware Lactic Acid-2.7.
--- NOTE | 2018-08-26 11:40 | NUR ---
Patient stated with [facility] 10/325 Qhrs/Morphine PO BID, Dr. Rock made aware waiting for order.
--- NOTE | 2018-08-26 11:50 | NUR ---
Report given to Nivia to continue care for patient. Endorsed to take BS at lunch time. BS Q4hrs.
--- NOTE | 2018-08-26 12:40 | NUR ---
RECEIVED REPORT FROM HAILY GALAN. PATIENT ARRIVED TO THE UNIT AT THIS TIME. ALERT ,ORIENTED AND CONTINENT. VITALS STABLE. IV SITE ON RIGHT HAND INTACT AND PATENT. ASSESSED THE PATIENT. BLOOD SUGAR CHECKED SAND INSULIN ADMINISTERED. ON IV ANTIBIOTICS. DIET TOLERATED. PATIENT INTRODUCED TO STAFF AND ROOM.ALL SAFETY PRECAUTIONS INSTRUCTED SUCH BED IN THE LOWEST POSITION, ALARMS ON, BRAKES ON, CALL LIGHT SYSTEM WITHIN REACH. ENCOURAGED TO USE THE CALL LIGHT. WILL CONTINUE TO MONITOR.
[2018-08-26] MEDS: CEFTRIAXONE 1 GM/50 ML (PMX) 50 ML IVPB SCH (13:05)
--- NOTE | 2018-08-26 13:47 | CONS ---
Date/Time of Note Date/Time of Note DATE: 08/26/18 TIME: 13:37 Assessment/Plan Assessment/Plan Hospital Course This is the 12th [facility] admission and 6 in the last 6 months for this 57-year-old woman who comes in as documented by the hospitalist team. We are asked to assist with management of her blood sugars Problems: (1) Diabetes mellitus type 2 in obese Status: Chronic Comment: Blood sugar control is not adequate. Due to the presence of lactic acid at a low level the primary care physician is less comfortable use metfor min. Since metformin has not had an enormous impact on her overall care is fine to discontinue this. We will go ahead and try and use low-dose bromocriptine which can have a number of effects physiologically and the benefit of sugars. Please note the bromocriptine that is FDA approved for diabetics is known by the product as Cycloset. This is not on our formulary. However regular bromocriptine is which is the same thing just in a different sized tablet. Further adjustment of insulin dosages and evaluation to rule out hypercortisolism in progress (2) Adrenal nodule Onset Date: ~ 07/2016 Status: Chronic Comment: She actually has bilateral adrenal nodules. Workup is in progress now (3) Morbid obesity with BMI of 40.0-44.9, adult Status: Chronic Comment: Calorie restriction diet. (4) UTI (urinary tract infection) Status: Acute Comment: Final cultures are pending Qualifiers: Urinary tract infection type: acute cystitis Hematuria presence: without hematuria Qualified Codes: N30.00 - Acute cystitis without hematuria (5) Compression fracture of L3 vertebra Onset Date: ~ 02/16/2017 Status: Chronic Comment: This was traumatic. However with the adrenal nodules need to make sure there is not hypercortisolism Qualifiers: Encounter type: subsequent encounter Fracture type: closed Fracture healing: with routine healing Qualified Codes: S32.030D - Wedge compression fracture of third lumbar vertebra, subsequent encounter for fracture with routine healing (6) Grade I diastolic dysfunction Status: Chronic Comment: Noted. (7) COPD exacerbation Status: Chronic Comment: Maintain treatment using standard protocol. (8) Status post cholecystectomy Status: Chronic Comment: Noted. (9) Postsurgical dumping syndrome Status: Chronic Comment: Low-dose verapamil Result Diagram: 08/26/18 0523 08/26/18 0524 Results 24hrs Laboratory Tests Test 08/25/18 14:12 08/25/18 17:15 08/25/18 18:03 08/25/18 20:33 Lactic Acid 2.3 *H Level Hepatitis B NEGATIVE Surface Antigen Hepatitis C NEGATIVE Antibody Bedside Glucose 348 H 395 H 368 H Test 08/25/18 21:04 08/26/18 01:18 08/26/18 05:23 08/26/18 05:24 Lactic Acid 2.4 *H 3.4 *H Level Bedside Glucose 372 H White Blood 8.5 # Count Red Blood Count 4.72 Hemoglobin 13.5 Hematocrit 41.5 Mean Corpuscular 87.9 Volume Mean Corpuscular 28.6 L Hemoglobin Mean Corpuscular 32.5 Hemoglobin Alisia nt Red Cell 14.4 Distribution Width Platelet Count 353 Mean Platelet 10.2 Volume Immature 0.400 Granulocytes % Neutrophils % 51.1 Lymphocytes % 36.1 Monocytes % 7.2 Eosinophils % 4.5 Basophils % 0.7 Nucleated Red 0.0 Blood Cells % Immature 0.030 Granulocytes # Neutrophils # 4.4 Lymphocytes # 3.1 H Monocytes # 0.6 Eosinophils # 0.4 Basophils # 0.1 Nucleated Red 0.0 Blood Cells # Hemoglobin A1c 11.0 H Sodium Level 137 Potassium Level 4.8 Chloride Level 98 Carbon Dioxide 26 Level Anion Gap 13 Blood Urea 14 # Nitrogen Creatinine 0.57 Est Glomerular > 60 Filtrat Rate mL/min Glucose Level 404 *H Calcium Level 9.0 Total Bilirubin 0.0 L Direct Bilirubin 0.00 Indirect 0.0 Bilirubin Aspartate Amino 16 Transf (AST/SGOT ) Alanine 28 Aminotransferase (ALT/SGPT) Alkaline 89 Phosphatase Total Protein 5.8 L Albumin 3.5 Globulin 2.30 Albumin/Globulin 1.52 Ratio Thyroid 1.110 Stimulating Hormone (TSH) Test 08/26/18 05:51 08/26/18 08:21 08/26/18 09:28 08/26/18 10:14 Bedside Glucose 375 H 320 H 324 H Lactic Acid 2.7 *H Level Test 08/26/18 12:48 Bedside Glucose 280 H Consultation Date/Type/Reason Admit Date/Time Aug 25, 2018 at 03:10 Initial Consult Date 08/25/18 Type of Consult Endocrine Reason for Consultation Diabetes mellitus type 2 with insulin resistance syndrome; morbid obesity; bilateral adrenal nodules; UTI Requesting Provider: LONG RADFORD 24 HR Interval Summary Free Text/Dictation Complains of loose bowel movement since surgery for gallbladder Constitutional: no complaints Exam/Review of Systems Vital Signs Vitals Vital Signs Date Temp Pulse Resp B/P (MAP) Pulse Ox O2 O2 Flow FiO2 Time Delivery Rate 08/26/18 98.1 76 18 108/65 95 11:28 (79) 08/25/18 Room Air 15:39 Intake and Output 08/25/18 08/25/18 08/26/18 1515:00 23:00 07:00 IntakeIntake Total 200 ml 1400 ml 2600 ml BalanceBalance 200 ml 1400 ml 2600 ml Exam Constitutional: alert, oriented Neck: supple, non-tender Respiratory: clear to auscultation, normal air movement Cardiovascular: regular rate and rhythm, nl pulses Medications Medications Current Medications Potassium Chloride 40 meq/ Sodium Chloride 1,000 ml @ 100 mls/hr Q10H IV Last administered on 08/26/18at 06:08; Admin Dose 100 MLS/HR; Start 08/25/18 at 03:30 Sodium Chloride 1,000 ml @ 100 mls/hr Q10H IV ; Start 08/25/18 at 03:33 IV Flush (NS 3 ml) 3 ml PER PROTOCOL IV ; Start 08/25/18 at 04:00 Ondansetron HCl (Zofran Inj) 4 mg Q6H PRN IV NAUSEA AND/OR VOMITING; Start 08/25/18 at 04:00 Acetaminophen (Tylenol Tab) 650 mg Q6H PRN PO PAIN LEVEL 1-3 OR FEVER; Start 08/25/18 at 04:00 Hydromorphone HCl (Dilaudid) 0.5 mg Q4H PRN IV PAIN LEVEL 7-10 Last administered on 08/26/18at 10:11; Admin Dose 0.5 MG; Start 08/25/18 at 04:00 Pantoprazole (Protonix Iv) 40 mg DAILY@06 IV Last administered on 08/26/18at 05:57; Admin Dose 40 MG; Start 08/25/18 at 06:00 Enoxaparin Sodium (Lovenox) 40 mg DAILY SC Last administered on 08/26/18at 08:46; Admin Dose 40 MG; Start 08/25/18 at 09:00 Insulin Aspart (Novolog Insulin Pen) NOVOLOG *MODERATE* ALGORI... Q4 SC Last administered on 08/26/18at 13:06; Admin Dose 8 UNIT; Start 08/25/18 at 05:00 Alprazolam (Xanax) 0.5 mg Q8H PRN PO ANXIETY; Start 08/25/18 at 04:00 Aspirin (Aspirin) 81 mg DAILY PO Last administered on 08/26/18at 08:24; Admin Dose 81 MG; Start 08/25/18 at 09:00 Atorvastatin Calcium (Lipitor) 40 mg QHS PO Last administered on 08/25/18at 20:48; Admin Dose 40 MG; Start 08/25/18 at 21:00 Gabapentin (Neurontin) 900 mg TID PO Last administered on 08/26/18at 13:05; Admin Dose 900 MG; Start 08/25/18 at 09:00 Metoprolol Tartrate (Lopressor) 25 mg BID PO Last administered on 08/26/18at 08:25; Admin Dose 25 MG; Start 08/25/18 at 09:00 Paroxetine HCl (Paxil) 40 mg HS PO Last administered on 08/25/18at 20:47; Admin Dose 40 MG; Start 08/25/18 at 21:00 Trazodone HCl (Desyrel) 400 mg QHS PO Last administered on 08/25/18at 20:47; Admin Dose 400 MG; Start 08/25/18 at 21:00 Miscellaneous Information 1 ea NOTE XX ; Start 08/25/18 at 04:00 Glucose (Glutose) 15 gm Q15M PRN PO DECREASED GLUCOSE; Start 08/25/18 at 04:00 Glucose (Glutose) 22.5 gm Q15M PRN PO DECREASED GLUCOSE; Start 08/25/18 at 04:00 Dextrose (D50w Syringe) 25 ml Q15M PRN IV DECREASED GLUCOSE; Start 08/25/18 at 04:00 Dextrose (D50w Syringe) 50 ml Q15M PRN IV DECREASED GLUCOSE; Start 08/25/18 at 04:00 Glucagon (Glucagen) 1 mg Q15M PRN IM DECREASED GLUCOSE; Start 08/25/18 at 04:00 Glucose (Glutose) 15 gm Q15M PRN BUCCAL DECREASED GLUCOSE; Start 08/25/18 at 04:00 Linagliptin (Tradjenta) 5 mg DAILY PO Last administered on 08/26/18 08:24; Admin Dose 5 MG; Start 08/26/18 at 09:00 Empaglifozin (Jardiance) 10 mg DAILY@08 PO Last administered on 08/26/18 08:25; Admin Dose 10 MG; Start 08/26/18 at 08:00 Diagnostic Test (Pha) (Accu-Chek) 1 ea AC MEALS AND BEDTIME XX Last administered on 08/25/18 21:00; Admin Dose 1 EA; Start 08/25/18 at 17:30 Isosorbide Mononitrate (Imdur) 30 mg DAILY PO Last administered on 08/26/18 08:24; Admin Dose 30 MG; Start 08/26/18 at 09:00 Fluticasone/ Vilanterol (Breo Ellipta 100-25 Mcg Inh) 1 inh DAILY INH Last administered on 08/26/18at 09:10; Admin Dose 1 INH; Start 08/25/18 at 16:00 Tiotropium [place] (Spiriva) 1 inh DAILY INH Last administered on 08/26/18 08:24; Admin Dose 1 INH; Start 08/25/18 at 16:00 Dexamethasone (Decadron) 1 mg ONCE ONCE PO ; Start 08/26/18 at 23:15; Stop 08/26/18 at 23:16 Insulin Glargine (Lantus) 50 units DAILY@0800 SC Last administered on 08/26/18at 08:45; Admin Dose 50 UNITS; Start 08/26/18 at 08:00 Insulin Aspart (Novolog Insulin Pen) 28 unit WITH MEALS SC Last administered on 08/26/18at 13:09; Admin Dose 28 UNIT; Start 08/26/18 at 12:00 Insulin Glargine (Lantus) 20 units DAILY@2000 SC ; Start 08/26/18 at 20:00 Oxycodone HCl (Roxicodone) 5 mg Q4H PRN PO MODERATE PAIN LEVEL 4-6; Start 08/26/18 at 12:00 Lidocaine (Lidoderm) 1 patch DAILY TD ; Start 08/26/18 at 12:00 Ceftriaxone Sodium 50 ml @ 100 mls/hr Q24H IVPB Last administered on 08/26/18at 13:05; Admin Dose 100 MLS/HR; Start 08/26/18 at 12:30 Bromocriptine Mesylate (Parlodel) 2.5 mg ONCE ONCE PO ; Start 08/26/18 at 14:00; Stop 08/26/18 at 14:01; Status UNV Bromocriptine Mesylate (Parlodel) 2.5 mg DAILY PO ; Start 08/27/18 at 09:00; Status UNV SONA SHAW MD Aug 26, 2018 13:47
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
[2018-08-26] MEDS ORDERED: BROMOCRIPTINE 2.5 MG TAB PO ONE (15:00)
[2018-08-26] MEDS ORDERED: VERAPAMIL (SR) 120 MG TAB PO SCH (15:00)
--- NOTE | 2018-08-26 16:15 | NUR ---
CONTACTED DR. SHARMA FOR LOWER RIGHT ABDOMEN AND GROIN RASH. NEW ORDERS RECEIVED. WILL CONTINUE TO MONITOR THE PATIENT.
[2018-08-26] MEDS: LIDOCAINE 5% PATCH TD SCH (16:37)
[2018-08-26] MEDS: VERAPAMIL (SR) 240 MG TAB PO SCH (17:52)
--- NOTE | 2018-08-26 18:30 | NUR ---
END OF SHIFT NOTE: PATIENT COMFORTABLE IN THE PM . ALL SAFETY PRECAUTIONS CONTINUED . WILL CONTINUE TO MONITOR.
[2018-08-26] MEDS: traZODone 100 MG TAB PO SCH (20:22)
[2018-08-26] MEDS: PAROXETINE 20 MG TAB PO SCH (20:22)
[2018-08-26] MEDS: ATORVASTATIN 40 MG TAB PO SCH (20:22)
[2018-08-26] MEDS: oxyCODONE 5 MG TAB PO PRN (20:35)
[2018-08-26] MEDS: BETAMETHASONE/CLOTRIMAZOLE 15 GM CR TOP SCH ×2 (21:00→23:36)
[2018-08-26] MEDS ORDERED: DEXAMETHASONE 1 MG TAB PO ONE (23:15)
[2018-08-27] MEDS: oxyCODONE 5 MG TAB PO PRN ×5 (00:36→22:08)
[2018-08-27 01:59] VITALS: BP 116/60; PULSE 80; RESP 18
[2018-08-27] MEDS: ACCUCHECK AT 2AM (Patients on SS coverage) XX SCH (02:00)
[2018-08-27] MEDS: POTASSIUM CHLORIDE 40 MEQ in SOD CHLORIDE 0.9% 1,000 ML IV SCH ×2 (02:08→15:21)
[2018-08-27] MEDS: SOD CHLORIDE 0.9% 1,000 ML IV SCH ×3 (02:09→22:08)
[2018-08-27] MEDS: HYDROmorphONE 0.5 MG/0.5 ML SYG IV PRN ×6 (02:36→22:11)
[2018-08-27] MEDS: PANTOPRAZOLE (EC) 40 MG TAB PO SCH (05:03)
--- NOTE | 2018-08-27 06:09 | NUR ---
END OF SHIFT NOTE: PATIENT IS A AND O X 4; NOT IN DISTRESS. VS IS WNL; ALL MEDICATIONS HAVE BEEN GIVEN ORDERED AND PRN; ALL NEEDS ATTENDED; CALL LIGHT WITHIN REACH ; WILL ENDORSE TO THE DAY SHIFT RN
[2018-08-27] MEDS ORDERED: INSULIN ASPART [NOVOLOG] 3 ML PEN SC SCH (07:20)
[2018-08-27 07:37] VITALS: BP 125/85; PULSE 72; RESP 18
[2018-08-27] MEDS: ACCU-CHEK XX SCH ×4 (08:50→21:00)
[2018-08-27] MEDS: TIOTROPIUM 18 MCG CAPSULE INHA DEV INH SCH (09:02)
[2018-08-27] MEDS: GABAPENTIN 300 MG CAP PO SCH ×3 (09:02→20:53)
[2018-08-27] MEDS: BROMOCRIPTINE 2.5 MG TAB PO SCH (09:02)
[2018-08-27] MEDS: ASPIRIN 81 MG TAB PO SCH (09:03)
[2018-08-27] MEDS: VERAPAMIL (SR) 240 MG TAB PO SCH (09:03)
[2018-08-27] MEDS: ISOSORBIDE MONONITRATE(SR)30 MG TAB PO SCH (09:03)
[2018-08-27] MEDS: EMPAGLIFLOZIN 10 MG TABLET PO SCH (09:04)
[2018-08-27] MEDS: METOPROLOL 25 MG TAB PO SCH ×2 (09:04→20:57)
[2018-08-27] MEDS: INSULIN GLARGINE [LANTus] (100 UNITS/ML) SYG SC SCH ×2 (09:09→20:50)
[2018-08-27] MEDS: INSULIN ASPART [NOVOLOG] 3 ML PEN SC SCH ×2 (09:10→17:55)
[2018-08-27] MEDS: Insulin NOVOLOG SS MODERATE Algorithm (SS with meals and bedtime) SC SCH ×4 (09:11→21:00)
[2018-08-27] MEDS: ENOXAPARIN 40 MG/0.4 ML SYG SC SCH (09:12)
[2018-08-27] MEDS: BETAMETHASONE/CLOTRIMAZOLE 15 GM CR TOP SCH ×2 (09:13→21:02)
[2018-08-27] MEDS: LIDOCAINE 5% PATCH TD SCH (09:13)
[2018-08-27] MEDS: FLUTICASONE/VILANTEROL 100-25 INH SCH (09:18)
[2018-08-27] MEDS: LINAGLIPTIN 5 MG TABLET PO SCH (10:17)
--- NOTE | 2018-08-27 11:00 | NUR ---
PATIENT ALERT ORIENTED. VITALS STABLE, COMFORTABLE IN THE MORNING. DIET TOLERATED. INFORMED DR. PIMENTEL REGARDING 398 MMOL ACCUCHECK IN THE AM. PATIENT IV SITE LEFT FOREARM INTACT AND PATENT. IV FLUID ON FLOW. WALKED IN THE PAYNE WAY WITH SUPERVISION. ALL SAFETY PRECAUTIONS CONTINUED TO MAINTAIN SUCH BED IN THE LOWEST POSITION, ALARMS ON, BRAKES ON,CALL LIGHT WITH IN REACH. ENCOURAGED TO USE CALL LIGHT. WILL CONTINUE TO MONITOR.
[2018-08-27] MEDS: CEFTRIAXONE 1 GM/50 ML (PMX) 50 ML IVPB SCH (12:44)
--- NOTE | 2018-08-27 12:45 | CONS ---
Date/Time of Note Date/Time of Note DATE: 08/27/18 TIME: 12:41 Assessment/Plan Assessment/Plan Hospital Course This is the [address] [place] [address] admission and 6 in the last 6 months for this 57-year-old woman who comes in as documented by the hospitalist team. We are asked to assist with management of her blood sugars Problems: (1) Adrenal nodule Onset Date: ~ 07/2016 Status: Chronic Comment: The overnight dexamethasone suppression test actually is normal. That would then leave the test for catecholamines which can be done as an outpatient. I strongly do not believe that this represents pheochromocytoma-paraganglioma. (2) COPD exacerbation Status: Chronic Comment: Adequate control on medications (3) Diabetes mellitus type 2 in obese Status: Chronic Comment: Adjusting medications get under better control. Please note as an outpatient she is going to back to her U5 100 at mealtimes that she had and then would be on Lantus insulin 30 units once a day whether be morning or night would not matter, and bromocriptine 2.5 mg once a day. The major issue here will be getting her connected with a team of doctors that is local to her home so that she will have more consistent follow-up (4) Morbid obesity with BMI of 40.0-44.9, adult Status: Chronic Comment: Calorie restriction diet as best were able (5) Postsurgical dumping syndrome Status: Chronic Comment: Improved with usage of verapamil (6) E. coli UTI Status: Acute Comment: on antibiotics (7) Grade I diastolic dysfunction Status: Chronic Comment: Control of blood pressure and usage of verapamil (8) Vitamin D deficiency Status: Chronic Comment: As per primary team. Result Diagram: 08/27/18 0749 08/27/18 0749 Results 24hrs Laboratory Tests Test 08/26/18 12:48 08/26/18 17:42 08/26/18 20:19 08/27/18 02:30 Bedside Glucose 280 H 178 242 H 317 H Test 08/27/18 07:49 08/27/18 09:00 08/27/18 12:26 White Blood 7.9 Count Red Blood Count 4.74 Hemoglobin 13.6 Hematocrit 42.8 Mean Corpuscular 90.3 Volume Mean Corpuscular 28.7 L Hemoglobin Mean Corpuscular 31.8 L Hemoglobin Alisia nt Red Cell 14.3 Distribution Width Platelet Count 328 Mean Platelet 10.3 Volume Immature 0.300 Granulocytes % Neutrophils % 64.7 Lymphocytes % 24.3 Monocytes % 6.7 Eosinophils % 3.2 Basophils % 0.8 Nucleated Red 0.0 Blood Cells % Immature 0.020 Granulocytes # Neutrophils # 5.1 Lymphocytes # 1.9 Monocytes # 0.5 Eosinophils # 0.3 Basophils # 0.1 Nucleated Red 0.0 Blood Cells # Sodium Level 137 Potassium Level 4.9 Chloride Level 100 Carbon Dioxide 26 Level Anion Gap 11 Blood Urea 14 Nitrogen Creatinine 0.64 Est Glomerular > 60 Filtrat Rate mL/min Glucose Level 382 H Calcium Level 9.3 Random Cortisol 2.1 Bedside Glucose 398 H 210 Consultation Date/Type/Reason Admit Date/Time Aug 25, 2018 at 03:10 Initial Consult Date 08/25/18 Type of Consult Endocrine Reason for Consultation Diabetes mellitus type 2 with extreme insulin resistance; morbid obesity; bilateral adrenal nodules unchanged in size over several years; hypertension; postoperative dumping syndrome Requesting Provider: LONG RADFORD 24 HR Interval Summary Free Text/Dictation The patient's sugars are still up however she reports her GI tract dumping sy ndrome has improved already Constitutional: no complaints Detailed Summary Respiratory: no complaints Cardiovascular: no complaints Gastrointestinal: no complaints Exam/Review of Systems Vital Signs Vitals Vital Signs Date Temp Pulse Resp B/P (MAP) Pulse Ox O2 O2 Flow FiO2 Time Delivery Rate 08/27/18 98.3 72 18 125/85 98 Room Air 07:37 (98) Intake and Output 08/26/18 08/26/18 08/27/18 1515:00 23:00 07:00 IntakeIntake Total 250 ml 1500 ml OutputOutput Total 200 ml BalanceBalance 50 ml 1500 ml Exam Constitutional: alert, oriented Respiratory: clear to auscultation, normal air movement Cardiovascular: regular rate and rhythm, nl pulses Gastrointestinal: soft, nl liver, spleen, non-tender Medications Medications Current Medications Potassium Chloride 40 meq/ Sodium Chloride 1,000 ml @ 100 mls/hr Q10H IV Last administered on 08/26/18at 06:08; Admin Dose 100 MLS/HR; Start 08/25/18 at 03:30 Sodium Chloride 1,000 ml @ 100 mls/hr Q10H IV Last administered on 08/27/18at 10:18; Admin Dose 100 MLS/HR; Start 08/25/18 at 03:33 IV Flush (NS 3 ml) 3 ml PER PROTOCOL IV ; Start 08/25/18 at 04:00 Ondansetron HCl (Zofran Inj) 4 mg Q6H PRN IV NAUSEA AND/OR VOMITING; Start 08/25/18 at 04:00 Acetaminophen (Tylenol Tab) 650 mg Q6H PRN PO PAIN LEVEL 1-3 OR FEVER; Start 08/25/18 at 04:00 Hydromorphone HCl (Dilaudid) 0.5 mg Q4H PRN IV PAIN LEVEL 7-10 Last administered on 08/27/18 10:17; Admin Dose 0.5 MG; Start 08/25/18 at 04:00 Enoxaparin Sodium (Lovenox) 40 mg DAILY SC Last administered on 08/27/18 09:12; Admin Dose 40 MG; Start 08/25/18 at 09:00 Alprazolam (Xanax) 0.5 mg Q8H PRN PO ANXIETY Last administered on 08/26/18 23:55; Admin Dose 0.5 MG; Start 08/25/18 at 04:00 Aspirin (Aspirin) 81 mg DAILY PO Last administered on 08/27/18 09:03; Admin Dose 81 MG; Start 08/25/18 at 09:00 Atorvastatin Calcium (Lipitor) 40 mg QHS PO Last administered on 08/26/18 20:22; Admin Dose 40 MG; Start 08/25/18 at 21:00 Gabapentin (Neurontin) 900 mg TID PO Last administered on 08/27/18 09:02; Admin Dose 900 MG; Start 08/25/18 at 09:00 Metoprolol Tartrate (Lopressor) 25 mg BID PO Last administered on 08/27/18 09:04; Admin Dose 25 MG; Start 08/25/18 at 09:00 Paroxetine HCl (Paxil) 40 mg HS PO Last administered on 08/26/18 20:22; Admin Dose 40 MG; Start 08/25/18 at 21:00 Trazodone HCl (Desyrel) 400 mg QHS PO Last administered on 08/26/18 20:22; Admin Dose 400 MG; Start 08/25/18 at 21:00 Miscellaneous Information 1 ea NOTE XX ; Start 08/25/18 at 04:00 Glucose (Glutose) 15 gm Q15M PRN PO DECREASED GLUCOSE; Start 08/25/18 at 04:00 Glucose (Glutose) 22.5 gm Q15M PRN PO DECREASED GLUCOSE; Start 08/25/18 at 04:00 Dextrose (D50w Syringe) 25 ml Q15M PRN IV DECREASED GLUCOSE; Start 08/25/18 at 04:00 Dextrose (D50w Syringe) 50 ml Q15M PRN IV DECREASED GLUCOSE; Start 08/25/18 at 04:00 Glucagon (Glucagen) 1 mg Q15M PRN IM DECREASED GLUCOSE; Start 08/25/18 at 04:00 Glucose (Glutose) 15 gm Q15M PRN BUCCAL DECREASED GLUCOSE; Start 08/25/18 at 04:00 Linagliptin (Tradjenta) 5 mg DAILY PO Last administered on 08/27/18at 10:17; Admin Dose 5 MG; Start 08/26/18 at 09:00 Empaglifozin (Jardiance) 10 mg DAILY@08 PO Last administered on 08/27/18at 09:04; Admin Dose 10 MG; Start 08/26/18 at 08:00 Diagnostic Test (Pha) (Accu-Chek) 1 ea AC MEALS AND BEDTIME XX Last administered on 08/27/18at 08:50; Admin Dose 1 EA; Start 08/25/18 at 17:30 Isosorbide Mononitrate (Imdur) 30 mg DAILY PO Last administered on 08/27/18at 09:03; Admin Dose 30 MG; Start 08/26/18 at 09:00 Fluticasone/ Vilanterol (Breo Ellipta 100-25 Mcg Inh) 1 inh DAILY INH Last administered on 08/27/18at 09:18; Admin Dose 1 INH; Start 08/25/18 at 16:00 Tiotropium [place] (Spiriva) 1 inh DAILY INH Last administered on 08/27/18at 09:02; Admin Dose 1 INH; Start 08/25/18 at 16:00 Insulin Glargine (Lantus) 50 units DAILY@0800 SC Last administered on 08/27/18at 09:09; Admin Dose 50 UNITS; Start 08/26/18 at 08:00 Oxycodone HCl (Roxicodone) 5 mg Q4H PRN PO MODERATE PAIN LEVEL 4-6 Last administered on 08/27/18 05:03; Admin Dose 5 MG; Start 08/26/18 at 12:00 Lidocaine (Lidoderm) 1 patch DAILY TD Last administered on 08/27/18 09:13; Admin Dose 1 PATCH; Start 08/26/18 at 12:00 Ceftriaxone Sodium 50 ml @ 100 mls/hr Q24H IVPB Last administered on 08/26/18at 13:05; Admin Dose 100 MLS/HR; Start 08/26/18 at 12:30 Bromocriptine Mesylate (Parlodel) 2.5 mg DAILY PO Last administered on 08/27/18 09:02; Admin Dose 2.5 MG; Start 08/27/18 at 09:00 Pantoprazole (Protonix Tab) 40 mg DAILY@06 PO Last administered on 08/27/18 05:03; Admin Dose 40 MG; Start 08/27/18 at 06:00 Betamethasone/ Clotrimazole (Lotrisone Cr) 1 applic BID TOP Last administered on 08/27/18 09:13; Admin Dose 1 APPLIC; Start 08/26/18 at 21:00 Verapamil HCl (Isoptin Sr) 120 mg DAILY PO Last administered on 08/27/18 09:03; Admin Dose 120 MG; Start 08/26/18 at 18:30 Insulin Aspart (Novolog Insulin Pen) (Adult SC Insulin - Moder... WITH MEALS BEDTIME SC Last administered on 08/27/18 09:11; Admin Dose 12 UNIT; Start 08/27/18 at 07:50 Diagnostic Test (Pha) (Accu-Chek) 1 ea 02 XX ; Start 08/27/18 at 02:00 Insulin Aspart (Novolog Insulin Pen) 36 unit WITH MEALS SC ; Start 08/27/18 at 17:55; Status UNV Insulin Glargine (Lantus) 40 units DAILY@2000 SC ; Start 08/27/18 at 20:00; Status UNV Insulin Glargine (Lantus) 20 units ONCE ONCE SC ; Start 08/27/18 at 13:00; Stop 08/27/18 at 13:01; Status SONA MEDINA MD Aug 27, 2018 12:45
--- NOTE | 2018-08-27 13:50 | PN ---
Date/Time of Note Date/Time of Note DATE: 08/27/18 TIME: 13:48 Assessment/Plan VTE Prophylaxis Risk score (from Ns)>0 risk: 3 SCD applied (from Ns): Yes Pharmacological prophylaxis: heparin Lines/Catheters IV Catheter Type (from Nrs): Peripheral IV Urinary Cath still in place: No Assessment/Plan Hospital Course 57 yo female with morbid obesity, severe DMII with chronic diarrhea and hyperglycemia Diarrhea: - Await C Diff and stool cultures though chronicity argues against infectious source - May benefit from colonoscopy - Seems to have developed follow cholecystectomy DMII - Management per Dr Mitchell Result Diagram: 08/27/18 0749 08/27/18 0749 Results 24hrs Laboratory Tests Test 08/26/18 17:42 08/26/18 20:19 08/27/18 02:30 08/27/18 07:49 Bedside Glucose 178 242 H 317 H White Blood 7.9 Count Red Blood Count 4.74 Hemoglobin 13.6 Hematocrit 42.8 Mean Corpuscular 90.3 Volume Mean Corpuscular 28.7 L Hemoglobin Mean Corpuscular 31.8 L Hemoglobin Alisia nt Red Cell 14.3 Distribution Width Platelet Count 328 Mean Platelet 10.3 Volume Immature 0.300 Granulocytes % Neutrophils % 64.7 Lymphocytes % 24.3 Monocytes % 6.7 Eosinophils % 3.2 Basophils % 0.8 Nucleated Red 0.0 Blood Cells % Immature 0.020 Granulocytes # Neutrophils # 5.1 Lymphocytes # 1.9 Monocytes # 0.5 Eosinophils # 0.3 Basophils # 0.1 Nucleated Red 0.0 Blood Cells # Sodium Level 137 Potassium Level 4.9 Chloride Level 100 Carbon Dioxide 26 Level Anion Gap 11 Blood Urea 14 Nitrogen Creatinine 0.64 Est Glomerular > 60 Filtrat Rate mL/min Glucose Level 382 H Calcium Level 9.3 Random Cortisol 2.1 Test 08/27/18 09:00 08/27/18 12:26 Bedside Glucose 398 H 210 Subjective 24 Hr Interval Summary Free Text/Dictation Dex suppression normal Still with chronic diarrhea Exam/Review of Systems Vital Signs Vitals Vital Signs Date Temp Pulse Resp B/P (MAP) Pulse Ox O2 O2 Flow FiO2 Time Delivery Rate 08/27/18 98.3 72 18 125/85 98 Room Air 07:37 (98) Intake and Output 08/26/18 08/26/18 08/27/18 1515:00 23:00 07:00 IntakeIntake Total 250 ml 1500 ml OutputOutput Total 200 ml BalanceBalance 50 ml 1500 ml Exam Constitutional: alert, oriented, well developed Psych: no complaints, nl mood/affect Head: normocephalic, atraumatic Eyes: nl conjunctiva, EOMI, nl lids, nl sclera, PERRL ENMT: nl external ears & nose, nl lips & teeth, nl nasal mucosa & septum Neck: supple, non-tender Respiratory: clear to auscultation, normal air movement Cardiovascular: regular rate and rhythm, nl pulses Gastrointestinal: soft, nl liver, spleen, non-tender Musculoskeletal: nl extremities to inspection, nl gait and stance Extremities: normal pulses Neurological: [employer] II-XII intact, nl mental status, nl speech, nl strength Skin: nl turgor; No rash or lesions Lymph: nl lymph nodes Medications Medications Current Medications Potassium Chloride 40 meq/ Sodium Chloride 1,000 ml @ 100 mls/hr Q10H IV Last administered on 08/26/18at 06:08; Admin Dose 100 MLS/HR; Start 08/25/18 at 03:30 Sodium Chloride 1,000 ml @ 100 mls/hr Q10H IV Last administered on 08/27/18at 10:18; Admin Dose 100 MLS/HR; Start 08/25/18 at 03:33 IV Flush (NS 3 ml) 3 ml PER PROTOCOL IV ; Start 08/25/18 at 04:00 Ondansetron HCl (Zofran Inj) 4 mg Q6H PRN IV NAUSEA AND/OR VOMITING; Start 08/25/18 at 04:00 Acetaminophen (Tylenol Tab) 650 mg Q6H PRN PO PAIN LEVEL 1-3 OR FEVER; Start 08/25/18 at 04:00 Hydromorphone HCl (Dilaudid) 0.5 mg Q4H PRN IV PAIN LEVEL 7-10 Last administered on 08/27/18at 10:17; Admin Dose 0.5 MG; Start 08/25/18 at 04:00 Enoxaparin Sodium (Lovenox) 40 mg DAILY SC Last administered on 08/27/18at 09:12; Admin Dose 40 MG; Start 08/25/18 at 09:00 Alprazolam (Xanax) 0.5 mg Q8H PRN PO ANXIETY Last administered on 08/26/18at 23:55; Admin Dose 0.5 MG; Start 08/25/18 at 04:00 Aspirin (Aspirin) 81 mg DAILY PO Last administered on 08/27/18at 09:03; Admin Dose 81 MG; Start 08/25/18 at 09:00 Atorvastatin Calcium (Lipitor) 40 mg QHS PO Last administered on 08/26/18at 20:22; Admin Dose 40 MG; Start 08/25/18 at 21:00 Gabapentin (Neurontin) 900 mg TID PO Last administered on 08/27/18at 12:44; Admin Dose 900 MG; Start 08/25/18 at 09:00 Metoprolol Tartrate (Lopressor) 25 mg BID PO Last administered on 08/27/18at 09:04; Admin Dose 25 MG; Start 08/25/18 at 09:00 Paroxetine HCl (Paxil) 40 mg HS PO Last administered on 08/26/18at 20:22; Admin Dose 40 MG; Start 08/25/18 at 21:00 Trazodone HCl (Desyrel) 400 mg QHS PO Last administered on 08/26/18at 20:22; Admin Dose 400 MG; Start 08/25/18 at 21:00 Miscellaneous Information 1 ea NOTE XX ; Start 08/25/18 at 04:00 Glucose (Glutose) 15 gm Q15M PRN PO DECREASED GLUCOSE; Start 08/25/18 at 04:00 Glucose (Glutose) 22.5 gm Q15M PRN PO DECREASED GLUCOSE; Start 08/25/18 at 04:00 Dextrose (D50w Syringe) 25 ml Q15M PRN IV DECREASED GLUCOSE; Start 08/25/18 at 04:00 Dextrose (D50w Syringe) 50 ml Q15M PRN IV DECREASED GLUCOSE; Start 08/25/18 at 04:00 Glucagon (Glucagen) 1 mg Q15M PRN IM DECREASED GLUCOSE; Start 08/25/18 at 04:00 Glucose (Glutose) 15 gm Q15M PRN BUCCAL DECREASED GLUCOSE; Start 08/25/18 at 04:00 Linagliptin (Tradjenta) 5 mg DAILY PO Last administered on 08/27/18at 10:17; Admin Dose 5 MG; Start 08/26/18 at 09:00 Empaglifozin (Jardiance) 10 mg DAILY@08 PO Last administered on 08/27/18 09:0 4; Admin Dose 10 MG; Start 08/26/18 at 08:00 Diagnostic Test (Pha) (Accu-Chek) 1 ea AC MEALS AND BEDTIME XX Last administered on 08/27/18 12:40; Admin Dose 1 EA; Start 08/25/18 at 17:30 Isosorbide Mononitrate (Imdur) 30 mg DAILY PO Last administered on 08/27/18 09:03; Admin Dose 30 MG; Start 08/26/18 at 09:00 Fluticasone/ Vilanterol (Breo Ellipta 100-25 Mcg Inh) 1 inh DAILY INH Last adm inistered on 08/27/18 09:18; Admin Dose 1 INH; Start 08/25/18 at 16:00 Tiotropium [place] (Spiriva) 1 inh DAILY INH Last administered on 08/27/18 09:02; Admin Dose 1 INH; Start 08/25/18 at 16:00 Insulin Glargine (Lantus) 50 units DAILY@0800 SC Last administered on 08/27/18 09:09; Admin Dose 50 UNITS; Start 08/26/18 at 08:00 Oxycodone HCl (Roxicodone) 5 mg Q4H PRN PO MODERATE PAIN LEVEL 4-6 Last administered on 08/27/18 12:53; Admin Dose 5 MG; Start 08/26/18 at 12:00 Lidocaine (Lidoderm) 1 patch DAILY TD Last administered on 08/27/18 09:13; Admin Dose 1 PATCH; Start 08/26/18 at 12:00 Ceftriaxone Sodium 50 ml @ 100 mls/hr Q24H IVPB Last administered on 08/27/18 12:44; Admin Dose 100 MLS/HR; Start 08/26/18 at 12:30 Bromocriptine Mesylate (Parlodel) 2.5 mg DAILY PO Last administered on 08/27/18 09:02; Admin Dose 2.5 MG; Start 08/27/18 at 09:00 Pantoprazole (Protonix Tab) 40 mg DAILY@06 PO Last administered on 08/27/18 05:03; Admin Dose 40 MG; Start 08/27/18 at 06:00 Betamethasone/ Clotrimazole (Lotrisone Cr) 1 applic BID TOP Last administered on 08/27/18at 09:13; Admin Dose 1 APPLIC; Start 08/26/18 at 21:00 Verapamil HCl (Isoptin Sr) 120 mg DAILY PO Last administered on 08/27/18at 09:03; Admin Dose 120 MG; Start 08/26/18 at 18:30 Insulin Aspart (Novolog Insulin Pen) (Adult SC Insulin - Moder... WITH MEALS BEDTIME SC Last administered on 08/27/18at 12:52; Admin Dose 4 UNIT; Start 08/27/18 at 07:50 Diagnostic Test (Pha) (Accu-Chek) 1 ea 02 XX ; Start 08/27/18 at 02:00 Insulin Aspart (Novolog Insulin Pen) 36 unit WITH MEALS SC ; Start 08/27/18 at 17:55 Insulin Glargine (Lantus) 40 units DAILY@2000 SC ; Start 08/27/18 at 20:00 Insulin Glargine (Lantus) 20 units ONCE ONCE SC ; Start 08/27/18 at 14:00; Stop 08/27/18 at 14:01 DEE FOX MD Aug 27, 2018 13:50
[2018-08-27] MEDS ORDERED: INSULIN GLARGINE [LANTus] (100 UNITS/ML) SYG SC ONE (14:00)
[2018-08-27 14:32] VITALS: BP 123/86; PULSE 73; RESP 18
--- NOTE | 2018-08-27 18:30 | NUR ---
END OF SHIFT NOTE: PATIENT COMFORTABLE. PAIN MANAGEMENT CONTINUED. ACCUCHECK CONTINUED AND INSULIN ADMINISTERED PER ORDER. ALL SAFETY PRECAUTIONS CONTINUED. WILL CONTINUE TO MONITOR, Addendum: 08/27/18 at 1942 by KAYA BURGOS RN PATIENT POTASSIUM LEVEL ELEVATED AND FOR CLARIFICATION OF IV FLUID ORDER KCL 40 MEQ WITH NS [address] FOX AND AND DR. PIMENTEL. .BUT DIDNT GET ANY RESPONSE AFYTER CONTACTING TWICE AND CONTINUED WITH NORMAL SALINE ORDER. PATIENT CONTINUED TO BE MONITORED.
[2018-08-27 20:00] VITALS: BP 107/59; PULSE 91; RESP 18
[2018-08-27] MEDS: PAROXETINE 20 MG TAB PO SCH (20:53)
[2018-08-27] MEDS: traZODone 100 MG TAB PO SCH (20:54)
[2018-08-27] MEDS: ATORVASTATIN 40 MG TAB PO SCH (20:54)
[2018-08-28] MEDS: POTASSIUM CHLORIDE 40 MEQ in SOD CHLORIDE 0.9% 1,000 ML IV SCH ×4 (01:21→22:32)
[2018-08-28] MEDS: ACCUCHECK AT 2AM (Patients on SS coverage) XX SCH (02:00)
[2018-08-28] MEDS: HYDROmorphONE 0.5 MG/0.5 ML SYG IV PRN ×6 (02:21→23:05)
[2018-08-28] MEDS ORDERED: INSULIN ASPART [NOVOLOG] 3 ML PEN SC ONE (02:30)
[2018-08-28 02:38] VITALS: BP 112/67; PULSE 75; RESP 20
--- NOTE | 2018-08-28 02:40 | NUR ---
RN NOTES Blood sugar was [address] marcelino ordered to give 5units of Novolog
[2018-08-28] MEDS: oxyCODONE 5 MG TAB PO PRN ×4 (04:48→21:08)
--- NOTE | 2018-08-28 06:18 | NUR ---
EOSS Patient alert, oriented ambulate in the hallway with a steady gait. Voiding adequately using the toilet. pain controlled with Dilaudid and roxicodone. BS was elevated MD was notified covered with Novolog. all needs attended, call light is within reach.
[2018-08-28] MEDS: PANTOPRAZOLE (EC) 40 MG TAB PO SCH ×2 (06:24→21:08)
[2018-08-28] MEDS: ACCU-CHEK XX SCH ×4 (08:30→21:11)
[2018-08-28] MEDS: ISOSORBIDE MONONITRATE(SR)30 MG TAB PO SCH (09:00)
[2018-08-28] MEDS: SOD CHLORIDE 0.9% 1,000 ML IV SCH ×2 (09:05→21:17)
[2018-08-28] MEDS: BROMOCRIPTINE 2.5 MG TAB PO SCH (09:10)
[2018-08-28] MEDS: TIOTROPIUM 18 MCG CAPSULE INHA DEV INH SCH (09:10)
[2018-08-28] MEDS: EMPAGLIFLOZIN 10 MG TABLET PO SCH (09:11)
[2018-08-28] MEDS: FLUTICASONE/VILANTEROL 100-25 INH SCH (09:11)
[2018-08-28] MEDS: GABAPENTIN 300 MG CAP PO SCH ×3 (09:11→21:07)
[2018-08-28] MEDS: VERAPAMIL (SR) 240 MG TAB PO SCH (09:12)
[2018-08-28] MEDS: METOPROLOL 25 MG TAB PO SCH ×2 (09:12→21:08)
[2018-08-28] MEDS: ASPIRIN 81 MG TAB PO SCH (09:12)
[2018-08-28] MEDS: LINAGLIPTIN 5 MG TABLET PO SCH (09:12)
[2018-08-28] MEDS: ENOXAPARIN 40 MG/0.4 ML SYG SC SCH (09:13)
[2018-08-28] MEDS: BETAMETHASONE/CLOTRIMAZOLE 15 GM CR TOP SCH ×2 (09:15→21:12)
[2018-08-28] MEDS: LIDOCAINE 5% PATCH TD SCH (09:15)
[2018-08-28] MEDS: INSULIN GLARGINE [LANTus] (100 UNITS/ML) SYG SC SCH ×2 (09:17→21:04)
[2018-08-28] MEDS: INSULIN ASPART [NOVOLOG] 3 ML PEN SC SCH ×3 (09:18→18:02)
[2018-08-28] MEDS: Insulin NOVOLOG SS MODERATE Algorithm (SS with meals and bedtime) SC SCH ×4 (09:19→21:00)
[2018-08-28] MEDS: metFORMIN 500 MG TAB PO SCH ×2 (11:00→18:00)
--- NOTE | 2018-08-28 11:12 | CONS ---
Date/Time of Note Date/Time of Note DATE: 08/28/18 TIME: 11:06 Assessment/Plan Assessment/Plan Hospital Course This is the [address] [place] [address] admission and 6 in the last 6 months for this 57-year-old woman who comes in as documented by the hospitalist team. We are asked to assist with management of her blood sugars Problems: (1) Abdominal pain Status: Acute Comment: Her abdominal pain persists. However now we have a potential avenue of diagnosis and treatment. Proceed forward with standard therapeutic protocol Qualifiers: Abdominal location: generalized Qualified Codes: R10.84 - Generalized abdominal pain (2) Helicobacter pylori infection Status: Chronic Comment: Standard therapeutic protocol using 4 drug approach. Medicines are written for including termination dates (3) Postsurgical dumping syndrome Status: Chronic Comment: Responding nicely to treatment with verapamil (4) COPD exacerbation Status: Chronic Comment: Adequate control. (5) Diabetes mellitus type 2 in obese Status: Chronic Comment: Still with difficult to control sugars. However under the circumstances now can add back in metformin at low-dose (6) Morbid obesity with BMI of 40.0-44.9, adult Status: Chronic Comment: Calorie restriction diet. (7) Adrenal nodule Onset Date: ~ 07/2016 Status: Chronic Comment: Outpatient workup for possible pheochromocytoma although this is a dubious diagnosis under the circumstances (8) Grade I diastolic dysfunction Status: Chronic Comment: Adequate blood pressure control, and on verapamil (9) E. coli UTI Status: Acute Comment: Completing treatment Result Diagram: 08/27/18 0749 08/27/18 0749 Results 24hrs Laboratory Tests Test 08/27/18 12:26 08/27/18 17:52 08/27/18 20:43 08/28/18 02:16 Bedside Glucose 210 200 221 H 359 H Test 08/28/18 08:26 Bedside Glucose 245 H Consultation Date/Type/Reason Admit Date/Time Aug 25, 2018 at 03:10 Initial Consult Date 08/25/18 Type of Consult Endocrine Reason for Consultation Diabetes mellitus type 2 with extreme insulin resistance; morbid obesity; hypertension; chronic abdominal pain now with H. pylori study positive; diastolic dysfunction; vitamin D deficiency; COPD; postoperative dumping synd pilar after cholecystectomy Requesting Provider: LONG RADFORD 24 HR Interval Summary Free Text/Dictation Patient reports that she is having some abdominal symptoms today although she is not having the frequent bowel movements Constitutional: no complaints (No fevers chills or sweats) Detailed Summary Respiratory: no complaints Cardiovascular: no complaints Gastrointestinal: pain Endocrine: polyuria Exam/Review of Systems Vital Signs Vitals Vital Signs Date Temp Pulse Resp B/P (MAP) Pulse Ox O2 O2 Flow FiO2 Time Delivery Rate 08/28/18 97.9 75 20 112/67 93 02:38 (82) 08/27/18 Room Air 14:32 Intake and Output 08/27/18 08/27/18 08/28/18 1515:00 23:00 07:00 IntakeIntake Total 1450 ml 1640 ml 1370 ml OutputOutput Total 300 ml BalanceBalance 1150 ml 1640 ml 1370 ml Exam Constitutional: alert, oriented Respiratory: clear to auscultation, normal air movement Cardiovascular: regular rate and rhythm, nl pulses Gastrointestinal: soft Medications Medications Current Medications Potassium Chloride 40 meq/ Sodium Chloride 1,000 ml @ 100 mls/hr Q10H IV Last administered on 08/26/18at 06:08; Admin Dose 100 MLS/HR; Start 08/25/18 at 03:30 Sodium Chloride 1,000 ml @ 100 mls/hr Q10H IV Last administered on 08/28/18at 09:05; Admin Dose 100 MLS/HR; Start 08/25/18 at 03:33 IV Flush (NS 3 ml) 3 ml PER PROTOCOL IV ; Start 08/25/18 at 04:00 Ondansetron HCl (Zofran Inj) 4 mg Q6H PRN IV NAUSEA AND/OR VOMITING; Start 08/25/18 at 04:00 Acetaminophen (Tylenol Tab) 650 mg Q6H PRN PO PAIN LEVEL 1-3 OR FEVER; Start 08/25/18 at 04:00 Hydromorphone HCl (Dilaudid) 0.5 mg Q4H PRN IV PAIN LEVEL 7-10 Last administered on 08/28/18at 10:52; Admin Dose 0.5 MG; Start 08/25/18 at 04:00 Enoxaparin Sodium (Lovenox) 40 mg DAILY SC Last administered on 08/28/18at 09:13; Admin Dose 40 MG; Start 08/25/18 at 09:00 Alprazolam (Xanax) 0.5 mg Q8H PRN PO ANXIETY Last administered on 08/26/18at 23:55; Admin Dose 0.5 MG; Start 08/25/18 at 04:00 Aspirin (Aspirin) 81 mg DAILY PO Last administered on 08/28/18at 09:12; Admin Dose 81 MG; Start 08/25/18 at 09:00 Atorvastatin Calcium (Lipitor) 40 mg QHS PO Last administered on 08/27/18at 20:54; Admin Dose 40 MG; Start 08/25/18 at 21:00 Gabapentin (Neurontin) 900 mg TID PO Last administered on 08/28/18at 09:11; Admin Dose 900 MG; Start 08/25/18 at 09:00 Metoprolol Tartrate (Lopressor) 25 mg BID PO Last administered on 08/28/18 09:12; Admin Dose 25 MG; Start 08/25/18 at 09:00 Paroxetine HCl (Paxil) 40 mg HS PO Last administered on 08/27/18at 20:53; Admin Dose 40 MG; Start 08/25/18 at 21:00 Trazodone HCl (Desyrel) 400 mg QHS PO Last administered on 08/27/18at 20:54; Admin Dose 400 MG; Start 08/25/18 at 21:00 Miscellaneous Information 1 ea NOTE XX ; Start 08/25/18 at 04:00 Glucose (Glutose) 15 gm Q15M PRN PO DECREASED GLUCOSE; Start 08/25/18 at 04:00 Glucose (Glutose) 22.5 gm Q15M PRN PO DECREASED GLUCOSE; Start 08/25/18 at 04:00 Dextrose (D50w Syringe) 25 ml Q15M PRN IV DECREASED GLUCOSE; Start 08/25/18 at 04:00 Dextrose (D50w Syringe) 50 ml Q15M PRN IV DECREASED GLUCOSE; Start 08/25/18 at 04:00 Glucagon (Glucagen) 1 mg Q15M PRN IM DECREASED GLUCOSE; Start 08/25/18 at 04:00 Glucose (Glutose) 15 gm Q15M PRN BUCCAL DECREASED GLUCOSE; Start 08/25/18 at 04:00 Linagliptin (Tradjenta) 5 mg DAILY PO Last administered on 08/28/18at 09:12; Admin Dose 5 MG; Start 08/26/18 at 09:00 Empaglifozin (Jardiance) 10 mg DAILY@08 PO Last administered on 08/28/18 09:11; Admin Dose 10 MG; Start 08/26/18 at 08:00 Diagnostic Test (Pha) (Accu-Chek) 1 ea AC MEALS AND BEDTIME XX Last administered on 08/28/18 08:30; Admin Dose 1 EA; Start 08/25/18 at 17:30 Isosorbide Mononitrate (Imdur) 30 mg DAILY PO Last administered on 08/27/18 09:03; Admin Dose 30 MG; Start 08/26/18 at 09:00 Fluticasone/ Vilanterol (Breo Ellipta 100-25 Mcg Inh) 1 inh DAILY INH Last administered on 08/28/18 09:11; Admin Dose 1 INH; Start 08/25/18 at 16:00 Tiotropium [place] (Spiriva) 1 inh DAILY INH Last administered on 08/28/18 09:10; Admin Dose 1 INH; Start 08/25/18 at 16:00 Insulin Glargine (Lantus) 50 units DAILY@0800 SC Last administered on 08/28/18 09:17; Admin Dose 50 UNITS; Start 08/26/18 at 08:00 Oxycodone HCl (Roxicodone) 5 mg Q4H PRN PO MODERATE PAIN LEVEL 4-6 Last administered on 08/28/18 09:31; Admin Dose 5 MG; Start 08/26/18 at 12:00 Lidocaine (Lidoderm) 1 patch DAILY TD Last administered on 08/28/18 09:15; Admin Dose 1 PATCH; Start 08/26/18 at 12:00 Ceftriaxone Sodium 50 ml @ 100 mls/hr Q24H IVPB Last administered on 08/27/18 12:44; Admin Dose 100 MLS/HR; Start 08/26/18 at 12:30 Bromocriptine Mesylate (Parlodel) 2.5 mg DAILY PO Last administered on 08/28/18 09:10; Admin Dose 2.5 MG; Start 08/27/18 at 09:00 Betamethasone/ Clotrimazole (Lotrisone Cr) 1 applic BID TOP Last administered on 08/28/18 09:15; Admin Dose 1 APPLIC; Start 08/26/18 at 21:00 Verapamil HCl (Isoptin Sr) 120 mg DAILY PO Last administered on 12/30/18at 09:12; Admin Dose 120 MG; Start 08/26/18 at 18:30 Insulin Aspart (Novolog Insulin Pen) (Adult SC Insulin - Moder... WITH MEALS BEDTIME SC Last administered on 08/28/18at 09:19; Admin Dose 6 UNIT; Start 1 at 07:50 Diagnostic Test (Pha) (Accu-Chek) 1 ea 02 XX ; Start 08/27/18 at 02:00 Insulin Aspart (Novolog Insulin Pen) 36 unit WITH MEALS SC Last administered on 08/28/18at 09:18; Admin Dose 36 UNIT; Start 08/27/18 at 17:55 Insulin Glargine (Lantus) 40 units DAILY@2000 SC Last administered on 08/27/18at 20:50; Admin Dose 40 UNITS; Start 08/27/18 at 20:00 Pantoprazole (Protonix Tab) 40 mg BID PO ; Start 08/28/18 at 21:00; Stop 09/27/18 at 20:59 Amoxicillin (Amoxicillin) 1,000 mg BID PO ; Start 08/28/18 at 11:00; Stop 09/07/18 at 10:59 Clarithromycin (Biaxin) 500 mg BID PO ; Start 08/28/18 at 11:00; Stop 09/07/18 at 10:59 Bismuth Subsalicylate (Pepto-Bismol) 30 ml QID PO ; Start 08/28/18 at 11:00; Stop 09/07/18 at 10:59 Metformin HCl (Glucophage) 500 mg BID WITH MEALS PO ; Start 08/28/18 at 11:00 SONA SHAW MD Aug 28, 2018 11:12
[2018-08-28] MEDS: BISMUTH SUBSALICYLATE 240 ML BTL PO SCH ×4 (12:51→21:09)
[2018-08-28] MEDS: AMOXICILLIN 500 MG CAP PO SCH ×2 (12:53→21:06)
[2018-08-28] MEDS: CLARITHROMYCIN 500 MG TAB PO SCH ×2 (12:54→21:06)
[2018-08-28] MEDS: CEFTRIAXONE 1 GM/50 ML (PMX) 50 ML IVPB SCH (12:55)
[2018-08-28] MEDS ORDERED: FLUCONAZOLE 150 MG TAB PO SCH (13:00)
[2018-08-28 15:07] VITALS: BP 95/54; PULSE 68; RESP 16
--- NOTE | 2018-08-28 15:23 | PN ---
Date/Time of Note Date/Time of Note DATE: 08/28/18 TIME: 15:22 Assessment/Plan VTE Prophylaxis Risk score (from Ns)>0 risk: 1 SCD applied (from Ns): Yes Pharmacological prophylaxis: heparin Lines/Catheters IV Catheter Type (from Nrs): Peripheral IV Urinary Cath still in place: No Assessment/Plan Hospital Course 57 yo female with morbid obesity, severe DMII with chronic diarrhea and hyperglycemia Diarrhea: - Await C Diff and stool cultures though chronicity argues against infectious source - May benefit from colonoscopy - Seems to have developed follow cholecystectomy DMII - Management per Dr Mitchell H Pylori: - Triple therapy Discharge: to home when symptoms tolerable and sugars resolved Result Diagram: 08/27/18 0749 08/27/18 0749 Results 24hrs Laboratory Tests Test 08/27/18 17:52 08/27/18 20:43 08/28/18 02:16 08/28/18 08:26 Bedside Glucose 200 221 H 359 H 245 H Test 08/28/18 12:13 Bedside Glucose 183 Subjective 24 Hr Interval Summary Free Text/Dictation Still abdominal pain and diarrhea Glycemic control improving H Pylori + Exam/Review of Systems Vital Signs Vitals Vital Signs Date Temp Pulse Resp B/P (MAP) Pulse Ox O2 O2 Flow FiO2 Time Delivery Rate 08/28/18 98.6 68 16 95/54 (68) 96 Room Air 15:07 Intake and Output 08/27/18 08/27/18 08/28/18 1515:00 23:00 07:00 IntakeIntake Total 1450 ml 1640 ml 1370 ml OutputOutput Total 300 ml BalanceBalance 1150 ml 1640 ml 1370 ml Exam Constitutional: alert, oriented, well developed Psych: no complaints, nl mood/affect Head: normocephalic, atraumatic Eyes: nl conjunctiva, EOMI, nl lids, nl sclera, PERRL ENMT: nl external ears & nose, nl lips & teeth, nl nasal mucosa & septum Neck: supple, non-tender Respiratory: clear to auscultation, normal air movement Cardiovascular: regular rate and rhythm, nl pulses Gastrointestinal: soft, nl liver, spleen, non-tender Musculoskeletal: nl extremities to inspection, nl gait and stance Extremities: normal pulses Neurological: HEATING FIXTURE TENDER II-XII intact, nl mental status, nl speech, nl strength Skin: nl turgor; No rash or lesions Lymph: nl lymph nodes Medications Medications Current Medications Potassium Chloride 40 meq/ Sodium Chloride 1,000 ml @ 100 mls/hr Q10H IV Last administered on 08/26/18 06:08; Admin Dose 100 MLS/HR; Start 08/25/18 at 03:30 Sodium Chloride 1,000 ml @ 100 mls/hr Q10H IV Last administered on 08/28/18 09:05; Admin Dose 100 MLS/HR; Start 08/25/18 at 03:33 IV Flush (NS 3 ml) 3 ml PER PROTOCOL IV ; Start 08/25/18 at 04:00 Ondansetron HCl (Zofran Inj) 4 mg Q6H PRN IV NAUSEA AND/OR VOMITING; Start 08/25/18 at 04:00 Acetaminophen (Tylenol Tab) 650 mg Q6H PRN PO PAIN LEVEL 1-3 OR FEVER; Start 08/25/18 at 04:00 Hydromorphone HCl (Dilaudid) 0.5 mg Q4H PRN IV PAIN LEVEL 7-10 Last administered on 08/28/18 14:54; Admin Dose 0.5 MG; Start 08/25/18 at 04:00 Enoxaparin Sodium (Lovenox) 40 mg DAILY SC Last administered on 08/28/18 09:1 3; Admin Dose 40 MG; Start 08/25/18 at 09:00 Alprazolam (Xanax) 0.5 mg Q8H PRN PO ANXIETY Last administered on 08/26/18 23:55; Admin Dose 0.5 MG; Start 08/25/18 at 04:00 Aspirin (Aspirin) 81 mg DAILY PO Last administered on 08/28/18 09:12; Admin Dose 81 MG; Start 08/25/18 at 09:00 Atorvastatin Calcium (Lipitor) 40 mg QHS PO Last administered on 08/27/18 20:54; Admin Dose 40 MG; Start 08/25/18 at 21:00 Gabapentin (Neurontin) 900 mg TID PO Last administered on 08/28/18 12:53; Admin Dose 900 MG; Start 08/25/18 at 09:00 Metoprolol Tartrate (Lopressor) 25 mg BID PO Last administered on 08/28/18 09:12; Admin Dose 25 MG; Start 08/25/18 at 09:00 Paroxetine HCl (Paxil) 40 mg HS PO Last administered on 08/27/18at 20:53; Admin Dose 40 MG; Start 08/25/18 at 21:00 Trazodone HCl (Desyrel) 400 mg QHS PO Last administered on 08/27/18at 20:54; Admin Dose 400 MG; Start 08/25/18 at 21:00 Miscellaneous Information 1 ea NOTE XX ; Start 08/25/18 at 04:00 Glucose (Glutose) 15 gm Q15M PRN PO DECREASED GLUCOSE; Start 08/25/18 at 04:00 Glucose (Glutose) 22.5 gm Q15M PRN PO DECREASED GLUCOSE; Start 08/25/18 at 04:00 Dextrose (D50w Syringe) 25 ml Q15M PRN IV DECREASED GLUCOSE; Start 08/25/18 at 04:00 Dextrose (D50w Syringe) 50 ml Q15M PRN IV DECREASED GLUCOSE; Start 08/25/18 at 04:00 Glucagon (Glucagen) 1 mg Q15M PRN IM DECREASED GLUCOSE; Start 08/25/18 at 04:00 Glucose (Glutose) 15 gm Q15M PRN BUCCAL DECREASED GLUCOSE; Start 08/25/18 at 04:00 Linagliptin (Tradjenta) 5 mg DAILY PO Last administered on 08/28/18at 09:12; Admin Dose 5 MG; Start 08/26/18 at 09:00 Empaglifozin (Jardiance) 10 mg DAILY@08 PO Last administered on 08/28/18at 09:11; Admin Dose 10 MG; Start 08/26/18 at 08:00 Diagnostic Test (Pha) (Accu-Chek) 1 ea AC MEALS AND BEDTIME XX Last admini stered on 08/28/18at 12:08; Admin Dose 1 EA; Start 08/25/18 at 17:30 Isosorbide Mononitrate (Imdur) 30 mg DAILY PO Last administered on 08/27/18at 09:03; Admin Dose 30 MG; Start 08/26/18 at 09:00 Fluticasone/ Vilanterol (Breo Ellipta 100-25 Mcg Inh) 1 inh DAILY INH Last administered on 08/28/18at 09:11; Admin Dose 1 INH; Start 08/25/18 at 16:00 Tiotropium [place] (Spiriva) 1 inh DAILY INH Last administered on 08/28/18 09:10; Admin Dose 1 INH; Start 08/25/18 at 16:00 Insulin Glargine (Lantus) 50 units DAILY@0800 SC Last administered on 08/28/18 09:17; Admin Dose 50 UNITS; Start 08/26/18 at 08:00 Oxycodone HCl (Roxicodone) 5 mg Q4H PRN PO MODERATE PAIN LEVEL 4-6 Last administered on 08/28/18 13:25; Admin Dose 5 MG; Start 08/26/18 at 12:00 Lidocaine (Lidoderm) 1 patch DAILY TD Last administered on 08/28/18 09:15; Admin Dose 1 PATCH; Start 08/26/18 at 12:00 Ceftriaxone Sodium 50 ml @ 100 mls/hr Q24H IVPB Last administered on 08/28/18 12:55; Admin Dose 100 MLS/HR; Start 08/26/18 at 12:30; Stop 08/31/18 at 12:29 Bromocriptine Mesylate (Parlodel) 2.5 mg DAILY PO Last administered on 08/28/18 09:10; Admin Dose 2.5 MG; Start 08/27/18 at 09:00 Betamethasone/ Clotrimazole (Lotrisone Cr) 1 applic BID TOP Last administered on 08/28/18 09:15; Admin Dose 1 APPLIC; Start 08/26/18 at 21:00 Verapamil HCl (Isoptin Sr) 120 mg DAILY PO Last administered on 08/28/18 09:12; Admin Dose 120 MG; Start 08/26/18 at 18:30 Insulin Aspart (Novolog Insulin Pen) (Adult SC Insulin - Moder... WITH MEALS BEDTIME SC Last administered on 08/28/18 12:58; Admin Dose 4 UNIT; Start 08/27/18 at 07:50 Diagnostic Test (Pha) (Accu-Chek) 1 ea 02 XX ; Start 08/27/18 at 02:00 Insulin Aspart (Novolog Insulin Pen) 36 unit WITH MEALS SC Last administered on 08/28/18 12:57; Admin Dose 36 UNIT; Start 08/27/18 at 17:55 Insulin Glargine (Lantus) 40 units DAILY@2000 SC Last administered on 12/29/18at 20:50; Admin Dose 40 UNITS; Start 08/27/18 at 20:00 Pantoprazole (Protonix Tab) 40 mg BID PO ; Start 08/28/18 at 21:00; Stop 09/27/18 at 20:59 Amoxicillin (Amoxicillin) 1,000 mg BID PO Last administered on 08/28/18at 12:53; Admin Dose 1,000 MG; Start 08/28/18 at 11:00; Stop 09/07/18 at 10:59 Clarithromycin (Biaxin) 500 mg BID PO Last administered on 08/28/18at 12:54; Admin Dose 500 MG; Start 08/28/18 at 11:00; Stop 09/07/18 at 10:59 Bismuth Subsalicylate (Pepto-Bismol) 30 ml QID PO Last administered on 08/28/18at 12:51; Admin Dose 30 ML; Start 08/28/18 at 11:00; Stop 09/07/18 at 10:59 Metformin HCl (Glucophage) 500 mg BID WITH MEALS PO ; Start 08/28/18 at 11:00 Fluconazole (Diflucan) 150 mg Q7D@0900 PO Last administered on 08/28/18at 14:31; Admin Dose 150 MG; Start 08/28/18 at 13:00; Stop 09/11/18 at 09:01 DEE FOX MD Aug 28, 2018 15:23
[2018-08-28 20:48] VITALS: BP 119/78; PULSE 76; RESP 18
[2018-08-28 21:00] VITALS: BP 111/70; PULSE 72
[2018-08-28] MEDS: traZODone 100 MG TAB PO SCH (21:07)
[2018-08-28] MEDS: PAROXETINE 20 MG TAB PO SCH (21:07)
[2018-08-28] MEDS: ATORVASTATIN 40 MG TAB PO SCH (21:07)
[2018-08-29] MEDS: ACCUCHECK AT 2AM (Patients on SS coverage) XX SCH (01:18)
[2018-08-29] MEDS: HYDROmorphONE 0.5 MG/0.5 ML SYG IV PRN ×3 (03:36→11:15)
[2018-08-29] MEDS: oxyCODONE 5 MG TAB PO PRN ×2 (05:56→10:14)
--- NOTE | 2018-08-29 06:49 | NUR ---
END OF SHIFT SUMMARY: PATIENT RESTING COMFORTABLY. PAIN CONTROLLED WITH DILAUDID X 2 AND ROXICODONE X 2 THIS SHIFT. V/S STABLE. WALKING IN HALLWAY WITH WALKER, STEADY GAIT. VOIDING WELL. NO SLIDING SCALE COVERAGE NEEDED THIS SHIFT, BS WAS 113. CALL LIGHT AND PHONE IN REACH. INSTRUCTED PATIENT TO CALL FOR ASSISTANCE. WILL ENDORSE PLAN OF CARE TO AM RN.
[2018-08-29 07:26] VITALS: BP 121/74; PULSE 74; RESP 19
[2018-08-29] MEDS: ACCU-CHEK XX SCH ×2 (08:31→12:51)
[2018-08-29] MEDS: SOD CHLORIDE 0.9% 1,000 ML IV SCH (08:31)
[2018-08-29] MEDS: metFORMIN 500 MG TAB PO SCH (08:34)
[2018-08-29] MEDS: AMOXICILLIN 500 MG CAP PO SCH (08:34)
[2018-08-29] MEDS: CLARITHROMYCIN 500 MG TAB PO SCH (08:34)
[2018-08-29] MEDS: GABAPENTIN 300 MG CAP PO SCH ×2 (08:35→12:50)
[2018-08-29] MEDS: ASPIRIN 81 MG TAB PO SCH (08:35)
[2018-08-29] MEDS: VERAPAMIL (SR) 240 MG TAB PO SCH (08:36)
[2018-08-29] MEDS: EMPAGLIFLOZIN 10 MG TABLET PO SCH (08:37)
[2018-08-29] MEDS: ISOSORBIDE MONONITRATE(SR)30 MG TAB PO SCH (08:37)
[2018-08-29] MEDS: LINAGLIPTIN 5 MG TABLET PO SCH (08:37)
[2018-08-29] MEDS: PANTOPRAZOLE (EC) 40 MG TAB PO SCH (08:38)
[2018-08-29] MEDS: FLUTICASONE/VILANTEROL 100-25 INH SCH (08:38)
[2018-08-29] MEDS: METOPROLOL 25 MG TAB PO SCH (08:38)
[2018-08-29] MEDS: BISMUTH SUBSALICYLATE 240 ML BTL PO SCH ×2 (08:38→12:51)
[2018-08-29] MEDS: BROMOCRIPTINE 2.5 MG TAB PO SCH (08:38)
[2018-08-29] MEDS: ENOXAPARIN 40 MG/0.4 ML SYG SC SCH (08:42)
[2018-08-29] MEDS: INSULIN ASPART [NOVOLOG] 3 ML PEN SC SCH ×2 (08:43→12:51)
[2018-08-29] MEDS: Insulin NOVOLOG SS MODERATE Algorithm (SS with meals and bedtime) SC SCH ×2 (08:44→12:52)
[2018-08-29] MEDS: BETAMETHASONE/CLOTRIMAZOLE 15 GM CR TOP SCH (08:44)
[2018-08-29] MEDS: INSULIN GLARGINE [LANTus] (100 UNITS/ML) SYG SC SCH (08:44)
[2018-08-29] MEDS: LIDOCAINE 5% PATCH TD SCH (10:09)
[2018-08-29] MEDS: TIOTROPIUM 18 MCG CAPSULE INHA DEV INH SCH (10:14)
[2018-08-29] MEDS ORDERED: BROM2.5T16 PO (11:51)
[2018-08-29] MEDS ORDERED: GABA300C16 PO (11:51)
[2018-08-29] MEDS ORDERED: AMOX500C2 PO (11:51)
[2018-08-29] MEDS ORDERED: INSU500V SQ (11:51)
[2018-08-29] MEDS ORDERED: EMPA10TA PO (11:51)
[2018-08-29] MEDS ORDERED: VERA240T94 PO (11:51)
[2018-08-29] MEDS ORDERED: CLAR500T PO (11:51)
[2018-08-29] MEDS ORDERED: BUDE6HFA INHALATION (11:51)
[2018-08-29] MEDS ORDERED: METO-448 PO (11:51)
[2018-08-29] MEDS ORDERED: PARO-2 PO (11:51)
[2018-08-29] MEDS ORDERED: FLUC150T PO (11:51)
[2018-08-29] MEDS ORDERED: ISOS30TA67 PO (11:51)
[2018-08-29] MEDS ORDERED: TRAZ-150 PO (11:51)
[2018-08-29] MEDS ORDERED: ASPI-903 PO (11:51)
[2018-08-29] MEDS ORDERED: ATOR40TA68 PO (11:51)
[2018-08-29] MEDS ORDERED: TIOT18CA INHALATION (11:51)
[2018-08-29] MEDS ORDERED: LANT3I SC (11:51)
[2018-08-29] MEDS ORDERED: PANT40TA4 PO (11:52)
[2018-08-29] MEDS ORDERED: METF-849 PO (11:52)
[2018-08-29] MEDS ORDERED: OXYC-279 PO (11:52)
[2018-08-29] MEDS ORDERED: CLOT15CR6 TOP (11:52)
[2018-08-29] MEDS ORDERED: MORP30TA89 PO (11:52)
--- NOTE | 2018-08-29 11:56 | PDOCDIS ---
Discharge Instructions CONDITION Guoor4He Patient Condition: [id number] Stable HOME CARE INSTRUCTIONS: [id number] Diet Instructions: [id number] Reduced Calorie [id number] Special Diet: Yjynh9z [id number] Activity Restrictions: Yhlfw6m No Restrictions [id number] Bathing Restrictions: [id number] Shower FOLLOW UP/APPOINTMENTS Follow-up Plan 1. Call your insurance company to see if you can follow-up with Dr. Mitchell as both endocrinology and primary care. If not I have included the names of 2 other physicians that you may be able to follow-up with for primary care Name, Degree : Dave Mitchell MD Specialty : Endocrinology Office Address : [address] [place] [address], [address] [place] [address] Office Office Name, Degree : Gume Rosas MD Specialty : Internal Medicine Office Address : [address] [place] [address] Office Office Name, Degree : Marija Galvan MD Specialty : Internal Medicine Office Address : [address] [place] [address] [place] [address] Office Telephone for : [phone] Office 2. Please stop smoking. If you have already stopped, Good for you!!!. It is however an ongoing process. If you need help or resources, please let someone know before you leave. We are here to help you. It has been associated with a lot of disease processes and is not favourable for healing. LONG RADFORD Aug 29, 2018 11:56
[2018-08-29] MEDS ORDERED: NICO-546 TD (11:58)
[2018-08-29] MEDS: CEFTRIAXONE 1 GM/50 ML (PMX) 50 ML IVPB SCH (12:30)
--- NOTE | 2018-08-29 13:27 | NUR ---
DISCHARGE NOTE: Patient was educated on all discharge instructions and verbalized understanding. Patient's IV access was removed and dry gauze applied to site. Patient had no questions at time of discharge. Patient provided all prescriptions for discharge. Patient stable for discharge.
--- NOTE | 2018-08-29 15:42 | DS ---
DATE OF ADMISSION: 08/25/2018 DATE OF DISCHARGE: 08/29/2018 PRESENTING COMPLAINT: Abdominal pain and hyperglycemia with history of weakness and diarrhea. FINAL DIAGNOSES: 1. Abdominal pain with diarrhea. This is likely secondary to new diagnosis of post-surgical dumping syndrome. The patient's symptoms have improved and even almost completely resolved. 2. Newly diagnosed Helicobacter pylori infection. The patient on protocol. 3. Poorly controlled diabetes mellitus type 2, status post Endo review with improved indices. 4. Noncompliance with therapy, status post counseling. 5. Chronic tobacco user, status post physician counseling and reinforcement. 6. History of chronic obstructive pulmonary disease without exacerbation. 7. Morbid obesity with BMI of 40 to 44.9. 8. Adrenal nodule 2.2 cm at the maximal bilateral and chronic for continued follow up outpatient. 9. Escherichia coli urinary tract infection, status post antibiotic therapy. 10. Taylor in the groin, on clotrimazole cream. 11. Dyslipidemia, on statin. 12. Hypertension with good control. 13. Status post lactic acidosis likely secondary to gastrointestinal losses from diarrhea. CONSULTS ON THE CASE: Dr. Dave Mitchell for endocrinology. INTERVENTIONS: 1. The patient had a CT of the abdomen and pelvis that just showed that she is status post cholecyst ectomy, no evidence of ductal dilatation, no evidence of bowel obstruction and it showed stable bilat eral adrenal gland nodules. 2. She also had a chest x-ray that showed no acute findings. SHORT HOSPITALIZATION COURSE: Full details are available in the chart for review. In summary, this patient has presented with abdominal pain and hyperglycemia and she was managed for the conditions monzon mmarized above. For full details of assessment, please review her chart. However, due to poorly con trolled diabetes mellitus and a hemoglobin A1c of 11, endocrinology consultation was obtained. She a lso had lactic acidosis. Endo reviewed her extensively and after to workup adrenal nodules diagnosed with dumping syndrome, post-cholecystectomy and started her on verapamil for that. A urinalysis was also positive for E. coli and she was also felt to clinically have a rash under her breasts as well as in her groin area. At this time, she is doing well, tolerating a diet. She is ambulant. She is able to continue her therapy outpatient. dose adjusted including her pain medications which willie ledesma reported was no longer helping her as an outpatient. Of note is that she is seeing a back speciali st, who is planning further imaging and possible intervention for her back. She was also recommended to see a ornamental painter. She states she is working on this with her primary care doctor . She also has a history of depression, stable on Paxil and Trazodone and include a post-cholecystec oli dumping syndrome for which patient has been started on verapamil by endocrinology. DIET: Recommended diet is 1800 calorie diabetic, low cholesterol, low fat diet. Activities as jayshree ated with emphasis on weight loss. Follow up will be with Dr. Mitchell if her insurance will provide her with that, with primary care physi luz maria for outpatient referral to endocrinology for continued management. The patient has verbalized u nderstanding. Dictated By: LONG RADFORD MD BA/NTS Conf#: [id number] DID#: [id number] CC: ISIAH MG MD;*EndCC*
== END 2018-08-29 13:35 | disposition home or self-care (01) | DRG 392 ==
LOC: E/R 21:40 → 6WM 08-25 03:10 → MS1 08-26 12:25
PROVIDERS: ADMIT Family Medicine; ATTEND Family Medicine
DX: K91.1 Postgastric surgery syndromes (principal); E87.2 Acidosis; Z68.41 Body mass index [BMI] 40.0-44.9, adult; N39.0 Urinary tract infection, site not specified; Y83.8 Other surgical procedures as the cause of abnormal reaction of the patient, or of later complication, without mention of misadventure at the time of the procedure; J44.9 Chronic obstructive pulmonary disease, unspecified; B37.2 Candidiasis of skin and nail; E78.5 Hyperlipidemia, unspecified; I10 Essential (primary) hypertension; E66.01 Morbid (severe) obesity due to excess calories; E11.65 Type 2 diabetes mellitus with hyperglycemia; S32.030D Wedge compression fracture of third lumbar vertebra, subsequent encounter for fracture with routine healing; E55.9 Vitamin D deficiency, unspecified; B96.20 Unspecified Escherichia coli [E. coli] as the cause of diseases classified elsewhere; B96.81 Helicobacter pylori [H. pylori] as the cause of diseases classified elsewhere; E27.9 Disorder of adrenal gland, unspecified; Z91.19 Patient's noncompliance with other medical treatment and regimen
CPT/HCPCS: 36415; 71045; 74177; 80048; 80053; 81001; 82533; 82962; 83036; 83605; 84443; 85025; 86480; 86803; 87040; 87086; 87338; 87340; 96374; 96375; C9113; J0696; J1170; J1650; J1815; J2270; J2405; J3480; J7030; J7040; Q9967

== ENCOUNTER 2018-10-23 18:48 | Emergency (ER) | payer OTHER ==
[~2018-10-23] VITALS: Ht 177.8 cm; Wt 137.0 kg
[~2018-10-23 18:48] MED LIST changes: +AMOX500C2 PO; +BROM2.5T16 PO; +CLAR500T PO; +CLOT15CR6 TOP; +EMPA10TA PO; -FAMO20TA18 PO; +FLUC150T PO; -FURO20TA3 PO; -HYDR-3980 PO; +ISOS30TA67 PO; -ISOS60TA PO; +METF-849 PO; -METF100010 PO; -MORP-58 PO; +MORP30TA89 PO; +NICO-546 TD; -NYST15CR28 TOP; +OXYC-279 PO; +PANT40TA4 PO; +VERA240T94 PO
[2018-10-23 18:51] VITALS: Ht 177.8 cm; Wt 137.0 kg
[2018-10-23] MEDS ORDERED: INSULIN REGULAR, HUMAN 100 UNIT/1 ML 3ML VIAL IV ONE (23:00)
[2018-10-23] MEDS ORDERED: SOD CHLORIDE 0.9% 1,000 ML IV ONE (23:00)
--- NOTE | 2018-10-23 23:05 | ERD ---
ER Documentation Chief Complaint Chief Complaint cp/sob x 3 days. also c/o abd pain/diarrhea HPI This is a 57-year-old female with a past medical history of hypertension, hyperlipidemia, poorly controlled diabetes, COPD for which she was recently treated for an exacerbation and is currently on steroid therapy, recurrent UTIs, morbid obesity status post gastric bypass surgery with chronic diarrhea likely secondary to postsurgical dumping syndrome, chronic chest pains who is presenting with multiple complaints at this time. The patient endorses significant elevation of her sugars over the last several days while she has been on steroids for her COPD exacerbation. The patient endorses nausea with multiple episodes of nonbilious nonbloody yellow vomiting in addition to loose watery clear nonbloody diarrhea. The patient is on verapamil for chronic diarrhea, but she reports a recent exacerbation. The patient also endorses waxing and waning mild to moderate cramping epigastric abdominal pain. The patient does not endorse any dysuria, but she does report polyuria and increased urgency which she feels is related to her poorly controlled sugars. Lastly, the patient reports waxing and waning mild nonradiating nonexertional midsternal aching chest pain. She denies shortness of breath or diaphoresis or lightheadedness or dizziness. The patient denies feeling sick recently. The patient denies fever or chills. The patient has had no headache or vision changes. The patient does not endorse neck or back pain. The patient has had no focal deficits. The patient has had no weakness or numbness or tingling to the face or extremities. ROS All systems reviewed and are negative except as per history of present illness. Medications Home Meds Active Scripts Nicotine* (Nicotine* Patch) 21 mg/day Patch, 1 EACH TD DAILY, #30 PATCH Prov:LONG RADFORD. 08/29/18 Oxycodone HCl/Acetaminophen (Percocet 5-325 mg Tablet) 1 Each Tablet, 1 EACH PO Q6 PRN for BREAKTHROUGH PAIN, #30 TAB Prov:LONG RADFORD . 08/29/18 Morphine Sulfate* (Ms Contin*) 30 Mg Tablet.sa, 30 MG PO Q8, #90 TAB.SA Prov:LONG RADFROD . 08/29/18 Clotrimazole-Betamethasone Diprop (Clotrimazole-Betamethasone Diprop) 15 Gm Cre am.gm., 1 APPLIC TOP BID, #60 GM [facility] 08/29/18 Metformin* (Glucophage*) 500 Mg Tab, 500 MG PO BID WITH MEALS, #60 TAB 2 [facility] Pantoprazole* (Pantoprazole*) 40 Mg Tablet.dr, 40 MG PO BID, #60 TAB 2 [facility] 08/29/18 Empagliflozin (Jardiance) 10 Mg Tablet, 10 MG PO DAILY@08, #30 TAB 2 Refills Prov:[facility] 08/29/18 Bromocriptine Mesylate* (Parlodel*) 2.5 Mg Tablet, 2.5 MG PO DAILY, #30 TAB Prov:08/29/18 Verapamil Hcl* (Verapamil ER*) 240 Mg Tablet.er, 120 MG PO DAILY, #30 TAB 2 Refills for dumping syndrome Prov:MALINA08/29/18 Isosorbide Mononitrate* (Isosorbide Mononitrate*) 30 Mg Tab.er.24h, 30 MG PO DAILY, #30 TAB 2 [facility] 08/29/18 Fluconazole* (Diflucan*) 150 Mg Tablet, 150 MG PO Q7D@0900 for 5 Days, #5 TAB Prov: 08/29/18 Clarithromycin* (Clarithromycin*) 500 Mg Tablet, 500 MG PO BID for 10 Days, #20 TAB Prov:[facility] 08/29/18 Amoxicillin* (Amoxicillin*) 500 Mg Cap, 1000 MG PO BID for 10 Days, #20 CAP Prov:[facility] 08/29/18 Insulin Glargine* (Lantus*) 100 Unit/Ml Soln, 45 UNIT SC BID, #27 VIAL 2 Refills Prov:[facility] 08/29/18 Metoprolol Tartrate* (Lopressor*) 25 Mg Tab, 25 MG PO BID for 30 Days, #60 TAB 2 Refills [facility] 08/29/18 Insulin Regular, Human (Humulin R U-500) 500 Unit/1 Ml Vial, 36 UNIT SQ BEFORE MEALS, #27 VIAL 2 Refills Prov[facility] 08/29/18 Paroxetine Hcl* (Paxil*) 20 Mg Tablet, 40 MG PO HS, #30 TAB 2 Refills [facility] 08/29/18 Budesonide-Formoterol Fumarate* (Symbicort*) 160-4.5 Hfa.aer.ad, 1 PUFF INHALATION BID, #1 EACH 2 Refills Prov:[facility]NADIA [facility] 08/29/18 Tiotropium [place]* (Spiriva*) 18 Mcg Cap.w.dev, 1 CAP INHALATION DAILY, #30 CAP 2 Refills Prov:MALINA,[facility] 08/29/18 Trazodone Hcl* (Desyrel*) 100 Mg Tab, 400 MG PO QHS, #30 TAB 2 Refills [facility] 08/29/18 Gabapentin* (Gabapentin*) 300 Mg Capsule, 900 MG PO TID, #270 CAP 2 Refills Prov:[facility]NADIA [facility] 08/29/18 Atorvastatin* (Atorvastatin*) 40 Mg Tablet, 40 MG PO QHS, #30 TAB 2 Refills Prov:MALINA,[facility] 08/29/18 Aspirin* (Aspirin* Chew) 81 Mg Tab.chew, 81 MG PO DAILY, #30 TAB.CHEW 2 Refills [facility] 08/29/18 Loperamide Hcl* (Imodium*) 2 Mg Capsule, 2 MG PO .AFTER EA LOOSE BM PRN for DIARRHEA, #10 TAB Prov:TEJ SAINZ MD 06/24/18 Ondansetron Hcl* (Zofran*) 8 Mg Tab, 8 MG PO Q6H PRN for NAUSEA AND OR VOMITING, #20 TAB Prov:ZENOBIA TOLEDO MD 05/30/18 Reported Medications Alprazolam* (Xanax*) 0.5 Mg Tab, 0.5 MG PO Q8H PRN for ANXIETY, TAB TAKE TAB-QAM,1 TAB-NOON,AND 2 TAB-QHS 05/30/18 Albuterol Sulfate* (Albuterol Sulfate* Neb) 0.083%-3 Ml Neb, 1.25 MG NEB Q6H PRN for WHEEZING AND SOB, #30 VIAL 03/10/18 Allergies Allergies: Coded Allergies: No Known Allergy (Unverified , 08/25/18) PMhx/Soc History of Surgery: Yes (Gastric bypass) Anesthesia Reaction: No Hx Neurological Disorder: Yes (NEUROPATHY) Hx Respiratory Disorders: Yes (COPD) Hx Cardiac Disorders: Yes (HTN, HLD, DM, CHF) Hx Psychiatric Problems: Yes (ANXIETY) Hx Miscellaneous Medical Probl: No Hx Alcohol Use: No Hx Substance Use: No Hx Tobacco Use: Yes (6 CIGARRETTES DAILY) Smoking Status: Current every day smoker FmHx Family History: diabetes Physical Exam Vitals Vital Signs Date Temp Pulse Resp B/P (MAP) Pulse Ox O2 O2 Flow FiO2 Time Delivery Rate 10/24/18 82 20 115/70 97 Nasal 2.0 03:30 (85) Cannula 10/24/18 87 20 127/72 97 Nasal 01:30 (90) Cannula 10/23/18 80 24 138/73 95 Nasal 2.0 23:30 (94) Cannula 10/23/18 Nasal 2 22:11 Cannula 10/23/18 77 35 111/72 97 Nasal 2.0 21:30 (85) Cannula 10/23/18 97.0 107 20 132/78 96 18:51 (96) Physical Exam Const: No apparent distress, well-developed, well-nourished Head: Normocephalic, Atraumatic Eyes: Normal Conjunctiva. Extraocular movements intact. Pupils equal, round and reactive to light ENT: Normal External Ears, Nose and Mouth. Neck: Full range of motion. No meningismus. Resp: Clear to auscultation bilaterally, No wheezes, rales or rhonchi Cardio: Regular rate and rhythm. No murmurs, rubs or gallops Abd: Morbid obesity. Soft, non tender, non distended. Normal bowel sounds Skin: No petechiae or rashes Back: No midline tenderness. No CVA tenderness Ext: No cyanosis, or edema Neur: Awake and alert, oriented 4. Cranial nerves intact. No facial droop. Normal strength, sensation and coordination. Psych: Normal Mood and Affect Result Diagram: 10/23/18210910/23/182109 Results 24 hrs Laboratory Tests Test 10/23/18 19:51 10/23/18 21:10 10/24/18 00:18 10/24/18 00:27 Bedside Glucose 497 mg/dL 449 mg/dL White Blood Count 10.6 10^3/ul Red Blood Count 5.30 10^6/ul Hemoglobin 14.5 g/dl Hematocrit 46.2 % Mean Corpuscular 87.2 fl Volume Mean Corpuscular 27.4 pg Hemoglobin Mean Corpuscular 31.4 g/dl Hemoglobin Concen t Red Cell 14.9 % Distribution Width Platelet Count 418 10^3/UL Mean Platelet 10.1 fl Volume Immature 0.500 % Granulocytes % Neutrophils % 60.8 % Lymphocytes % 27.5 % Monocytes % 8.7 % Eosinophils % 1.7 % Basophils % 0.8 % Nucleated Red 0.0 /100WBC Blood Cells % Immature 0.050 10^3/ul Granulocytes # Neutrophils # 6.5 10^3/ul Lymphocytes # 2.9 10^3/ul Monocytes # 0.9 10^3/ul Eosinophils # 0.2 10^3/ul Basophils # 0.1 10^3/ul Nucleated Red 0.0 10^3/ul Blood Cells # Prothrombin Time 12.2 Sec Prothrombin Time 1.0 Ratio INR International 0.89 Normalized Ratio Sodium Level 131 mmol/L Potassium Level 4.3 mmol/L Chloride Level 90 mmol/L Carbon Dioxide 23 mmol/L Level Anion Gap 18 Blood Urea 22 mg/dl Nitrogen Creatinine 1.04 mg/dl Est Glomerular 55 mL/min Filtrat Rate mL/min Glucose Level 592 mg/dl Calcium Level 9.7 mg/dl Total Bilirubin 0.2 mg/dl Direct Bilirubin 0.00 mg/dl Indirect 0.2 mg/dl Bilirubin Aspartate Amino 19 IU/L Transf (AST/SGOT) Alanine 32 IU/L Aminotransferase (ALT/SGPT) Alkaline 127 IU/L Phosphatase Troponin I < 0.012 ng/ml B-Type 79 PG/ML Natriuretic Peptide Total Protein 6.9 g/dl Albumin 4.1 g/dl Globulin 2.80 g/dl Albumin/Globulin 1.46 Ratio Lipase 174 U/L Urine Color STRAW Urine Clarity CLEAR Urine pH 7.0 Urine Specific 1.025 [place] Urine Ketones NEGATIVE mg/dL Urine Nitrite NEGATIVE mg/dL Urine Bilirubin NEGATIVE mg/dL Urine NEGATIVE mg/dL Urobilinogen Urine Leukocyte NEGATIVE Ortega/ul Esterase Urine Hemoglobin NEGATIVE mg/dL Urine Glucose 3+ mg/dL Urine Total NEGATIVE mg/dl Protein Test 10/24/18 01:20 10/24/18 02:25 10/24/18 03:20 10/24/18 03:50 Bedside Glucose 427 mg/dL 359 mg/dL 321 mg/dL 297 mg/dL Current Medications Medications Dose Sig/Norma Start Time Status Last (Trade) Ordered Route PRN Stop Time Admin Dose Reason Admin Sodium 1,000 ml @ Q1H ONCE 10/23/18 DC 10/24/18 Chloride 1,000 mls/hr IV 23:00 00:16 10/23/18 23:59 Insulin 14 unit ONCE ONCE 10/23/18 DC 10/24/18 Human IV 23:00 00:19 Regular 10/23/18 23:04 (Humulin R) Ketorolac 15 mg ONCE STAT 10/24/18 DC 10/24/18 Tromethamine IV 00:33 00:53 (Toradol) 10/24/18 00:47 Fentanyl 50 mcg ONCE ONCE 10/24/18 DC 10/24/18 (Sublimaze) IV 01:00 00:54 10/24/18 01:01 Sodium 1,000 ml @ Q1H ONCE 10/24/18 DC 10/24/18 Chloride 1,000 mls/hr IV 01:00 01:17 10/24/18 01:59 Insulin 10 unit ONCE ONCE 10/24/18 DC 10/24/18 Human IV 02:00 02:29 Regular 10/24/18 02:07 (Humulin R) Procedures/MDM MDM The patient's presentation warrants further investigation. Previous medical records, if available, were reviewed. LABS The patient's laboratory testing was obtained and reviewed. No emergent tr eatment was required unless described below. CBC: No E/o of systemic infection or severe anemia or thrombocytopenia. Mild thrombocytosis, not emergent. CMP: No E/o severe acidosis or alkalosis or renal failure or liver disease or diabetic ketoacidosis. Pseudohyponatremia related to hyperglycemia. Hyperglycemia without evidence of DKA. Elevated BUN and creatinine, indicating mild [place] I. Elevated alkaline phosphatase, likely reactive. Lipase: No E/o pancreatitis PT/INR: No E/o significant coagulopathy Troponin: No E/o acute ischemia BNP: No E/o heart failure Urine: Glucosuria without ketonuria. No E/o acute infection or hematuria EKG EKG read by me: Rate/Rhythm: Regular rate and rhythm at a rate of 95 bpm Intervals: Normal [place]: Normal Impression: No evidence of acute ischemia or arrhythmia IMAGING Imaging and Radiology interpretation reviewed. CXR FINDINGS: Mediastinum: Unremarkable. Heart size: Normal. Pulmonary vasculature: No visible engorgement. Lungs: Clear. Lung volumes are very low. Costophrenic sulci: Clear. Bony structures: Grossly unremarkable for age. IMPRESSION: Unremarkable single view chest. Electronically viewed and signed by Deanna Parada Physician on 10/23/2018 23:26 TREATMENT/DISPOSITION The patient presents for multiple complaints. On review of the medical record, I suspect exacerbation of multiple chronic pathologies. The patient does have chronic poorly controlled diabetes. Her blood sugar is elevated today at over 500. Much of this is likely related to her recent prescription for steroids. The patient is not in DKA. The patient was given IV fluids and insulin in the emergency department with significant improvement of her blood sugar. The patient does have evidence of mild acute kidney injury, but this is not emergent. The patient was given IV fluids in the emergency department which should help with this. Aside from the hyperglycemia that required treatment, there were no other metabolic or electrolyte emergencies. The patient did endorse chest pain, and a cardiac workup was completed. The patient's chest xray does not reveal pneumonia or pneumothorax or pleural effusions or pulmonary edema. She does not have a widened mediastinum and does not have signs or symptoms concerning for thoracic aortic aneurysm or dissection. The patient does not have pneumomediastinum or signs concerning for esophageal tear or rupture. The patient has no clinical or radiographic signs of pericardial effusion or tamponade. The patient does not have pneumoperitoneum and I have decreased suspicion of viscus perforation as possible referred pain. The patient does not have a history of heart failure and I have low suspicion for this. The patient does not have a diagnosis of COPD and is not wheezing today. The patient is not tachypneic or hypoxic. The patient is breathing comfortably and without pleuritic pain. The patient is not on hormonal therapy. The patient has no history of clotting or bleeding disorders. The patient has no calf tenderness. The patient has had no hemoptysis. I have decreased suspicion for PE. The patient's troponin and EKG are reassuring. I have low suspicion for acute coronary syndrome. The patient's HEART score is equal to or less than 3. This stratifies the patient into the low risk (<1%) group for an major adverse cardiac event within the next 30 days. Shared decision making was enacted. The risks and benefits of admission and discharge were discussed with the patient and it was ultimately decided that the patient would be discharged with close outpatient follow up and evaluation for functional testing within 72 hours. The patient also endorses waxing and waning abdominal pain with nausea, vomiting and diarrhea. I do not suspect this is related to DKA. Some of this could be related to hyperglycemia, which was treated as described above. The patient also has a history of chronic diarrhea related to post-surgical dumping syndrome. The patient has no abdominal tenderness on exam. The patient does not have any evidence of peritonitis. The patient does not have clinical symptoms concerning for mesenteric ischemia or ischemic colitis. Gastric pain meds The patient does not have right upper quadrant tenderness, and I have low suspicion for gallstones, cholecystitis or biliary colic. The patient does not have any epigastric pain. I have low suspicion for gastritis, PUD or GERD. The patient does not have left upper quadrant tenderness. I have low suspicion for pancreatitis. The patient does not have any right lower quadrant tenderness, or periumbilical tenderness. I have low suspicion for appendicitis. The patient did endorse increased urinary frequency but no dysuria. The patient's urinalysis does not reveal urinary tract infection. The patient does not have any left lower quadrant tenderness, and I have low suspicion for diverticulosis or diverticulitis. The patient does not have any flank tenderness. The patient does not have gross hematuria. I have decreased suspicion for nephrolithiasis or renal colic. The patient does not have any palpable pulsatile mass or severe abdominal pain radiating to the back. I have low suspicion for aortic aneurysm, dissection or rupture. The patient endorses chronic pain. She was given a dose of Toradol and fentanyl in the emergency department. OBSERVATION NOTE Time: 4 hours Family Hx: No Hypertension Evaluation: Multiple exams showed improving symptoms and no evidence of decompensation DISCHARGE Upon reevaluation of the patient, symptoms have improved. No emergent diagnoses were identified. At this time, I feel that the patient stable for discharge. The patient was instructed to follow-up with a primary care physician in 1-3 days. The patient will be given strict precautions with which to return to the emergency department. The patient's blood pressure was elevated at greater than 120/80 while in the emergency department. The patient was otherwise stable with no evidence of hy pertensive urgency or emergency. The patient does not require admission for blood pressure control. I have discussed with the patient the risks of hypertension. I have instructed the patient to return to the ER for any new or worsening symptoms including chest pain, shortness of breath, headache, blurred vision, confusion, nausea, vomiting or LOC. I have advised the patient to follow up with the primary care physician for outpatient monitoring and treatment for hypertension in 1-3 days. Disclaimer: Inadvertent spelling and grammatical errors are likely due to EHR/dictation software use and do not reflect on the overall quality of patient care. Note that the electronic time recorded on this note does not necessarily reflect the actual time of the patient encounter. Departure Diagnosis: Primary Impression: Chest pain Chest pain type: unspecified Qualified Codes: R07.9 - Chest pain, unspecified Additional Impressions: Abdominal pain Abdominal location: unspecified location Qualified Codes: R10.9 - Unspecified abdominal pain Nausea vomiting and diarrhea Hyperglycemia Thrombocytosis Acute kidney injury Hyperosmolar hyponatremia Elevated alkaline phosphatase level Glucosuria Condition: Stable ZENOBIA TOLEDO MD Oct 23, 2018 22:56
[2018-10-24] MEDS ORDERED: KETOROLAC 15 MG INJ IV STA (00:33)
[2018-10-24] MEDS ORDERED: SOD CHLORIDE 0.9% 1,000 ML IV ONE (01:00)
[2018-10-24] MEDS ORDERED: FENTAnyl 50 MCG/ML VIAL IV ONE (01:00)
[2018-10-24] MEDS ORDERED: INSULIN REGULAR, HUMAN 100 UNIT/1 ML 3ML VIAL IV ONE (02:00)
[2018-10-24 05:15] VITALS: BP 124/92; PULSE 81; RESP 18
== END 2018-10-24 05:25 | disposition home or self-care (01) ==
LOC: E/R 18:48
DX: R07.9 Chest pain, unspecified (principal); R10.9 Unspecified abdominal pain; F17.210 Nicotine dependence, cigarettes, uncomplicated; D47.3 Essential (hemorrhagic) thrombocythemia; N17.9 Acute kidney failure, unspecified; E87.1 Hypo-osmolality and hyponatremia; R74.8 Abnormal levels of other serum enzymes; R81 Glycosuria; I11.0 Hypertensive heart disease with heart failure; I50.9 Heart failure, unspecified; J44.9 Chronic obstructive pulmonary disease, unspecified; E11.65 Type 2 diabetes mellitus with hyperglycemia; E11.9 Type 2 diabetes mellitus without complications; E66.01 Morbid (severe) obesity due to excess calories; Z79.4 Long term (current) use of insulin; Z79.82 Long term (current) use of aspirin; Z68.41 Body mass index [BMI] 40.0-44.9, adult
CPT/HCPCS: 36415; 71045; 80053; 81003; 82962; 83690; 83880; 84484; 85025; 85610; 93005; 96361; 96374; 96375; 96376; J1885; J3010; J7030; Z7502

== ENCOUNTER 2018-12-15 16:06 | Emergency (ER) | payer OTHER ==
[~2018-12-15] VITALS: Ht 177.8 cm; Wt 137.1 kg
[~2018-12-15 16:06] MED LIST changes: +VERA240T13 PO; -VERA240T94 PO
[2018-12-15 16:13] VITALS: BP 126/84; PULSE 107; RESP 20; Ht 177.8 cm; Wt 137.1 kg
--- NOTE | 2018-12-15 17:10 | ERD ---
ER Documentation Chief Complaint Chief Complaint BILATERAL LEG SWELLING, HX OF CLOTS, SOB HPI Patient is a 58-year-old female with a history of diabetes, CHF, and recently diagnosed blood clots who presents with shortness of breath. She said that she is having shortness of breath, chest pain, and bilateral leg pain. She said that she was discharged this morning from [facility] after being admitted there for 7 days. She is complaining of shortness of breath but is speaking in full sentences. Upon review of old medical records the patient has multiple visits to the ER for various complaints. Review of the emergency department information exchange system shows 21 visits to 3 separate emergency departments over the past 1 year but this does not include any visits to [place] as they are not on this system. Review of the [place] database shows multiple narcotic prescriptions filled by 10 different doctors. The patient says that she was not given any anticoagulation to go home with. ROS All systems reviewed and are negative except as per history of present illness. Medications Home Meds Active Scripts Nicotine* (Nicotine* Patch) 21 mg/day Patch, 1 EACH TD DAILY, #30 PATCH Prov:DEMARIO RADFORDAjay . 08/29/18 Oxycodone HCl/Acetaminophen (Percocet 5-325 mg Tablet) 1 Each Tablet, 1 EACH PO Q6 PRN for BREAKTHROUGH PAIN, #30 TAB Prov:DEMARIO RADFORDAjay 08/29/18 Morphine Sulfate* (Ms Contin*) 30 Mg Tablet.sa, 30 MG PO Q8, #90 TAB.SA Prov:DEMARIO RADFORDAjay . 08/29/18 Clotrimazole-Betamethasone Diprop (Clotrimazole-Betamethasone Diprop) 15 Gm Cream.gm., 1 APPLIC TOP BID, #60 GM Prov:DEMARIO RADFORDAjay Narcisa 08/29/18 Metformin* (Glucophage*) 500 Mg Tab, 500 MG PO BID WITH MEALS, #60 TAB 2 Refills Prov:DEMARIO RADFORDAjay 08/29/18 Pantoprazole* (Pantoprazole*) 40 Mg Tablet.dr, 40 MG PO BID, #60 TAB 2 Refills Prov:DEMARIO RADFORDAjay . 08/29/18 Empagliflozin (Jardiance) 10 Mg Tablet, 10 MG PO DAILY@08, #30 TAB 2 Refills Prov:LONG RADFORD 08/29/18 Bromocriptine Mesylate* (Parlodel*) 2.5 Mg Tablet, 2.5 MG PO DAILY, #30 TAB Prov:MALINA08/29/18 Verapamil Hcl* (Verapamil ER*) 240 Mg Tablet.er, 120 MG PO DAILY, #30 TAB 2 Refills for dumping syndrome Prov:DEMARIO RADFORD 08/29/18 Isosorbide Mononitrate* (Isosorbide Mononitrate*) 30 Mg Tab.er.24h, 30 MG PO DAILY, #30 TAB 2 [facility] 08/29/18 Fluconazole* (Diflucan*) 150 Mg Tablet, 150 MG PO Q7D@0900 for 5 Days, #5 TAB [facility] 08/29/18 Clarithromycin* (Clarithromycin*) 500 Mg Tablet, 500 MG PO BID for 10 Days, #20 TAB [facility] 08/29/18 Amoxicillin* (Amoxicillin*) 500 Mg Cap, 1000 MG PO BID for 10 Days, #20 CAP Prov: 08/29/18 Insulin Glargine* (Lantus*) 100 Unit/Ml Soln, 45 UNIT SC BID, #27 VIAL 2 Refills Prov:08/29/18 Metoprolol Tartrate* (Lopressor*) 25 Mg Tab, 25 MG PO BID for 30 Days, #60 TAB 2 [facility] 08/29/18 Insulin Regular, Human (Humulin R U-500) 500 Unit/1 Ml Vial, 36 UNIT SQ BEFORE MEALS, #27 VIAL 2 Refills [facility] 08/29/18 Paroxetine Hcl* (Paxil*) 20 Mg Tablet, 40 MG PO HS, #30 TAB 2 [facility] 08/29/18 Budesonide-Formoterol Fumarate* (Symbicort*) 160-4.5 Hfa.aer.ad, 1 PUFF INHALATION BID, #1 EACH 2 Refills Prov:[facility]08/29/18 Tiotropium Liberty* (Spiriva*) 18 Mcg Cap.w.dev, 1 CAP INHALATION DAILY, #30 CAP 2 Refills Prov:LONG RADFORD. 08/29/18 Trazodone Hcl* (Desyrel*) 100 Mg Tab, 400 MG PO QHS, #30 TAB 2 Refills Prov:LONG RADFORD. 08/29/18 Gabapentin* (Gabapentin*) 300 Mg Capsule, 900 MG PO TID, #270 CAP 2 Refills Prov:LONG RADFORD. 08/29/18 Atorvastatin* (Atorvastatin*) 40 Mg Tablet, 40 MG PO QHS, #30 TAB 2 Refills Prov:LONG RADFORD. 08/29/18 Aspirin* (Aspirin* Chew) 81 Mg Tab.chew, 81 MG PO DAILY, #30 TAB.CHEW 2 Refills Prov:LONG RADFORD. 08/29/18 Loperamide Hcl* (Imodium*) 2 Mg Capsule, 2 MG PO .AFTER EA LOOSE BM PRN for DIARRHEA, #10 TAB Prov:TEJ SAINZ MD 06/24/18 Ondansetron Hcl* (Zofran*) 8 Mg Tab, 8 MG PO Q6H PRN for NAUSEA AND OR VOMITING, #20 TAB Prov:ZENOBIA TOLEDO MD 05/30/18 Reported Medications Alprazolam* (Xanax*) 0.5 Mg Tab, 0.5 MG PO Q8H PRN for ANXIETY, TAB TAKE TAB-QAM,1 TAB-NOON,AND 2 TAB-QHS 05/30/18 Albuterol Sulfate* (Albuterol Sulfate* Neb) 0.083%-3 Ml Neb, 1.25 MG NEB Q6H PRN for WHEEZING AND SOB, #30 VIAL 03/10/18 Allergies Allergies: Coded Allergies: No Known Allergy (Unverified , 08/25/18) PMhx/Soc History of Surgery: Yes (Gastric bypass) Anesthesia Reaction: No Hx Neurological Disorder: Yes (NEUROPATHY) Hx Respiratory Disorders: Yes (COPD) Hx Cardiac Disorders: Yes (HTN, HLD, DM, CHF) Hx Psychiatric Problems: Yes (ANXIETY) Hx Miscellaneous Medical Probl: No Hx Alcohol Use: No Hx Substance Use: No Hx Tobacco Use: Yes (6 CIGARRETTES DAILY) Smoking Status: Current every day smoker FmHx Family History: diabetes Physical Exam Vitals Vital Signs Date Temp Pulse Resp B/P (MAP) Pulse Ox O2 O2 Flow FiO2 Time Delivery Rate 12/15/18 97.9 107 20 126/84 96 16:13 (98) Physical Exam Const: No acute distress Head: Atraumatic Eyes: Normal Conjunctiva ENT: Normal External Ears, Nose and Mouth. Neck: Full range of motion. No meningismus. Resp: Clear to auscultation bilaterally, no respiratory distress, speaking in full sentences without difficulty Cardio: Regular rate and rhythm, no murmurs Abd: Soft, non tender, non distended. Normal bowel sounds, obesity Skin: No petechiae or rashes Back: No midline or flank tenderness Ext: No cyanosis, or edema, leg size appears to be equal bilaterally Neur: Awake and alert Psych: Normal Mood and Affect Procedures/MDM Patient is a 58-year-old female who presents with chest pain, shortness of breath, and leg swelling complaints. The patient was discharged today from [facility] after being admitted there for 7 days. She says that she does not of any anticoagulation and I told her that I could give her a prescription for Eliquis as an outpatient for her treatment of blood clots. I do not believe she requires admission to the hospital again at this time and when I mentioned that she became very angry and started yelling at me. She said that immediately she wanted to speak to a supervisor cook room in administration. I do not believe the patient requires admission to the hospital at this time especially given the fact she was just admitted for 7 days at another facility and discharged this morning. There may be an element of drug-seeking behavior as the patient does have a significant CELESTE and cures report. In any case I do believe she will need close follow-up with her primary doctor for follow-up within 1 week. The patient can return for any worsening symptoms. She will not be given any narcotics. She was able to get up and ambulate without difficulty and had no trouble speaking in full sentences. Departure Diagnosis: Primary Impression: SOB (shortness of breath) Condition: Fair Patient Instructions: Dyspnea Additional Instructions: Call your primary care doctor TOMORROW for an appointment during the next 1-2 days.See the doctor sooner or return here if your condition worsens before your appointment time. TEJ SAINZ MD Dec 15, 2018 17:10
== END 2018-12-15 17:15 | disposition home or self-care (01) ==
LOC: E/R 16:06
DX: R06.02 Shortness of breath (principal); E11.9 Type 2 diabetes mellitus without complications; I50.9 Heart failure, unspecified; I10 Essential (primary) hypertension; J44.9 Chronic obstructive pulmonary disease, unspecified; F17.210 Nicotine dependence, cigarettes, uncomplicated; Z79.4 Long term (current) use of insulin; Z79.82 Long term (current) use of aspirin
CPT/HCPCS: 99282

== ENCOUNTER 2018-12-19 20:09 | Inpatient (IN) | payer OTHER ==
[~2018-12-19] VITALS: Ht 167.6 cm; Wt 131.7 kg
[2018-12-19 20:14] VITALS: Ht 167.6 cm; Wt 131.7 kg
[2018-12-20] VITALS (16 sets, daily range): BP systolic 88–121; BP diastolic 55–85; PULSE 73–107; RESP 13–20
[2018-12-20] MEDS ORDERED: SOD CHLORIDE 0.9% 1,000 ML IV ONE (01:00)
[2018-12-20] MEDS ORDERED: NS + KCL 30 MEQ 1,000 ML IV SCH (01:49)
[2018-12-20] MEDS ORDERED: NS + KCL 40 MEQ 1,000 ML IV SCH (01:49)
[2018-12-20] MEDS ORDERED: DEXTROSE 10 %/0.45 % NACL 1,000 ML IV SCH (01:49)
[2018-12-20] MEDS ORDERED: D10/0.45% NACL + KCL 30 MEQ 1,000 ML IV SCH (01:49)
[2018-12-20] MEDS ORDERED: SOD CHLORIDE 0.9% 1,000 ML IV SCH ×3 (01:49→10:00)
[2018-12-20] MEDS ORDERED: D10/0.45% NACL + KCL 40 MEQ 1,000 ML IV SCH (01:49)
[2018-12-20] MEDS ORDERED: LACTATED RINGER'S 1,000 ML IV ONE (02:00)
[2018-12-20] MEDS ORDERED: DEXTROSE 50% 50 ML SYRINGE IV PRN ×4 (02:00→20:00)
[2018-12-20] MEDS ORDERED: INSULIN REGULAR, HUMAN 100 UNIT in SOD CHLORIDE 0.9% 100 ML IV SCH ×2 (02:00)
[2018-12-20] MEDS ORDERED: ACETAMINOPHEN 650MG/20.3ML CUP PO PRN (02:30)
[2018-12-20] MEDS ORDERED: ALBUTEROL/IPRATROPIUM (NEB) 3 ML AMP NEB PRN (02:30)
[2018-12-20] MEDS ORDERED: ONDANSETRON 4 MG INJ IV PRN (02:30)
[2018-12-20] MEDS ORDERED: INSU500I SQ (04:42)
[2018-12-20] MEDS ORDERED: ISOS60TA PO (04:48)
[2018-12-20] MEDS ORDERED: RIVA20TA5 PO (04:48)
[2018-12-20] MEDS ORDERED: UMEC62.5 IH (04:48)
[2018-12-20] MEDS ORDERED: OMEP20CA16 PO (04:48)
[2018-12-20] MEDS ORDERED: FLUT1AER INHALATION (04:48)
[2018-12-20] MEDS ORDERED: FURO40TA4 PO (04:48)
[2018-12-20] MEDS ORDERED: ALEN70TA5 PO (04:48)
[2018-12-20] MEDS ORDERED: ASPI-831 PO (04:48)
--- NOTE | 2018-12-20 05:22 | ERD ---
ER Documentation Chief Complaint Chief Complaint REFFERED BY PMD FOR HYPERGLYCEMIA; ACCUCHEK READ "HIGH" IN TRIAGE HPI This is a very pleasant 58-year-old female is referred by PMD for hyperglycemia. Accu-Cheks been running high over the past few days. Denies any fevers or chills. Nausea vomiting. Does complain of polyuria and polydipsia. Denies any lethargy. Denies any other current complaints. ROS All systems reviewed and are negative except as per history of present illness. Medications Home Meds Active Scripts Oxycodone HCl/Acetaminophen (Percocet 5-325 mg Tablet) 1 Each Tablet, 1 EACH PO Q6 PRN for BREAKTHROUGH PAIN, #30 TAB Prov:[facility] [place] . 08/29/18 Morphine Sulfate* (Ms Contin*) 30 Mg Tablet.sa, 30 MG PO Q8, #90 TAB.SA Prov:[facility] [place] 08/29/18 Metformin* (Glucophage*) 500 Mg Tab, 500 MG PO BID WITH MEALS, #60 TAB 2 Refills Prov:[facility] [place] 08/29/18 Pantoprazole* (Pantoprazole*) 40 Mg Tablet.dr, 40 MG PO BID, #60 TAB 2 Refills Prov:[facility] [place] 08/29/18 Empagliflozin (Jardiance) 10 Mg Tablet, 10 MG PO DAILY@08, #30 TAB 2 Refills [facility]08/[facility] Insulin Glargine* (Lantus*) 100 Unit/Ml Soln, 45 UNIT SC BID, #27 VIAL 2 Refills Prov:[facility] [place] 08/29/18 Metoprolol Tartrate* (Lopressor*) 25 Mg Tab, 25 MG PO BID for 30 Days, #60 TAB 2 Refills Prov:[facility]08/29/18 Paroxetine Hcl* (Paxil*) 20 Mg Tablet, 40 MG PO HS, #30 TAB 2 Refills Prov:[facility] [place] 08/29/18 Budesonide-Formoterol Fumarate* (Symbicort*) 160-4.5 Hfa.aer.ad, 1 PUFF INHALATION BID, #1 EACH 2 Refills Prov:ATITO 08/29/18 Tiotropium Jonancy* (Spiriva*) 18 Mcg Cap.w.dev, 1 CAP INHALATION DAILY, #30 CAP 2 Refills Prov:LONG RADFORD . 08/29/18 Trazodone Hcl* (Desyrel*) 100 Mg Tab, 400 MG PO QHS, #30 TAB 2 Refills Prov:[facility]. 08/29/18 Gabapentin* (Gabapentin*) 300 Mg Capsule, 900 MG PO TID, #270 CAP 2 Refills [facility] [place]. 08/29/18 Atorvastatin* (Atorvastatin*) 40 Mg Tablet, 40 MG PO QHS, #30 TAB 2 Refills [facility] 08/29/18 Aspirin* (Aspirin* Chew) 81 Mg Tab.chew, 81 MG PO DAILY, #30 TAB.CHEW 2 Refills Prov:[facility] [place]. 08/29/18 Loperamide Hcl* (Imodium*) 2 Mg Capsule, 2 MG PO .AFTER EA LOOSE BM PRN for DIARRHEA, #10 TAB Prov:TEJ SAINZ MD 06/24/18 Ondansetron Hcl* (Zofran*) 8 Mg Tab, 8 MG PO Q6H PRN for NAUSEA AND OR VOMITING, #20 TAB Prov:ZENOBIA TOLEDO MD 05/30/18 Reported Medications Omeprazole* (Omeprazole*) 20 Mg Capsule.dr, 20 MG PO DAILY for 90 Days, #90 12/20/18 Rivaroxaban* (Xarelto*) 20 Mg Tablet, 20 MG PO QPM for 30 Days, #30 12/20/18 Umeclidinium Jonancy (Incruse Ellipta) 62.5 Mcg Blst.w.dev, 62.5 MCG IH 12/20/18 Fluticasone-Vilanterol (Breo Ellipta Inhaler) 100-25 Mcg/Actuation Aer.pow.ba, 1 PUFF INHALATION DAILY, #1 INHALER 12/20/18 Alendronate Sodium* (Fosamax*) 70 Mg Tablet, 70 MG PO Q7D for QSUNDAY 12/20/18 Isosorbide Mononitrate* (Isosorbide Mononitrate*) 60 Mg Tab.er.24h, 60 MG PO DAILY for 90 Days, #90 12/20/18 Furosemide* (Furosemide*) 40 Mg Tablet, 40 MG PO DAILY for 90 Days, #90 12/20/18 Aspirin (Aspirin) 81 Mg Chew, 81 MG PO DAILY for 90 Days, #90 12/20/18 Insulin Regular, Human (Humulin R U-500 Kwikpen) 500 Unit/1 Ml Insuln.pen, 45 UNIT SQ AC A 12/20/18 Alprazolam* (Xanax*) 0.5 Mg Tab, 0.5 MG PO Q8H PRN for ANXIETY, TAB TAKE TAB-QAM,1 TAB-NOON,AND 2 TAB-QHS 05/30/18 Albuterol Sulfate* (Albuterol Sulfate* Neb) 0.083%-3 Ml Neb, 1.25 MG NEB Q6H PRN for WHEEZING AND SOB, #30 VIAL 03/10/18 Discontinued Scripts Nicotine* (Nicotine* Patch) 21 mg/day Patch, 1 EACH TD DAILY, #30 PATCH Prov:LONG RADFODR Narcisa 08/29/18 Clotrimazole-Betamethasone Diprop (Clotrimazole-Betamethasone Diprop) 15 Gm Cream.gm., 1 APPLIC TOP BID, #60 GM Prov:LONG RADFORD Narcisa 08/29/18 Bromocriptine Mesylate* (Parlodel*) 2.5 Mg Tablet, 2.5 MG PO DAILY, #30 TAB Prov:LONG RADFORD Narcisa 08/29/18 Verapamil Hcl* (Verapamil ER*) 240 Mg Tablet.er, 120 MG PO DAILY, #30 TAB 2 Refills for dumping syndrome Prov:LONG RADFORD Narcisa 08/29/18 Isosorbide Mononitrate* (Isosorbide Mononitrate*) 30 Mg Tab.er.24h, 30 MG PO DAILY, #30 TAB 2 Refills Prov:LONG RADFORD Narcisa 08/29/18 Fluconazole* (Diflucan*) 150 Mg Tablet, 150 MG PO Q7D@0900 for 5 Days, #5 TAB Prov:LONG RADFORD Narcisa 08/29/18 Clarithromycin* (Clarithromycin*) 500 Mg Tablet, 500 MG PO BID for 10 Days, #20 TAB Prov:LONG RADFORD Narcisa 08/29/18 Amoxicillin* (Amoxicillin*) 500 Mg Cap, 1000 MG PO BID for 10 Days, #20 CAP Prov:LONG RADFORD. 08/29/18 Insulin Regular, Human (Humulin R U-500) 500 Unit/1 Ml Vial, 36 UNIT SQ BEFORE MEALS, #27 VIAL 2 Refills Prov:LONG RADFORD. 08/29/18 Allergies Allergies: Coded Allergies: No Known Allergy (Unverified , 12/20/18) PMhx/Soc History of Surgery: Yes (Gastric bypass) Anesthesia Reaction: No Hx Neurological Disorder: Yes (NEUROPATHY) Hx Respiratory Disorders: Yes (COPD) Hx Cardiac Disorders: Yes (HTN, HLD, DM, CHF) Hx Psychiatric Problems: Yes (ANXIETY) Hx Miscellaneous Medical Probl: No Hx Alcohol Use: No Hx Substance Use: No Hx Tobacco Use: Yes (6 CIGARRETTES DAILY) Smoking Status: Current every day smoker Physical Exam Vitals Vital Signs Date Temp Pulse Resp B/P (MAP) Pulse Ox O2 O2 Flow FiO2 Time Delivery Rate 12/20/18 91 17 113/76 96 Nasal 05:12 (88) Cannula 12/20/18 86 17 118/72 96 Nasal 3.0 04:10 (87) Cannula 12/20/18 80 17 111/75 97 Nasal 3.0 03:17 (87) Cannula 12/19/18 99.3 107 19 126/89 96 20:14 (101) Physical Exam Const: No acute distress Head: Atraumatic Eyes: Normal Conjunctiva ENT: Normal External Ears, Nose and Mouth. Neck: Full range of motion. No meningismus. Resp: Clear to auscultation bilaterally Cardio: Regular rate and rhythm, no murmurs Abd: Soft, non tender, non distended. Normal bowel sounds Skin: No petechiae or rashes Back: No midline or flank tenderness Ext: No cyanosis, or edema Neur: Awake and alert Psych: Normal Mood and Affect Result Diagram: 12/20/18 0115 12/20/18 0336 Results 24 hrs Laboratory Tests Test 12/19/18 20:16 12/19/18 23:02 12/20/18 00:39 12/20/18 00:55 Bedside Glucose > 595 mg/dL > 595 mg/dL Blood Gas Blood venous Specimen Source Arterial Blood 12/20/2018 1:15 Date Drawn :00 AM Arterial Blood VENOUS LINE Gas Puncture Site Amadou Test N/A Venous Blood pH 7.428 Venous Blood 40.2 mmHG pCO2 (Temp Corrected ) Venous Blood 48.8 mmHG pO2 (Temp Corrected ) Venous Blood 26.0 mmol/L HCO3 Venous Blood 85.2 mmHG Oxygen Saturation Venous Blood 1.6 mmol/L Base Excess Venous Blood 15.2 g/dl Total Hemoglobin Venous Blood 81.4 % Oxyhemoglobin Venous Blood 0.1 % Methemoglobin Carboxyhemoglob 4.4 % in Blood Gas 37.0 C Temperature Blood Gas ROOM AIR Modality FiO2 21.0 % Blood Gas UP Notified Whom Blood Gas 12/20/2018 1:23 Notified Time :55 AM Bedside Urine 6.0 pH (LAB) Bedside Urine Negative Protein (LAB) Bedside Urine 0.50% Glucose (UA) Bedside Urine Negative Ketones (LAB) Bedside Urine Negative Blood Bedside Urine Negative Nitrite (LAB) Bedside Urine Negative Leukocyte Sandra ase (L Test 12/20/18 01:13 12/20/18 01:15 12/20/18 03:10 12/20/18 03:36 Bedside Glucose > 595 mg/dL > 595 mg/dL White Blood 11.2 10^3/ul Count Red Blood Count 5.38 10^6/ul Hemoglobin 14.4 g/dl Hematocrit 44.9 % Mean 83.5 fl Corpuscular Volume Mean 26.8 pg Corpuscular Hemoglobin Mean 32.1 g/dl Corpuscular Hemoglobin Conc ent Red Cell 16.1 % Distribution Width Platelet Count 354 10^3/UL Mean Platelet 10.6 fl Volume Immature 0.600 % Granulocytes % Neutrophils % 59.8 % Lymphocytes % 27.5 % Monocytes % 8.7 % Eosinophils % 2.4 % Basophils % 1.0 % Nucleated Red 0.0 /100WBC Blood Cells % Immature 0.070 10^3/ul Granulocytes # Neutrophils # 6.7 10^3/ul Lymphocytes # 3.1 10^3/ul Monocytes # 1.0 10^3/ul Eosinophils # 0.3 10^3/ul Basophils # 0.1 10^3/ul Nucleated Red 0.0 10^3/ul Blood Cells # Urine Color STRAW Urine Clarity CLEAR Urine pH 6.0 Urine Specific 1.026 [place] Urine Ketones TRACE mg/dL Urine Nitrite NEGATIVE mg/dL Urine Bilirubin NEGATIVE mg/dL Urine NEGATIVE mg/dL Urobilinogen Urine Leukocyte NEGATIVE Ortega/ul Esterase Urine NEGATIVE mg/dL Hemoglobin Urine Glucose 3+ mg/dL Urine Total NEGATIVE mg/dl Protein Sodium Level 128 mmol/L 131 mmol/L Potassium Level 4.4 mmol/L 4.3 mmol/L Chloride Level 89 mmol/L 96 mmol/L Carbon Dioxide 24 mmol/L 21 mmol/L Level Anion Gap 15 14 Blood Urea 23 mg/dl 21 mg/dl Nitrogen Creatinine 1.08 mg/dl 0.96 mg/dl Est Glomerular 52 mL/min 60 mL/min Filtrat Rate mL/min Glucose Level 728 mg/dl 621 mg/dl Hemoglobin A1c % Calcium Level 9.6 mg/dl 9.2 mg/dl Phosphorus 4.7 mg/dl 4.4 mg/dl Level Magnesium Level 1.8 mg/dl 1.9 mg/dl Test 12/20/18 03:49 12/20/18 04:34 Blood Gas Blood venous Specimen Source Arterial Blood 12/20/2018 4:40: Date Drawn 33 AM Arterial Blood VENOUS LINE Gas Puncture Site Amadou Test ACCEPTAB Venous Blood pH 7.386 Venous Blood 43.4 mmHG pCO2 (Temp Corrected ) Venous Blood 72.4 mmHG pO2 (Temp Corrected ) Venous Blood 25.4 mmol/L HCO3 Venous Blood 94.0 mmHG Oxygen Saturation Venous Blood 0.2 mmol/L Base Excess Venous Blood 14.7 g/dl Total Hemoglobin Venous Blood 91.0 % Oxyhemoglobin Venous Blood 0.2 % Methemoglobin Carboxyhemoglob 3.0 % in Blood Gas 37.0 C Temperature Blood Gas NASAL CANNULA Modality FiO2 30.0 % Blood Gas UP Notified Whom Blood Gas 12/20/2018 4:48: Notified Time 26 AM Bedside Glucose 562 mg/dL Current Medications Medications Dose Sig/Norma Start Time Status Last (Trade) Ordered Route PRN Stop Time Admin Dose Reason Admin Sodium 1,000 ml @ ONCE ONCE 12/20/18 DC 12/20/18 Chloride 1,000 mls/hr IV 01:00 01:28 12/20/18 01:59 Potassium 1,000 ml @ Q0M IV 12/20/18 Chloride/Sodi 0 mls/hr 01:49 um Chloride Potassium 1,000 ml @ Q0M IV 12/20/18 Chloride/Dext 0 mls/hr 01:49 zelalem/ Sod Cl Potassium 1,000 ml @ Q0M IV 12/20/18 12/20/18 Chloride/Sodi 0 mls/hr 01:49 04:02 um Chloride Potassium 1,000 ml @ Q0M IV 12/20/18 12/20/18 Chloride/Dext 0 mls/hr 01:49 04:28 zelalem/ Sod Cl Sodium 1,000 ml @ Q0M IV 12/20/18 Chloride 0 mls/hr 01:49 1,000 ml @ Q0M IV 12/20/18 Dextrose/Sodi 0 mls/hr 01:49 um Chloride Insulin 101 ml @ ER DKA 12/20/18 12/20/18 Human 13.17 mls/ PROTOCOL IV 02:00 04:11 Regular 100 hr unit/ Sodium Chloride Lactated 1,000 ml @ ONCE ONCE 12/20/18 DC 12/20/18 Ringer's 1,000 mls/hr IV 02:00 02:59 12/20/18 02:59 HYPOGLYCEM 12/20/18 Miscellaneous HYPOGLYCEMIA PROTOCOL PRN 02:00 TREATMENT XX Information .HYPOGLYCEMIA (* PROTOCOL Miscellaneous Pharmacy Order) Dextrose 50 ml Q15M PRN 12/20/18 (D50w IV 02:00 Syringe) .DECREASED GLUCOSE Dextrose 25 ml Q15M PRN 12/20/18 (D50w IV 02:00 Syringe) .DECREASED GLUCOSE Sodium 1,000 ml @ Q10H IV 12/20/18 Chloride 100 mls/hr 02:30 Ondansetron 4 mg Q6H PRN 12/20/18 HCl (Zofran IV NAUSEA 02:30 Inj) AND/OR VOMITING Albuterol/ 3 ml Q2H RESP 12/20/18 Ipratropium THERAPY PRN 02:30 (Duoneb) NEB SHORTNESS OF BREATH 650 mg Q6H PRN 12/20/18 Acetaminophen PO PAIN 02:30 (Tylenol LEVEL 1-3 OR Liquid) FEVER 1 tab Q6H PRN 12/20/18 Acetaminophen PO PAIN 02:30 / LEVEL 4-6 Hydrocodone Bitart ([place] (5/325)) Famotidine 20 mg Q12 IV 12/20/18 (Pepcid Iv) 09:00 Heparin 5,000 unit Q12 SC 12/20/18 Sodium 09:00 (Porcine) (Heparin (5000 Units/1ml)) Procedures/MDM EKG: Rate/Rhythm: [Normal Sinus Rhythm] QRS, ST, T-waves: [No changes consistent w/ acute ischemia] Impression: [No evidence of ischemia or arrhythmia] Chest X-ray 1V Interpreted by me: Soft Tissue: No acute abnormalities Bones: No acute abnormalities Mediastinum/Cardiac Silhouette/Lungs: [No acute abnormalities] Medical decision making: This is a very pleasant 58-year-old female who comes in with complaints of severe hyperglycemia. She is been started on insulin drip secondary to severe hyperglycemia. Patient will be admitted to the intensive care unit further evaluation and management. Dr. sanderson has been made aware Departure Diagnosis: Primary Impression: Hyperglycemia Condition: Critical AILYN SOFIA Dec 20, 2018 05:22
--- NOTE | 2018-12-20 08:45 | HP ---
Date/Time of Note Date/Time of Note DATE: 12/20/18 TIME: 08:37 Assessment/Plan VTE Prophylaxis Pharmacological prophylaxis: heparin Lines/Catheters IV Catheter Type (from Nrs): Peripheral IV Assessment/Plan Assessment/Plan 1. Poorly controlled diabetes with hyperglycemia: No DKA -Continue insulin drip for now -Follow-up A1c 2. Lethargic, sleepiness: Possibly related to hypoglycemia. Patient is arousable and answering questions appropriately -Treat hypoglycemia -Trial of Narcan 3. History of COPD: Continue home inhaled corticosteroid 4. Hypertension: BP is in acceptable range 5. Dyslipidemia: Continue home med when no longer n.p.o. 6. Obesity with a BMI of 47: Weight reduction will be reinforced when patient becomes more alert 7. NPO. status: Because patient appears to sleepy, she is not n.p.o. Need to resume her home medications when she is more alert. We will have her be evaluated by a speech therapist Result Diagram: 12/20/18 0115 12/20/18 0527 Results 24hrs Laboratory Tests Test 12/19/18 20:16 12/19/18 23:02 12/20/18 00:39 12/20/18 00:55 Bedside Glucose > 595 *H > 595 *H Blood Gas Blood venous Specimen Source Arterial Blood 12/20/2018 1:15: Date Drawn 00 AM Arterial Blood VENOUS LINE Gas Puncture Site Amadou Test N/A Venous Blood pH 7.428 Venous Blood 40.2 pCO2 (Temp Corrected) Venous Blood pO2 48.8 H (Temp Corrected) Venous Blood 26.0 HCO3 Venous Blood 85.2 H Oxygen Saturation Venous Blood 1.6 Base Excess Venous Blood 15.2 Total Hemoglobin Venous Blood 81.4 Oxyhemoglobin Venous Blood 0.1 Methemoglobin Carboxyhemoglobi 4.4 n Blood Gas 37.0 Temperature Blood Gas ROOM AIR Modality FiO2 21.0 Blood Gas UP Notified Whom Blood Gas 12/20/2018 1:23: Notified Time 55 AM Bedside Urine pH 6.0 (LAB) Bedside Urine Negative Protein (LAB) Bedside Urine 0.50% H Glucose (UA) Bedside Urine Negative Ketones (LAB) Bedside Urine Negative Blood Bedside Urine Negative Nitrite (LAB) Bedside Urine Negative Leukocyte Estera se (L Test 12/20/18 01:13 12/20/18 01:15 12/20/18 03:10 12/20/18 03:36 Bedside Glucose > 595 *H > 595 *H White Blood 11.2 H Count Red Blood Count 5.38 Hemoglobin 14.4 Hematocrit 44.9 Mean Corpuscular 83.5 Volume Mean Corpuscular 26.8 L Hemoglobin Mean Corpuscular 32.1 Hemoglobin Alisia nt Red Cell 16.1 H Distribution Width Platelet Count 354 Mean Platelet 10.6 H Volume Immature 0.600 H Granulocytes % Neutrophils % 59.8 Lymphocytes % 27.5 Monocytes % 8.7 Eosinophils % 2.4 Basophils % 1.0 Nucleated Red 0.0 Blood Cells % Immature 0.070 H Granulocytes # Neutrophils # 6.7 Lymphocytes # 3.1 H Monocytes # 1.0 H Eosinophils # 0.3 Basophils # 0.1 Nucleated Red 0.0 Blood Cells # Urine Color STRAW Urine Clarity CLEAR Urine pH 6.0 Urine Specific 1.026 [place] Urine Ketones TRACE A Urine Nitrite NEGATIVE Urine Bilirubin NEGATIVE Urine NEGATIVE Urobilinogen Urine Leukocyte NEGATIVE Esterase Urine Hemoglobin NEGATIVE Urine Glucose 3+ H Urine Total NEGATIVE Protein Sodium Level 128 L 131 L Potassium Level 4.4 4.3 Chloride Level 89 L 96 L Carbon Dioxide 24 21 Level Anion Gap 15 H 14 H Blood Urea 23 H 21 H Nitrogen Creatinine 1.08 H 0.96 Est Glomerular 52 L 60 Filtrat Rate mL/min Glucose Level 728 *H 621 *H Hemoglobin A1c Calcium Level 9.6 9.2 Phosphorus Level 4.7 4.4 Magnesium Level 1.8 1.9 Test 12/20/18 03:49 12/20/18 04:34 12/20/18 05:27 12/20/18 05:32 Blood Gas Blood venous Specimen Source Arterial Blood 12/20/2018 4:40: Date Drawn 33 AM Arterial Blood VENOUS LINE Gas Puncture Site Amadou Test ACCEPTAB Venous Blood pH 7.386 Venous Blood 43.4 pCO2 (Temp Corrected) Venous Blood pO2 72.4 H (Temp Corrected) Venous Blood 25.4 HCO3 Venous Blood 94.0 H Oxygen Saturation Venous Blood 0.2 Base Excess Venous Blood 14.7 Total Hemoglobin Venous Blood 91.0 Oxyhemoglobin Venous Blood 0.2 Methemoglobin Carboxyhemoglobi 3.0 n Blood Gas 37.0 Temperature Blood Gas NASAL CANNULA Modality FiO2 30.0 Blood Gas UP Notified Whom Blood Gas 12/20/2018 4:48: Notified Time 26 AM Bedside Glucose 562 *H 428 *H Sodium Level 134 L Potassium Level 4.0 Chloride Level 98 Carbon Dioxide 23 Level Anion Gap 13 Blood Urea 20 Nitrogen Creatinine 0.89 Est Glomerular > 60 Filtrat Rate mL/min Glucose Level 513 *H Calcium Level 9.9 Phosphorus Level 3.6 Magnesium Level 1.7 Test 12/20/18 06:25 12/20/18 07:34 Bedside Glucose 392 H 357 H HPI/ROS Admit Date/Time Admit Date/Time Dec 20, 2018 at 02:13 Hx of Present Illness This is a 58-year-old morbidly obese female with a history of poorly controlled diabetes, COPD, dyslipidemia, hypertension, noncompliance who presented to ER after she was told by PCP that her blood glucose is high. Patient appears to sleepy, but arousable and answering questions appropriately. She has not been compliant with her medications. When presented to ER, she was found to have a blood glucose of 560. No sign of DKA. Currently admitted to ICU on insulin drip. PMH/Family/Social Past Medical History Past Surgical History Past Surgical Hx: other Family History Significant Family History: no pertinent family hx Social History Alcohol Use: other Smoking Status: Unknown if ever smoked Drug Use: other Exam Constitutional: other (no acute distress) Head: normocephalic ENMT: nl external ears & nose Neck: supple Respiratory: normal air movement Cardiovascular: nl pulses Gastrointestinal: soft Extremities: normal pulses Medications Current Medications Potassium Chloride/Sodium Chloride 1,000 ml @ 0 mls/hr Q0M IV ; Start 12/20/18 at 01:49 Potassium Chloride/Dextrose/ Sod Cl 1,000 ml @ 0 mls/hr Q0M IV ; Start 12/20/18 at 01:49 Potassium Chloride/Sodium Chloride 1,000 ml @ 0 mls/hr Q0M IV Last administered on 12/20/18at 04:02; Admin Dose 250 MLS/HR; Start 12/20/18 at 01:49 Potassium Chloride/Dextrose/ Sod Cl 1,000 ml @ 0 mls/hr Q0M IV Last administered on 12/20/18at 04:28; Admin Dose 50 MLS/HR; Start 12/20/18 at 01:49 Sodium Chloride 1,000 ml @ 0 mls/hr Q0M IV ; Start 12/20/18 at 01:49 Dextrose/Sodium Chloride 1,000 ml @ 0 mls/hr Q0M IV ; Start 12/20/18 at 01:49 Insulin Human Regular 100 unit/ Sodium Chloride 101 ml @ 13.17 mls/ hr ER DKA PROTOCOL IV Last administered on 12/20/18at 04:11; Admin Dose 13.17 MLS/HR; Start 12/20/18 at 02:00 Miscellaneous Information (* Miscellaneous Pharmacy Order) HYPOGLYCEMIA TREATMENT HYPOGLYCEM PROTOCOL PRN XX .HYPOGLYCEMIA PROTOCOL; Start 12/20/18 at 02:00 Dextrose (D50w Syringe) 50 ml Q15M PRN IV .DECREASED GLUCOSE; Start 12/20/18 at 02:00 Dextrose (D50w Syringe) 25 ml Q15M PRN IV .DECREASED GLUCOSE; Start 12/20/18 at 02:00 Sodium Chloride 1,000 ml @ 100 mls/hr Q10H IV Last administered on 12/20/18at 05:40; Admin Dose 100 MLS/HR; Start 12/20/18 at 02:30 Ondansetron HCl (Zofran Inj) 4 mg Q6H PRN IV NAUSEA AND/OR VOMITING; Start 12/20/18 at 02:30 Albuterol/ Ipratropium (Duoneb) 3 ml Q2H RESP THERAPY PRN NEB SHORTNESS OF BR EATH; Start 12/20/18 at 02:30 Acetaminophen (Tylenol Liquid) 650 mg Q6H PRN PO PAIN LEVEL 1-3 OR FEVER; Start 12/20/18 at 02:30 Acetaminophen/ Hydrocodone Bitart ([place] (5/325)) 1 tab Q6H PRN PO PAIN LEVEL 4-6; Start 12/20/18 at 02:30 Famotidine (Pepcid Iv) 20 mg Q12 IV ; Start 12/20/18 at 09:00 Heparin Sodium (Porcine) (Heparin (5000 Units/1ml)) 5,000 unit Q12 SC ; Start 12/20/18 at 09:00 Coded Allergies: No Known Allergy (Unverified , 12/20/18) Past Surgical History Past Surgical Hx: cholecystectomy, other Family History Significant Family History: diabetes Social History Smoking Status: Current every day smoker Exam/Review of Systems Vital Signs Vitals Vital Signs Date Temp Pulse Resp B/P (MAP) Pulse Ox O2 O2 Flow FiO2 Time Delivery Rate 12/20/18 83 06:07 12/20/18 98.0 14 94/65 (75) 96 Nasal 3.0 05:39 Cannula AILYN LOPEZ MD Dec 20, 2018 08:45
[2018-12-20] MEDS: HYDROCODONE/APAP (5/325) TAB PO PRN ×2 (08:55→15:20)
[2018-12-20] MEDS ORDERED: FAMOTIDINE 20 MG INJ IV SCH (09:00)
[2018-12-20] MEDS ORDERED: HEPARIN 5,000 UNIT/1 ML VIAL SC SCH (09:00)
[2018-12-20] MEDS ORDERED: FUROSEMIDE 20 MG INJ IV SCH (09:00)
[2018-12-20] MEDS ORDERED: ALENDRONATE 70 MG TAB PO SCH (10:00)
[2018-12-20] MEDS ORDERED: ALBUTEROL 0.083% (NEB) 2.5 MG/3 ML AMP NEB PRN (10:00)
[2018-12-20] MEDS ORDERED: INSULIN GLARGINE [LANTus] (100 UNITS/ML) SYG SC SCH (10:00)
[2018-12-20] MEDS ORDERED: ASPIRIN 81 MG TAB PO SCH (10:00)
[2018-12-20] MEDS ORDERED: FLUTICASONE/VILANTEROL 200-25 INH DEVICE INH SCH (10:00)
[2018-12-20] MEDS ORDERED: PANTOPRAZOLE (EC) 40 MG TAB PO SCH (10:00)
--- NOTE | 2018-12-20 10:03 | PN ---
Date/Time of Note Date/Time of Note DATE: 12/20/18 TIME: 09:56 Assessment/Plan VTE Prophylaxis SCD applied (from Nsg): Yes Pharmacological prophylaxis: other Lines/Catheters IV Catheter Type (from Nrsg): Peripheral IV Assessment/Plan Hospital Course S: Patient was on IV insulin and IV fluids overnight. Sugars slowly trending do wn to normal range now. O: VS- see below PE: Gen: Lying in bed, no acute distress Head: Atraumatic Eyes: Normal Conjunctiva ENT: Normal External Ears, Nose and Mouth. Neck: Full range of motion. No meningismus. Resp: Clear to auscultation bilaterally Cardio: Regular rate and rhythm, no murmurs Abd: Soft, non tender, non distended. Normal bowel sounds Ext: No cyanosis, or edema Neur: No focal deficits Assessment/Plan: 58-year-old female who presents with: 1. Poorly controlled diabetes with hyperglycemia: Likely secondary to HHNK (hyperosmotic hyperglycemic nonketotic state)-sugars trending down now, A1c results still pending but likely very elevated. -We will stop insulin drip now and switch to subcu insulin, also well start patient on carb controlled diet. -Follow-up A1c, consider endocrinology consult 2. Lethargic, sleepiness: Likely secondary to #1. Patient is more arousable now and answering questions appropriately -Monitor, treatment as in #1 -PT eval 3. History of COPD: Stable - continue home inhaled corticosteroid, breathing treatments 4. Hypertension: BP stable. -Monitor, continue current medication 5. Dyslipidemia: Continue home med when no longer n.p.o. -we will start diet today as well 6. Obesity with a BMI of 47: Weight reduction will be reinforced when patient becomes more alert Critical care time spent on patient care today equals 55 minutes. Result Diagram: 12/20/18 0115 12/20/18 0527 Results 24hrs Laboratory Tests Test 12/19/18 20:16 12/19/18 23:02 12/20/18 00:39 12/20/18 00:55 Bedside Glucose > 595 *H > 595 *H Blood Gas Blood venous Specimen Source Arterial Blood 12/20/2018 1:15: Date Drawn 00 AM Arterial Blood VENOUS LINE Gas Puncture Site Amadou Test N/A Venous Blood pH 7.428 Venous Blood 40.2 pCO2 (Temp Corrected) Venous Blood pO2 48.8 H (Temp Corrected) Venous Blood 26.0 HCO3 Venous Blood 85.2 H Oxygen Saturation Venous Blood 1.6 Base Excess Venous Blood 15.2 Total Hemoglobin Venous Blood 81.4 Oxyhemoglobin Venous Blood 0.1 Methemoglobin Carboxyhemoglobi 4.4 n Blood Gas 37.0 Temperature Blood Gas ROOM AIR Modality FiO2 21.0 Blood Gas UP Notified Whom Blood Gas 12/20/2018 1:23: Notified Time 55 AM Bedside Urine pH 6.0 (LAB) Bedside Urine Negative Protein (LAB) Bedside Urine 0.50% H Glucose (UA) Bedside Urine Negative Ketones (LAB) Bedside Urine Negative Blood Bedside Urine Negative Nitrite (LAB) Bedside Urine Negative Leukocyte Estera se (L Test 12/20/18 01:13 12/20/18 01:15 12/20/18 03:10 12/20/18 03:36 Bedside Glucose > 595 *H > 595 *H White Blood 11.2 H Count Red Blood Count 5.38 Hemoglobin 14.4 Hematocrit 44.9 Mean Corpuscular 83.5 Volume Mean Corpuscular 26.8 L Hemoglobin Mean Corpuscular 32.1 Hemoglobin Alisia nt Red Cell 16.1 H Distribution Width Platelet Count 354 Mean Platelet 10.6 H Volume Immature 0.600 H Granulocytes % Neutrophils % 59.8 Lymphocytes % 27.5 Monocytes % 8.7 Eosinophils % 2.4 Basophils % 1.0 Nucleated Red 0.0 Blood Cells % Immature 0.070 H Granulocytes # Neutrophils # 6.7 Lymphocytes # 3.1 H Monocytes # 1.0 H Eosinophils # 0.3 Basophils # 0.1 Nucleated Red 0.0 Blood Cells # Urine Color STRAW Urine Clarity CLEAR Urine pH 6.0 Urine Specific 1.026 [place] Urine Ketones TRACE A Urine Nitrite NEGATIVE Urine Bilirubin NEGATIVE Urine NEGATIVE Urobilinogen Urine Leukocyte NEGATIVE Esterase Urine Hemoglobin NEGATIVE Urine Glucose 3+ H Urine Total NEGATIVE Protein Sodium Level 128 L 131 L Potassium Level 4.4 4.3 Chloride Level 89 L 96 L Carbon Dioxide 24 21 Level Anion Gap 15 H 14 H Blood Urea 23 H 21 H Nitrogen Creatinine 1.08 H 0.96 Est Glomerular 52 L 60 Filtrat Rate mL/min Glucose Level 728 *H 621 *H Hemoglobin A1c Calcium Level 9.6 9.2 Phosphorus Level 4.7 4.4 Magnesium Level 1.8 1.9 Test 12/20/18 03:49 12/20/18 04:34 12/20/18 05:27 12/20/18 05:32 Blood Gas Blood venous Specimen Source Arterial Blood 12/20/2018 4:40: Date Drawn 33 AM Arterial Blood VENOUS LINE Gas Puncture Site Amadou Test ACCEPTAB Venous Blood pH 7.386 Venous Blood 43.4 pCO2 (Temp Corrected) Venous Blood pO2 72.4 H (Temp Corrected) Venous Blood 25.4 HCO3 Venous Blood 94.0 H Oxygen Saturation Venous Blood 0.2 Base Excess Venous Blood 14.7 Total Hemoglobin Venous Blood 91.0 Oxyhemoglobin Venous Blood 0.2 Methemoglobin Carboxyhemoglobi 3.0 n Blood Gas 37.0 Temperature Blood Gas NASAL CANNULA Modality FiO2 30.0 Blood Gas UP Notified Whom Blood Gas 12/20/2018 4:48: Notified Time 26 AM Bedside Glucose 562 *H 428 *H Sodium Level 134 L Potassium Level 4.0 Chloride Level 98 Carbon Dioxide 23 Level Anion Gap 13 Blood Urea 20 Nitrogen Creatinine 0.89 Est Glomerular > 60 Filtrat Rate mL/min Glucose Level 513 *H Calcium Level 9.9 Phosphorus Level 3.6 Magnesium Level 1.7 Test 12/20/18 06:25 12/20/18 07:34 12/20/18 08:39 12/20/18 09:45 Bedside Glucose 392 H 357 H 289 H 207 Exam/Review of Systems Exam Vitals Vital Signs Date Temp Pulse Resp B/P (MAP) Pulse Ox O2 O2 Flow FiO2 Time Delivery Rate 12/20/18 77 08:00 12/20/18 98.0 14 94/65 (75) 96 Nasal 3.0 05:39 Cannula Results Results 24hrs Laboratory Tests Test 12/19/18 20:16 12/19/18 23:02 12/20/18 00:39 12/20/18 00:55 Bedside Glucose > 595 *H > 595 *H Blood Gas Blood venous Specimen Source Arterial Blood 12/20/2018 1:15: Date Drawn 00 AM Arterial Blood VENOUS LINE Gas Puncture Site Amadou Test N/A Venous Blood pH 7.428 Venous Blood 40.2 pCO2 (Temp Corrected) Venous Blood pO2 48.8 H (Temp Corrected) Venous Blood 26.0 HCO3 Venous Blood 85.2 H Oxygen Saturation Venous Blood 1.6 Base Excess Venous Blood 15.2 Total Hemoglobin Venous Blood 81.4 Oxyhemoglobin Venous Blood 0.1 Methemoglobin Carboxyhemoglobi 4.4 n Blood Gas 37.0 Temperature Blood Gas ROOM AIR Modality FiO2 21.0 Blood Gas UP Notified Whom Blood Gas 12/20/2018 1:23: Notified Time 55 AM Bedside Urine pH 6.0 (LAB) Bedside Urine Negative Protein (LAB) Bedside Urine 0.50% H Glucose (UA) Bedside Urine Negative Ketones (LAB) Bedside Urine Negative Blood Bedside Urine Negative Nitrite (LAB) Bedside Urine Negative Leukocyte Estera se (L Test 12/20/18 01:13 12/20/18 01:15 12/20/18 03:10 12/20/18 03:36 Bedside Glucose > 595 *H > 595 *H White Blood 11.2 H Count Red Blood Count 5.38 Hemoglobin 14.4 Hematocrit 44.9 Mean Corpuscular 83.5 Volume Mean Corpuscular 26.8 L Hemoglobin Mean Corpuscular 32.1 Hemoglobin Alisia nt Red Cell 16.1 H Distribution Width Platelet Count 354 Mean Platelet 10.6 H Volume Immature 0.600 H Granulocytes % Neutrophils % 59.8 Lymphocytes % 27.5 Monocytes % 8.7 Eosinophils % 2.4 Basophils % 1.0 Nucleated Red 0.0 Blood Cells % Immature 0.070 H Granulocytes # Neutrophils # 6.7 Lymphocytes # 3.1 H Monocytes # 1.0 H Eosinophils # 0.3 Basophils # 0.1 Nucleated Red 0.0 Blood Cells # Urine Color STRAW Urine Clarity CLEAR Urine pH 6.0 Urine Specific 1.026 [place] Urine Ketones TRACE A Urine Nitrite NEGATIVE Urine Bilirubin NEGATIVE Urine NEGATIVE Urobilinogen Urine Leukocyte NEGATIVE Esterase Urine Hemoglobin NEGATIVE Urine Glucose 3+ H Urine Total NEGATIVE Protein Sodium Level 128 L 131 L Potassium Level 4.4 4.3 Chloride Level 89 L 96 L Carbon Dioxide 24 21 Level Anion Gap 15 H 14 H Blood Urea 23 H 21 H Nitrogen Creatinine 1.08 H 0.96 Est Glomerular 52 L 60 Filtrat Rate mL/min Glucose Level 728 *H 621 *H Hemoglobin A1c Calcium Level 9.6 9.2 Phosphorus Level 4.7 4.4 Magnesium Level 1.8 1.9 Test 12/20/18 03:49 12/20/18 04:34 12/20/18 05:27 12/20/18 05:32 Blood Gas Blood venous Specimen Source Arterial Blood 12/20/2018 4:40: Date Drawn 33 AM Arterial Blood VENOUS LINE Gas Puncture Site Amadou Test ACCEPTAB Venous Blood pH 7.386 Venous Blood 43.4 pCO2 (Temp Corrected) Venous Blood pO2 72.4 H (Temp Corrected) Venous Blood 25.4 HCO3 Venous Blood 94.0 H Oxygen Saturation Venous Blood 0.2 Base Excess Venous Blood 14.7 Total Hemoglobin Venous Blood 91.0 Oxyhemoglobin Venous Blood 0.2 Methemoglobin Carboxyhemoglobi 3.0 n Blood Gas 37.0 Temperature Blood Gas NASAL CANNULA Modality FiO2 30.0 Blood Gas UP Notified Whom Blood Gas 12/20/2018 4:48: Notified Time 26 AM Bedside Glucose 562 *H 428 *H Sodium Level 134 L Potassium Level 4.0 Chloride Level 98 Carbon Dioxide 23 Level Anion Gap 13 Blood Urea 20 Nitrogen Creatinine 0.89 Est Glomerular > 60 Filtrat Rate mL/min Glucose Level 513 *H Calcium Level 9.9 Phosphorus Level 3.6 Magnesium Level 1.7 Test 12/20/18 06:25 12/20/18 07:34 12/20/18 08:39 12/20/18 09:45 Bedside Glucose 392 H 357 H 289 H 207 Medications Medication Current Medications Sodium Chloride 1,000 ml @ 0 mls/hr Q0M IV ; Start 12/20/18 at 01:49 Miscellaneous Information (* Miscellaneous Pharmacy Order) HYPOGLYCEMIA TREATMENT HYPOGLYCEM PROTOCOL PRN XX .HYPOGLYCEMIA PROTOCOL; Start 12/20/18 at 02:00 Dextrose (D50w Syringe) 50 ml Q15M PRN IV .DECREASED GLUCOSE; Start 12/20/18 at 02:00 Dextrose (D50w Syringe) 25 ml Q15M PRN IV .DECREASED GLUCOSE; Start 12/20/18 at 02:00 Sodium Chloride 1,000 ml @ 100 mls/hr Q10H IV Last administered on 12/20/18at 05:40; Admin Dose 100 MLS/HR; Start 12/20/18 at 02:30 Ondansetron HCl (Zofran Inj) 4 mg Q6H PRN IV NAUSEA AND/OR VOMITING; Start 12/20/18 at 02:30 Albuterol/ Ipratropium (Duoneb) 3 ml Q2H RESP THERAPY PRN NEB SHORTNESS OF BREATH; Start 12/20/18 at 02:30 Acetaminophen (Tylenol Liquid) 650 mg Q6H PRN PO PAIN LEVEL 1-3 OR FEVER; Start 12/20/18 at 02:30 Acetaminophen/ Hydrocodone Bitart ([place] (5/325)) 1 tab Q6H PRN PO PAIN LEVEL 4-6 Last administered on 12/20/18at 08:55; Admin Dose 1 TAB; Start 12/20/18 at 02:30 Famotidine (Pepcid Iv) 20 mg Q12 IV Last administered on 12/20/18at 08:40; Admin Dose 20 MG; Start 12/20/18 at 09:00 Heparin Sodium (Porcine) (Heparin (5000 Units/1ml)) 5,000 unit Q12 SC Last administered on 12/20/18at 08:44; Admin Dose 5,000 UNIT; Start 12/20/18 at 09:00 Fluticasone/ Vilanterol (Breo Ellipta 200-25 Mcg Inh) 1 inh DAILY INH ; Start 12/20/18 at 10:00 Furosemide (Lasix) 20 mg DAILY IV ; Start 12/20/18 at 09:00 Albuterol (Proventil 0.083% (Neb)) 1.25 mg Q6H PRN NEB WHEEZING AND SOB; Start 12/20/18 at 10:00 Alendronate Sodium (Fosamax) 70 mg Q7D PO ; Start 12/20/18 at 10:00 Aspirin (Aspirin) 81 mg DAILY PO ; Start 12/20/18 at 10:00 Atorvastatin Calcium (Lipitor) 40 mg QHS PO ; Start 12/20/18 at 21:00 Insulin Glargine (Lantus) 45 units BID SC ; Start 12/20/18 at 10:00 Pantoprazole (Protonix Tab) 40 mg BID PO ; Start 12/20/18 at 10:00 Paroxetine HCl (Paxil) 40 mg HS PO ; Start 12/20/18 at 21:00 Sodium Chloride 1,000 ml @ 100 mls/hr Q10H IV ; Start 12/20/18 at 10:00 Miscellaneous Information (* Miscellaneous Pharmacy Order) Discontinue current oral sulfonylur... ONCE ONCE XX ; Start 12/20/18 at 10:00; Stop 12/20/18 at 10:01 Diagnostic Test (Pha) (Accu-Chek) 1 ea 02 XX ; Start 12/21/18 at 02:00 Miscellaneous Information (* Miscellaneous Pharmacy Order) HYPOGLYCEMIA PROTOCOL wNarcisa.. ONCE ONCE XX ; Start 12/20/18 at 10:00; Stop 12/20/18 at 10:01 Insulin Aspart (Novolog Insulin Pen) NOVOLOG *MILD* ALGORITHM WITH MEALS BEDTIME SC ; Start 12/20/18 at 11:30 Miscellaneous Information (* Miscellaneous Pharmacy Order) Discontinue all previ... ONCE ONCE XX ; Start 12/20/18 at 10:00; Stop 12/20/18 at 10:01 GURPREET ROMAN Dec 20, 2018 10:02
[2018-12-20] MEDS: INSULIN ASPART [NOVOLOG] 3 ML PEN SC SCH ×2 (11:25→17:12)
[2018-12-20] MEDS ORDERED: GABAPENTIN 300 MG CAP PO SCH (13:00)
[2018-12-20] MEDS ORDERED: RIVAROXABAN 20 MG TABLET PO SCH (17:35)
[2018-12-20] MEDS ORDERED: metFORMIN 500 MG TAB PO SCH (19:30)
[2018-12-20] MEDS ORDERED: GLUCOSE GEL 15 GRAM TUBE BUCCAL PRN (20:00)
[2018-12-20] MEDS ORDERED: GLUCOSE GEL 15 GRAM TUBE PO PRN ×2 (20:00)
[2018-12-20] MEDS ORDERED: GLUCAGON 1 MG INJ IM PRN (20:00)
--- NOTE | 2018-12-20 20:04 | CONS ---
Assessment/Plan Assessment/Plan Problems: (1) Type 2 diabetes mellitus with hyperglycemia Status: Chronic Comment: Pt. w/ known large dose insulin requirement both from history and previous admissions here at [facility]. Already receiving lantus 45 units q12 which has worked for her here in the past. Will resume previous in-house dose of Novolog 20 units qac plus moderate ISS. Will add adjunctive therapy of ja rdiance 25 mg daily, linagliptin 5 mg daily, and metformin 500 mg bid. Anticipate this will bring her close to good control and pt. can subsequently be d/c'ed. Pt. needs to understand that if she is depressed and doesn't feel like eating that she cannot hold her insulin and needs to take some smaller amount that might be effective for her. Will follow w/ you and titrate meds to glycemic targets. 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 Inpt. x 8 days. After d/c pt. not feeling well. Depressed and having panic attacks. B/c of this lost her appetite. Since she was not eating, she withheld her insulin. This resulted in higher glucose values. Yesterday went to PMD who chuck labs. Called her that night and told her to go to ER due to BG > 700 mg/dL. Constitutional: no complaints Eyes: no complaints ENT: no complaints Respiratory: no complaints Cardiovascular: no complaints Gastrointestinal: no complaints Genitourinary: no complaints Musculoskeletal: no complaints Neurologic: no complaints Psychological: anxiety, depression Past Medical History Medical History: congestive heart failure, coronary artery disease, deep vein thrombosis, diabetes, GERD, high cholesterol, hypertension, other (COPD, OA, depression, anxiety, osteoporosis) Home Meds Active Scripts Oxycodone HCl/Acetaminophen (Percocet 5-325 mg Tablet) 1 Each Tablet, 1 EACH PO Q6 PRN for BREAKTHROUGH PAIN, #30 TAB Prov:LONG RADFORD 08/29/18 Morphine Sulfate* (Ms Contin*) 30 Mg Tablet.sa, 30 MG PO Q8, #90 TAB.SA Prov:LONG RADFORD 08/29/18 Metformin* (Glucophage*) 500 Mg Tab, 500 MG PO BID WITH MEALS, #60 TAB 2 Refills Prov:DEMARIO RADFORD 08/29/18 Pantoprazole* (Pantoprazole*) 40 Mg Tablet.dr, 40 MG PO BID, #60 TAB 2 [facility] 08/29/18 Empagliflozin (Jardiance) 10 Mg Tablet, 10 MG PO DAILY@08, #30 TAB 2 Refills Prov:LONG RADFORD 08/29/18 Insulin Glargine* (Lantus*) 100 Unit/Ml Soln, 45 UNIT SC BID, #27 VIAL 2 [facility] Metoprolol Tartrate* (Lopressor*) 25 Mg Tab, 25 MG PO BID for 30 Days, #60 TAB 2 Refills Prov:LONG RADFORD 08/29/18 Paroxetine Hcl* (Paxil*) 20 Mg Tablet, 40 MG PO HS, #30 TAB 2 [facility] 08/29/18 Budesonide-Formoterol Fumarate* (Symbicort*) 160-4.5 Hfa.aer.ad, 1 PUFF INHALATION BID, #1 EACH 2 Refills Prov:LONG RADFORD 08/29/18 Tiotropium Rindge* (Spiriva*) 18 Mcg Cap.w.dev, 1 CAP INHALATION DAILY, #30 CAP 2 Refills [facility] 08/29/18 Trazodone Hcl* (Desyrel*) 100 Mg Tab, 400 MG PO QHS, #30 TAB 2 Refills Prov:LONG RADFORD 08/29/18 Gabapentin* (Gabapentin*) 300 Mg Capsule, 900 MG PO TID, #270 CAP 2 Refills Prov:LONG RADFORD. 08/29/18 Atorvastatin* (Atorvastatin*) 40 Mg Tablet, 40 MG PO QHS, #30 TAB 2 Refills Prov:LONG RADFORD. 08/29/18 Aspirin* (Aspirin* Chew) 81 Mg Tab.chew, 81 MG PO DAILY, #30 TAB.CHEW 2 Refills Prov:LONG RADFORD. 08/29/18 Loperamide Hcl* (Imodium*) 2 Mg Capsule, 2 MG PO .AFTER EA LOOSE BM PRN for DIARRHEA, #10 TAB Prov:TEJ SAINZ MD 06/24/18 Ondansetron Hcl* (Zofran*) 8 Mg Tab, 8 MG PO Q6H PRN for NAUSEA AND OR VOMITING, #20 TAB Prov:ZENOBIA TOLEDO MD 05/30/18 Reported Medications Omeprazole* (Omeprazole*) 20 Mg Capsule.dr, 20 MG PO DAILY for 90 Days, #90 12/20/18 Rivaroxaban* (Xarelto*) 20 Mg Tablet, 20 MG PO QPM for 30 Days, #30 12/20/18 Umeclidinium Rindge (Incruse Ellipta) 62.5 Mcg Blst.w.dev, 62.5 MCG IH 12/20/18 Fluticasone-Vilanterol (Breo Ellipta Inhaler) 100-25 Mcg/Actuation Aer.pow.ba, 1 PUFF INHALATION DAILY, #1 INHALER 12/20/18 Alendronate Sodium* (Fosamax*) 70 Mg Tablet, 70 MG PO Q7D for QSUNDAY 12/20/18 Isosorbide Mononitrate* (Isosorbide Mononitrate*) 60 Mg Tab.er.24h, 60 MG PO DAILY for 90 Days, #90 12/20/18 Furosemide* (Furosemide*) 40 Mg Tablet, 40 MG PO DAILY for 90 Days, #90 12/20/18 Aspirin (Aspirin) 81 Mg Chew, 81 MG PO DAILY for 90 Days, #90 12/20/18 Insulin Regular, Human (Humulin R U-500 Kwikpen) 500 Unit/1 Ml Insuln.pen, 45 UNIT SQ AC A 12/20/18 Alprazolam* (Xanax*) 0.5 Mg Tab, 0.5 MG PO Q8H PRN for ANXIETY, TAB TAKE TAB-QAM,1 TAB-NOON,AND 2 TAB-QHS 05/30/18 Albuterol Sulfate* (Albuterol Sulfate* Neb) 0.083%-3 Ml Neb, 1.25 MG NEB Q6H PRN for WHEEZING AND SOB, #30 VIAL 03/10/18 Discontinued Scripts Nicotine* (Nicotine* Patch) 21 mg/day Patch, 1 EACH TD DAILY, #30 PATCH Prov:LONG RADFORDNarcisa 08/29/18 Clotrimazole-Betamethasone Diprop (Clotrimazole-Betamethasone Diprop) 15 Gm Cream.gm., 1 APPLIC TOP BID, #60 GM Prov:LONG RADFORD Narcisa 08/29/18 Bromocriptine Mesylate* (Parlodel*) 2.5 Mg Tablet, 2.5 MG PO DAILY, #30 TAB Prov:LONG RADFORD 08/29/18 Verapamil Hcl* (Verapamil ER*) 240 Mg Tablet.er, 120 MG PO DAILY, #30 TAB 2 Refills for dumping syndrome Prov:LONG RADFORD Narcisa 08/29/18 Isosorbide Mononitrate* (Isosorbide Mononitrate*) 30 Mg Tab.er.24h, 30 MG PO DAILY, #30 TAB 2 Refills Prov:LONG RADFORD Narcisa 08/29/18 Fluconazole* (Diflucan*) 150 Mg Tablet, 150 MG PO Q7D@0900 for 5 Days, #5 TAB Prov:LONG RADFORD . 08/29/18 Clarithromycin* (Clarithromycin*) 500 Mg Tablet, 500 MG PO BID for 10 Days, #20 TAB Prov:LONG RADFORD . 08/29/18 Amoxicillin* (Amoxicillin*) 500 Mg Cap, 1000 MG PO BID for 10 Days, #20 CAP Prov:LONG RADFORD 08/29/18 Insulin Regular, Human (Humulin R U-500) 500 Unit/1 Ml Vial, 36 UNIT SQ BEFORE MEALS, #27 VIAL 2 Refills Prov:LONG RADFORD Narcisa 08/29/18 Medications Current Medications Sodium Chloride 1,000 ml @ 0 mls/hr Q0M IV ; Start 12/20/18 at 01:49 Ondansetron HCl (Zofran Inj) 4 mg Q6H PRN IV NAUSEA AND/OR VOMITING; Start 12/20/18 at 02:30 Albuterol/ Ipratropium (Duoneb) 3 ml Q2H RESP THERAPY PRN NEB SHORTNESS OF BREATH; Start 12/20/18 at 02:30 Acetaminophen (Tylenol Liquid) 650 mg Q6H PRN PO PAIN LEVEL 1-3 OR FEVER Last administered on 12/20/18 13:20; Admin Dose 650 MG; Start 12/20/18 at 02:30 Acetaminophen/ Hydrocodone Bitart ([place] (5/325)) 1 tab Q6H PRN PO PAIN LEVEL 4-6 Last administered on 12/20/18 15:20; Admin Dose 1 TAB; Start 12/20/18 at 02:30 Heparin Sodium (Porcine) (Heparin (5000 Units/1ml)) 5,000 unit Q12 SC Last administered on 12/20/18 08:44; Admin Dose 5,000 UNIT; Start 12/20/18 at 09:00 Fluticasone/ Vilanterol (Breo Ellipta 200-25 Mcg Inh) 1 inh DAILY INH Last administered on 12/20/18 10:56; Admin Dose 1 INH; Start 12/20/18 at 10:00 Albuterol (Proventil 0.083% (Neb)) 1.25 mg Q6H PRN NEB WHEEZING AND SOB; Start 12/20/18 at 10:00 Alendronate Sodium (Fosamax) 70 mg Q7D PO Last administered on 12/20/18 10:55; Admin Dose 70 MG; Start 12/20/18 at 10:00 Aspirin (Aspirin) 81 mg DAILY PO Last administered on 12/20/18 10:55; Admin Dose 81 MG; Start 12/20/18 at 10:00 Atorvastatin Calcium (Lipitor) 40 mg QHS PO ; Start 12/20/18 at 21:00 Insulin Glargine (Lantus) 45 units BID SC Last administered on 12/20/18 11:47; Admin Dose 45 UNITS; Start 12/20/18 at 10:00 Pantoprazole (Protonix Tab) 40 mg BID PO Last administered on 12/20/18 10:55; Admin Dose 40 MG; Start 12/20/18 at 10:00 Paroxetine HCl (Paxil) 40 mg HS PO ; Start 12/20/18 at 21:00 Sodium Chloride 1,000 ml @ 100 mls/hr Q10H IV Last administered on 12/20/18at 10:56; Admin Dose 100 MLS/HR; Start 12/20/18 at 10:00 Diagnostic Test (Pha) (Accu-Chek) 1 ea 02 XX ; Start 12/21/18 at 02:00 Rivaroxaban (Xarelto) 20 mg WITH DINNER PO Last administered on 12/20/18at 17:02; Admin Dose 20 MG; Start 12/20/18 at 17:35 Gabapentin (Neurontin) 900 mg TID PO Last administered on 12/20/18at 13:20; Admin Dose 900 MG; Start 12/20/18 at 13:00 Diagnostic Test (Pha) (Accu-Chek) 1 ea 02 XX ; Start 12/21/18 at 02:00 Insulin Aspart (Novolog Insulin Pen) 20 unit WITH MEALS SC ; Start 12/21/18 at 07:35 Insulin Aspart (Novolog Insulin Pen) NOVOLOG *MODERATE* ALGORITHM WITH MEALS BEDTIME SC ; Start 12/20/18 at 21:00 Linagliptin (Tradjenta) 5 mg DAILY PO ; Start 12/21/18 at 09:00 Empaglifozin (Jardiance) 25 mg DAILY@08 PO ; Start 12/21/18 at 08:00 Metformin HCl (Glucophage) 500 mg BID WITH MEALS PO ; Start 12/20/18 at 19:30 Miscellaneous Information 1 ea NOTE XX ; Start 12/20/18 at 20:00 Glucose (Glutose) 15 gm Q15M PRN PO DECREASED GLUCOSE; Start 12/20/18 at 20:00 Glucose (Glutose) 22.5 gm Q15M PRN PO DECREASED GLUCOSE; Start 12/20/18 at 20:00 Dextrose (D50w Syringe) 25 ml Q15M PRN IV DECREASED GLUCOSE; Start 12/20/18 at 20:00 Dextrose (D50w Syringe) 50 ml Q15M PRN IV DECREASED GLUCOSE; Start 12/20/18 at 20:00 Glucagon (Glucagen) 1 mg Q15M PRN IM DECREASED GLUCOSE; Start 12/20/18 at 20:00 Glucose (Glutose) 15 gm Q15M PRN BUCCAL DECREASED GLUCOSE; Start 12/20/18 at 20:00 Allergies: Coded Allergies: No Known Allergy (Unverified , 12/20/18) Past Surgical History Past Surgical Hx: cholecystectomy, other (c-sect x 2) Family History Significant Family History: heart disease, cancer (stomach, lung), diabetes, other (stroke) Social History erwin Villalobos, 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, 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, , 9 children Alcohol Use: none Smoking Status: Current every day smoker (2 1/2 ppd x 40 y) Drug Use: cocaine (in past) Exam/Review of Systems Exam Vitals Vital Signs Date Temp Pulse Resp B/P (MAP) Pulse Ox O2 O2 Flow FiO2 Time Delivery Rate 12/20/18 82 14 90/55 (67) 93 Room Air 18:00 12/20/18 97.9 16:00 12/20/18 2.0 10:00 Intake and Output 12/19/18 12/19/18 12/20/18 1515:00 23:00 07:00 IntakeIntake Total 138.17 ml OutputOutput Total 0 ml BalanceBalance 138.17 ml Constitutional: alert, oriented, obese Psych: no complaints, nl mood/affect Eyes: nl conjunctiva, EOMI, nl lids, nl sclera, PERRL ENMT: nl external ears & nose, mucosa pink and moist Neck: supple, non-tender; No bruits, No masses, No thyromegaly Respiratory: clear to auscultation, normal air movement Cardiovascular: regular rate and rhythm, nl pulses; No edema, No murmurs/extra sounds, No rub Gastrointestinal: soft, nl liver, spleen, non-tender, bowel sounds; No mass, No rebound or guarding Musculoskeletal: nl extremities to inspection Extremities: normal pulses; No cyanosis, No clubbing, No edema Neurological: SIDE LASTER TACK II-XII intact, nl mental status, nl speech, nl strength Additional Comments Bedside Glucose - 72 Hours Test 12/19/18 20:16 12/19/18 23:02 12/20/18 01:13 12/20/18 03:10 Bedside > 595 > 595 > 595 > 595 Glucose mg/dL (70-220) mg/dL (70-220) mg/dL (70-220) mg/dL (70-220) *H *H *H *H Test 12/20/18 04:34 12/20/18 05:32 12/20/18 06:25 12/20/18 07:34 Bedside 562 428 392 357 Glucose mg/dL (70-220) mg/dL (70-220) mg/dL (70-220) mg/dL (70-220) *H *H H H Test 12/20/18 08:39 12/20/18 09:45 12/20/18 11:25 12/20/18 17:06 Bedside 289 207 128 420 Glucose mg/dL (70-220) mg/dL (70-220) mg/dL (70-220) mg/dL (70-220) H *H Results Result Diagram: 12/20/18 0115 12/20/18 1758 Results 24hrs Laboratory Tests Test 12/19/18 20:16 12/19/18 23:02 12/20/18 00:39 12/20/18 00:55 Bedside Glucose > 595 *H > 595 *H Blood Gas Blood venous Specimen Source Arterial Blood 12/20/2018 1:15: Date Drawn 00 AM Arterial Blood VENOUS LINE Gas Puncture Site Amadou Test N/A Venous Blood pH 7.428 Venous Blood 40.2 pCO2 (Temp Corrected) Venous Blood pO2 48.8 H (Temp Corrected) Venous Blood 26.0 HCO3 Venous Blood 85.2 H Oxygen Saturation Venous Blood 1.6 Base Excess Venous Blood 15.2 Total Hemoglobin Venous Blood 81.4 Oxyhemoglobin Venous Blood 0.1 Methemoglobin Carboxyhemoglobi 4.4 n Blood Gas 37.0 Temperature Blood Gas ROOM AIR Modality FiO2 21.0 Blood Gas UP Notified Whom Blood Gas 12/20/2018 1:23: Notified Time 55 AM Bedside Urine pH 6.0 (LAB) Bedside Urine Negative Protein (LAB) Bedside Urine 0.50% H Glucose (UA) Bedside Urine Negative Ketones (LAB) Bedside Urine Negative Blood Bedside Urine Negative Nitrite (LAB) Bedside Urine Negative Leukocyte Estera se (L Test 12/20/18 01:13 12/20/18 01:15 12/20/18 03:10 12/20/18 03:36 Bedside Glucose > 595 *H > 595 *H White Blood 11.2 H Count Red Blood Count 5.38 Hemoglobin 14.4 Hematocrit 44.9 Mean Corpuscular 83.5 Volume Mean Corpuscular 26.8 L Hemoglobin Mean Corpuscular 32.1 Hemoglobin Alisia nt Red Cell 16.1 H Distribution Width Platelet Count 354 Mean Platelet 10.6 H Volume Immature 0.600 H Granulocytes % Neutrophils % 59.8 Lymphocytes % 27.5 Monocytes % 8.7 Eosinophils % 2.4 Basophils % 1.0 Nucleated Red 0.0 Blood Cells % Immature 0.070 H Granulocytes # Neutrophils # 6.7 Lymphocytes # 3.1 H Monocytes # 1.0 H Eosinophils # 0.3 Basophils # 0.1 Nucleated Red 0.0 Blood Cells # Urine Color STRAW Urine Clarity CLEAR Urine pH 6.0 Urine Specific 1.026 [place] Urine Ketones TRACE A Urine Nitrite NEGATIVE Urine Bilirubin NEGATIVE Urine NEGATIVE Urobilinogen Urine Leukocyte NEGATIVE Esterase Urine Hemoglobin NEGATIVE Urine Glucose 3+ H Urine Total NEGATIVE Protein Sodium Level 128 L 131 L Potassium Level 4.4 4.3 Chloride Level 89 L 96 L Carbon Dioxide 24 21 Level Anion Gap 15 H 14 H Blood Urea 23 H 21 H Nitrogen Creatinine 1.08 H 0.96 Est Glomerular 52 L 60 Filtrat Rate mL/min Glucose Level 728 *H 621 *H Hemoglobin A1c Calcium Level 9.6 9.2 Phosphorus Level 4.7 4.4 Magnesium Level 1.8 1.9 Test 12/20/18 03:49 12/20/18 04:34 12/20/18 05:27 12/20/18 05:32 Blood Gas Blood venous Specimen Source Arterial Blood 12/20/2018 4:40: Date Drawn 33 AM Arterial Blood VENOUS LINE Gas Puncture Site Amadou Test ACCEPTAB Venous Blood pH 7.386 Venous Blood 43.4 pCO2 (Temp Corrected) Venous Blood pO2 72.4 H (Temp Corrected) Venous Blood 25.4 HCO3 Venous Blood 94.0 H Oxygen Saturation Venous Blood 0.2 Base Excess Venous Blood 14.7 Total Hemoglobin Venous Blood 91.0 Oxyhemoglobin Venous Blood 0.2 Methemoglobin Carboxyhemoglobi 3.0 n Blood Gas 37.0 Temperature Blood Gas NASAL CANNULA Modality FiO2 30.0 Blood Gas UP Notified Whom Blood Gas 12/20/2018 4:48: Notified Time 26 AM Bedside Glucose 562 *H 428 *H Sodium Level 134 L Potassium Level 4.0 Chloride Level 98 Carbon Dioxide 23 Level Anion Gap 13 Blood Urea 20 Nitrogen Creatinine 0.89 Est Glomerular > 60 Filtrat Rate mL/min Glucose Level 513 *H Calcium Level 9.9 Phosphorus Level 3.6 Magnesium Level 1.7 Test 12/20/18 06:25 12/20/18 07:34 12/20/18 08:39 12/20/18 09:45 Bedside Glucose 392 H 357 H 289 H 207 Test 12/20/18 11:25 12/20/18 17:06 12/20/18 17:58 Bedside Glucose 128 420 *H Sodium Level 131 L Potassium Level 4.1 Chloride Level 100 Carbon Dioxide 21 Level Anion Gap 10 Blood Urea 16 Nitrogen Creatinine 0.89 Est Glomerular > 60 Filtrat Rate mL/min Glucose Level 464 *H Calcium Level 9.2 Phosphorus Level 3.7 Magnesium Level 1.6 L Medications Medication Current Medications Sodium Chloride 1,000 ml @ 0 mls/hr Q0M IV ; Start 12/20/18 at 01:49 Ondansetron HCl (Zofran Inj) 4 mg Q6H PRN IV NAUSEA AND/OR VOMITING; Start 12/20/18 at 02:30 Albuterol/ Ipratropium (Duoneb) 3 ml Q2H RESP THERAPY PRN NEB SHORTNESS OF BREATH; Start 12/20/18 at 02:30 Acetaminophen (Tylenol Liquid) 650 mg Q6H PRN PO PAIN LEVEL 1-3 OR FEVER Last administered on 12/20/18at 13:20; Admin Dose 650 MG; Start 12/20/18 at 02:30 Acetaminophen/ Hydrocodone Bitart ([place] (5/325)) 1 tab Q6H PRN PO PAIN LEVEL 4-6 Last administered on 12/20/18at 15:20; Admin Dose 1 TAB; Start 12/20/18 at 02:30 Heparin Sodium (Porcine) (Heparin (5000 Units/1ml)) 5,000 unit Q12 SC Last administered on 12/20/18at 08:44; Admin Dose 5,000 UNIT; Start 12/20/18 at 09:00 Fluticasone/ Vilanterol (Breo Ellipta 200-25 Mcg Inh) 1 inh DAILY INH Last administered on 12/20/18at 10:56; Admin Dose 1 INH; Start 12/20/18 at 10:00 Albuterol (Proventil 0.083% (Neb)) 1.25 mg Q6H PRN NEB WHEEZING AND SOB; Start 12/20/18 at 10:00 Alendronate Sodium (Fosamax) 70 mg Q7D PO Last administered on 12/20/18 10:55; Admin Dose 70 MG; Start 12/20/18 at 10:00 Aspirin (Aspirin) 81 mg DAILY PO Last administered on 12/20/18 10:55; Admin Dose 81 MG; Start 12/20/18 at 10:00 Atorvastatin Calcium (Lipitor) 40 mg QHS PO ; Start 12/20/18 at 21:00 Insulin Glargine (Lantus) 45 units BID SC Last administered on 12/20/18at 11:47; Admin Dose 45 UNITS; Start 12/20/18 at 10:00 Pantoprazole (Protonix Tab) 40 mg BID PO Last administered on 12/20/18 10:55; Admin Dose 40 MG; Start 12/20/18 at 10:00 Paroxetine HCl (Paxil) 40 mg HS PO ; Start 12/20/18 at 21:00 Sodium Chloride 1,000 ml @ 100 mls/hr Q10H IV Last administered on 12/20/18 10:56; Admin Dose 100 MLS/HR; Start 12/20/18 at 10:00 Diagnostic Test (Pha) (Accu-Chek) 1 ea 02 XX ; Start 12/21/18 at 02:00 Rivaroxaban (Xarelto) 20 mg WITH DINNER PO Last administered on 12/20/18at 17:02; Admin Dose 20 MG; Start 12/20/18 at 17:35 Gabapentin (Neurontin) 900 mg TID PO Last administered on 12/20/18at 13:20; Admin Dose 900 MG; Start 12/20/18 at 13:00 Diagnostic Test (Pha) (Accu-Chek) 1 ea 02 XX ; Start 12/21/18 at 02:00 Insulin Aspart (Novolog Insulin Pen) 20 unit WITH MEALS SC ; Start 12/21/18 at 07:35 Insulin Aspart (Novolog Insulin Pen) NOVOLOG *MODERATE* ALGORITHM WITH MEALS BEDTIME SC ; Start 12/20/18 at 21:00 Linagliptin (Tradjenta) 5 mg DAILY PO ; Start 12/21/18 at 09:00 Empaglifozin (Jardiance) 25 mg DAILY@08 PO ; Start 12/21/18 at 08:00 Metformin HCl (Glucophage) 500 mg BID WITH MEALS PO ; Start 12/20/18 at 19:30 Miscellaneous Information 1 ea NOTE XX ; Start 12/20/18 at 20:00 Glucose (Glutose) 15 gm Q15M PRN PO DECREASED GLUCOSE; Start 12/20/18 at 20:00 Glucose (Glutose) 22.5 gm Q15M PRN PO DECREASED GLUCOSE; Start 12/20/18 at 20:00 Dextrose (D50w Syringe) 25 ml Q15M PRN IV DECREASED GLUCOSE; Start 12/20/18 at 20:00 Dextrose (D50w Syringe) 50 ml Q15M PRN IV DECREASED GLUCOSE; Start 12/20/18 at 20:00 Glucagon (Glucagen) 1 mg Q15M PRN IM DECREASED GLUCOSE; Start 12/20/18 at 20:00 Glucose (Glutose) 15 gm Q15M PRN BUCCAL DECREASED GLUCOSE; Start 12/20/18 at 2 0:00 MIKHAIL RAMACHANDRAN MD Dec 20, 2018 20:01
[2018-12-20] MEDS ORDERED: PAROXETINE 20 MG TAB PO SCH (21:00)
[2018-12-20] MEDS ORDERED: INSULIN ASPART [NOVOLOG] 3 ML PEN SC SCH ×2 (21:00)
[2018-12-20] MEDS ORDERED: ATORVASTATIN 40 MG TAB PO SCH (21:00)
[2018-12-21] MEDS ORDERED: ACCU-CHEK XX SCH ×3 (02:00)
[2018-12-21] MEDS ORDERED: INSULIN ASPART [NOVOLOG] 3 ML PEN SC SCH ×2 (07:35)
[2018-12-21] MEDS ORDERED: EMPAGLIFLOZIN 10 MG TABLET PO SCH (08:00)
[2018-12-21] MEDS ORDERED: LINAGLIPTIN 5 MG TABLET PO SCH (09:00)
== END 2018-12-20 20:22 | disposition left against medical advice (07) | DRG 638 ==
LOC: E/R 20:09 → ICU 12-20 02:13
PROVIDERS: ADMIT Internal Medicine; ATTEND Hospitalist
DX: E11.65 Type 2 diabetes mellitus with hyperglycemia (principal); Z68.42 Body mass index [BMI] 45.0-49.9, adult; G47.00 Insomnia, unspecified; I10 Essential (primary) hypertension; J44.9 Chronic obstructive pulmonary disease, unspecified; E78.5 Hyperlipidemia, unspecified; E66.9 Obesity, unspecified; Z79.82 Long term (current) use of aspirin; Z79.4 Long term (current) use of insulin
CPT/HCPCS: 36415; 71045; 80048; 81003; 82803; 82962; 83036; 83735; 84100; 85025; 87081; 93005; J1644; J1815; J1940; J3480; J7030; J7120